=== PATIENT | female | born 1970 | race Caucasian/White ===

== ENCOUNTER → 2017-12-13 10:12 | Outpatient (CLI) | payer OTHER, SELFPAY ==
--- NOTE | 2017-12-13 10:20 | MRI_ITS ---
STUDY: MRI CERVICAL SPINE WITHOUT CONTRAST REASON FOR EXAM: Female, 47 years old. Cervicalgia TECHNIQUE: Standardized fat and water weighted pulse sequences were obtained in the sagittal and axial planes. COMPARISON: None FINDINGS: Normal foramen magnum and brainstem-cervical cord junction. Normal craniovertebral junction. Normal anterior atlantoaxial articulation. Normal odontoid process. Normal cervical lordosis. Normal vertebral bodies and posterior osseous elements. C2-3: Normal endplates. Normal disc height, signal and morphology. Normal central canal and intervertebral neural foramina. C3-4: Normal endplates. Normal disc height, signal and morphology. Normal central canal and intervertebral neural foramina. C4-5: Disc space narrowing. Disc osteophyte complex with mild central canal and moderate right and mild left foraminal stenoses. C5-6: Disc space narrowing. Disc osteophyte complex with mild central canal and moderate bilateral foraminal stenoses. C6-7: Normal endplates. Normal disc height, signal and morphology. Normal central canal and intervertebral neural foramina. C7-T1: Normal endplates. Normal disc height, signal and morphology. Normal central canal and intervertebral neural foramina. Normal cervical cord. Normal visualized soft tissue structures. MRI/Spine Cervical (Routine) IMPRESSION: Degenerative disc disease at C4-5 and C5-6. Moderate foraminal stenoses on the right at C4-5 and bilaterally at C5-6. Electronically Signed: Jose Sumner MD at 12:24 EST Tel , Service support ,
== END ==
PROVIDERS: Family Provider Family Medicine; PCP Family Medicine; Visit Provider Psychiatry & Neurology Neurology
DX: M54.2 Cervicalgia (principal)
CPT/HCPCS: 72141

== ENCOUNTER → 2017-12-27 11:26 | Outpatient (CLI) | payer OTHER, SELFPAY ==
[2017-12-27 14:15] LABS: Absolute Lymphocyte Count 2.09 X10^3/ul (0.83-4.51); Absolute Neutrophil Count 6.9 X10^3/uL (2.0-7.7); Basophil# 0.01 X10^3/uL; Basophil% 0.1 % (0-1); Eosinophil# 0.17 X10^3/uL; Eosinophils% 1.7 % (0-5); Hematocrit 35.4 % (37-47); Hemoglobin 10.6 g/dl (12.0-15.0); Lymphocyte # 2.09 X10^3/ul (4.0); Lymphocyte % 21.3 % (19-41); Mean Corp Hgb Conc 29.9 g/gl (32-36); Mean Corpuscular Hgb 25.6 pg (27.0-32.0); Mean Corpuscular Volume 85.5 fL (81-99); Mean Platelet Vol. 10.4 fl (6.2-12.0); Monocyte# 0.65 X10^3/uL; Monocyte% 6.6 % (0-10); Neutrophil % 70.2 % (47-70); POSITIVE COUNT NO; POSITIVE DIFFERENTIAL NO; POSITIVE MORPHOLOGY NO; Platelet Count 236 K/mm3 (150-450); RBC Distribution Width CV 16.9 % (11.6-14.6); RBC Distribution Width SD 52.8 fl (35.1-43.9); Red Blood Count 4.14 M/mm3 (4.2-5.4); White Blood Count 9.8 K/mm3 (4.4-11.0)
[2017-12-27 14:34] LABS: ALB/GLOB Ratio 0.8 RATIO (0.9-2.4); AST(SGOT) 22 U/L (15-37); Alanine Aminotransfer ALT/SGPT 22 U/L (13-56); Albumin, Serum 2.9 g/dL (3.2-5.0); Alkaline Phosphatase 59 U/L (45-117); Anion Gap 8 (5-15); BUN 10 mg/dL (7-18); BUN/Creat Ratio 12.9 RATIO (10-20); Calcium,Total 7.9 mg/dL (8.5-10.1); Chloride 106 mmol/L (98-107); Creatinine, Serum 0.78 mg/dL (0.55-1.02); EST Glomerular Filtration Rate 85 mL/min (>60); Est Glom Filt Rate - Afr Amer 102 mL/min (>60); Globulin 3.5 g/dL (2.2-4.2); Glucose 78 mg/dL (74-106); Potassium 3.9 mmol/L (3.5-5.1); Protein, Total 6.4 g/dL (6.4-8.2); Sodium Level 139 mmol/L (136-145)
== END ==
PROVIDERS: Family Provider Family Medicine; PCP Family Medicine; Visit Provider Internal Medicine Rheumatology
DX: M06.4 Inflammatory polyarthropathy (principal); M79.7 Fibromyalgia; M35.00 Sjogren syndrome, unspecified; H35.30 Unspecified macular degeneration; J45.909 Unspecified asthma, uncomplicated; G43.909 Migraine, unspecified, not intractable, without status migrainosus; F41.9 Anxiety disorder, unspecified; Z79.899 Other long term (current) drug therapy
CPT/HCPCS: 36415; 80053; 85025

== ENCOUNTER → 2018-03-15 09:42 | Outpatient (CLI) | payer OTHER, SELFPAY ==
[2018-03-15 12:12] LABS: Absolute Lymphocyte Count 2.76 X10^3/ul (0.83-4.51); Basophil# 0.02 X10^3/uL; Basophil% 0.2 % (0-1); Eosinophil# 0.08 X10^3/uL; Eosinophils% 0.8 % (0-5); Hematocrit 35.5 % (37-47); Hemoglobin 10.8 g/dl (12.0-15.0); Lymphocyte # 2.76 X10^3/ul (4.0); Lymphocyte % 28.5 % (19-41); Mean Corp Hgb Conc 30.4 g/gl (32-36); Mean Corpuscular Hgb 25.8 pg (27.0-32.0); Mean Corpuscular Volume 84.9 fL (81-99); Mean Platelet Vol. 11.2 fl (6.2-12.0); Monocyte# 0.78 X10^3/uL; Neutrophil # 6.03 X10^3/uL (2.7-7.7); Neutrophil % 62.2 % (47-70); Platelet Count 235 K/mm3 (150-450); RBC Distribution Width CV 18.5 % (11.6-14.6); RBC Distribution Width SD 54.9 fl (35.1-43.9); Red Blood Count 4.18 M/mm3 (4.2-5.4); White Blood Count 9.7 K/mm3 (4.4-11.0)
[2018-03-15 12:24] LABS: POSITIVE COUNT NO; POSITIVE DIFFERENTIAL NO; POSITIVE MORPHOLOGY NO
[2018-03-15 13:07] LABS: ALB/GLOB Ratio 0.9 RATIO (0.9-2.4); AST(SGOT) 20 U/L (15-37); Alanine Aminotransfer ALT/SGPT 22 U/L (13-56); Albumin, Serum 3.2 g/dL (3.2-5.0); Alkaline Phosphatase 55 U/L (45-117); Anion Gap 7 (5-15); BUN 13 mg/dL (7-18); Calcium,Total 8.2 mg/dL (8.5-10.1); Chloride 105 mmol/L (98-107); Creatinine, Serum 0.81 mg/dL (0.55-1.02); EST Glomerular Filtration Rate 80 mL/min (>60); Est Glom Filt Rate - Afr Amer 97 mL/min (>60); Globulin 3.6 g/dL (2.2-4.2); Glucose 83 mg/dL (74-106); Potassium 4.1 mmol/L (3.5-5.1); Protein, Total 6.8 g/dL (6.4-8.2); Sodium Level 139 mmol/L (136-145)
== END ==
PROVIDERS: Family Provider Family Medicine; PCP Family Medicine; Visit Provider Internal Medicine Rheumatology
DX: M06.4 Inflammatory polyarthropathy (principal); M35.00 Sjogren syndrome, unspecified; H35.30 Unspecified macular degeneration; M79.7 Fibromyalgia; J45.909 Unspecified asthma, uncomplicated; F41.9 Anxiety disorder, unspecified; G43.909 Migraine, unspecified, not intractable, without status migrainosus; Z79.899 Other long term (current) drug therapy
CPT/HCPCS: 36415; 80053; 85025

== ENCOUNTER → 2018-03-21 15:47 | Outpatient (CLI) | payer OTHER, SELFPAY ==
--- NOTE | 2018-03-21 15:47 | DT_ITS ---
This patient was seen during an EMR downtime March 21, 2018 - March 28, 2018. This patient may have a combination of paper and electronic documentation or all paper documentation. All documentation is viewable within the e-chart portion of [email or web address] for each patient visit.
--- NOTE | 2018-03-21 15:50 | RAD_ITS ---
STUDY: X-RAY CHEST REASON FOR EXAM: Female, 47 years old. Inflammatory arthropathy. TECHNIQUE: Frontal and lateral views of the chest. COMPARISON: September 18, 2013 FINDINGS: There is stable mild hyperexpansion. There is no demonstrated pleural abnormality. Normal size heart. Normal mediastinum and roman. Normal visualized pulmonary arteries. Normal visualized aortic arch and descending thoracic aorta. There are diffuse degenerative changes of the visualized thoracic spine. Normal visualized ribs, clavicles, and shoulders. There is no demonstrated abnormality of the visualized soft tissue structures of the upper abdomen. RAD/Chest PA and Lateral IMPRESSION: Stable mild hyperexpansion without acute or active cardiopulmonary disease. Electronically Signed: Alex Nguyen MD at 17:30 EDT , Service support ,
== END ==
PROVIDERS: Family Provider Family Medicine; PCP Family Medicine; Visit Provider Internal Medicine Rheumatology
DX: M06.4 Inflammatory polyarthropathy (principal); M79.7 Fibromyalgia; M35.00 Sjogren syndrome, unspecified; H35.30 Unspecified macular degeneration; J45.909 Unspecified asthma, uncomplicated; F41.9 Anxiety disorder, unspecified; G43.909 Migraine, unspecified, not intractable, without status migrainosus; Z79.899 Other long term (current) drug therapy
CPT/HCPCS: 36415; 71046; 86480

== ENCOUNTER → 2018-07-05 10:52 | Outpatient (CLI) | payer OTHER, SELFPAY ==
[2018-07-05 12:17] LABS: Absolute Lymphocyte Count 0.97 X10^3/ul (0.83-4.51); Absolute Neutrophil Count 8.4 X10^3/uL (2.0-7.7); Basophil# 0.01 X10^3/uL; Basophil% 0.1 % (0-1); Eosinophil# 0.01 X10^3/uL; Eosinophils% 0.1 % (0-5); Hematocrit 37.3 % (37-47); Hemoglobin 11.2 g/dl (12.0-15.0); Lymphocyte # 0.97 X10^3/ul (4.0); Lymphocyte % 10.1 % (19-41); Mean Corpuscular Hgb 25.1 pg (27.0-32.0); Mean Corpuscular Volume 83.6 fL (81-99); Mean Platelet Vol. 10.8 fl (6.2-12.0); Monocyte# 0.21 X10^3/uL; Monocyte% 2.2 % (0-10); Neutrophil # 8.41 X10^3/uL (2.7-7.7); Neutrophil % 87.4 % (47-70); Platelet Count 193 K/mm3 (150-450); RBC Distribution Width CV 19.8 % (11.6-14.6); Red Blood Count 4.46 M/mm3 (4.2-5.4); White Blood Count 9.6 K/mm3 (4.4-11.0)
[2018-07-05 12:30] LABS: ALB/GLOB Ratio 0.9 RATIO (0.9-2.4); AST(SGOT) 20 U/L (15-37); Alanine Aminotransfer ALT/SGPT 25 U/L (13-56); Albumin, Serum 3.2 g/dL (3.2-5.0); Alkaline Phosphatase 48 U/L (45-117); Anion Gap 9 (5-15); BUN 13 mg/dL (7-18); Calcium,Total 9.3 mg/dL (8.5-10.1); Chloride 103 mmol/L (98-107); Creatinine, Serum 0.81 mg/dL (0.55-1.02); EST Glomerular Filtration Rate 80 mL/min (>60); Est Glom Filt Rate - Afr Amer 97 mL/min (>60); Globulin 3.7 g/dL (2.2-4.2); Glucose 97 mg/dL (74-106); Potassium 4.4 mmol/L (3.5-5.1); Protein, Total 6.9 g/dL (6.4-8.2); Sodium Level 138 mmol/L (136-145)
[2018-07-05 12:31] LABS: POSITIVE COUNT NO; POSITIVE DIFFERENTIAL NO; POSITIVE MORPHOLOGY NO
== END ==
PROVIDERS: Family Provider Family Medicine; PCP Family Medicine; Visit Provider Internal Medicine Rheumatology
DX: M06.4 Inflammatory polyarthropathy (principal); M79.7 Fibromyalgia; M35.00 Sjogren syndrome, unspecified; H35.30 Unspecified macular degeneration; J45.909 Unspecified asthma, uncomplicated; F41.9 Anxiety disorder, unspecified; G43.909 Migraine, unspecified, not intractable, without status migrainosus; Z79.899 Other long term (current) drug therapy
CPT/HCPCS: 36415; 80053; 85025

== ENCOUNTER → 2018-09-27 10:14 | Outpatient (CLI) | payer OTHER, SELFPAY ==
[2018-09-27 12:27] LABS: Absolute Lymphocyte Count 2.38 X10^3/ul (0.83-4.51); Absolute Neutrophil Count 5.9 X10^3/uL (2.0-7.7); Basophil# 0.03 X10^3/uL; Basophil% 0.3 % (0-1); Eosinophil# 0.15 X10^3/uL; Eosinophils% 1.6 % (0-5); Hematocrit 36.2 % (37-47); Hemoglobin 10.6 g/dl (12.0-15.0); Lymphocyte # 2.38 X10^3/ul (4.0); Mean Corp Hgb Conc 29.3 g/gl (32-36); Mean Corpuscular Volume 81.9 fL (81-99); Mean Platelet Vol. 11.1 fl (6.2-12.0); Monocyte# 0.62 X10^3/uL; Monocyte% 6.8 % (0-10); Neutrophil # 5.94 X10^3/uL (2.7-7.7); Platelet Count 185 K/mm3 (150-450); RBC Distribution Width CV 19.6 % (11.6-14.6); RBC Distribution Width SD 56.6 fl (35.1-43.9); Red Blood Count 4.42 M/mm3 (4.2-5.4); White Blood Count 9.2 K/mm3 (4.4-11.0)
[2018-09-27 12:36] LABS: POSITIVE COUNT NO; POSITIVE DIFFERENTIAL NO; POSITIVE MORPHOLOGY NO
[2018-09-27 12:54] LABS: ALB/GLOB Ratio 0.8 RATIO (0.9-2.4); AST(SGOT) 17 U/L (15-37); Alanine Aminotransfer ALT/SGPT 21 U/L (13-56); Albumin, Serum 3.2 g/dL (3.2-5.0); Alkaline Phosphatase 64 U/L (45-117); Anion Gap 5 (5-15); BUN 20 mg/dL (7-18); BUN/Creat Ratio 22.6 RATIO (10-20); Calcium,Total 8.4 mg/dL (8.5-10.1); Chloride 107 mmol/L (98-107); Creatinine, Serum 0.88 mg/dL (0.55-1.02); EST Glomerular Filtration Rate 72 mL/min (>60); Est Glom Filt Rate - Afr Amer 88 mL/min (>60); Globulin 3.9 g/dL (2.2-4.2); Glucose 85 mg/dL (74-106); Potassium 4.5 mmol/L (3.5-5.1); Protein, Total 7.1 g/dL (6.4-8.2); Sodium Level 139 mmol/L (136-145)
--- OUTSIDE RECORDS SUMMARY | 2018-11-13 10:30 | XMS RPT_ITS ---
:1970 Author Organization OHIP Care Team Providers Name Role Phone Aida Mata Attending Unavailable Aida Mata Referring Unavailable Lance Deng Primary Care Unavailable Osito Penaloza Attending Unavailable Osito Penaloza Referring Unavailable Lance Deng Primary Care Unavailable Aida Mata Attending Unavailable Aida Mata Referring Unavailable Lance Deng Primary Care Unavailable Aida Mata Attending Unavailable Aida Mata Referring Unavailable Lance Deng Primary Care Unavailable Adolfo Aida Attending Unavailable Yakovdejah, Aida Referring Unavailable Lance Deng Primary Care Unavailable Velmindydejah, Aida Attending Unavailable Yakovdejah, Aida Referring Unavailable Lance Deng Primary Care Unavailable PROBLEMS PROBLEMS DATE TYPE CONDITION / CODE ATTENDING STATUS SOURCE 09/27/2018 Unknown M06.09 - Rheumatoid Adolfo Aida Active [facility] arthritis without Community rheumatoid factor, Hospital multiple sites / Repository M06.09(ICD-10) 09/27/2018 Unknown Z79.899 - Other long Jamshidlandejah, Aida Active [facility] term (current) drug Community therapy / Hospital Z79.899(ICD-10) Repository 09/27/2018 Unknown M79.7 - Fibromyalgia Vellandejah, Aida Active [facility] / M79.7(ICD-10) [facility] Repository 09/27/2018 Unknown M35.00 - Sicca Velniru, Aida Active [facility] syndrome, unspecified Community / M35.00(ICD-10) Hospital Repository 09/27/2018 Unknown H35.30 - Unspecified Vellandejah, Aida Active [facility] macular degeneration Community / H35.30(ICD-10) Hospital Repository 09/27/2018 Unknown J45.909 - Unspecified Vellandejah, Aida Active [facility] asthma, uncomplicated Community / J45.909(ICD-10) Hospital Repository 09/27/2018 Unknown F41.9 - Anxiety Vellandejah, Aida Active [facility] disorder, unspecified Community / F41.9(ICD-10) Hospital Repository 09/27/2018 Unknown G43.909 - Migraine, Jamshidlandejah, Aida Active [facility] unspecified, not Community intractable, without Hospital status migrainosus / Repository G43.909(ICD-10) 07/05/2018 Unknown 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, 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 / Community M06.4(ICD-10) Hospital Repository 12/13/2017 Unknown M54.2 - Cervicalgia / Bavis Osito Active [facility] M54.2(ICD-10) [facility] Repository PROCEDURES PROCEDURES No Procedure Records FoundRESULTS RESULTS CBC W/DIFF, AUTOMATED Collected: 09/27/2018 Status: F Source: [place] 10:22 AM [facility] REPOSITORY TYPE CODE TESTS RESULT OUT OF RANGE REFERENCE UNITS LAB L100.1000 4.4-11.0 K/mm3 Normal WBC 9.2 LAB L100.1200 4.2-5.4 M/mm3 Normal RBC 4.42 LAB L100.1300 12.0-15.0 g/dl Low HGB 10.6 LAB L100.1400 37-47 % Low HCT 36.2 LAB L100.1500 81-99 fL Normal MCV 81.9 LAB L100.1600 27.0-32.0 pg Low MCH 24.0 LAB L100.1700 32-36 g/gl Low MCHC 29.3 LAB L100.1810 11.6-14.6 % High RDW CV 19.6 LAB L100.1820 35.1-43.9 fl High RDW SD 56.6 LAB L100.1900 150-450 K/mm3 Normal PLT 185 LAB L100.2000 6.2-12.0 fl Normal MPV 11.1 LAB L100.2100 47-70 % Normal NEUT% 65.0 LAB L100.2200 19-41 % Normal LY% 26.0 LAB L100.2300 0-10 % Normal MONO% 6.8 LAB L100.2400 0-5 % Normal EO% 1.6 LAB L100.2500 0-1 % Normal BASO% 0.3 LAB L100.2550 0.0-0.9 % Normal IM GRAN % 0.300 Result Comment: IG% - Immature Granulocytes (promyelocytes, myelocytes and metamyelocytes) > 1% indicates that a LEFT SHIFT is Present. LAB L100.2620 2.0-7.7 X10 3/uL Normal Absolute Neut 5.9 LAB L100.2720 0.83-4.51 X10 3/ul Normal Absolute Lymph 2.38 Performed By: #### L100.0100 #### [facility] [address] [place], [place], [id number] COMPREHENSIVE METABOLIC Collected: 09/27/2018 Status: F [facility] 10:22 AM [facility] REPOSITORY TYPE CODE TESTS RESULT OUT OF RANGE REFERENCE UNITS LAB L501.0100 74-106 mg/dL Normal GLU 85 Result Comment: Please note revised GLUCOSE reference range effective 2017. LAB L501.1000 7-18 mg/dL High BUN 20 LAB L501.1100 0.55-1.02 mg/dL Normal CREAT,SERUM 0.88 Result Comment: The validity of the calculated GFR AND GFRAA in patients over 70 years has not been determined. Clinical correlation is essential. LAB L501.1110 >60 mL/min Normal EST GFR 72 Result Comment: Non- GFR Calc LAB L501.1115 >60 mL/min Normal EST GFR - AA 88 Result Comment: GFR Calc LAB L501.1300 10-20 RATIO High BUN/CRE 22.6 LAB L501.1500 6.4-8.2 g/dL T Normal PROT 7.1 LAB L501.1800 3.2-5.0 g/dL Normal ALB 3.2 LAB L501.1950 2.2-4.2 g/dL Normal GLOB 3.9 LAB L501.2000 0.9-2.4 RATIO Low A/G 0.8 LAB L501.2200 8.5-10.1 mg/dL Low CA 8.4 LAB L501.4100 15-37 U/L Normal AST 17 LAB L501.4305 45-117 U/L Normal ALK P 64 LAB L501.4405 13-56 U/L Normal ALT 21 LAB L501.4600 0.20-1.00 mg/dL T Normal BILI 0.40 LAB L501.5300 136-145 mmol/L NA Normal 139 LAB L501.5600 3.5-5.1 mmol/L K Normal 4.5 LAB L501.5900 98-107 mmol/L CL Normal 107 LAB L501.6100 21.0-32.0 mmol/L Normal CO2 27.0 LAB L501.6200 5-15 Normal GAP 5 Performed By: #### L500.4050 #### [facility] [address] [facility] [place], [address] PROGRESS Observed: 07/17/2018 Status: COMPLETED Source: [place] 11:57 AM [facility] REPOSITORY HNO ID: [id number] Author: Mulu Chambers) Tolu Service: (none) Author Type: Physician Java Systems Analyst Type: Progress Notes Filed: 07/17/2018 12:00 PM Note Text: Subjective Nasal Congestion Associated symptoms include congestion and coughing. Pertinent negatives include no chills or shortness of breath. Pt presents with cough congestion and wheezing for 2 weeks. She thought at first it was Cold or allergies but hasn't improved. She is a former smoker quit 17 years a go and she has asthma. She does not have an albuterol mdi at home, she has advair. No nvd. No chest pain or shortness of breath. No shortness of breath Cough has been dry. Review of Systems Constitutional: Negative. Negative for chills and fever. HENT: Positive for congestion. Eyes: Negative. Respiratory: Positive for cough and wheezing. Negative for hemoptysis, sputum production and shortness of breath. Cardiovascular: Negative. Gastrointestinal: Negative. Genitourinary: Negative. Skin: Negative. All other systems reviewed and are negative. PAST MEDICAL HISTORY Diagnosis Date - Abscess of buttock, left - Anxiety and depression - Asthma - IBS (irritable bowel syndrome) Current Outpatient Prescriptions: methotrexate 2.5 mg tablet Take by mouth one time only. Disp: Rfl: pregabalin (LYRICA) 100 mg capsule Take 100 mg by mouth twice daily. Disp: Rfl: adalimumab (HUMIRA) 40 mg/0.4 mL sykt Inject subcutaneously. Disp: Rfl: tiZANidine HCl 2 mg capsule Take 2 mg by mouth three times daily. Disp: Rfl: cycloSPORINE (RESTASIS) 0.05 % ophthalmic emulsion 1 Drop twice daily. Disp: Rfl: metoclopramide HCl (REGLAN) 10 mg tablet Take 10 mg by mouth four times daily. Disp: Rfl: diphenhydrAMINE 25 mg tablet Take 25 mg by mouth every 6 hours as needed. Disp: Rfl: POLYVINYL ALCOHOL/POVIDONE (ARTIFICIAL TEARS OPHTHALMIC) Use in eyes. Disp: Rfl: ALBUTEROL INHALATION Inhale as instructed. Disp: Rfl: diphenoxylate-atropine 2.5-0.025 mg per tablet Take 1 tablet by mouth four times daily as needed. Disp: Rfl: 0 buPROPion XL (WELLBUTRIN XL) 300 mg ORAL 24 hr tablet Take 300 mg by mouth once daily. Disp: Rfl: ADVAIR DISKUS 100-50 mcg/dose INHALATION DsDv Disp: Rfl: MULTIVITAMIN WITH MINERALS (MULTIVITAMIN AND MINERAL FORMULA ORAL) Take by mouth. Disp: Rfl: Iron 40 mg ORAL Cap Take by mouth. Disp: Rfl: doxycycline (VIBRA-TABS) 100 mg tablet Take 1 tablet by mouth twice daily for 10 days. Disp: 20 tablet Rfl: 0 predniSONE (DELTASONE) 20 mg tablet Take 2 tablets by mouth once daily for 5 days. Disp: 10 tablet Rfl: 0 albuterol HFA (VENTOLIN HFA) 90 mcg/actuation inhaler Inhale 2 Puffs as instructed every 4 hours as needed for Wheezing/Shortness of Breath. Disp: 1 Inhaler Rfl: 0 benzonatate (TESSALON PERLES) 100 mg capsule Take 2 capsules by mouth three times daily as needed. Disp: 30 capsule Rfl: 0 TOPIRAMATE (TOPAMAX ORAL) Take 20 mg by mouth. Disp: Rfl: Ferrous Fumarate 324 mg (106 mg iron) tab Take by mouth. Disp: Rfl: oxyCODONE-acetaminophen (PERCOCET) 5-325 mg tablet Take 1 tablet by mouth every 4 hours as needed. Disp: 30 tablet Rfl: 0 acetaminophen-HYDROcodone 5-500 mg tablet Take 1-2 tablets by mouth every 4 hours as needed. Disp: 40 tablet Rfl: 1 acetaminophen-HYDROcodone 5-500 mg tablet Take 1 tablet by mouth every 4 hours as needed. Disp: Rfl: 0 LEXAPRO 20 mg ORAL tablet Disp: Rfl: TRAZODONE 50 mg ORAL tablet Disp: Rfl: No current facility-administered medications for this visit. PAST SURGICAL HISTORY Procedure Laterality Date - DELIVERY ONLY 03/02/02 - GASTRIC BYPASS HX 03/17/06 - I AND D ABSCESS, SINGLE 12/12/11 left buttock - LAP CHOLECYSTECT/CHOLANGIOGRAPHY 08/16/12 Normal IOC - PAST SURGICAL HISTORY OF vein stripping left FAMILY HISTORY Problem Relation Age of Onset - Allergies Sister - Heart Father - Hypertension Father Social History Substance Use Topics - Smoking status: Former Smoker Packs/day: 1.00 Years: 10.00 Types: Cigarettes Quit date: 07/18/2001 - Smokeless tobacco: Never Used - Alcohol use Yes Comment: twice per week BP 126/84 Pulse 70 Temp 36.4 ?C (97.6 ?F) (Right Tympanic) Resp 12 Wt 74.4 kg (164 lb) SpO2 97% BMI 32.03 kg/m? Objective Physical Exam Constitutional: She is oriented to person, place, and time and well-developed, well-nourished, and in no distress. HENT: Head: Normocephalic and atraumatic. Right Ear: Tympanic membrane, external ear and ear canal normal. Left Ear: Tympanic membrane, external ear and ear canal normal. Nose: Rhinorrhea present. Mouth/Throat: Uvula is midline, oropharynx is clear and moist and mucous membranes are normal. Neck: Normal range of motion. Neck supple. Cardiovascular: Normal rate, regular rhythm and normal heart sounds. Pulmonary/Chest: Effort normal and breath sounds normal. Hoarse voice noted Lymphadenopathy: She has no cervical adenopathy. Neurological: She is alert and oriented to person, place, and time. Skin: Skin is warm and dry. Psychiatric: Affect and judgment normal. Nursing note and vitals reviewed. ASSESSMENT/PLAN: 1. Acute bronchitis, unspecified organism - ICD9: 466.0, ICD10: J20.9 tx with prednisone, doxycycline, tessalon and albuterol mdi. Discussed with patient concerning symptoms to go to the emergency department or follow up here. Pt agreeable with this plan. Mulu Wells PA-C CNOV Observed: 07/17/2018 Status: COMPLETED Source: [place] 10:00 AM [facility] REPOSITORY Office Visit ([facility]) MARY SHERMAN ([id number]) 1970 F Date Time Provider Department 07/17/18 10:00 AM MULU WELLS ([place]) [facility] During your visit today, we recorded the following information about you: Temperature Pulse Respiration Blood pressure 97.6 degrees 70/minute 12/minute 126/84 Weight 74.4 kg Mulu Wells PA-C 07/17/2018 12:00 PM Signed Subjective Nasal Congestion Associated symptoms include congestion and coughing. Pertinent negatives include no chills or shortness of breath. Pt presents with cough congestion and wheezing for 2 weeks. She thought at first it was Cold or allergies but hasn't improved. She is a former smoker quit 17 years a go and she has asthma. She does not have an albuterol mdi at home, she has advair. No nvd. No chest pain or shortness of breath. No shortness of breath Cough has been dry. Review of Systems Constitutional: Negative. Negative for chills and fever. HENT: Positive for congestion. Eyes: Negative. Respiratory: Positive for cough and wheezing. Negative for hemoptysis, sputum production and shortness of breath. Cardiovascular: Negative. Gastrointestinal: Negative. Genitourinary: Negative. Skin: Negative. All other systems reviewed and are negative. PAST MEDICAL HISTORY Diagnosis Date - Abscess of buttock, left - Anxiety and depression - Asthma - IBS (irritable bowel syndrome) Current Outpatient Prescriptions: methotrexate 2.5 mg tablet Take by mouth one time only. Disp: Rfl: pregabalin (LYRICA) 100 mg capsule Take 100 mg by mouth twice daily. Disp: Rfl: adalimumab (HUMIRA) 40 mg/0.4 mL sykt Inject subcutaneously. Disp: Rfl: tiZANidine HCl 2 mg capsule Take 2 mg by mouth three times daily. Disp: Rfl: cycloSPORINE (RESTASIS) 0.05 % ophthalmic emulsion 1 Drop twice daily. Disp: Rfl: metoclopramide HCl (REGLAN) 10 mg tablet Take 10 mg by mouth four times daily. Disp: Rfl: diphenhydrAMINE 25 mg tablet Take 25 mg by mouth every 6 hours as needed. Disp: Rfl: POLYVINYL ALCOHOL/POVIDONE (ARTIFICIAL TEARS OPHTHALMIC) Use in eyes. Disp: Rfl: ALBUTEROL INHALATION Inhale as instructed. Disp: Rfl: diphenoxylate-atropine 2.5-0.025 mg per tablet Take 1 tablet by mouth four times daily as needed. Disp: Rfl: 0 buPROPion XL (WELLBUTRIN XL) 300 mg ORAL 24 hr tablet Take 300 mg by mouth once daily. Disp: Rfl: ADVAIR DISKUS 100-50 mcg/dose INHALATION DsDv Disp: Rfl: MULTIVITAMIN WITH MINERALS (MULTIVITAMIN AND MINERAL FORMULA ORAL) Take by mouth. Disp: Rfl: Iron 40 mg ORAL Cap Take by mouth. Disp: Rfl: doxycycline (VIBRA-TABS) 100 mg tablet Take 1 tablet by mouth twice daily for 10 days. Disp: 20 tablet Rfl: 0 predniSONE (DELTASONE) 20 mg tablet Take 2 tablets by mouth once daily for 5 days. Disp: 10 tablet Rfl: 0 albuterol HFA (VENTOLIN HFA) 90 mcg/actuation inhaler Inhale 2 Puffs as instructed every 4 hours as needed for Wheezing/Shortness of Breath. Disp: 1 Inhaler Rfl: 0 benzonatate (TESSALON PERLES) 100 mg capsule Take 2 capsules by mouth three times daily as needed. Disp: 30 capsule Rfl: 0 TOPIRAMATE (TOPAMAX ORAL) Take 20 mg by mouth. Disp: Rfl: Ferrous Fumarate 324 mg (106 mg iron) tab Take by mouth. Disp: Rfl: oxyCODONE-acetaminophen (PERCOCET) 5-325 mg tablet Take 1 tablet by mouth every 4 hours as needed. Disp: 30 tablet Rfl: 0 acetaminophen-HYDROcodone 5-500 mg tablet Take 1-2 tablets by mouth every 4 hours as needed. Disp: 40 tablet Rfl: 1 acetaminophen-HYDROcodone 5-500 mg tablet Take 1 tablet by mouth every 4 hours as needed. Disp: Rfl: 0 LEXAPRO 20 mg ORAL tablet Disp: Rfl: TRAZODONE 50 mg ORAL tablet Disp: Rfl: No current facility-administered medications for this visit. PAST SURGICAL HISTORY Procedure Laterality Date - DELIVERY ONLY 03/02/02 - GASTRIC BYPASS HX 03/17/06 - I AND D ABSCESS, SINGLE 12/12/11 left buttock - LAP CHOLECYSTECT/CHOLANGIOGRAPHY 08/16/12 Normal IOC - PAST SURGICAL HISTORY OF vein stripping left FAMILY HISTORY Problem Relation Age of Onset - Allergies Sister - Heart Father - Hypertension Father Social History Substance Use Topics - Smoking status: Former Smoker Packs/day: 1.00 Years: 10.00 Types: Cigarettes Quit date: 07/18/2001 - Smokeless tobacco: Never Used - Alcohol use Yes Comment: twice per week BP 126/84 Pulse 70 Temp 36.4 ?C (97.6 ?F) (Right Tympanic) Resp 12 Wt 74.4 kg (164 lb) SpO2 97% BMI 32.03 kg/m? Objective Physical Exam Constitutional: She is oriented to person, place, and time and well-developed, well-nourished, and in no distress. HENT: Head: Normocephalic and atraumatic. Right Ear: Tympanic membrane, external ear and ear canal normal. Left Ear: Tympanic membrane, external ear and ear canal normal. Nose: Rhinorrhea present. Mouth/Throat: Uvula is midline, oropharynx is clear and moist and mucous membranes are normal. Neck: Normal range of motion. Neck supple. Cardiovascular: Normal rate, regular rhythm and normal heart sounds. Pulmonary/Chest: Effort normal and breath sounds normal. Hoarse voice noted Lymphadenopathy: She has no cervical adenopathy. Neurological: She is alert and oriented to person, place, and time. Skin: Skin is warm and dry. Psychiatric: Affect and judgment normal. Nursing note and vitals reviewed. ASSESSMENT/PLAN: 1. Acute bronchitis, unspecified organism - ICD9: 466.0, ICD10: J20.9 tx with prednisone, doxycycline, tessalon and albuterol mdi. Discussed with patient concerning symptoms to go to the emergency department or follow up here. Pt agreeable with this plan. Mulu Wells PA-C Referring Provider: SELF [200] Allergies As of Date: 07/17/2018 (No Known Allergies) Date Reviewed: 07/17/2018 Reviewed by: Roxy Wyman Ma - Fully Assessed Reason for Visit: Nasal Congestion [235] Primary Visit Diagnosis:Acute bronchitis, unspecified organism [J20.9] Order(s):doxycycline (VIBRA-TABS) 100 mg tabletTake 1 tablet by mouth twice daily for 10 days.Disp: 20 tabletRfl: 0 predniSONE (DELTASONE) 20 mg tabletTake 2 tablets by mouth once daily for 5 days.Disp: 10 tabletRfl: 0 albuterol HFA (VENTOLIN HFA) 90 mcg/actuation inhalerInhale 2 Puffs as instructed every 4 hours as needed for Wheezing/Shortness of Breath.Disp: 1 InhalerRfl: 0 benzonatate (TESSALON PERLES) 100 mg capsuleTake 2 capsules by mouth three times daily as needed.Disp: 30 capsuleRfl: 0 Prescriptions as of 07/17/2018 Sig: METHOTREXATE SODIUM 2.5 MG TA* Take by mouth one time only. PREGABALIN 100 MG CAPSULE Take 100 mg by mouth twice da* ADALIMUMAB 40 MG/0.4 ML SUBCU* Inject subcutaneously. TIZANIDINE 2 MG CAPSULE Take 2 mg by mouth three time* CYCLOSPORINE 0.05 % EYE DROPS* 1 Drop twice daily. METOCLOPRAMIDE 10 MG TABLET Take 10 mg by mouth four time* DIPHENHYDRAMINE 25 MG TABLET Take 25 mg by mouth every 6 h* ARTIFICIAL TEARS OPHTHALMIC Use in eyes. * ALBUTEROL INHALATION Inhale as instructed. * DIPHENOXYLATE-ATROPINE 2.5 MG* Take 1 tablet by mouth four t* * BUPROPION XL 300 MG 24 HR TAB Take 300 mg by mouth once naye* * ADVAIR DISKUS 100 MCG-50 MCG/* * MULTIVITAMIN AND MINERAL FORMUL* Take by mouth. * IRON 40 MG CAPSULE Take by mouth. DOXYCYCLINE HYCLATE 100 MG TA* Take 1 tablet by mouth twice * PREDNISONE 20 MG TABLET Take 2 tablets by mouth once * ALBUTEROL SULFATE HFA 90 MCG/* Inhale 2 Puffs as instructed * BENZONATATE 100 MG CAPSULE Take 2 capsules by mouth thre* TOPAMAX ORAL Take 20 mg by mouth. FERROUS FUMARATE 324 MG (106 * Take by mouth. OXYCODONE-ACETAMINOPHEN 5 MG-* Take 1 tablet by mouth every * HYDROCODONE 5 MG-ACETAMINOPHE* Take 1-2 tablets by mouth bonnie* * HYDROCODONE 5 MG-ACETAMINOPHE* Take 1 tablet by mouth every * * LEXAPRO 20 MG TABLET * TRAZODONE 50 MG TABLET Problem List As Of Date 07/17/2018 Noted Resolved Calculus of gallbladder without mention of chol*INVALID FOR* RUQ pain [R10.11] INVALID FOR* Prescriptions ordered this encounter Disp Refills Start End DOXYCYCLINE HYCLATE 100 MG TABLET 20 t* 0 07/17/2018 07/27/2018 Route: ORAL Sig: Take 1 tablet by mouth twice daily for 10 days. PREDNISONE 20 MG TABLET 10 t* 0 07/17/2018 07/22/2018 Route: ORAL Sig: Take 2 tablets by mouth once daily for 5 days. ALBUTEROL SULFATE HFA 90 MCG/ACTUATI* 1 In* 0 07/17/2018 Route: INHALATION Sig: Inhale 2 Puffs as instructed every 4 hours as needed for Wheezing/Shortness of Breath. BENZONATATE 100 MG CAPSULE 30 c* 0 07/17/2018 Route: ORAL Sig: Take 2 capsules by mouth three times daily as needed. Encounter Status:Closed by MULU WELLS PA-C on 07/17/18 COMPREHENSIVE METABOLIC Collected: 07/05/2018 Status: F Source: [place] 10:57 AM [facility] REPOSITORY TYPE CODE TESTS RESULT OUT OF RANGE REFERENCE UNITS LAB L501.0100 74-106 mg/dL Normal GLU 97 Result Comment: Please note revised GLUCOSE reference range effective 2017. LAB L501.1000 7-18 mg/dL Normal BUN 13 LAB L501.1100 0.55-1.02 mg/dL Normal CREAT,SERUM 0.81 Result Comment: The validity of the calculated GFR AND GFRAA in patients over 70 years has not been determined. Clinical correlation is essential. LAB L501.1110 >60 mL/min Normal EST GFR 80 Result Comment: Non- GFR Calc LAB L501.1115 >60 mL/min Normal EST GFR - AA 97 Result Comment: GFR Calc LAB L501.1300 10-20 RATIO Normal BUN/CRE 16.0 LAB L501.1500 6.4-8.2 g/dL T Normal PROT 6.9 LAB L501.1800 3.2-5.0 g/dL Normal ALB 3.2 LAB L501.1950 2.2-4.2 g/dL Normal GLOB 3.7 LAB L501.2000 0.9-2.4 RATIO Normal A/G 0.9 LAB L501.2200 8.5-10.1 mg/dL CA Normal 9.3 LAB L501.4100 15-37 U/L Normal AST 20 LAB L501.4305 45-117 U/L Normal ALK P 48 LAB L501.4405 13-56 U/L Normal ALT 25 LAB L501.4600 0.20-1.00 mg/dL T Normal BILI 0.40 LAB L501.5300 136-145 mmol/L NA Normal 138 LAB L501.5600 3.5-5.1 mmol/L K Normal 4.4 LAB L501.5900 98-107 mmol/L CL Normal 103 LAB L501.6100 21.0-32.0 mmol/L Normal CO2 26.0 LAB L501.6200 5-15 Normal GAP 9 Performed By: #### L500.4050 #### [facility] [address] [place], [place], [address] CBC W/DIFF, AUTOMATED Collected: 07/05/2018 Status: F Source: [place] 10:57 AM [facility] REPOSITORY TYPE CODE TESTS RESULT OUT OF RANGE REFERENCE UNITS LAB L100.1000 4.4-11.0 K/mm3 Normal WBC 9.6 LAB L100.1200 4.2-5.4 M/mm3 Normal RBC 4.46 LAB L100.1300 12.0-15.0 g/dl Low HGB 11.2 LAB L100.1400 37-47 % Normal HCT 37.3 LAB L100.1500 81-99 fL Normal MCV 83.6 LAB L100.1600 27.0-32.0 pg Low MCH 25.1 LAB L100.1700 32-36 g/gl Low MCHC 30.0 LAB L100.1810 11.6-14.6 % High RDW CV 19.8 LAB L100.1820 35.1-43.9 fl High RDW SD 59.0 LAB L100.1900 150-450 K/mm3 Normal PLT 193 LAB L100.2000 6.2-12.0 fl Normal MPV 10.8 LAB L100.2100 47-70 % High NEUT% 87.4 LAB L100.2200 19-41 % Low LY% 10.1 LAB L100.2300 0-10 % Normal MONO% 2.2 LAB L100.2400 0-5 % Normal EO% 0.1 LAB L100.2500 0-1 % Normal BASO% 0.1 LAB L100.2550 0.0-0.9 % Normal IM GRAN % 0.100 Result Comment: IG% - Immature Granulocytes (promyelocytes, myelocytes and metamyelocytes) > 1% indicates that a LEFT SHIFT is Present. LAB L100.2620 2.0-7.7 X10 3/uL High Absolute Neut 8.4 LAB L100.2720 0.83-4.51 X10 3/ul Normal Absolute Lymph 0.97 Performed By: #### L100.0100 #### [facility] [address] [facility] [place], [address] DOWNTIME REPORT Observed: 04/07/2018 Status: F Source: [place] 1:11 PM [facility] REPOSITORY [facility] Medical Records Department [address] [place] [address] Downtime Report MR#: [id number] Acct: [id number] Name: MARY SHERMAN Rep #: [id number] : 1970 47 From: Srikanth Sapp PCP: Lance Deng DO Status: REG CLI This patient was seen during an EMR downtime March 21, 2018 - March 28, 2018. This patient may have a combination of paper and electronic documentation or all paper documentation. All documentation is viewable within the e-chart portion of [employer] for each patient visit. CHEST PA AND LATERAL Observed: 03/28/2018 Status: F Source: [place] 11:28 AM [facility] REPOSITORY [facility] Imaging Services [address] [place] [address] Chest PA and Lateral MR#: [id number] Acct: [id number] Name: MARY SHERMAN Rep #: [id number] : 1970 F 47 From: Alex Nguyen MD PCP: Lance Deng DO Status: REG CLI Study: Chest PA and Lateral Date of Exam: 03/21/18 Exam# [id number] Ordering Dr: Aida Mata MD STUDY: X-RAY CHEST REASON FOR EXAM: Female, 47 years old. Inflammatory arthropathy. TECHNIQUE: Frontal and lateral views of the chest. COMPARISON: September 18, 2013 FINDINGS: There is stable mild hyperexpansion. There is no demonstrated pleural abnormality. Normal size heart. Normal mediastinum and roman. Normal visualized pulmonary arteries. Normal visualized aortic arch and descending thoracic aorta. There are diffuse degenerative changes of the visualized thoracic spine. Normal visualized ribs, clavicles, and shoulders. There is no demonstrated abnormality of the visualized soft tissue structures of the upper abdomen. RAD/Chest PA and Lateral IMPRESSION: Stable mild hyperexpansion without acute or active cardiopulmonary disease. Electronically Signed: Alex Nguyen MD at 17:30 EDT , Service support , CC: Lance Deng DO; Aida Mata MD Hose Coupling Joiner: Signed QUANTIFERON TB-GOLD Collected: 03/21/2018 Status: F Source: [place] 4:16 PM [facility] REPOSITORY TYPE CODE TESTS RESULT OUT OF RANGE REFERENCE UNITS LAB L3400.7025 Normal QFT TB GOLD Result Comment: TEST RESULT LIMITS QuantiFERON Client Incubated QuantiFERON TB Gold Negative Negative The specimen received for QuantiFERON testing was incubated by the ordering institution. Specific procedures outlined in our Directory of Services and in the package insert for the QuantiFERON Gold (In Tube) test must be followed to enable for proper stimulation of cells for the production of interferon gamma. QuantiFERON Criteria To be considered positive a specimen should have a TB Ag minus Nil value greater than or equal to 0.35 IU/mL and in addition the TB Ag minus Nil value must be greater than or equal to 25% of the Nil value. There may be insufficient information in these values to differentiate between some negative and some indeterminate test values. QuantiFERON TB Ag Value 0.10 IU/mL QuantiFERON Nil Value 0.20 IU/mL QuantiFERON Mitogen Value >10.00 IU/mL QFT TB Ag minus Nil Value <0.00 IU/mL Interpretation: The QuantiFERON TB Gold (in Tube) assay is intended for use as an aid in the diagnosis of TB infection. Negative results suggest that there is no TB infection. In patients with high suspicion of exposure, a negative test should be repeated. A positive test indicates infection with Mycobacterium tuberculosis. Among individuals without tuberculosis infection, a positive test may be due to exposure to M. kansasii, M. szulgai or M. marinum. On the Internet, go to cdc.gov/tb for further details. TESTING PERFORMED AT [facility]. ORIGINAL REPORT ON FILE IN LAB CONTAINS ADDITIONAL TEST SITE INFORMATION. Performed By: #### L3400.7000 #### [facility] (refer to report for specific site) refer to report for address and phone number CBC W/DIFF, AUTOMATED Collected: 03/15/2018 Status: F Source: EVA 9:53 AM [facility] REPOSITORY TYPE CODE TESTS RESULT OUT OF RANGE REFERENCE UNITS LAB L100.1000 4.4-11.0 K/mm3 Normal WBC 9.7 LAB L100.1200 4.2-5.4 M/mm3 Low RBC 4.18 LAB L100.1300 12.0-15.0 g/dl Low HGB 10.8 LAB L100.1400 37-47 % Low HCT 35.5 LAB L100.1500 81-99 fL Normal MCV 84.9 LAB L100.1600 27.0-32.0 pg Low MCH 25.8 LAB L100.1700 32-36 g/gl Low MCHC 30.4 LAB L100.1810 11.6-14.6 % High RDW CV 18.5 LAB L100.1820 35.1-43.9 fl High RDW SD 54.9 LAB L100.1900 150-450 K/mm3 Normal PLT 235 LAB L100.2000 6.2-12.0 fl Normal MPV 11.2 LAB L100.2100 47-70 % Normal NEUT% 62.2 LAB L100.2200 19-41 % Normal LY% 28.5 LAB L100.2300 0-10 % Normal MONO% 8.0 LAB L100.2400 0-5 % Normal EO% 0.8 LAB L100.2500 0-1 % Normal BASO% 0.2 LAB L100.2550 0.0-0.9 % Normal IM GRAN % 0.300 Result Comment: IG% - Immature Granulocytes (promyelocytes, myelocytes and metamyelocytes) > 1% indicates that a LEFT SHIFT is Present. LAB L100.2620 2.0-7.7 X10 3/uL Normal Absolute Neut 6.0 LAB L100.2720 0.83-4.51 X10 3/ul Normal Absolute Lymph 2.76 Performed By: #### L100.0100 #### [facility] [address] [place], [place], [id number] COMPREHENSIVE METABOLIC Collected: 03/15/2018 Status: F Source: [facility] 9:53 AM [facility] REPOSITORY TYPE CODE TESTS RESULT OUT OF RANGE REFERENCE UNITS LAB L501.0100 74-106 mg/dL Normal GLU 83 Result Comment: Please note revised GLUCOSE reference range effective 2017. LAB L501.1000 7-18 mg/dL Normal BUN 13 LAB L501.1100 0.55-1.02 mg/dL Normal CREAT,SERUM 0.81 Result Comment: The validity of the calculated GFR AND GFRAA in patients over 70 years has not been determined. Clinical correlation is essential. LAB L501.1110 >60 mL/min Normal EST GFR 80 Result Comment: Non- GFR Calc LAB L501.1115 >60 mL/min Normal EST GFR - AA 97 Result Comment: GFR Calc LAB L501.1300 10-20 RATIO Normal BUN/CRE 16.0 LAB L501.1500 6.4-8.2 g/dL T Normal PROT 6.8 LAB L501.1800 3.2-5.0 g/dL Normal ALB 3.2 LAB L501.1950 2.2-4.2 g/dL Normal GLOB 3.6 LAB L501.2000 0.9-2.4 RATIO Normal A/G 0.9 LAB L501.2200 8.5-10.1 mg/dL Low CA 8.2 LAB L501.4100 15-37 U/L Normal AST 20 LAB L501.4305 45-117 U/L Normal ALK P 55 LAB L501.4405 13-56 U/L Normal ALT 22 LAB L501.4600 0.20-1.00 mg/dL T Normal BILI 0.40 LAB L501.5300 136-145 mmol/L NA Normal 139 LAB L501.5600 3.5-5.1 mmol/L K Normal 4.1 LAB L501.5900 98-107 mmol/L CL Normal 105 LAB L501.6100 21.0-32.0 mmol/L Normal CO2 27.0 LAB L501.6200 5-15 Normal GAP 7 Performed By: #### L500.4050 #### [facility] [address] [place], [address] CBC W/DIFF, AUTOMATED Collected: 12/27/2017 Status: F Source: EVA 11:38 AM [facility] REPOSITORY TYPE CODE TESTS RESULT OUT OF RANGE REFERENCE UNITS LAB L100.1000 4.4-11.0 K/mm3 Normal WBC 9.8 LAB L100.1200 4.2-5.4 M/mm3 Low RBC 4.14 LAB L100.1300 12.0-15.0 g/dl Low HGB 10.6 LAB L100.1400 37-47 % Low HCT 35.4 LAB L100.1500 81-99 fL Normal MCV 85.5 LAB L100.1600 27.0-32.0 pg Low MCH 25.6 LAB L100.1700 32-36 g/gl Low MCHC 29.9 LAB L100.1810 11.6-14.6 % High RDW CV 16.9 LAB L100.1820 35.1-43.9 fl High RDW SD 52.8 LAB L100.1900 150-450 K/mm3 Normal PLT 236 LAB L100.2000 6.2-12.0 fl Normal MPV 10.4 LAB L100.2100 47-70 % High NEUT% 70.2 LAB L100.2200 19-41 % Normal LY% 21.3 LAB L100.2300 0-10 % Normal MONO% 6.6 LAB L100.2400 0-5 % Normal EO% 1.7 LAB L100.2500 0-1 % Normal BASO% 0.1 LAB L100.2550 0.0-0.9 % Normal IM GRAN % 0.100 Result Comment: IG% - Immature Granulocytes (promyelocytes, myelocytes and metamyelocytes) > 1% indicates that a LEFT SHIFT is Present. LAB L100.2620 2.0-7.7 X10 3/uL Normal Absolute Neut 6.9 LAB L100.2720 0.83-4.51 X10 3/ul Normal Absolute Lymph 2.09 Performed By: #### L100.0100 #### [facility] [address] [place], [address] COMPREHENSIVE METABOLIC Collected: 12/27/2017 Status: F Source: [facility] 11:38 AM [facility] REPOSITORY TYPE CODE TESTS RESULT OUT OF RANGE REFERENCE UNITS LAB L501.0100 74-106 mg/dL Normal GLU 78 Result Comment: Please note revised GLUCOSE reference range effective 2017. LAB L501.1000 7-18 mg/dL Normal BUN 10 LAB L501.1100 0.55-1.02 mg/dL Normal CREAT,SERUM 0.78 Result Comment: The validity of the calculated GFR AND GFRAA in patients over 70 years has not been determined. Clinical correlation is essential. LAB L501.1110 >60 mL/min Normal EST GFR 85 Result Comment: Non- GFR Calc LAB L501.1115 >60 mL/min Normal EST GFR - AA 102 Result Comment: GFR Calc LAB L501.1300 10-20 RATIO Normal BUN/CRE 12.9 LAB L501.1500 6.4-8.2 g/dL T Normal PROT 6.4 LAB L501.1800 3.2-5.0 g/dL Low ALB 2.9 LAB L501.1950 2.2-4.2 g/dL Normal GLOB 3.5 LAB L501.2000 0.9-2.4 RATIO Low A/G 0.8 LAB L501.2200 8.5-10.1 mg/dL Low CA 7.9 LAB L501.4100 15-37 U/L Normal AST 22 LAB L501.4305 45-117 U/L Normal ALK P 59 LAB L501.4405 13-56 U/L Normal ALT 22 Result Comment: Please note revised ALT reference range effective 2017. LAB L501.4600 0.20-1.00 mg/dL Normal T BILI 0.30 LAB L501.5300 136-145 mmol/L Normal NA 139 LAB L501.5600 3.5-5.1 mmol/L Normal K 3.9 LAB L501.5900 98-107 mmol/L Normal CL 106 LAB L501.6100 21.0-32.0 mmol/L Normal CO2 25.0 LAB L501.6200 5-15 Normal GAP 8 Performed By: #### L500.4050 #### [facility] [address] [facility] [place] [facility] [place], [address] SPINE CERVICAL Observed: 12/13/2017 Status: F Source: [place] (ROUTINE) 10:20 AM [facility] REPOSITORY [facility] Imaging Services [address] [place] [address] Spine Cervical (Routine) MR#: [id number] Acct: [id number] Name: MARY SHERMAN Rep #: [id number] : 1970 F 47 From: Jose Sumner MD PCP: Lance Deng DO Status: REG CLI Study: Spine Cervical (Routine) Date of Exam: 12/13/17 Exam# [id number] Ordering Dr: Osito Penaloza MD STUDY: MRI CERVICAL SPINE WITHOUT CONTRAST REASON FOR EXAM: Female, 47 years old. Cervicalgia TECHNIQUE: Standardized fat and water weighted pulse sequences were obtained in the sagittal and axial planes. COMPARISON: None FINDINGS: Normal foramen magnum and brainstem-cervical cord junction. Normal craniovertebral junction. Normal anterior atlantoaxial articulation. Normal odontoid process. Normal cervical lordosis. Normal vertebral bodies and posterior osseous elements. C2-3: Normal endplates. Normal disc height, signal and morphology. Normal central canal and intervertebral neural foramina. C3-4: Normal endplates. Normal disc height, signal and morphology. Normal central canal and intervertebral neural foramina. C4-5: Disc space narrowing. Disc osteophyte complex with mild central canal and moderate right and mild left foraminal stenoses. C5-6: Disc space narrowing. Disc osteophyte complex with mild central canal and moderate bilateral foraminal stenoses. C6-7: Normal endplates. Normal disc height, signal and morphology. Normal central canal and intervertebral neural foramina. C7-T1: Normal endplates. Normal disc height, signal and morphology. Normal central canal and intervertebral neural foramina. Normal cervical cord. Normal visualized soft tissue structures. MRI/Spine Cervical (Routine) IMPRESSION: Degenerative disc disease at C4-5 and C5-6. Moderate foraminal stenoses on the right at C4-5 and bilaterally at C5-6. Electronically Signed: Jose Sumner MD at 12:24 EST Tel , Service support , CC: Lance Deng DO; Osito Penaloza MD Hose Coupling Joiner: Signed ALLERGIES ALLERGIES DATE TYPE / CODE NAME / CODE REACTION SEVERITY SOURCE Miscellaneous ENVIRONMENTAL Itching Unknown Eva 3 Allergy/[id number]( Community SNOMED CT) Hospital Repository Drug NO KNOWN ALLERGIES [place] Class/[id number]([facility] Main OMED CT) [place] Repository ENCOUNTERS ENCOUNTERS ADMIT/DISCHARGE ACCOUNT ADMITTING ENCOUNTER LOCATION SOURCE NUMBER CLASS 09/27/2018 [id number] [facility] ing:MTLAB Repository 07/17/2018/07/19/20 [id number] [address]ulatory [address] Repository 07/05/2018 [id number] [facility] ing:MTLAB Repository 03/21/2018 [id number] [facility] ing:MTRAD Repository 03/15/2018 [id number] [facility] ing:MTLAB Repository 12/27/2017 [id number] [facility] ing:MTLAB Repository 12/13/2017 [id number] [facility] ing:MRI Repository PAYERS PAYERS ENCOUNTER GUARANTOR PAYER SUBSCRIBER SOURCE 09/27/2018 MARY A Primary Insurance:[facility] OSITO SHERMAN[address] [facility] [address]Oqvwbl DOB: [place], [place] Number: [id number] Hospital [address]Sij: 330 [id number] Repository [phone] () Date:[id number] [address] [address]HZ: 09/27/2018 Secondary NOT GIVENUNK Eva Insurance:SELF PAY [facility] Number: Effective Repository Date:2018-09-27 07/05/2018 MARY A Primary Insurance:[facility] OSITO Velasquez [id number] [facility] [address]Svezwh DOB: [place], [place] Number: [id number] Hospital [address]Dqr: 330 [id number] Repository [phone] () Date:[id number] [address] [address]CK: 07/05/2018 Secondary NOT GIVENUNK Eva Insurance:SELF PAY [facility] Number: Effective Repository Date:2018-07-05 03/21/2018 MARY A Primary Insurance:[facility] OSITO SHERMAN[address] [address]Zcmvog JRDOB[place] Number: [id number] Hospital [address]Ics: 330 [id number] Repository [phone] (HP) Date:[id number] [address] [address]OJ: 03/21/2018 Secondary NOT GIVENUNK [place] Insurance:SELF PAY [facility] Number: Effective Repository Date:2018-03-21 03/15/2018 MARY A Primary Insurance:[facility] OSITO SHERMAN[address] [address]Sithze JRDOB: [facility] [place] Number: [id number] Hospital [address]Hwu: (330 [id number] Repository [phone] (HP) Date:2708-99-30JV [address] [address]FH: 03/15/2018 Secondary NOT GIVENUNK [place] Insurance:SELF PAY [facility] Number: Effective Repository Date:2018-03-15 12/27/2017 MARY A Primary Insurance:[facility] OSITO Velasquez [id number] [address] [id number] JRDOB: [facility] [place] Number: [id number] Hospital [address]Ihe: (330 [id number] Repository [phone] (HP) Date:3930-31-64LM [address] [address]LO: 12/27/2017 Secondary NOT GIVENUNK Eva Insurance:SELF PAY [facility] Number: Effective Repository Date:2017-12-27 12/13/2017 MARY A Primary Insurance:[facility] OSITO Velasquez [id number] [address] [id number] JRDOB: [facility] [place] Number: [id number] [facility] [address]Bce: (170) [id number] Repository [phone] () Date:[id number] [address] [address]OK: 12/13/2017 Secondary NOT GIVENUNK [place] Insurance:SELF PAY [facility] Number: Effective Repository Date:2017-12-02
== END ==
PROVIDERS: Family Provider Family Medicine; PCP Family Medicine; Referring Provider Internal Medicine Rheumatology; Visit Provider Internal Medicine Rheumatology
DX: M06.09 Rheumatoid arthritis without rheumatoid factor, multiple sites (principal); M79.7 Fibromyalgia; M35.00 Sjogren syndrome, unspecified; H35.30 Unspecified macular degeneration; J45.909 Unspecified asthma, uncomplicated; G43.909 Migraine, unspecified, not intractable, without status migrainosus; F41.9 Anxiety disorder, unspecified; Z79.899 Other long term (current) drug therapy
CPT/HCPCS: 36415; 80053; 85025

== ENCOUNTER → 2019-01-17 10:16 | Outpatient (CLI) | payer OTHER, SELFPAY ==
[2019-01-17 12:16] LABS: Absolute Neutrophil Count 4.9 X10^3/uL (2.0-7.7); Basophil# 0.02 X10^3/uL; Basophil% 0.2 % (0-1); Eosinophil# 0.14 X10^3/uL; Eosinophils% 1.6 % (0-5); Hematocrit 32.1 % (37-47); Hemoglobin 9.3 g/dl (12.0-15.0); Lymphocyte % 32.9 % (19-41); Mean Corpuscular Hgb 22.5 pg (27.0-32.0); Mean Corpuscular Volume 77.5 fL (81-99); Mean Platelet Vol. 10.4 fl (6.2-12.0); Monocyte# 0.65 X10^3/uL; Monocyte% 7.6 % (0-10); Neutrophil # 4.88 X10^3/uL (2.7-7.7); Neutrophil % 57.5 % (47-70); Platelet Count 182 K/mm3 (150-450); RBC Distribution Width CV 19.8 % (11.6-14.6); RBC Distribution Width SD 55.7 fl (35.1-43.9); Red Blood Count 4.14 M/mm3 (4.2-5.4); White Blood Count 8.5 K/mm3 (4.4-11.0)
[2019-01-17 12:19] LABS: POSITIVE COUNT NO; POSITIVE DIFFERENTIAL NO; POSITIVE MORPHOLOGY NO
[2019-01-17 12:30] LABS: ALB/GLOB Ratio 0.8 RATIO (0.9-2.4); AST(SGOT) 21 U/L (15-37); Alanine Aminotransfer ALT/SGPT 21 U/L (13-56); Albumin, Serum 2.9 g/dL (3.2-5.0); Alkaline Phosphatase 68 U/L (45-117); Anion Gap 6 (5-15); BUN 20 mg/dL (7-18); BUN/Creat Ratio 20.9 RATIO (10-20); Chloride 107 mmol/L (98-107); Creatinine, Serum 0.96 mg/dL (0.55-1.02); EST Glomerular Filtration Rate 66 mL/min (>60); Est Glom Filt Rate - Afr Amer 80 mL/min (>60); Globulin 3.8 g/dL (2.2-4.2); Glucose 101 mg/dL (74-106); Potassium 4.4 mmol/L (3.5-5.1); Protein, Total 6.7 g/dL (6.4-8.2); Sodium Level 140 mmol/L (136-145)
== END ==
PROVIDERS: Family Provider Family Medicine; PCP Family Medicine; Referring Provider Internal Medicine Rheumatology; Visit Provider Internal Medicine Rheumatology
DX: M06.09 Rheumatoid arthritis without rheumatoid factor, multiple sites (principal); M79.7 Fibromyalgia; M35.00 Sjogren syndrome, unspecified; H35.30 Unspecified macular degeneration; J45.909 Unspecified asthma, uncomplicated; G43.909 Migraine, unspecified, not intractable, without status migrainosus; F41.9 Anxiety disorder, unspecified; Z79.899 Other long term (current) drug therapy
CPT/HCPCS: 36415; 80053; 85025

== ENCOUNTER → 2019-04-18 12:04 | Outpatient (CLI) | payer OTHER, SELFPAY ==
[2019-04-18 13:47] LABS: ALB/GLOB Ratio 0.8 RATIO (0.9-2.4); AST(SGOT) 18 U/L (15-37); Alanine Aminotransfer ALT/SGPT 18 U/L (13-56); Alkaline Phosphatase 70 U/L (45-117); Anion Gap 9 (5-15); BUN 16 mg/dL (7-18); BUN/Creat Ratio 17.4 RATIO (10-20); Calcium,Total 8.4 mg/dL (8.5-10.1); Chloride 107 mmol/L (98-107); Creatinine, Serum 0.92 mg/dL (0.55-1.02); EST Glomerular Filtration Rate 69 mL/min (>60); Est Glom Filt Rate - Afr Amer 83 mL/min (>60); Globulin 3.7 g/dL (2.2-4.2); Glucose 91 mg/dL (74-106); Potassium 4.5 mmol/L (3.5-5.1); Protein, Total 6.7 g/dL (6.4-8.2); Sodium Level 142 mmol/L (136-145)
[2019-04-18 16:06] LABS: Absolute Lymphocyte Count 1.63 X10^3/ul (0.83-4.51); Absolute Neutrophil Count 9.3 X10^3/uL (2.0-7.7); Basophil# 0.02 X10^3/uL; Basophil% 0.2 % (0-1); Eosinophil# 0.08 X10^3/uL; Eosinophils% 0.7 % (0-5); Hematocrit 33.9 % (37-47); Lymphocyte # 1.63 X10^3/ul (4.0); Mean Corp Hgb Conc 29.5 g/gl (32-36); Mean Corpuscular Hgb 21.6 pg (27.0-32.0); Mean Corpuscular Volume 73.2 fL (81-99); Mean Platelet Vol. 11.7 fl (6.2-12.0); Monocyte# 0.59 X10^3/uL; Monocyte% 5.1 % (0-10); Neutrophil # 9.31 X10^3/uL (2.7-7.7); Neutrophil % 79.7 % (47-70); Platelet Count 228 K/mm3 (150-450); RBC Distribution Width CV 19.6 % (11.6-14.6); RBC Distribution Width SD 50.1 fl (35.1-43.9); Red Blood Count 4.63 M/mm3 (4.2-5.4); White Blood Count 11.7 K/mm3 (4.4-11.0)
[2019-04-18 16:08] LABS: Differential Indicated SCAN CRITERIA MET; POSITIVE COUNT NO; POSITIVE DIFFERENTIAL NO; POSITIVE MORPHOLOGY YES
[2019-04-18 17:44] LABS: Anisocytosis 1+; Hypochromasia 1+; Microcytosis 1+; Ovalocyte RARE; Platelet Estimate ADEQUATE (ADEQ); Target Cells RARE
== END ==
PROVIDERS: Family Provider Family Medicine; PCP Family Medicine; Referring Provider Internal Medicine Rheumatology; Visit Provider Internal Medicine Rheumatology
DX: M06.9 Rheumatoid arthritis, unspecified (principal); Z79.899 Other long term (current) drug therapy; M79.7 Fibromyalgia; M35.00 Sjogren syndrome, unspecified; H35.30 Unspecified macular degeneration; J45.909 Unspecified asthma, uncomplicated; F41.9 Anxiety disorder, unspecified; G43.909 Migraine, unspecified, not intractable, without status migrainosus
CPT/HCPCS: 36415; 80053; 85025

== ENCOUNTER → 2019-04-28 08:27 | Outpatient (CLI) | payer OTHER, SELFPAY ==
[2019-05-01 12:48] LABS: G6PD Quant Test 423 (146-376)
== END ==
PROVIDERS: Family Provider Family Medicine; PCP Family Medicine; Referring Provider Internal Medicine Rheumatology; Visit Provider Internal Medicine Rheumatology
DX: M06.09 Rheumatoid arthritis without rheumatoid factor, multiple sites (principal); M35.00 Sjogren syndrome, unspecified; H35.30 Unspecified macular degeneration; M79.7 Fibromyalgia; G43.909 Migraine, unspecified, not intractable, without status migrainosus; J45.909 Unspecified asthma, uncomplicated; F41.9 Anxiety disorder, unspecified; Z79.899 Other long term (current) drug therapy
CPT/HCPCS: 36415; 82955

== ENCOUNTER → 2019-06-06 11:58 | Outpatient (CLI) | payer OTHER, SELFPAY ==
[2019-06-06 13:49] LABS: Absolute Lymphocyte Count 3.16 X10^3/uL (0.83-4.51); Absolute Neutrophil Count 8.2 X10^3/uL (2.0-7.7); Basophil# 0.03 X10^3/uL; Basophil% 0.2 % (0-1); Eosinophil# 0.09 X10^3/uL; Eosinophils% 0.7 % (0-5); Hematocrit 31.7 % (37-47); Hemoglobin 9.1 g/dL (12.0-15.0); Lymphocyte # 3.16 X10^3/ul (4.0); Lymphocyte % 25.9 % (19-41); Mean Corp Hgb Conc 28.7 g/dL (32-36); Mean Corpuscular Hgb 21.7 pg (27.0-32.0); Mean Corpuscular Volume 75.7 fL (81-99); Mean Platelet Vol. 10.2 fl (6.2-12.0); Monocyte# 0.65 X10^3/uL; Monocyte% 5.3 % (0-10); NRBC Flagged by Analyzer 0.2 % (0-5); Neutrophil % 67.4 % (47-70); POSITIVE MORPHOLOGY YES; Platelet Count 211 K/mm3 (150-450); RBC Distribution Width SD 57.3 fl (35.1-43.9); Red Blood Count 4.19 M/mm3 (4.2-5.4); White Blood Count 12.2 K/mm3 (4.4-11.0)
[2019-06-06 13:52] LABS: Differential Indicated SCAN CRITERIA MET
[2019-06-06 14:08] LABS: ALB/GLOB Ratio 0.7 RATIO (0.9-2.4); AST(SGOT) 15 U/L (15-37); Alanine Aminotransfer ALT/SGPT 23 U/L (13-56); Albumin, Serum 2.7 g/dL (3.2-5.0); Alkaline Phosphatase 73 U/L (45-117); Anion Gap 5 (5-15); BUN 18 mg/dL (7-18); BUN/Creat Ratio 20.2 RATIO (10-20); Calcium,Total 8.2 mg/dL (8.5-10.1); Chloride 110 mmol/L (98-107); Creatinine, Serum 0.89 mg/dL (0.55-1.02); EST Glomerular Filtration Rate 72 mL/min (>60); Est Glom Filt Rate - Afr Amer 87 mL/min (>60); Globulin 3.8 g/dL (2.2-4.2); Glucose 77 mg/dL (74-106); Protein, Total 6.5 g/dL (6.4-8.2); Sodium Level 142 mmol/L (136-145)
[2019-06-06 14:26] LABS: Anisocytosis 1+
== END ==
PROVIDERS: Family Provider Family Medicine; PCP Family Medicine; Referring Provider Internal Medicine Rheumatology; Visit Provider Internal Medicine Rheumatology
DX: M06.09 Rheumatoid arthritis without rheumatoid factor, multiple sites (principal); M79.7 Fibromyalgia; M35.00 Sjogren syndrome, unspecified; H35.30 Unspecified macular degeneration; J45.909 Unspecified asthma, uncomplicated; G43.909 Migraine, unspecified, not intractable, without status migrainosus; F41.9 Anxiety disorder, unspecified; Z79.899 Other long term (current) drug therapy
CPT/HCPCS: 36415; 80053; 85025

== ENCOUNTER → 2019-07-06 14:37 | Outpatient (CLI) | payer OTHER, SELFPAY ==
[2019-07-06 15:42] LABS: Absolute Lymphocyte Count 1.44 X10^3/uL (0.83-4.51); Absolute Neutrophil Count 10.8 X10^3/uL (2.0-7.7); Basophil# 0.03 X10^3/uL; Basophil% 0.2 % (0-1); Eosinophil# 0.04 X10^3/uL; Eosinophils% 0.3 % (0-5); Hematocrit 35.6 % (37-47); Hemoglobin 10.1 g/dL (12.0-15.0); Lymphocyte # 1.44 X10^3/ul (4.0); Lymphocyte % 11.2 % (19-41); Mean Corp Hgb Conc 28.4 g/dL (32-36); Mean Corpuscular Hgb 22.3 pg (27.0-32.0); Mean Corpuscular Volume 78.6 fL (81-99); Monocyte# 0.44 X10^3/uL; Monocyte% 3.4 % (0-10); NRBC Flagged by Analyzer 0.2 % (0-5); Neutrophil # 10.79 X10^3/uL (2.7-7.7); Neutrophil % 83.9 % (47-70); POSITIVE MORPHOLOGY YES; Platelet Count 219 K/mm3 (150-450); RBC Distribution Width CV 23.3 % (11.6-14.6); RBC Distribution Width SD 63.4 fl (35.1-43.9); Red Blood Count 4.53 M/mm3 (4.2-5.4); White Blood Count 12.9 K/mm3 (4.4-11.0)
[2019-07-06 16:10] LABS: ALB/GLOB Ratio 0.7 RATIO (0.9-2.4); AST(SGOT) 21 U/L (15-37); Alanine Aminotransfer ALT/SGPT 26 U/L (13-56); Albumin, Serum 2.7 g/dL (3.2-5.0); Alkaline Phosphatase 80 U/L (45-117); Anion Gap 7 (5-15); BUN 18 mg/dL (7-18); BUN/Creat Ratio 19.6 RATIO (10-20); Calcium,Total 8.6 mg/dL (8.5-10.1); Chloride 108 mmol/L (98-107); Creatinine, Serum 0.92 mg/dL (0.55-1.02); EST Glomerular Filtration Rate 69 mL/min (>60); Est Glom Filt Rate - Afr Amer 84 mL/min (>60); Glucose 99 mg/dL (74-106); Protein, Total 6.7 g/dL (6.4-8.2); Sodium Level 141 mmol/L (136-145)
[2019-07-06 16:15] LABS: Differential Indicated SCAN CRITERIA MET
[2019-07-06 16:25] LABS: Anisocytosis RARE; Microcytosis RARE; Platelet Estimate ADEQUATE (ADEQ); Red Cell Morphology N CHROM NORMAL (NORM C&C)
== END ==
PROVIDERS: Family Provider Family Medicine; PCP Family Medicine; Referring Provider Internal Medicine Rheumatology; Visit Provider Internal Medicine Rheumatology
DX: M06.09 Rheumatoid arthritis without rheumatoid factor, multiple sites (principal); M79.7 Fibromyalgia; M35.00 Sjogren syndrome, unspecified; H35.30 Unspecified macular degeneration; J45.909 Unspecified asthma, uncomplicated; G43.909 Migraine, unspecified, not intractable, without status migrainosus; F41.9 Anxiety disorder, unspecified; Z79.899 Other long term (current) drug therapy
CPT/HCPCS: 36415; 80053; 85025

== ENCOUNTER → 2019-09-20 09:05 | Outpatient (CLI) | payer OTHER, SELFPAY ==
[2019-09-20 10:13] LABS: Absolute Neutrophil Count 8.5 X10^3/uL (2.0-7.7); Basophil# 0.03 X10^3/uL; Basophil% 0.3 % (0-1); Eosinophil# 0.07 X10^3/uL; Eosinophils% 0.7 % (0-5); Hematocrit 35.7 % (37-47); Hemoglobin 10.2 g/dL (12.0-15.0); Lymphocyte % 14.9 % (19-41); Mean Corp Hgb Conc 28.6 g/dL (32-36); Mean Corpuscular Hgb 23.2 pg (27.0-32.0); Mean Corpuscular Volume 81.3 fL (81-99); Mean Platelet Vol. 10.7 fl (6.2-12.0); Monocyte# 0.54 X10^3/uL; NRBC Flagged by Analyzer 0 % (0-5); Neutrophil # 8.45 X10^3/uL (2.7-7.7); Neutrophil % 78.6 % (47-70); Platelet Count 216 K/mm3 (150-450); RBC Distribution Width CV 19.3 % (11.6-14.6); RBC Distribution Width SD 56.7 fl (35.1-43.9); Red Blood Count 4.39 M/mm3 (4.2-5.4); White Blood Count 10.7 K/mm3 (4.4-11.0)
[2019-09-20 10:37] LABS: ALB/GLOB Ratio 0.8 RATIO (0.9-2.4); AST(SGOT) 20 U/L (15-37); Alanine Aminotransfer ALT/SGPT 26 U/L (13-56); Albumin, Serum 3.1 g/dL (3.2-5.0); Alkaline Phosphatase 77 U/L (45-117); Anion Gap 7 (5-15); BUN 18 mg/dL (7-18); Calcium,Total 8.7 mg/dL (8.5-10.1); Chloride 105 mmol/L (98-107); Creatinine, Serum 0.94 mg/dL (0.55-1.02); EST Glomerular Filtration Rate 67 mL/min (>60); Est Glom Filt Rate - Afr Amer 81 mL/min (>60); Glucose 91 mg/dL (74-106); Potassium 4.3 mmol/L (3.5-5.1); Protein, Total 7.1 g/dL (6.4-8.2); Sodium Level 140 mmol/L (136-145)
== END ==
PROVIDERS: Family Provider Family Medicine; PCP Family Medicine; Referring Provider Internal Medicine Rheumatology; Visit Provider Internal Medicine Rheumatology
DX: M06.09 Rheumatoid arthritis without rheumatoid factor, multiple sites (principal); M79.7 Fibromyalgia; M35.00 Sjogren syndrome, unspecified; H35.30 Unspecified macular degeneration; J45.909 Unspecified asthma, uncomplicated; F41.9 Anxiety disorder, unspecified; G43.909 Migraine, unspecified, not intractable, without status migrainosus; Z79.899 Other long term (current) drug therapy
CPT/HCPCS: 36415; 80053; 85025

== ENCOUNTER → 2019-12-07 11:34 | Outpatient (CLI) | payer OTHER, SELFPAY ==
[2019-12-07 14:21] LABS: Absolute Lymphocyte Count 3.54 X10^3/uL (0.83-4.51); Absolute Neutrophil Count 9.3 X10^3/uL (2.0-7.7); Basophil# 0.04 X10^3/uL; Basophil% 0.3 % (0-1); Eosinophil# 0.14 X10^3/uL; Hematocrit 37.5 % (37-47); Hemoglobin 10.8 g/dL (12.0-15.0); Lymphocyte # 3.54 X10^3/ul (4.0); Lymphocyte % 25.4 % (19-41); Mean Corp Hgb Conc 28.8 g/dL (32-36); Mean Corpuscular Hgb 23.8 pg (27.0-32.0); Mean Corpuscular Volume 82.8 fL (81-99); Mean Platelet Vol. 10.6 fl (6.2-12.0); Monocyte% 6.5 % (0-10); NRBC Flagged by Analyzer 0 % (0-5); Neutrophil # 9.25 X10^3/uL (2.7-7.7); Neutrophil % 66.3 % (47-70); POSITIVE MORPHOLOGY YES; Platelet Count 237 K/mm3 (150-450); RBC Distribution Width CV 21.2 % (11.6-14.6); Red Blood Count 4.53 M/mm3 (4.2-5.4); White Blood Count 13.9 K/mm3 (4.4-11.0)
[2019-12-07 14:31] LABS: ALB/GLOB Ratio 0.7 RATIO (0.9-2.4); AST(SGOT) 20 U/L (15-37); Alanine Aminotransfer ALT/SGPT 21 U/L (13-56); Albumin, Serum 2.9 g/dL (3.2-5.0); Alkaline Phosphatase 68 U/L (45-117); Anion Gap 6 (5-15); BUN 15 mg/dL (7-18); BUN/Creat Ratio 18.1 RATIO (10-20); Calcium,Total 8.9 mg/dL (8.5-10.1); Chloride 106 mmol/L (98-107); Creatinine, Serum 0.83 mg/dL (0.55-1.02); EST Glomerular Filtration Rate 78 mL/min (>60); Est Glom Filt Rate - Afr Amer 94 mL/min (>60); Globulin 3.9 g/dL (2.2-4.2); Glucose 82 mg/dL (74-106); Potassium 4.3 mmol/L (3.5-5.1); Protein, Total 6.8 g/dL (6.4-8.2); Sodium Level 141 mmol/L (136-145)
[2019-12-07 14:33] LABS: Differential Indicated SCAN CRITERIA MET
[2019-12-07 15:39] LABS: Anisocytosis 1+
== END ==
PROVIDERS: PCP Family Medicine; Referring Provider Internal Medicine Rheumatology; Visit Provider Internal Medicine Rheumatology
DX: M06.09 Rheumatoid arthritis without rheumatoid factor, multiple sites (principal); M79.7 Fibromyalgia; M35.00 Sjogren syndrome, unspecified; H35.30 Unspecified macular degeneration; J45.909 Unspecified asthma, uncomplicated; F41.9 Anxiety disorder, unspecified; G43.909 Migraine, unspecified, not intractable, without status migrainosus; Z79.899 Other long term (current) drug therapy
CPT/HCPCS: 36415; 80053; 85025

== ENCOUNTER → 2019-12-15 11:45 | Outpatient (CLI) | payer OTHER, SELFPAY ==
[2019-12-19 05:06] LABS: QNTFERON TB Mitogen Value > 10.00 IU/mL (.); QNTFERON TB Nil Value 0.03 IU/mL (.); QNTFERON TB1+ Ag Value 0.03 IU/mL (.); QNTFERON TB2+ Ag Value 0.03 IU/mL (.)
[2019-12-19 10:21] LABS: QNTIFERON TB Positive Criteria Negative (Negative)
== END ==
PROVIDERS: PCP Family Medicine; Referring Provider Internal Medicine Rheumatology; Visit Provider Internal Medicine Rheumatology
DX: M06.09 Rheumatoid arthritis without rheumatoid factor, multiple sites (principal); M79.7 Fibromyalgia; M35.00 Sjogren syndrome, unspecified; H35.30 Unspecified macular degeneration; J45.909 Unspecified asthma, uncomplicated; F41.9 Anxiety disorder, unspecified; G43.909 Migraine, unspecified, not intractable, without status migrainosus; Z79.899 Other long term (current) drug therapy
CPT/HCPCS: 36415; 86480

== ENCOUNTER → 2020-02-20 12:42 | Outpatient (CLI) | payer OTHER, SELFPAY ==
[2020-02-20 14:48] LABS: Absolute Lymphocyte Count 3.19 X10^3/uL (0.83-4.51); Basophil# 0.03 X10^3/uL; Basophil% 0.3 % (0-1); Eosinophil# 0.14 X10^3/uL; Eosinophils% 1.2 % (0-5); Hematocrit 40.5 % (37-47); Hemoglobin 12.2 g/dL (12.0-15.0); Lymphocyte # 3.19 X10^3/ul (4.0); Lymphocyte % 28.2 % (19-41); Mean Corp Hgb Conc 30.1 g/dL (32-36); Mean Corpuscular Hgb 26.8 pg (27.0-32.0); Mean Corpuscular Volume 88.8 fL (81-99); Mean Platelet Vol. 10.8 fl (6.2-12.0); Monocyte# 0.89 X10^3/uL; Monocyte% 7.9 % (0-10); NRBC Flagged by Analyzer 0 % (0-5); Neutrophil # 7.03 X10^3/uL (2.7-7.7); Platelet Count 225 K/mm3 (150-450); RBC Distribution Width CV 19.5 % (11.6-14.6); Red Blood Count 4.56 M/mm3 (4.2-5.4); White Blood Count 11.3 K/mm3 (4.4-11.0)
[2020-02-20 14:58] LABS: ALB/GLOB Ratio 0.8 RATIO (0.9-2.4); AST(SGOT) 16 U/L (15-37); Alanine Aminotransfer ALT/SGPT 15 U/L (13-56); Albumin, Serum 3.1 g/dL (3.2-5.0); Alkaline Phosphatase 70 U/L (45-117); Anion Gap 6 (5-15); BUN 13 mg/dL (7-18); BUN/Creat Ratio 13.1 RATIO (10-20); Calcium,Total 9.1 mg/dL (8.5-10.1); Chloride 106 mmol/L (98-107); Creatinine, Serum 0.99 mg/dL (0.55-1.02); EST Glomerular Filtration Rate 63 mL/min (>60); Est Glom Filt Rate - Afr Amer 76 mL/min (>60); Globulin 3.9 g/dL (2.2-4.2); Glucose 88 mg/dL (74-106); Sodium Level 140 mmol/L (136-145)
== END ==
PROVIDERS: PCP Family Medicine; Referring Provider Internal Medicine Rheumatology; Visit Provider Internal Medicine Rheumatology
DX: M06.09 Rheumatoid arthritis without rheumatoid factor, multiple sites (principal); M79.7 Fibromyalgia; M35.00 Sjogren syndrome, unspecified; H35.30 Unspecified macular degeneration; J45.909 Unspecified asthma, uncomplicated; F41.9 Anxiety disorder, unspecified; G43.909 Migraine, unspecified, not intractable, without status migrainosus; Z79.899 Other long term (current) drug therapy
CPT/HCPCS: 36415; 80053; 85025

== ENCOUNTER → 2020-05-29 11:32 | Outpatient (CLI) | payer OTHER, SELFPAY ==
[2020-05-29 15:28] LABS: Absolute Lymphocyte Count 2.46 X10^3/uL (0.83-4.51); Absolute Neutrophil Count 7.3 X10^3/uL (2.0-7.7); Basophil# 0.05 X10^3/uL; Basophil% 0.5 % (0-1); Eosinophil# 0.14 X10^3/uL; Eosinophils% 1.3 % (0-5); Hematocrit 38.3 % (37-47); Hemoglobin 11.4 g/dL (12.0-15.0); Lymphocyte # 2.46 X10^3/ul (4.0); Lymphocyte % 23.5 % (19-41); Mean Corp Hgb Conc 29.8 g/dL (32-36); Mean Corpuscular Hgb 28.2 pg (27.0-32.0); Mean Corpuscular Volume 94.8 fL (81-99); Mean Platelet Vol. 10.4 fl (6.2-12.0); Monocyte# 0.54 X10^3/uL; Monocyte% 5.2 % (0-10); NRBC Flagged by Analyzer 0 % (0-5); Neutrophil # 7.25 X10^3/uL (2.7-7.7); Neutrophil % 69.1 % (47-70); Platelet Count 299 K/mm3 (150-450); RBC Distribution Width CV 16.4 % (11.6-14.6); RBC Distribution Width SD 56.8 fl (35.1-43.9); Red Blood Count 4.04 M/mm3 (4.2-5.4); White Blood Count 10.5 K/mm3 (4.4-11.0)
[2020-05-29 15:59] LABS: ALB/GLOB Ratio 0.8 RATIO (0.9-2.4); AST(SGOT) 20 U/L (15-37); Alanine Aminotransfer ALT/SGPT 21 U/L (13-56); Alkaline Phosphatase 72 U/L (45-117); Anion Gap 10 (5-15); BUN 16 mg/dL (7-18); BUN/Creat Ratio 13.6 RATIO (10-20); Calcium,Total 8.8 mg/dL (8.5-10.1); Chloride 101 mmol/L (98-107); Creatinine, Serum 1.18 mg/dL (0.55-1.02); EST Glomerular Filtration Rate 52 mL/min (>60); Est Glom Filt Rate - Afr Amer 62 mL/min (>60); Globulin 3.9 g/dL (2.2-4.2); Glucose 130 mg/dL (74-106); Potassium 3.8 mmol/L (3.5-5.1); Protein, Total 6.9 g/dL (6.4-8.2); Sodium Level 138 mmol/L (136-145)
== END ==
PROVIDERS: PCP Family Medicine; Referring Provider Internal Medicine Rheumatology; Visit Provider Internal Medicine Rheumatology
DX: M06.09 Rheumatoid arthritis without rheumatoid factor, multiple sites (principal); Z79.899 Other long term (current) drug therapy; M79.7 Fibromyalgia; M35.00 Sjogren syndrome, unspecified; H35.30 Unspecified macular degeneration; J45.909 Unspecified asthma, uncomplicated; F41.9 Anxiety disorder, unspecified; G43.909 Migraine, unspecified, not intractable, without status migrainosus
CPT/HCPCS: 36415; 80053; 85025

== ENCOUNTER → 2020-08-22 11:39 | Outpatient (CLI) | payer OTHER, SELFPAY ==
[2020-08-22 15:23] LABS: Absolute Lymphocyte Count 2.02 X10^3/uL (0.83-4.51); Absolute Neutrophil Count 7.6 X10^3/uL (2.0-7.7); Basophil# 0.02 X10^3/uL; Basophil% 0.2 % (0-1); Eosinophil# 0.11 X10^3/uL; Hematocrit 41.1 % (37-47); Hemoglobin 12.3 g/dL (12.0-15.0); Lymphocyte # 2.02 X10^3/ul (4.0); Lymphocyte % 19.1 % (19-41); Mean Corp Hgb Conc 29.9 g/dL (32-36); Mean Corpuscular Hgb 28.9 pg (27.0-32.0); Mean Corpuscular Volume 96.5 fL (81-99); Mean Platelet Vol. 10.8 fl (6.2-12.0); Monocyte# 0.79 X10^3/uL; Monocyte% 7.5 % (0-10); NRBC Flagged by Analyzer 0 % (0-5); Neutrophil % 71.8 % (47-70); Platelet Count 198 K/mm3 (150-450); RBC Distribution Width CV 17.4 % (11.6-14.6); Red Blood Count 4.26 M/mm3 (4.2-5.4); White Blood Count 10.6 K/mm3 (4.4-11.0)
[2020-08-22 16:10] LABS: ALB/GLOB Ratio 0.8 RATIO (0.9-2.4); AST(SGOT) 22 U/L (15-37); Alanine Aminotransfer ALT/SGPT 20 U/L (13-56); Albumin, Serum 2.8 g/dL (3.2-5.0); Alkaline Phosphatase 74 U/L (45-117); Anion Gap 7 (5-15); BUN 17 mg/dL (7-18); BUN/Creat Ratio 19.2 RATIO (10-20); Calcium,Total 8.2 mg/dL (8.5-10.1); Chloride 108 mmol/L (98-107); Creatinine, Serum 0.88 mg/dL (0.55-1.02); EST Glomerular Filtration Rate 72 mL/min (>60); Est Glom Filt Rate - Afr Amer 87 mL/min (>60); Globulin 3.7 g/dL (2.2-4.2); Glucose 88 mg/dL (74-106); Potassium 3.9 mmol/L (3.5-5.1); Protein, Total 6.5 g/dL (6.4-8.2); Sodium Level 142 mmol/L (136-145)
== END ==
PROVIDERS: PCP Family Medicine; Referring Provider Internal Medicine Rheumatology; Visit Provider Internal Medicine Rheumatology
DX: M06.09 Rheumatoid arthritis without rheumatoid factor, multiple sites (principal); M79.7 Fibromyalgia; M35.00 Sjogren syndrome, unspecified; H35.30 Unspecified macular degeneration; J45.909 Unspecified asthma, uncomplicated; F41.9 Anxiety disorder, unspecified; G43.909 Migraine, unspecified, not intractable, without status migrainosus; Z79.899 Other long term (current) drug therapy
CPT/HCPCS: 36415; 80053; 85025

== ENCOUNTER → 2020-11-14 11:13 | Outpatient (CLI) | payer OTHER, SELFPAY ==
[2020-11-14 12:23] LABS: Absolute Lymphocyte Count 2.82 X10^3/uL (0.83-4.51); Absolute Neutrophil Count 7.3 X10^3/uL (2.0-7.7); Basophil# 0.06 X10^3/uL; Basophil% 0.5 % (0-1); Eosinophil# 0.29 X10^3/uL; Eosinophils% 2.5 % (0-5); Hematocrit 40.8 % (37-47); Hemoglobin 12.6 g/dL (12.0-15.0); Lymphocyte # 2.82 X10^3/ul (4.0); Lymphocyte % 24.7 % (19-41); Mean Corp Hgb Conc 30.9 g/dL (32-36); Mean Corpuscular Hgb 27.8 pg (27.0-32.0); Mean Corpuscular Volume 90.1 fL (81-99); Mean Platelet Vol. 10.7 fl (6.2-12.0); Monocyte# 0.85 X10^3/uL; Monocyte% 7.4 % (0-10); NRBC Flagged by Analyzer 0 % (0-5); Neutrophil # 7.32 X10^3/uL (2.7-7.7); Neutrophil % 64.1 % (47-70); Platelet Count 240 K/mm3 (150-450); RBC Distribution Width CV 15.5 % (11.6-14.6); RBC Distribution Width SD 50.8 fl (35.1-43.9); Red Blood Count 4.53 M/mm3 (4.2-5.4); White Blood Count 11.4 K/mm3 (4.4-11.0)
[2020-11-14 13:26] LABS: ALB/GLOB Ratio 0.8 RATIO (0.9-2.4); AST(SGOT) 15 U/L (15-37); Alanine Aminotransfer ALT/SGPT 17 U/L (13-56); Alkaline Phosphatase 93 U/L (45-117); Anion Gap 6 (5-15); BUN 14 mg/dL (7-18); BUN/Creat Ratio 16.1 RATIO (10-20); Calcium,Total 8.3 mg/dL (8.5-10.1); Chloride 106 mmol/L (98-107); Creatinine, Serum 0.87 mg/dL (0.55-1.02); EST Glomerular Filtration Rate 73 mL/min (>60); Est Glom Filt Rate - Afr Amer 89 mL/min (>60); Globulin 3.9 g/dL (2.2-4.2); Glucose 78 mg/dL (74-106); Potassium 3.8 mmol/L (3.5-5.1); Protein, Total 6.9 g/dL (6.4-8.2); Sodium Level 139 mmol/L (136-145)
== END ==
PROVIDERS: PCP Family Medicine; Referring Provider Internal Medicine Rheumatology; Visit Provider Internal Medicine Rheumatology
DX: M06.09 Rheumatoid arthritis without rheumatoid factor, multiple sites (principal); M79.7 Fibromyalgia; H35.00 Unspecified background retinopathy; H35.30 Unspecified macular degeneration; J45.909 Unspecified asthma, uncomplicated; F41.9 Anxiety disorder, unspecified; G43.909 Migraine, unspecified, not intractable, without status migrainosus; Z79.899 Other long term (current) drug therapy
CPT/HCPCS: 36415; 80053; 85025

== ENCOUNTER → 2020-11-26 08:25 | Outpatient (CLI) | payer OTHER, SELFPAY ==
[2020-11-26 10:15] LABS: Cholesterol 169 mg/dL (200); High Density Lipoprotein 69 mg/dL; Triglycerides 210 mg/dL; Very Low Density Lipoprotein 42 mg/dL (5-40)
== END ==
PROVIDERS: PCP Family Medicine; Referring Provider Internal Medicine Rheumatology; Visit Provider Internal Medicine Rheumatology
DX: M06.09 Rheumatoid arthritis without rheumatoid factor, multiple sites (principal); M79.7 Fibromyalgia; M35.00 Sjogren syndrome, unspecified; H35.30 Unspecified macular degeneration; J45.909 Unspecified asthma, uncomplicated; F41.9 Anxiety disorder, unspecified; G43.909 Migraine, unspecified, not intractable, without status migrainosus; Z79.899 Other long term (current) drug therapy
CPT/HCPCS: 36415; 80061

== ENCOUNTER → 2020-12-31 09:33 | Outpatient (CLI) | payer OTHER, SELFPAY ==
[2020-12-31 12:39] LABS: Absolute Lymphocyte Count 2.95 X10^3/uL (0.83-4.51); Absolute Neutrophil Count 9.4 X10^3/uL (2.0-7.7); Basophil# 0.06 X10^3/uL; Basophil% 0.4 % (0-1); Eosinophil# 0.11 X10^3/uL; Eosinophils% 0.8 % (0-5); Hematocrit 42.5 % (37-47); Hemoglobin 12.9 g/dL (12.0-15.0); Lymphocyte # 2.95 X10^3/ul (4.0); Lymphocyte % 22.1 % (19-41); Mean Corp Hgb Conc 30.4 g/dL (32-36); Mean Corpuscular Hgb 27.2 pg (27.0-32.0); Mean Corpuscular Volume 89.7 fL (81-99); Mean Platelet Vol. 11.1 fl (6.2-12.0); Monocyte# 0.78 X10^3/uL; Monocyte% 5.8 % (0-10); NRBC Flagged by Analyzer 0 % (0-5); Neutrophil # 9.39 X10^3/uL (2.7-7.7); Neutrophil % 70.5 % (47-70); Platelet Count 269 K/mm3 (150-450); RBC Distribution Width CV 17.3 % (11.6-14.6); RBC Distribution Width SD 54.7 fl (35.1-43.9); Red Blood Count 4.74 M/mm3 (4.2-5.4); White Blood Count 13.3 K/mm3 (4.4-11.0)
[2020-12-31 13:33] LABS: ALB/GLOB Ratio 0.8 RATIO (0.9-2.4); AST(SGOT) 20 U/L (15-37); Alanine Aminotransfer ALT/SGPT 18 U/L (13-56); Albumin, Serum 3.2 g/dL (3.2-5.0); Alkaline Phosphatase 79 U/L (45-117); Anion Gap 6 (5-15); BUN 21 mg/dL (7-18); BUN/Creat Ratio 21.6 RATIO (10-20); Calcium,Total 8.5 mg/dL (8.5-10.1); Chloride 107 mmol/L (98-107); Cholesterol 206 mg/dL (200); Creatinine, Serum 0.97 mg/dL (0.55-1.02); EST Glomerular Filtration Rate 65 mL/min (>60); Est Glom Filt Rate - Afr Amer 78 mL/min (>60); Glucose 85 mg/dL (74-106); High Density Lipoprotein 79 mg/dL; Potassium 3.7 mmol/L (3.5-5.1); Protein, Total 7.2 g/dL (6.4-8.2); Sodium Level 140 mmol/L (136-145); Triglycerides 218 mg/dL; Very Low Density Lipoprotein 44 mg/dL (5-40)
== END ==
LOC: LAB 09:36 → MTLAB 09:36
PROVIDERS: PCP Family Medicine; Referring Provider Internal Medicine Rheumatology; Visit Provider Internal Medicine Rheumatology
DX: M06.09 Rheumatoid arthritis without rheumatoid factor, multiple sites (principal); M79.7 Fibromyalgia; M35.00 Sjogren syndrome, unspecified; H35.30 Unspecified macular degeneration; J45.909 Unspecified asthma, uncomplicated; F41.9 Anxiety disorder, unspecified; G43.909 Migraine, unspecified, not intractable, without status migrainosus; Z79.899 Other long term (current) drug therapy
CPT/HCPCS: 36415; 80053; 80061; 85025

== ENCOUNTER 2021-02-27 12:56 | Emergency (ER) | payer OTHER, SELFPAY ==
[2021-02-27 12:57] VITALS: BP 106/53; PULSE 48; RESP 17; TEMP 34.9; O2SAT 98; BMI 38.8
--- NOTE | 2021-02-27 13:41 | RAD_ITS ---
STUDY: X-RAY - LEFT KNEE REASON FOR EXAM: Female, 50 years old. Pain following a fall. TECHNIQUE: 4 view(s) of the knee. COMPARISON: None. FINDINGS: Normal visualized distal femur. Normal visualized proximal tibia and fibula. Normal proximal tibiofibular articulation. Normal medial femorotibial compartment. Normal lateral femorotibial compartment. Normal patellofemoral articulation. The soft tissue structures are unremarkable. RAD/Knee 4 or More Views IMPRESSION: Normal x-ray examination of the knee. Electronically Signed: Clifford Thompson MD at 14:15 EDT , Service support ,
--- NOTE | 2021-02-27 13:50 | RAD_ITS ---
STUDY: X-RAY - LEFT ANKLE REASON FOR EXAM: Female, 50 years old. Pain following a fall. TECHNIQUE: 3 view(s) of the ankle. COMPARISON: None. FINDINGS: Normal visualized distal tibia and fibula. Normal medial and lateral malleoli. Normal tibiotalar articulation and ankle mortise. A spur is seen at the insertion of the Achilles tendon. The visualized subtalar, talonavicular, calcaneocuboid and tarsal articulations are normal. Soft tissue swelling. RAD/Ankle min 3 Views IMPRESSION: Soft tissue swelling. A spur is seen at the insertion of the Achilles tendon. Electronically Signed: Clifford Thompson MD at 14:15 EDT , Service support ,
[2021-02-27 14:15] VITALS: BP 118/82; PULSE 51; RESP 15; O2SAT 98
--- NOTE | 2021-02-27 14:43 | EX.ED.DYSGE1 ---
HPI History of Present Illness Chief Complaint: Lower Extremity Injury Narrative Narrative: 50-year-old female presenting with left knee and ankle pain. Patient states she slipped on dog urine. She landed on her left knee. This occurred last night. She presents with persistent pain in left knee and ankle. She did not hit her head or lose consciousness. No other injuries. [facility] Medical History Alcohol abuse Anxiety Asthma Chronic pain Depression Fibromyalgia Former smoker Hyperlipemia Hypertension Rheumatoid arthritis Home Medications albuterol sulfate [Ventolin Hfa] 1 - 2 puff INHALATION Q4H PRN PRN 07/17/13 [History Last Taken Unknown] ascorbic acid (vitamin C) [Vitamin C] 500 mg PO DAILY@0800 07/17/13 [History Last Taken 12/19/13] bupropion HCl 300 mg PO DAILY 07/17/13 [History Last Taken 12/19/13] cyclobenzaprine 5 mg PO TID PRN PRN 07/17/13 [History Last Taken Unknown] diazepam 2 mg PO BID PRN PRN 07/17/13 [History Last Taken 12/19/13] escitalopram oxalate [Lexapro] 20 mg PO DAILY 07/17/13 [History Last Taken 12/19/13] ferrous fumarate [Iron] 236 mg PO DAILY 07/17/13 [History Last Taken 12/19/13] trazodone 50 mg PO QHS 07/17/13 [History Last Taken 12/18/13] desog-e.estradiol/e.estradiol [Viorele 28 Day Tablet] 1 ea PO DAILY 09/18/13 [History Last Taken 12/19/13] oxycodone-acetaminophen 1 tab PO Q6H PRN PRN 09/18/13 [History Last Taken Unknown] tramadol 100 mg PO Q6H PRN PRN 09/18/13 [History Last Taken 12/19/13] biotin 1 mg PO 12/19/13 [History Last Taken Unknown] naproxen 500 mg PO BID #14 tab 02/27/21 [Rx Last Taken Unknown] Allergy/AdvReac Type Severity Reaction Status Date / Time ENVIRONMENTAL AdvReac Itching Uncoded 02/27/21 12:57 Surgical History History of cholecystectomy Social History Smoking Status: Former smoker ROS ROS ED Constitutional Constitutional ED: Denies fever(s) Cardiovascular Cardiovascular: Denies chest pain Respiratory/Chest Respiratory/Chest: Denies dyspnea Gastrointestinal Gastrointestinal: Denies abdominal pain Musculoskeletal Musculoskeletal: Reports other Details: Left knee and ankle pain Integumentary Denies rash Neurologic Neurologic: Denies headache(s) EXAM Physical Exam Const Vital Signs: 02/27/21 12:57 02/27/21 14:15 Temperature 94.8 F L Temperature Source Temporal Pulse Rate 48 L 51 L Respiratory Rate 17 15 Blood Pressure 106/53 L 118/82 H Blood Pressure Mean 70 94 Pulse Ox 98 98 Oxygen Delivery Method Room Air Room Air Positive well nourished and well developed General Appearance ED: well developed HEENT Reports normocephalic and head/scalp atraumatic Eyes PERRL and EOMs intact bilaterally Neck supple General: Negative for tenderness Chest Wall inspection of chest normal Resp normal respiratory effort and clear to auscultation bilaterally Cardio regular rate and regular rhythm no CVA tenderness Extremity normal to inspection Extremity Narrative: Ecchymosis anterior left knee with painful range of motion. Medial tenderness left knee. Lateral tenderness left ankle. Normal pulses. Neuro oriented x3 Sensorium / Orientation: alert Psych mental status grossly normal MDM MDM MDM Narrative Medical decision making narrative: Left knee and left ankle x-ray read by myself and radiology show soft tissue swelling of ankle, normal x-ray of knee. Patient states she has crutches at home. She is given prescription for naproxen. She is advised to follow-up with her primary care physician. Advised to ice and elevate. Advised return to the ED for worsening complaints. Radiography Diagnostic Testing: Radiology Impression Knee X-Ray 02/27/21 13:41 IMPRESSION: Normal x-ray examination of the knee. Electronically Signed: Clifford Thompson MD at 14:15 EDT , Service support , Ankle X-Ray 02/27/21 13:50 IMPRESSION: Soft tissue swelling. A spur is seen at the insertion of the Achilles tendon. Electronically Signed: Clifford Thompson MD at 14:15 EDT , Service support , Discharge Plan Triage Chief Complaint: Lower Extremity Injury ED Provider: Flower Boyd Dx/Rx/DC Orders Clinical Impression: Contusion of knee, left Instructions: ED Knee Sprain Prescriptions: New naproxen 500 MG tablet 500 mg PO BID Qty: 14 RF: 0 No Action cyclobenzaprine 10 MG tablet 5 mg PO TID PRN PRN (Reason: Muscle Spasm) RF: 0 trazodone 50 MG tablet 50 mg PO QHS RF: 0 ascorbic acid (vitamin C) [Vitamin C] 500 MG tablet 500 mg PO DAILY@0800 RF: 0 ferrous fumarate [iron] 55 MG tablet extended release 236 mg PO DAILY RF: 0 diazepam 2 MG tablet 2 mg PO BID PRN PRN (Reason: Shortness Of Breath) RF: 0 albuterol sulfate [Ventolin HFA] 1 INHALER inhaler 1 - 2 puff inhalation Q4H PRN PRN (Reason: ALLERGRIES) RF: 0 escitalopram oxalate [Lexapro] 20 MG tablet 20 mg PO DAILY RF: 0 bupropion HCl 300 MG tablet extended release 24 hr 300 mg PO DAILY RF: 0 desog-e.estradiol/e.estradiol [Viorele (28)] 1 EACH tablet 1 ea PO DAILY RF: 0 tramadol 50 MG tablet 100 mg PO Q6H PRN PRN (Reason: Pain) RF: 0 oxycodone-acetaminophen 1 TABLET tablet 1 tab PO Q6H PRN PRN (Reason: Pain) RF: 0 biotin 1 MG capsule 1 mg PO RF: 0 Primary Care Provider: Jennifer Harris Referrals: Jennifer Harris DO [Primary Care Provider] - Disposition Disposition: Home, self care
[2021-02-27 15:00] VITALS: BP 122/70; PULSE 56; RESP 15; O2SAT 99
== END 2021-02-27 15:01 | disposition home or self-care (01) ==
PROVIDERS: Emergency Provider Emergency Medicine; PCP Family Medicine
DX: S80.02XA Contusion of left knee, initial encounter (principal); W01.0XXA Fall on same level from slipping, tripping and stumbling without subsequent striking against object, initial encounter; Y93.9 Activity, unspecified; Y92.9 Unspecified place or not applicable; Y99.9 Unspecified external cause status; I10 Essential (primary) hypertension; E78.5 Hyperlipidemia, unspecified; M79.7 Fibromyalgia; M06.9 Rheumatoid arthritis, unspecified; F32.9 Major depressive disorder, single episode, unspecified; F41.9 Anxiety disorder, unspecified; Z79.899 Other long term (current) drug therapy; Z87.891 Personal history of nicotine dependence
CPT/HCPCS: 73564; 73610; 99282

== ENCOUNTER → 2021-03-25 11:23 | Outpatient (CLI) | payer OTHER, SELFPAY ==
[2021-02-27 12:57] VITALS: BMI 38.8
[2021-03-25 14:59] LABS: Absolute Lymphocyte Count 1.22 X10^3/uL (0.83-4.51); Absolute Neutrophil Count 7.6 X10^3/uL (2.0-7.7); Basophil# 0.03 X10^3/uL; Basophil% 0.3 % (0-1); Eosinophil# 0.11 X10^3/uL; Eosinophils% 1.2 % (0-5); Hematocrit 40.7 % (37-47); Hemoglobin 12.9 g/dL (12.0-15.0); Lymphocyte # 1.22 X10^3/ul (0.83-4.51); Lymphocyte % 12.9 % (19-41); Mean Corp Hgb Conc 31.7 g/dL (32-36); Mean Corpuscular Hgb 30.6 pg (27.0-32.0); Mean Corpuscular Volume 96.7 fL (81-99); Mean Platelet Vol. 10.4 fl (6.2-12.0); Monocyte# 0.53 X10^3/uL; Monocyte% 5.6 % (0-10); NRBC Flagged by Analyzer 0 % (0-5); Neutrophil # 7.55 X10^3/uL (2.7-7.7); Neutrophil % 79.5 % (47-70); POSITIVE MORPHOLOGY YES; Platelet Count 197 K/mm3 (150-450); RBC Distribution Width CV 18.6 % (11.6-14.6); RBC Distribution Width SD 66.2 fl (35.1-43.9); Red Blood Count 4.21 M/mm3 (4.2-5.4); White Blood Count 9.5 K/mm3 (4.4-11.0)
[2021-03-25 15:05] LABS: Differential Indicated SCAN CRITERIA MET
[2021-03-25 15:31] LABS: ALB/GLOB Ratio 0.9 RATIO (0.9-2.4); AST(SGOT) 23 U/L (15-37); Alanine Aminotransfer ALT/SGPT 22 U/L (13-56); Albumin, Serum 3.3 g/dL (3.2-5.0); Alkaline Phosphatase 66 U/L (45-117); Anion Gap 7 (5-15); BUN 16 mg/dL (7-18); BUN/Creat Ratio 18.5 RATIO (10-20); Calcium,Total 8.8 mg/dL (8.5-10.1); Chloride 107 mmol/L (98-107); Creatinine, Serum 0.86 mg/dL (0.55-1.02); EST Glomerular Filtration Rate 74 mL/min (>60); Est Glom Filt Rate - Afr Amer 89 mL/min (>60); Globulin 3.6 g/dL (2.2-4.2); Glucose 92 mg/dL (74-106); Protein, Total 6.9 g/dL (6.4-8.2); Sodium Level 140 mmol/L (136-145)
[2021-03-25 15:43] LABS: Platelet Estimate ADEQUATE (ADEQ); Red Cell Morphology N CHROM NORMAL (NORM C&C)
[2021-03-25 15:44] LABS: Anisocytosis 1+
== END ==
PROVIDERS: PCP Family Medicine; Referring Provider Internal Medicine Rheumatology; Visit Provider Internal Medicine Rheumatology
DX: M06.09 Rheumatoid arthritis without rheumatoid factor, multiple sites (principal); M79.7 Fibromyalgia; M35.00 Sjogren syndrome, unspecified; H35.30 Unspecified macular degeneration; J45.909 Unspecified asthma, uncomplicated; F41.9 Anxiety disorder, unspecified; G43.909 Migraine, unspecified, not intractable, without status migrainosus; Z79.899 Other long term (current) drug therapy
CPT/HCPCS: 36415; 80053; 85025

== ENCOUNTER → 2021-05-19 09:45 | Outpatient (CLI) | payer OTHER, SELFPAY ==
[2021-05-09 11:15] VITALS: BMI 38.8
[2021-05-19 12:31] LABS: Basophil# 0.02 X10^3/uL; Basophil% 0.2 % (0-1); Eosinophil# 0.12 X10^3/uL; Eosinophils% 1.3 % (0-5); Hematocrit 41.9 % (37-47); Hemoglobin 13.8 g/dL (12.0-15.0); Lymphocyte % 26.2 % (19-41); Mean Corp Hgb Conc 32.9 g/dL (32-36); Mean Corpuscular Hgb 32.8 pg (27.0-32.0); Mean Corpuscular Volume 99.5 fL (81-99); Mean Platelet Vol. 10.4 fl (6.2-12.0); Monocyte# 0.81 X10^3/uL; Monocyte% 8.5 % (0-10); NRBC Flagged by Analyzer 0 % (0-5); Neutrophil % 62.6 % (47-70); Platelet Count 214 K/mm3 (150-450); RBC Distribution Width CV 13.3 % (11.6-14.6); RBC Distribution Width SD 48.4 fl (35.1-43.9); Red Blood Count 4.21 M/mm3 (4.2-5.4); White Blood Count 9.6 K/mm3 (4.4-11.0)
[2021-05-19 12:50] LABS: ALB/GLOB Ratio 0.9 RATIO (0.9-2.4); AST(SGOT) 27 U/L (15-37); Alanine Aminotransfer ALT/SGPT 25 U/L (13-56); Albumin, Serum 3.4 g/dL (3.2-5.0); Alkaline Phosphatase 67 U/L (45-117); Anion Gap 6 (5-15); BUN 12 mg/dL (7-18); BUN/Creat Ratio 12.2 RATIO (10-20); Calcium,Total 8.6 mg/dL (8.5-10.1); Chloride 103 mmol/L (98-107); Creatinine, Serum 0.98 mg/dL (0.55-1.02); EST Glomerular Filtration Rate 63 mL/min (>60); Est Glom Filt Rate - Afr Amer 77 mL/min (>60); Globulin 3.6 g/dL (2.2-4.2); Glucose 93 mg/dL (74-106); Sodium Level 136 mmol/L (136-145)
== END ==
PROVIDERS: PCP Family Medicine; Referring Provider Internal Medicine Rheumatology; Visit Provider Internal Medicine Rheumatology
DX: M06.09 Rheumatoid arthritis without rheumatoid factor, multiple sites (principal); M79.7 Fibromyalgia; M35.00 Sjogren syndrome, unspecified; H35.30 Unspecified macular degeneration; J45.909 Unspecified asthma, uncomplicated; F41.9 Anxiety disorder, unspecified; G43.909 Migraine, unspecified, not intractable, without status migrainosus; Z79.899 Other long term (current) drug therapy
CPT/HCPCS: 36415; 80053; 85025

== ENCOUNTER 2021-06-10 10:00 | Outpatient (RCR) | payer OTHER, SELFPAY ==
[2021-05-09 11:15] VITALS: BMI 38.8
--- NOTE | 2021-05-19 09:57 | HP.PTEVAL_ITS ---
Patient's Visit Information MARY SHERMAN is a 50 year old F referred to Physical Therapy by Dr. Quincy Bolden DO with a diagnosis of R distal fibula fx. Date of Evaluation: 05/19/21 Physical Therapist: Harsh Burnett DPT - Visit Plan Frequency: 2x /Week Duration: 4 Weeks Plan: Start with active ROM of R ankle, add in G/S stretching. Progress to 4 way ankle strengthening. Pt. is to be NWBing until 05/26/21 then WBAT in boot. - Subjective Pt. is here today for her initial evaluation with diagnosis of R distal fibular fracture. Pt. reports falling while at home in march and resulted into fracture. Pt. reports having occasional pain. Pt. reports having increased pain with sitting. Decreased: lying down, propping her leg up. Pt. has started doing some stretching at home (4 way ankle) exercises at home. She reports walking short distances with boot on at home. I talked to her about refraining from doing so, but is able to walk with FWW and NWBing on her RLE. She has been doing her exercises well. She works at [employer] I do just about everything. She has not been to work since her injury. She is hopeful to get back to all working and work related activities in order tolerated all of her previous activities. - Pain R ankle Pain Intensity (Out of 10): 0 Pain Intensity Range: 0, 6 - Objective POSTURE: Pt. is NWBing, but is able to stand with good NWBing on R side with FWW. PALPATION: Pt. has slight edema, non pitting at distal RLE. She has increased tenderness along distal fibula. Pt. reports no foot pain with palpa tion. NEURO: pt. has normal DTR of BLEs and normal sensation throughout BLEs. She does c/o occasional tingling. ROM: L ankle: DF 15deg, PF 44deg, INV 18deg, ER 15deg. R ankle: DF -5 deg, PF 33deg, INV 14deg, EVR 3deg. Pt. has normal B knee ROM without issues. She did have some discomfort with ankle EVR and INV, and slight with DF. MMT: L ankle: 5/5 throughout. R ankle 4-/5 throughout with increased pain in all directions. Pt. has 5/5 B knee strength. and 4/5 B hip strength. GAIT: pt. was able to ambulate with FWW with good NWBing on her RLE, but required VCing to do so. Pt. reports no pain with walking with FWW. STAIRS: did not trial - Goals Goal 1:: LTG: Pt. to be I with HEP. Goal Time Frame: 4-6 Weeks Goal 2:: STG: Pt. to have increased R ankle ROM to full without increase in symptoms. Goal Time Frame: 2-4 Weeks Goal 3:: LTG: Pt. to have increased MMT of R ankle to at least 5-/5 throughout without increase in symptoms. Goal Time Frame: 4-6 Weeks Goal 4:: STG: Pt. to ambulate with FWW for community distances with WBAT without increase in symptoms. Goal Time Frame: 2-4 Weeks Goal 5:: LTG: Pt. to ambulate unlimited distances with full WBing with normalized gait pattern without increase in symptoms. Goal Time Frame: 4-6 Weeks Goal 6:: LTG: Pt. to complete all recreational and work activities without increase in symptoms. Goal Time Frame: 4-6 Weeks - Rehabilitation Potential Physical Therapy Diagnosis: Pt. has signs and symptoms consistent with R distal fibular fx. Pt. has subsequent hypomobility, weakness, pain and difficulty with walking. Pt. would benefit from PT to work on above limitations progressing back to all functional activities without limitations. Rehabilitation Potential: Excellent - Anticipated Interventions Patient/Client Instruction: Educate patient on: Condition, Plan of Care, Risk Factors, Benefits of Fitness Program For the Purpose of:: To foster healthy habits, To improve decision making, To facilitate caregiver knowledge, To improve self management, To prevent re- injury, To improve ability to perform tasks related to life management Therapeutic Exercise to Include: Strength training, Power training, Balance training, Coordination, Body mechanics, Postural training, Flexibilty training, Gait and locomotor training, Passive ROM, Active ROM For the Purpose of:: To decrease pain, To decrease swelling/inflammation, To increase ROM, To improve nutrient delivery to tissue, To increase oxygenation perfusion, To improve muscle performance and motor function, To improve ability to perform ADL's, To increase tolerance to activity/condition/position, To improve gait and locomotor functions, To improve health of tissue, To decrease soft tissue restriction, To increase flexibility/ROM Thank you for the opportunity to evaluate your patient. For Medicare and Medicare HMO plans, please review the plan of care and approve it. It will need to be FAXED BACK to us at [phone] for Medicare purposes. For Medicare only, by signing this I certify the plan of care. Please let me know if there are questions or concerns regarding this plan of care. Physician Signature: Date:
--- NOTE | 2021-09-22 10:17 | HP.PTDCNRP_ITS ---
MARY SHERMAN was seen in my office for initial evaluation on 05/19/21. The following Plan of Care was established for this patient: Initial Frequency: 2x /Week Initial Duration: 4 Weeks Patient/Client Instruction: Educate patient on: Condition, Plan of Care, Risk Factors, Benefits of Fitness Program For the Purpose of:: To foster healthy habits, To improve decision making, To facilitate caregiver knowledge, To improve self management, To prevent re- injury, To improve ability to perform tasks related to life management Therapeutic Exercise to Include: Strength training, Power training, Balance training, Coordination, Body mechanics, Postural training, Flexibilty training, Gait and locomotor training, Passive ROM, Active ROM For the Purpose of:: To decrease pain, To decrease swelling/inflammation, To increase ROM, To improve nutrient delivery to tissue, To increase oxygenation perfusion, To improve muscle performance and motor function, To improve ability to perform ADL's, To increase tolerance to activity/condition/position, To improve gait and locomotor functions, To improve health of tissue, To decrease soft tissue restriction, To increase flexibility/ROM This patient was last seen in our office 06/10/21. Pertinent comments regarding their Physical therapy will appear below: Pt. was seen for her R fibular fx. She was seen for 2 visits and has not been seen since. Pt. will be DC from PT at this point in time. At this point I will be discontinuing this patient from physical therapy. I would be happy to see this patient again in the future if found appropriate by the physician. Thank you! Harsh Burnett, DPT Balance/Gait/Functional tests - Balance/Special Test Scores Lower Extremity Functional Score: 9
== END 2021-06-10 19:00 | disposition home or self-care (01) ==
LOC: PT 10:00
PROVIDERS: PCP Family Medicine; Visit Provider Orthopaedic Surgery
DX: S82.831D Other fracture of upper and lower end of right fibula, subsequent encounter for closed fracture with routine healing (principal)
CPT/HCPCS: 97110; 97161

== ENCOUNTER → 2021-06-17 12:17 | Outpatient (CLI) | payer OTHER, SELFPAY ==
[2021-05-09 11:15] VITALS: BMI 38.8
--- NOTE | 2021-06-17 12:19 | BI_ITS ---
MAMMOGRAPHY - BILATERAL SCREENING 3-D TOMOSYNTHESIS REASON FOR EXAM: Female, 51 years old. SCREENING PERTINENT HISTORY: No significant family history. TECHNIQUE: 2-D mammograms and 3-D Tomosynthesis of the breast (s) were performed. CAD was performed. COMPARISON: Comparison Mammogram study is dated FINDINGS: The breast composition is 03/03/2017 Scattered benign calcifications are seen. No dense spiculated masses or suspicious microcalcifications are identified. No architectural distortion is identified. There is no skin thickening or retraction. There has been no significant change since the prior study. BI/SCRN MAMM (CAD)W/SHANNON BILAT IMPRESSION: No mammographic signs of malignancy. Routine yearly mammograms recommended. ASSESSMENT CATEGORY: BIRADS Category 1: Negative. A letter regarding these results will be sent to the patient by the facility within 30 days. FOLLOW UP RECOMMENDATION: Yearly follow up mammogram recommended. (A) Approximately 10% of breast cancers are not detected by mammography. A normal mammogram should not delay biopsy of a clinically suspicious abnormality. Electronically Signed: Magen Sosa MD at 17:22 EDT Tel , Service support ,
--- NOTE | 2021-06-17 12:19 | BD_ITS ---
STUDY: DUAL ENERGY X-RAY ABSORPTIOMETRY / DXA REASON FOR EXAM: Female, 51 years old. Z13.82. Patient is postmenopausal. TECHNIQUE: Bone Mineral Density (BMD) measurements of lumbar spine and bilateral hips were obtained. COMPARISON: None. FINDINGS: Lumbar Spine (L1-L4): g/cm2 (0.912) / T-score (-1.2) / Z-score (-0.4) Findings are suggestive of osteopenia with a low fracture risk. Left Femur Total: g/cm2 (0.746) / T-score (-1.6) / Z-score (-1.1) Left Femoral Neck: g/cm2 (0.615) / T-score (-2.1) / Z-score (-1.3) Right Femur Total: g/cm2 (0.762) / T-score (-1.5) / Z-score (-1.0) Right Femoral Neck: g/cm2 (0.671) / T-score (-1.6) / Z-score (-0.8) BD/Dexa Bone Density Study IMPRESSION: The patient is considered osteopenic as outlined below according to World Darron Organization (WHO) criteria with a moderate fracture risk. Reference Information: The T-score is the number of standard deviations above or below the standard which is normal for young adults at their peak bone mineral density. The World Health Organization (WHO) interprets the T-scores as follows: Above -1 Normal bone density Between -1 and -2.5 Osteopenia Equal to / or below -2.5 Osteoporosis As a practical clinical guideline, osteopenia may be graded as follows: Mild -1 through -1.5 Moderate -1.6 through -2.0 Severe -2.1 through -2.4 The Z-score is the number of standard deviations above or below age-matched controls. A Z-score of less than -1.5 would be considered abnormal. References: 1. NIH Osteoporosis and Related Bone Diseases www osteo.org 2. International Society for Clinical Densitometry www iscd.org 3. National Osteoporosis Foundation www nof.org Electronically Signed: Clifford Thompson MD at 13:07 EDT , Service support ,
== END ==
PROVIDERS: PCP Family Medicine; Referring Provider Family Medicine; Visit Provider Family Medicine
DX: Z12.31 Encounter for screening mammogram for malignant neoplasm of breast (principal); M06.9 Rheumatoid arthritis, unspecified; Z13.820 Encounter for screening for osteoporosis
CPT/HCPCS: 77063; 77067; 77080

== ENCOUNTER 2021-11-18 10:19 | Outpatient (CLI) | payer OTHER, SELFPAY ==
[2021-11-18 12:23] LABS: Absolute Lymphocyte Count 2.07 X10^3/uL (0.83-4.51); Absolute Neutrophil Count 6.1 X10^3/uL (2.0-7.7); Basophil# 0.04 X10^3/uL; Basophil% 0.4 % (0-1); Eosinophil# 0.11 X10^3/uL; Eosinophils% 1.2 % (0-5); Hemoglobin 13.7 g/dL (12.0-15.0); Lymphocyte # 2.07 X10^3/ul (0.83-4.51); Lymphocyte % 22.3 % (19-41); Mean Corp Hgb Conc 32.6 g/dL (32-36); Mean Corpuscular Hgb 33.6 pg (27.0-32.0); Mean Corpuscular Volume 102.9 fL (81-99); Mean Platelet Vol. 10.5 fl (6.2-12.0); Monocyte# 0.92 X10^3/uL; Monocyte% 9.9 % (0-10); NRBC Flagged by Analyzer 0 % (0-5); Neutrophil # 6.05 X10^3/uL (2.7-7.7); Neutrophil % 65.1 % (47-70); Platelet Count 204 K/mm3 (150-450); RBC Distribution Width CV 14.1 % (11.6-14.6); RBC Distribution Width SD 53.6 fl (35.1-43.9); Red Blood Count 4.08 M/mm3 (4.2-5.4); White Blood Count 9.3 K/mm3 (4.4-11.0)
[2021-11-18 12:49] LABS: ALB/GLOB Ratio 0.9 RATIO (0.9-2.4); AST(SGOT) 37 U/L (15-37); Alanine Aminotransfer ALT/SGPT 49 U/L (13-56); Albumin, Serum 3.5 g/dL (3.2-5.0); Alkaline Phosphatase 62 U/L (45-117); Anion Gap 5 (5-15); BUN 14 mg/dL (7-18); BUN/Creat Ratio 14.8 RATIO (10-20); Calcium,Total 8.4 mg/dL (8.5-10.1); Chloride 107 mmol/L (98-107); Cholesterol 228 mg/dL (200); Creatinine, Serum 0.94 mg/dL (0.55-1.02); EST Glomerular Filtration Rate 66 mL/min (>60); Est Glom Filt Rate - Afr Amer 80 mL/min (>60); Globulin 3.8 g/dL (2.2-4.2); Glucose 101 mg/dL (74-106); High Density Lipoprotein 82 mg/dL; Potassium 4.3 mmol/L (3.5-5.1); Protein, Total 7.3 g/dL (6.4-8.2); Sodium Level 138 mmol/L (136-145); Triglycerides 158 mg/dL; Very Low Density Lipoprotein 32 mg/dL (5-40)
== END 2021-11-18 23:59 | disposition short-term general hospital (02) ==
LOC: MTLAB 10:23
PROVIDERS: PCP Family Medicine; Referring Provider Internal Medicine Rheumatology; Visit Provider Internal Medicine Rheumatology
DX: M06.09 Rheumatoid arthritis without rheumatoid factor, multiple sites (principal); M35.00 Sjogren syndrome, unspecified; M79.7 Fibromyalgia; H53.30 Unspecified disorder of binocular vision; J45.909 Unspecified asthma, uncomplicated; F41.9 Anxiety disorder, unspecified; G43.909 Migraine, unspecified, not intractable, without status migrainosus; Z79.899 Other long term (current) drug therapy
CPT/HCPCS: 36415; 80053; 80061; 85025

== ENCOUNTER 2021-12-08 08:11 | Outpatient (CLI) | payer OTHER, SELFPAY ==
[2021-12-11 08:10] LABS: QNTFERON TB Mitogen Value > 10.00 IU/mL (.); QNTFERON TB Nil Value 0.04 IU/mL (.); QNTFERON TB1+ Ag Value 0.04 IU/mL (.); QNTFERON TB2+ Ag Value 0.04 IU/mL (.)
[2021-12-11 15:59] LABS: QNTIFERON TB Positive Criteria Negative (Negative)
== END 2021-12-08 23:59 | disposition home or self-care (01) ==
LOC: MTLAB 08:14
PROVIDERS: PCP Family Medicine; Referring Provider Internal Medicine Rheumatology; Visit Provider Internal Medicine Rheumatology
DX: M06.09 Rheumatoid arthritis without rheumatoid factor, multiple sites (principal); M35.00 Sjogren syndrome, unspecified; M79.7 Fibromyalgia; H35.30 Unspecified macular degeneration; J45.909 Unspecified asthma, uncomplicated; F41.9 Anxiety disorder, unspecified; G43.909 Migraine, unspecified, not intractable, without status migrainosus; Z79.899 Other long term (current) drug therapy
CPT/HCPCS: 36415; 86480

== ENCOUNTER 2022-01-07 23:05 | Inpatient (IN) | payer OTHER, SELFPAY ==
[2022-01-07 23:07] VITALS: BP 74/45; PULSE 56; RESP 18; TEMP 35.8; O2SAT 97; BMI 39.1
--- NOTE | 2022-01-07 23:14 | RAD_ITS ---
EXAM: XR CHEST, 1 VIEW : 1970 CLINICAL INDICATION: Low respiratory rate TECHNIQUE: Frontal view of the chest. This report was created using [employer] report generation technology. COMPARISON: 03/21/18 FINDINGS: LUNGS AND PLEURAL SPACES: Unremarkable. No consolidation or edema. No pneumothorax. No effusion. HEART: Unremarkable. Cardiac silhouette not enlarged. MEDIASTINUM: Central airways and mediastinal contour are unremarkable. BONES/JOINTS: Unremarkable. SOFT TISSUES: Unremarkable. RAD/Chest 1 View (Portable) IMPRESSION: No radiographic evidence of acute cardiopulmonary disease. at 0020 Reported and signed by: Lam Pritchard MD Electronically Signed: Lam Pritchard MD at 0:20 EDT ,
[2022-01-07 23:15] VITALS: BP 85/53; PULSE 56; RESP 16; O2SAT 94
--- NOTE | 2022-01-07 23:16 | EKG12_ITS ---
Test Reason : Blood Pressure : / mmHG Vent. Rate : 054 BPM Atrial Rate : 054 BPM P-R Int : 144 ms QRS Dur : 096 ms QT Int : 452 ms P-R-T Axes : 040 -07 015 degrees QTc Int : 428 ms Sinus bradycardia Voltage criteria for left ventricular hypertrophy Abnormal ECG Confirmed by GENNARO TIRADO, ALBERTO ([id number]), brands editor SALMA LOVE ([id number]) on 01/08/2022 11:02:58 AM Referred By: GUERO Confirmed By:ALBERTO BURDICK MD
--- NOTE | 2022-01-07 23:19 | CT_ITS ---
EXAM: CT HEAD WITHOUT INTRAVENOUS CONTRAST : 1970 CLINICAL INDICATION: AMS TECHNIQUE: Multiple axial images were obtained of the head without intravenous contrast. This CT exam was performed using one or more of the following dose reduction techniques: automated exposure control, adjustment of the mA and/or kV according to patient size, and/or use of iterative reconstruction technique. This report was created using [employer] report generation technology. COMPARISON: 12/19/13 FINDINGS: BRAIN AND EXTRA-AXIAL SPACES: Unremarkable. No intra- or extra-axial hemorrhage. No evidence of acute infarct. No intracranial mass or mass effect. There is preservation of the roy/white matter interface. Posterior fossa structures are unremarkable. Ventricles are appropriate for age. No hydrocephalus. Basal cisterns are patent. BONES/JOINTS: Unremarkable. No discrete lytic or blastic abnormalities. SINUSES: Unremarkable as visualized. Clear. MASTOID AIR CELLS: Unremarkable. Clear. ORBITS: Visualized globes, extraocular muscles, optic nerves and retrobulbar fat appear unremarkable. CT/Brain/Head without Contrast IMPRESSION: Negative head/brain CT without intravenous contrast. Individualized dose optimization techniques were used for this CT. at 0012 Reported and signed by: Lam Pritchard MD Electronically Signed: Lam Pritchard MD at 0:11 EDT ,
[2022-01-07] MEDS: 0.9% Normal Saline 1,000 ML 1000 ML IV (23:20)
[2022-01-07] MEDS: Naloxone 2 MG/2 ML Syringe 1 MG IV (23:21)
--- NOTE | 2022-01-07 23:34 | ED.RN ---
PATIENT SENT GOOD BYE TEXT MESSAGES TO AND SON.
[2022-01-07 23:42] LABS: Absolute Lymphocyte Count 2.59 X10^3/uL (0.83-4.51); Absolute Neutrophil Count 6.9 X10^3/uL (2.0-7.7); Basophil# 0.03 X10^3/uL; Basophil% 0.3 % (0-1); Eosinophil# 0.07 X10^3/uL; Eosinophils% 0.6 % (0-5); Hematocrit 35.2 % (37-47); Hemoglobin 11.4 g/dL (12.0-15.0); Lymphocyte # 2.59 X10^3/ul (0.83-4.51); Lymphocyte % 23.2 % (19-41); Mean Corp Hgb Conc 32.4 g/dL (32-36); Mean Corpuscular Hgb 33.9 pg (27.0-32.0); Mean Corpuscular Volume 104.8 fL (81-99); Mean Platelet Vol. 9.6 fl (6.2-12.0); Monocyte% 12.5 % (0-10); NRBC Flagged by Analyzer 0 % (0-5); Neutrophil # 6.91 X10^3/uL (2.7-7.7); Neutrophil % 61.9 % (47-70); Platelet Count 226 K/mm3 (150-450); RBC Distribution Width CV 14.6 % (11.6-14.6); RBC Distribution Width SD 56.5 fl (35.1-43.9); Red Blood Count 3.36 M/mm3 (4.2-5.4); White Blood Count 11.2 K/mm3 (4.4-11.0)
[2022-01-07 23:46] LABS: Allen Test Positive; Base Excess -3 mmol/L (-2 to +2); Blood Gas Specimen Type ART; O2 Delivery Device Cannula; PO2 210 mmHG (75-100); SITE R Radial; SO2 100 % (95-99); Total Carbon Dioxide 24 mmol/L; pCO2 41.3 mmHg (35-45); pH 7.35 (7.35-7.45)
[2022-01-07 23:46] LABS: AST(SGOT) 32 U/L (15-37); Alanine Aminotransfer ALT/SGPT 48 U/L (13-56); Albumin, Serum 3.1 g/dL (3.2-5.0); Alkaline Phosphatase 55 U/L (45-117); Anion Gap 12 (5-15); BUN 14 mg/dL (7-18); BUN/Creat Ratio 15.2 RATIO (10-20); Calcium,Total 9.6 mg/dL (8.5-10.1); Chloride 102 mmol/L (98-107); Creatinine, Serum 0.92 mg/dL (0.55-1.02); EST Glomerular Filtration Rate 68 mL/min (>60); Est Glom Filt Rate - Afr Amer 83 mL/min (>60); Estimated Creatinine Clearance 51.96 ml/min; Globulin 3.1 g/dL (2.2-4.2); Glucose 145 mg/dL (74-106); Lipase 123 U/L (73-393); Potassium 3.8 mmol/L (3.5-5.1); Protein, Total 6.2 g/dL (6.4-8.2); Sodium Level 137 mmol/L (136-145)
[2022-01-07 23:51] LABS: International Normalized Ratio 1.1; Prothrombin Time (Protime)PT. 13.1 SECONDS (11.7-14.9)
[2022-01-07 23:58] VITALS: BP 107/69; PULSE 63; RESP 14; O2SAT 100
--- NOTE | 2022-01-07 23:58 | EX.ED.SAOD ---
HPI History of Present Illness Chief Complaint: Overdose Informant: spouse/S.O. and EMS Narrative Narrative: Patient is a 51-year-old female with history of regular alcohol abuse presenting for altered mental status and concern for overdose. Patient sent a text message to family members stating that she loves them and they were perceived to be goodbye notes. Family went to check on her and found her altered and somnolent. EMS was called. Patient apparently drank a large amount of rum and took a 5-7 4 mg tizanidine in an attempt to kill herself. Patient did not take appear to take her regular medications either. Spouse states that her other pill cotto were full and she did not even take her medicines this week and her weekly pill dispenser. Patient did have a recent dental procedure for insertion of dental implants. She had the stents placed 2 weeks ago. She was given a prescription for oxycodone for this. Significant other does not think she is been abusing this. [facility] Medical History Abnormal bruising Alcohol abuse Anemia Anxiety Asthma Chronic neck and back pain Chronic pain Closed fracture of right distal fibula Depression Difficulty balancing when standing Fatigue Fibromyalgia Former smoker Hyperlipemia Hypertension Incontinence Limb weakness Migraines Rheumatoid arthritis Shoulder pain Home Medications diazepam 2 mg PO DAILY 07/17/13 [History Last Taken 12/19/13] desog-e.estradiol/e.estradiol [Viorele 28 Day Tablet] 1 ea PO DAILY 09/18/13 [History Last Taken 12/19/13] folic acid 1 mg tablet 2 mg PO DAILY tab 03/31/21 [History Last Taken Unknown] methotrexate sodium 2.5 mg tablet 20 mg PO QWEEK tab 03/31/21 [History Last Taken Unknown] metoprolol succinate 100 mg tablet,extended release 24 hr 100 mg PO DAILY tab 03/31/21 [History Last Taken Unknown] prednisone 5 mg tablet 10 mg PO DAILY tab 03/31/21 [History Last Taken Unknown] sulfasalazine 500 mg tablet 0.5 g PO tab 03/31/21 [History Last Taken Unknown] tizanidine 4 mg tablet 4 mg PO BID tab 03/31/21 [History Last Taken Unknown] ubrogepant 100 mg tablet 100 mg PO tab 03/31/21 [History Last Taken Unknown] upadacitinib 15 mg tablet,extended release 24 hr 15 mg PO tab 03/31/21 [History Last Taken Unknown] duloxetine 30 mg capsule,delayed release 60 mg PO DAILY 06/04/21 [History Last Taken Unknown] fluticasone 100 mcg-salmeterol 50 mcg/dose blistr powdr for inhalation 1 inh INHALATION BID 06/04/21 [History Last Taken Unknown] alendronate 70 mg tablet tablet PO 07/02/21 [History Last Taken Unknown] erenumab-aooe 140 mg/mL subcutaneous auto-injector 140 mg SUBCUT ml 07/02/21 [History Last Taken Unknown] ferrous sulfate 325 mg PO DAILY 01/08/22 [History Last Taken Unknown] multivitamin,xq-wfqe-xuyhaonc [Complete Multivitamin] 1 tab PO DAILY 01/08/22 [History Last Taken Unknown] Allergy/AdvReac Type Severity Reaction Status Date / Time ENVIRONMENTAL AdvReac Itching Uncoded 01/07/22 23:14 Surgical History History of History of cholecystectomy History of gastric bypass Social History household members: spouse and children Smoking Status: Former smoker Tobacco: How many years used: 10 how long ago did patient quit smokin years alcohol intake: current alcohol intake frequency: a few times a week substance use type: does not use ROS ROS ED Review of Systems ROS Unobtainable: due to mental status EXAM Physical Exam Const Vital Signs: 01/07/22 23:07 01/07/22 23:15 01/07/22 23:58 Temperature 96.5 F L Temperature Source Temporal Pulse Rate 56 L 56 L 63 Respiratory Rate 18 16 14 Blood Pressure 74/45 L 85/53 L 107/69 Blood Pressure Mean 54 63 81 Pulse Ox 97 94 100 Oxygen Delivery Method Room Air Nasal Cannula Nasal Cannula Oxygen Flow Rate (L/min) 3 2 01/08/22 00:35 Temperature Temperature Source Pulse Rate 64 Respiratory Rate 14 Blood Pressure 110/79 Blood Pressure Mean 89 Pulse Ox 100 Oxygen Delivery Method Nasal Cannula Oxygen Flow Rate (L/min) 2 Positive well nourished, well developed and obese General Appearance ED: well developed and NAD; Negative for pallor Nutritional Appearance: obese HEENT Reports dry mucous membranes atraumatic; Negative for trauma Mouth ED: Yes dry mucous membranes Mouth: dry mucous membranes Eyes PERRL and EOMs intact bilaterally Eyes Narrative: Pupils are 2 mm bilaterally Neck supple Neck Narrative: No rigidity Thyroid: Negative for tender Chest Wall inspection of chest normal Resp normal respiratory effort and clear to auscultation bilaterally Cardio regular rhythm and no murmurs Rate: bradycardia GI soft to palpation, non-tender and non-distended Extremity General Extremety ED: Negative for edema or tenderness General Extremity: Negative for edema Neuro Neuro Narrative: Speech slightly slurred. Patient oriented to self only. No focal neurologic deficits. Patient appears intoxicated. Sensorium / Orientation: confused Motor Exam: general weakness Psych Psych Narrative: Report of suicidal ideation/attempt earlier tonight Mood & Affect: depressed Skin General Skin Exam: Negative for pallor Lesions: no lesions Rashes: no rashes MDM MDM MDM Narrative Medical decision making narrative: Patient evaluated after intentional overdose of tizanidine and alcohol. On arrival patient is hypotensive and to cardiac. She is given IV fluids and does improve with this. She does not require pressors in the emergency room. She is given 1 dose of Narcan with no improvement of her clinical status. ABG obtained upon arrival shows normal pH, PCO2 and elevated PO2. Patient is not hypercapnic or hypoxic I do not think intubation is indicated despite her somnolence. Work-up including lab work, urine studies and CT of the brain as well as chest x-ray did not show any acute process. Urine drug test is positive for benzodiazepines. Patient does have a prescription for diazepam. Acetaminophen and distal levels are normal/negative. Alcohol level is elevated at 144. Patient does have an elevated lactic acid of uncertain significance. I suspect it is secondary to her hypoperfusion from her hypotension. There is no obvious source of infection. Case is discussed with poison control who states of management is supportive. Patient is admitted for close monitoring she cannot be medically cleared for psychiatric treatment. Lab Data Labs: Laboratory Results - last 24 hr 01/07/22 01/07/22 01/07/22 23:05 23:05 23:05 WBC 11.2 H RBC 3.36 L Hgb 11.4 L Hct 35.2 L MCV 104.8 H MCH 33.9 H MCHC 32.4 RDW Std Deviation 56.5 H RDW Coeff of Wally 14.6 Plt Count 226 MPV 9.6 Immature Gran % (Auto) 1.500 H Neut % (Auto) 61.9 Lymph % (Auto) 23.2 [place] % (Auto) 12.5 H Eos % (Auto) 0.6 Baso % (Auto) 0.3 Absolute Neuts (auto) 6.9 Absolute Lymphs (auto) 2.59 Nucleated RBC % 0 PT 13.1 INR 1.1 APTT 30.0 Sodium 137 Potassium 3.8 Chloride 102 Carbon Dioxide 23.0 Anion Gap 12 BUN 14 Creatinine 0.92 Estim Creat Clear Calc 51.96 Est GFR (MDRD) Af Amer 83 Est GFR (MDRD) Non-Af 68 BUN/Creatinine Ratio 15.2 Glucose 145 H Lactic Acid Calcium 9.6 Phosphorus Magnesium Total Bilirubin 0.20 AST 32 ALT 48 Alkaline Phosphatase 55 Total Protein 6.2 L Albumin 3.1 L Globulin 3.1 Albumin/Globulin Ratio 1.0 Lipase 123 Urine Color Urine Clarity Urine pH Ur Specific [place] Urine Protein Urine Glucose (UA) Urine Ketones Urine Occult Blood Urine Nitrite Urine Bilirubin Urine Urobilinogen Ur Leukocyte Esterase Urine RBC Urine WBC Ur Squamous Epith Cells Urine Bacteria Urine Mucus Salicylates Urine Opiates Screen Urine Methadone Screen Acetaminophen Ur Barbiturates Screen Ur Phencyclidine Scrn Ur Amphetamines Screen MDMA (Ecstasy) Screen U Benzodiazepines Scrn Urine Cocaine Screen U Cannabinoids Screen Ur Drug Screen Comment Ethyl Alcohol 01/07/22 01/07/22 01/07/22 23:05 23:28 23:40 WBC RBC Hgb Hct MCV MCH MCHC RDW Std Deviation RDW Coeff of Wally Plt Count MPV Immature Gran % (Auto) Neut % (Auto) Lymph % (Auto) [place] % (Auto) Eos % (Auto) Baso % (Auto) Absolute Neuts (auto) Absolute Lymphs (auto) Nucleated RBC % PT INR APTT Sodium Potassium Chloride Carbon Dioxide Anion Gap BUN Creatinine Estim Creat Clear Calc Est GFR (MDRD) Af Amer Est GFR (MDRD) Non-Af BUN/Creatinine Ratio Glucose Lactic Acid 3.7 H* Calcium Phosphorus Magnesium Total Bilirubin AST ALT Alkaline Phosphatase Total Protein Albumin Globulin Albumin/Globulin Ratio Lipase Urine Color Yellow Urine Clarity Clear Urine pH 7.0 Ur Specific [place] 1.010 Urine Protein 15 H Urine Glucose (UA) Normal Urine Ketones Negative Urine Occult Blood 10 H Urine Nitrite Negative Urine Bilirubin Negative Urine Urobilinogen Normal Ur Leukocyte Esterase Negative Urine RBC 0-5 SEEN Urine WBC 5-10 SEEN Ur Squamous Epith Cells 0 SEEN Urine Bacteria 0 SEEN Urine Mucus 0 SEEN Salicylates Urine Opiates Screen Urine Methadone Screen Acetaminophen Ur Barbiturates Screen Ur Phencyclidine Scrn Ur Amphetamines Screen MDMA (Ecstasy) Screen U Benzodiazepines Scrn Urine Cocaine Screen U Cannabinoids Screen Ur Drug Screen Comment Ethyl Alcohol 144.0 01/07/22 01/08/22 01/08/22 23:40 00:00 00:00 WBC RBC Hgb Hct MCV MCH MCHC RDW Std Deviation RDW Coeff of Wally Plt Count MPV Immature Gran % (Auto) Neut % (Auto) Lymph % (Auto) [place] % (Auto) Eos % (Auto) Baso % (Auto) Absolute Neuts (auto) Absolute Lymphs (auto) Nucleated RBC % PT INR APTT Sodium Potassium Chloride Carbon Dioxide Anion Gap BUN Creatinine Estim Creat Clear Calc Est GFR (MDRD) Af Amer Est GFR (MDRD) Non-Af BUN/Creatinine Ratio Glucose Lactic Acid Calcium Phosphorus 3.1 Magnesium 2.2 Total Bilirubin AST ALT Alkaline Phosphatase Total Protein Albumin Globulin Albumin/Globulin Ratio Lipase Urine Color Urine Clarity Urine pH Ur Specific [place] Urine Protein Urine Glucose (UA) Urine Ketones Urine Occult Blood Urine Nitrite Urine Bilirubin Urine Urobilinogen Ur Leukocyte Esterase Urine RBC Urine WBC Ur Squamous Epith Cells Urine Bacteria Urine Mucus Salicylates 2.2 L Urine Opiates Screen NEGATIVE Urine Methadone Screen NEGATIVE Acetaminophen < 2.0 L Ur Barbiturates Screen NEGATIVE Ur Phencyclidine Scrn NEGATIVE Ur Amphetamines Screen NEGATIVE MDMA (Ecstasy) Screen NEGATIVE U Benzodiazepines Scrn POSITIVE H Urine Cocaine Screen NEGATIVE U Cannabinoids Screen NEGATIVE Ur Drug Screen Comment Ethyl Alcohol ABG Data ABG results: ABG 01/07/22 23:37 Specimen Type ART Sample Site R Radial pH 7.35 Bicarbonate Actual 23.0 Total CO2 24 Base Excess -3 L O2 Saturation 100 H ABG pCO2 41.3 ABG pO2 210 H Jeremie Test Positive O2 Delivery Device Cannula Liter Flow 4.0 Radiography Diagnostic Testing: Clinical Impression(s) from Imaging Studies Chest X-Ray 01/07/22 23:14 IMPRESSION: No radiographic evidence of acute cardiopulmonary disease. at 0020 Reported and signed by: Lam Pritchard MD Electronically Signed: Lam Pritchard MD at 0:20 EDT Reading Location ID and State: [facility] / [place] Tel , Service support , Brain CT 01/07/22 23:19 IMPRESSION: Negative head/brain CT without intravenous contrast. Individualized dose optimization techniques were used for this CT. at 0012 Reported and signed by: Lam Pritchard MD Electronically Signed: Lam Pritchard MD at 0:11 EDT Reading Location ID and State: [facility] / [place] Tel , Service support , Rhythm Strip Rhythm Strip: Sinus bradycardia Rate: 54 Ectopy: None EKG Initial EKG: Attestation: I personally reviewed and interpreted this EKG as follows: Interpretation: Sinus Bradycardia Comments: Sinus bradycardia rate of 54 Normal axis Normal intervals Normal ST segments Voltage criteria for LVH Discharge Plan Dx/Rx/DC Orders Clinical Impression: Suicidal overdose, Encephalopathy acute, Alcohol intoxication Disposition Disposition: Acute Care Hospital [facility] Discharge Date/Time: 01/08/22 02:31
[2022-01-08] VITALS (18 sets, daily range): BP systolic 97–212; BP diastolic 63–92; PULSE 62–87; RESP 12–20; TEMP 35.8–37.7; O2SAT 95–100; BMI 37.4
[2022-01-08] LABS: Bacteria 0 SEEN /hpf (None Seen); Mucous, Urine 0 SEEN /hpf (<or=2+); Squamous Epithelial Cells - UA 0 SEEN /hpf (5-10)
[2022-01-08 00:04] LABS: Color, Urine Yellow (Yellow); Glucose, Dipstick Normal (Normal); Ketone-Dipstick Negative (Negative); Leukocyte Esterase-Dipstick Negative /ul (Negative); Nitrite-Dipstick Negative (Negative); Occult Blood-Urine 10 /ul (Negative); Protein-Dipstick 15 mg/dl (Negative); Urine Bilirubin Dipstick Negative (Negative); Urine Clarity Clear (Clear); Urine Urobilinogen Normal (Normal)
[2022-01-08 00:13] LABS: Amphetamine Urine VISTA NEGATIVE (<1000 ng/mL); Barbiturate Urine VISTA NEGATIVE (< 200 ng/mL); Benzodiazepine Urine VISTA POSITIVE (< 200 ng/mL); Cocaine Urine VISTA NEGATIVE (< 300 ng/mL); Ecstacy Urine VISTA NEGATIVE (< 500 ng/mL); Methadone Urine VISTA NEGATIVE (< 300 ng/mL); PCP Urine VISTA NEGATIVE (< 25 ng/mL); THC Urine VISTA NEGATIVE (< 50 ng/mL); Vista UDS pH Range 6
[2022-01-08 00:15] LABS: Lactic Acid 3.7 mmol/L (0.4-1.9)
[2022-01-08 00:17] LABS: Red Blood Cells-Urine 0-5 SEEN /hpf (0-5); White Blood Cells 5-10 SEEN /hpf (0-5)
[2022-01-08] MEDS: 0.9% Normal Saline 1,000 ML 999 ML IV (00:32)
--- NOTE | 2022-01-08 00:50 | PCM.HP.STD ---
[facility] - General General Date of Admission: 01/08/22 Date of Service: 01/08/22 Chief Complaint: Drug overdose, muscle relaxant, tizanidine suicidal ideation/attempt. Feels depressed HPI Narrative MARY SHERMAN, is a 51 F with history of rheumatoid arthritis on muscle relaxant diazepam and tizanidine and multiple other medications came to ED after she intentionally overdosed with tizanidine 4 mg, 5 to 8 tablets, what were left in the bottle. She also had more than half of the bottle of rum. As per the EMS, patient was drowsy, lethargic but responded to voice with only 2 words. EMS vitals shows low blood pressure 75/55, heart rate 65 Volume resuscitated. In ED, heart rate low 48/min but improved to 66/min. Blood pressure improved to 137/79. No tachypnea or hypoxia. Labs done in the ED reviewed. ABG 7.3 /210 on 4 L of oxygen through nasal cannula. Lactic acid 3.7. Glucose 145. UA negative for LE and nitrite. WBC 5-10 cells. U tox positive for benzodiazepine. Serum alcohol level 144 mg/dL. Chest x-ray individually reviewed shows no acute abnormality. CT head without contrast no acute abnormality. Patient has been observed in ED and mental responsiveness improving therefore admitted in PCU. [facility] Medical History Abnormal bruising Alcohol abuse Anemia Anxiety Asthma Chronic neck and back pain Chronic pain Closed fracture of right distal fibula Depression Difficulty balancing when standing Fatigue Fibromyalgia Former smoker Hyperlipemia Hypertension Incontinence Limb weakness Migraines Rheumatoid arthritis Shoulder pain Home Medications diazepam 2 mg PO BID PRN PRN 07/17/13 [History Last Taken 12/19/13] desog-e.estradiol/e.estradiol [Viorele 28 Day Tablet] 1 ea PO DAILY 09/18/13 [History Last Taken 12/19/13] folic acid 1 mg tablet 1 mg PO tab 03/31/21 [History Last Taken Unknown] methotrexate sodium 2.5 mg tablet 2.5 mg PO tab 03/31/21 [History Last Taken Unknown] metoprolol succinate 100 mg tablet,extended release 24 hr 100 mg PO tab 03/31/21 [History Last Taken Unknown] prednisone 5 mg tablet 5 mg PO tab 03/31/21 [History Last Taken Unknown] sulfasalazine 500 mg tablet 0.5 g PO tab 03/31/21 [History Last Taken Unknown] tizanidine 4 mg tablet 4 mg PO tab 03/31/21 [History Last Taken Unknown] ubrogepant 100 mg tablet 100 mg PO tab 03/31/21 [History Last Taken Unknown] upadacitinib 15 mg tablet,extended release 24 hr 15 mg PO tab 03/31/21 [History Last Taken Unknown] duloxetine 30 mg capsule,delayed release 30 mg PO DAILY 06/04/21 [History Last Taken Unknown] fluticasone 100 mcg-salmeterol 50 mcg/dose blistr powdr for inhalation 1 inh INHALATION BID 06/04/21 [History Last Taken Unknown] alendronate 70 mg tablet tablet PO 07/02/21 [History Last Taken Unknown] erenumab-aooe 140 mg/mL subcutaneous auto-injector 140 mg SUBCUT ml 07/02/21 [History Last Taken Unknown] Allergy/AdvReac Type Severity Reaction Status Date / Time ENVIRONMENTAL AdvReac Itching Uncoded 01/07/22 23:14 Surgical History History of History of cholecystectomy History of gastric bypass Social History household members: spouse and children Smoking Status: Former smoker Tobacco: How many years used: 10 how long ago did patient quit smokin years alcohol intake: current alcohol intake frequency: a few times a week substance use type: does not use ROS ROS Narrative Complete 14 ROS limited because of patient drowsiness and lethargy. Constitutional: Reports fatigue and weakness, lethargy HEENT: Reports systems reviewed and no addt'l complaints, except as documented Respiratory/Chest: Denies chest pain, shortness of breath at rest or with exertion Gastrointestinal: Denies coffee ground emesis, hematemesis or vomiting Genitourinary: Denies burning urination or new urinary tract symptoms Musculoskeletal: Osteopenia as well as ankle x-ray. Right distal fibula fracture in May 2021. Multiple joint pain and ache including finger, wrist ankle, back and neck. RA. Neurologic: Denies seizure-like activity skin: No ulcer. No rash Endocrinology: Reports systems reviewed and no addt'l complaints, except as documented Hematologic/Lymphatic: Chronic anemia. Reports systems reviewed and no addt'l complaints, except as documented Psychiatric: Depressed. Overdose, suicidal ideation Vital Signs Vital Signs Vital Signs: 01/07/22 23:07 01/07/22 23:15 01/07/22 23:58 Temperature 96.5 F L Temperature Source Temporal Pulse Rate 56 L 56 L 63 Respiratory Rate 18 16 14 Blood Pressure 74/45 L 85/53 L 107/69 Blood Pressure Mean 54 63 81 Pulse Ox 97 94 100 Oxygen Delivery Method Room Air Nasal Cannula Nasal Cannula Oxygen Flow Rate (L/min) 3 2 01/08/22 00:35 Temperature Temperature Source Pulse Rate 64 Respiratory Rate 14 Blood Pressure 110/79 Blood Pressure Mean 89 Pulse Ox 100 Oxygen Delivery Method Nasal Cannula Oxygen Flow Rate (L/min) 2 Weight Weight: 200 lb 2.876 oz Body Mass Index (BMI) 39.1 Physical Exam Narrative General: Drowsy, lethargy. Oriented x4. Low pitched voice. HEENT: Atraumatic, PERRLA, EOMI, Normocephalic Oral: Oral mucosa dry. No Gingival or Mucosal Lesions/ Ulcerations Neck: Supple, No JVD, Negative Carotid Bruits Lungs: Air entry diminished in bilateral lung bases. No crepitation/rhonchi Cardiovascular: Sinus rhythm, Normal S1, Normal S2, No murmurs Abdomen: Bowel Sounds Present, Soft, Non Tender, Non-Distended : No renal angle tenderness. No suprapubic tenderness. Extremities: No edema, Capillary Refill Less than 3 Seconds Skin: No rashes, No breakdown Musculoskeletal: Mild tenderness over wrist and finger joints, chronic. Rheumatoid arthritis. Limited range of motion of wrist and finger joints. Status post right ankle/distal tibia fracture. Neurological: Cranial nerves II-XII grossly intact, DTR 2+/4 Psych/Mental Status: Depressed. Suicidal attempt. Results Lab / Micro Data Result Diagrams: 01/07/22 23:05 01/07/22 23:05 Labs: Laboratory Results - last 24 hr 01/07/22 23:05: WBC 11.2 H, RBC 3.36 L, Hgb 11.4 L, Hct 35.2 L, MCV 104.8 H, MCH 33.9 H, MCHC 32.4, RDW Std Deviation 56.5 H, RDW Coeff of Wally 14.6, Plt Count 226, MPV 9.6, Immature Gran % (Auto) 1.500 H, Neut % (Auto) 61.9, Lymph % (Auto) 23.2, [place] % (Auto) 12.5 H, Eos % (Auto) 0.6, Baso % (Auto) 0.3, Absolute Neuts (auto) 6.9, Absolute Lymphs (auto) 2.59, Nucleated RBC % 0 01/07/22 23:05: PT 13.1, INR 1.1, APTT 30.0 01/07/22 23:05: Sodium 137, Potassium 3.8, Chloride 102, Carbon Dioxide 23.0, Anion Gap 12, BUN 14, Creatinine 0.92, Estim Creat Clear Calc 51.96, Est GFR (MDRD) Af Amer 83, Est GFR (MDRD) Non-Af 68, BUN/Creatinine Ratio 15.2, Glucose 145 H, Calcium 9.6, Total Bilirubin 0.20, AST 32, ALT 48, Alkaline Phosphatase 55, Total Protein 6.2 L, Albumin 3.1 L, Globulin 3.1, Albumin/Globulin Ratio 1.0, Lipase 123 01/07/22 23:05: Ethyl Alcohol 144.0 01/07/22 23:28: Lactic Acid 3.7 H* 01/07/22 23:40: Urine Color Yellow, Urine Clarity Clear, Urine pH 7.0, Ur Specific [place] 1.010, Urine Protein 15 H, Urine Glucose (UA) Normal, Urine Ketones Negative, Urine Occult Blood 10 H, Urine Nitrite Negative, Urine Bilirubin Negative, Urine Urobilinogen Normal, Ur Leukocyte Esterase Negative, Urine RBC 0-5 SEEN, Urine WBC 5-10 SEEN, Ur Squamous Epith Cells 0 SEEN, Urine Bacteria 0 SEEN, Urine Mucus 0 SEEN 01/07/22 23:40: Urine Opiates Screen NEGATIVE, Urine Methadone Screen NEGATIVE, Ur Barbiturates Screen NEGATIVE, Ur Phencyclidine Scrn NEGATIVE, Ur Amphetamines Screen NEGATIVE, MDMA (Ecstasy) Screen NEGATIVE, U Benzodiazepines Scrn POSITIVE H, Urine Cocaine Screen NEGATIVE, U Cannabinoids Screen NEGATIVE, Ur Drug Screen Comment ABG Data ABG results: ABG 01/07/22 23:37 Specimen Type ART Sample Site R Radial pH 7.35 Bicarbonate Actual 23.0 Total CO2 24 Base Excess -3 L O2 Saturation 100 H ABG pCO2 41.3 ABG pO2 210 H Jeremie Test Positive O2 Delivery Device Cannula Liter Flow 4.0 Radiology Impression Chest X-Ray 01/07/22 23:14 IMPRESSION: No radiographic evidence of acute cardiopulmonary disease. at 0020 Reported and signed by: Lam Pritchard MD Electronically Signed: Lam Pritchard MD at 0:20 EDT Reading Location ID and State: [facility] / [place] Tel , Service support , Brain CT 01/07/22 23:19 IMPRESSION: Negative head/brain CT without intravenous contrast. Individualized dose optimization techniques were used for this CT. at 0012 Reported and signed by: Lam Pritchard MD Electronically Signed: Lam Pritchard MD at 0:11 EDT Reading Location ID and State: [facility] / [place] Tel , Service support , Assessment & Plan Assessment/Plan (1) Suicidal overdose: PLAN: 1. Intentional suicidal overdose with tizanidine and alcohol: Patient is being admitted in PCU status although physical in ICU for staffing reason. IV fluid normal saline at 100 mL/h for 2 L. Monitor intake and output. N.p.o. status until patient is fully awake and passes nursing swallow screen. Hold further to tizanidine, diazepam, duloxetine or other medications. Serum magnesium and phosphorus ordered. Patient has history of suicidal attempt when she was 16 with alcohol overdose/intoxication. 2. Sinus bradycardia, hypotension and lactic acidosis in ED: Patient heart rate and blood pressure has improved and is in normal range. Patient has lactic acidosis probably due to hypovolemia from medication overdose. Repeat lactic acid. Clinically no signs and symptoms pertaining to infection. Sepsis ruled out. 3. Rheumatoid arthritis, osteopenia, chronic pain disorder with imbalance and disequilibrium, chronic migraine headache. Patient on methotrexate, prednisone, folic acid at home gradually resume her medication when patient is fully awake and alert. 4. Chronic macrocytic anemia: H&H 11.4/35%. Her baseline hemoglobin is 13.7 g/dL. Resume folic acid 1 patient is awake. Vitamin B12 and folate ordered for tomorrow a.m. 5. Incidental hyperglycemia: Glucose in [facility] is 145. Her previous glucose in [facility] range from 78 to 101 mg/dL in last 2 years. A1c tomorrow a.m. 6. COPD: Patient is on Advair Diskus at home. Advair regimen. No COPD exacerbation. Albuterol nebulization as needed for shortness of breath. Patient is ex-smoker quit about 10 years ago. VTE prophylaxis: Lovenox 40 mg subcut daily. Discontinue if platelet count drops less than 50,000 or hemoglobin less than 8 g% Living will/advanced directive/end of life care: Patient does not have living will or advanced directive. Plan discussed with the patient's near the bedside. After discussion of benefits/risks procedures involved with full code, DNR CC arrest and DNR CC, the patient's opted for full code. The patient's does want artificial life support including intubation, tube feed, ventilator and/chest compression, central venous catheter, vasopressor and DC shock if needed Total time spent in [id number]-[id number] encounter in discussion of advanced directive 16 minutes. Charges/Coding Visit Charges Inpatient E&M: 02958 Init Hosp L3 Procedures Hospitalists Procedures: 30724 Advncd Care Plan 30 Min
[2022-01-08 01:49] LABS: Magnesium 2.2 mg/dL (1.6-2.6); Phosphorus 3.1 mg/dL (2.5-4.9)
[2022-01-08 02:20] LABS: Acetaminophen (Tylenol) Level < 2.0 ug/mL (10.0-30.0); Salicylate 2.2 mg/dL (2.8-20.0)
[2022-01-08] MEDS: 0.9% Normal Saline 1,000 ML 100 ML IV (03:00)
[2022-01-08 03:32] LABS: Reflex Lactate? Y
[2022-01-08 04:20] LABS: Absolute Lymphocyte Count 1.93 X10^3/uL (0.83-4.51); Absolute Neutrophil Count 3.8 X10^3/uL (2.0-7.7); Basophil# 0.02 X10^3/uL; Basophil% 0.3 % (0-1); Eosinophil# 0.07 X10^3/uL; Eosinophils% 1.1 % (0-5); Hematocrit 36.3 % (37-47); Hemoglobin 11.8 g/dL (12.0-15.0); Lymphocyte # 1.93 X10^3/ul (0.83-4.51); Lymphocyte % 29.2 % (19-41); Mean Corp Hgb Conc 32.5 g/dL (32-36); Mean Corpuscular Volume 104.6 fL (81-99); Mean Platelet Vol. 9.4 fl (6.2-12.0); Monocyte# 0.69 X10^3/uL; Monocyte% 10.5 % (0-10); NRBC Flagged by Analyzer 0 % (0-5); Neutrophil # 3.83 X10^3/uL (2.7-7.7); Platelet Count 154 K/mm3 (150-450); RBC Distribution Width CV 14.5 % (11.6-14.6); RBC Distribution Width SD 55.6 fl (35.1-43.9); Red Blood Count 3.47 M/mm3 (4.2-5.4); White Blood Count 6.6 K/mm3 (4.4-11.0)
--- NOTE | 2022-01-08 04:28 | NURSING ---
0245- Patient arrived to unit from ED. All items removed from room necessary for sucidal precautions as well as all patient belongings which were placed at nurses station. 1:1 sitter is at bedside with appropriate checklist. Patient informed of admission/situation. Very pleasant and cooperative. Will continue to monitor.
[2022-01-08 05:10] LABS: Lactic Acid 1.7 mmol/L (0.4-1.9)
[2022-01-08 05:43] LABS: Anion Gap 5 (5-15); BUN 11 mg/dL (7-18); BUN/Creat Ratio 15.5 RATIO (10-20); Calcium,Total 9.3 mg/dL (8.5-10.1); Chloride 110 mmol/L (98-107); Creatinine, Serum 0.71 mg/dL (0.55-1.02); EST Glomerular Filtration Rate 92 mL/min (>60); Est Glom Filt Rate - Afr Amer 112 mL/min (>60); Estimated Creatinine Clearance 67.33 ml/min; Glucose 104 mg/dL (74-106); Potassium 3.7 mmol/L (3.5-5.1); Sodium Level 141 mmol/L (136-145)
[2022-01-08 08:29] LABS: Hemoglobin A1c 5.1 % (3.8-5.6)
--- NOTE | 2022-01-08 09:15 | NURSING ---
report called to AMI Arcos RN
--- NOTE | 2022-01-08 10:18 | CASEMGMT ---
Social Work Pt has been medically cleared for Crisis assessment. Phone call to Barb at Crisis and referral made. aBrb to come to hospital today to assess pt for psychiatric placement due to suicide attempt. Demographic sheet faxed to Crisis. ISADORA Marcus
[2022-01-08] MEDS: Acetaminophen 325 MG Tablet 650 MG PO (11:02)
[2022-01-08] MEDS: Enoxaparin 40 MG/0.4 ML Syringe SC (11:03)
[2022-01-08] MEDS: Folic Acid 1 MG Tablet 2 MG PO (12:30)
[2022-01-08] MEDS: Metoprolol(XL)Succ 100 MG Tablet PO (12:30)
[2022-01-08] MEDS: predniSONE 10 MG Tablet PO (12:30)
--- NOTE | 2022-01-08 13:22 | CASEMGMT ---
Social Work SW spoke with Barb from [facility]. Updated clinical information faxed. Barb to make referrals at this time for psychiatric placement. ISADORA Marcus
--- NOTE | 2022-01-08 15:05 | NURSING ---
Receieved a phonecall from Barb with crisis stating that the potential accepting facility is requesting a negative test. Orders placed.
[2022-01-08 16:11] LABS: Internal QC Validated? YES +Cl - CLEAR BKGD; Pregnancy, Urine Negative Negative
--- NOTE | 2022-01-08 17:08 | PCM.DC.SUM ---
Providers Date of Admission: 01/08/22 Primary Care Physician: Dr. Jennifer Harris DO Reason For Visit: SUICIDIAL OVERDOSE Diagnosis Discharge Diagnosis (1) Suicidal overdose: Status: Acute Code(s): T50.902A - Poisoning by unspecified drugs, medicaments and biological substances, intentional self-harm, initial encounter Medications at Discharge Home Medications diazepam 2 mg PO DAILY 07/17/13 desog-e.estradiol/e.estradiol [Viorele (28)] 1 ea PO DAILY 09/18/13 folic acid 1 mg tablet 2 mg PO DAILY tab 03/31/21 methotrexate sodium 2.5 mg tablet 20 mg PO QWEEK tab 03/31/21 metoprolol succinate 100 mg tablet,extended release 24 hr 100 mg PO DAILY tab 03/31/21 prednisone 5 mg tablet 10 mg PO DAILY tab 03/31/21 sulfasalazine 500 mg tablet 0.5 g PO tab 03/31/21 tizanidine 4 mg tablet 4 mg PO BID tab 03/31/21 ubrogepant 100 mg tablet 100 mg PO tab 03/31/21 upadacitinib 15 mg tablet,extended release 24 hr 15 mg PO tab 03/31/21 duloxetine 30 mg capsule,delayed release 60 mg PO DAILY 06/04/21 fluticasone 100 mcg-salmeterol 50 mcg/dose blistr powdr for inhalation 1 inh INHALATION BID 06/04/21 alendronate 70 mg tablet tablet PO 07/02/21 erenumab-aooe 140 mg/mL subcutaneous auto-injector 140 mg SUBCUT ml 07/02/21 ibycxapupx-kloypub-rlqojsffh. ml MUCOUS MEMBRANE 4X/DAY PRN PRN 01/08/22 ferrous sulfate 325 mg PO DAILY 01/08/22 multivitamin,kt-ydps-fndlcjex 1 tab PO DAILY 01/08/22 Hospital Course Operations None Procedures None Summary of Care Provided Minutes Spent on Discharge: 45 Hospital Course: Patient is a 51-year-old female with a past medical history as outlined who was admitted through the ED in the early hours of 01/08/2022 for intentional overdose of tizanidine. She took about 5 to 8 tablets of tizanidine 4 mg that were left in her bottle and she had also drank more than half a bottle of 1. EMS was called and she was found to be hypotensive with blood pressure of 75/55. She was also drowsy and lethargic. On admission in the ED she was found to be bradycardic but this subsequently improved with heart rate going from 48/min to 66/min. Lactic acid was 3.7. Urine tox was positive for benzodiazepine and serum alcohol level was 144. Chest x-ray showed no acute abnormality and CT of the head without contrast also showed no acute intracranial pathology. She was admitted and managed for intentional tizanidine overdose. She was initially admitted to the ICU under PCU status. Patient had apparently had previous history of suicidal attempt in the past. Patient stabilized and her bradycardia resolved. Mental health crisis team was consulted and due to patient suicidal ideation, she was deemed as needing inpatient psychiatric evaluation. She was transferred to an inpatient psych unit on 01/08/2022. Patient was seen and examined prior to discharge. She felt much better and had no active complaints. Review of systems otherwise negative. Labs and vitals reviewed. Home medication reviewed and reconciled. Physical Exam Const alert Constitutional Narrative: lethargic General Appearance: lethargic Orientation / Consciousness: awake and lethargic Exam Limitations: no limitations HEENT normocephalic, head/scalp atraumatic, hearing grossly normal bilaterally and moist oral mucous membranes Eyes PERRL, EOMs intact bilaterally and conjunctivae normal Neck no lymphadenopathy, supple and no JVD Resp normal respiratory effort, no retractions, no use of accessory muscles and clear to auscultation bilaterally Cardio regular rate, regular rhythm, S1 normal heart sound, S2 normal heart sound and no murmurs GI normal to inspection, nondistended, normoactive bowel sounds, soft to palpation, non-tender and non-distended Extremity normal to inspection, full ROM and no clubbing, cyanosis or edema Skin no rashes or lesions noted Neuro oriented x3, CN's II-XII intact bilaterally and moves all extremities Sensorium / Orientation: awake and alert Psych Psych Narrative: flat affect Weight / BMI Weight Weight: 191 lb 12.835 oz Body Mass Index (BMI) 37.4 ABG / Lab / Microbiology Data Result Diagrams: 01/08/22 04:00 01/08/22 04:00 Laboratory: Laboratory Results - last 24 hr 01/07/22 23:05: WBC 11.2 H, RBC 3.36 L, Hgb 11.4 L, Hct 35.2 L, MCV 104.8 H, MCH 33.9 H, MCHC 32.4, RDW Std Deviation 56.5 H, RDW Coeff of Wally 14.6, Plt Count 226, MPV 9.6, Immature Gran % (Auto) 1.500 H, Neut % (Auto) 61.9, Lymph % (Auto) 23.2, [place] % (Auto) 12.5 H, Eos % (Auto) 0.6, Baso % (Auto) 0.3, Absolute Neuts (auto) 6.9, Absolute Lymphs (auto) 2.59, Nucleated RBC % 0 01/07/22 23:05: PT 13.1, INR 1.1, APTT 30.0 01/07/22 23:05: Sodium 137, Potassium 3.8, Chloride 102, Carbon Dioxide 23.0, Anion Gap 12, BUN 14, Creatinine 0.92, Estim Creat Clear Calc 51.96, Est GFR (MDRD) Af Amer 83, Est GFR (MDRD) Non-Af 68, BUN/Creatinine Ratio 15.2, Glucose 145 H, Calcium 9.6, Total Bilirubin 0.20, AST 32, ALT 48, Alkaline Phosphatase 55, Total Protein 6.2 L, Albumin 3.1 L, Globulin 3.1, Albumin/Globulin Ratio 1.0, Lipase 123 01/07/22 23:05: Ethyl Alcohol 144.0 01/07/22 23:28: Lactic Acid 3.7 H* 01/07/22 23:40: Urine Color Yellow, Urine Clarity Clear, Urine pH 7.0, Ur Specific [place] 1.010, Urine Protein 15 H, Urine Glucose (UA) Normal, Urine Ketones Negative, Urine Occult Blood 10 H, Urine Nitrite Negative, Urine Bilirubin Negative, Urine Urobilinogen Normal, Ur Leukocyte Esterase Negative, Urine RBC 0-5 SEEN, Urine WBC 5-10 SEEN, Ur Squamous Epith Cells 0 SEEN, Urine Bacteria 0 SEEN, Urine Mucus 0 SEEN 01/07/22 23:40: Urine Opiates Screen NEGATIVE, Urine Methadone Screen NEGATIVE, Ur Barbiturates Screen NEGATIVE, Ur Phencyclidine Scrn NEGATIVE, Ur Amphetamines Screen NEGATIVE, MDMA (Ecstasy) Screen NEGATIVE, U Benzodiazepines Scrn POSITIVE H, Urine Cocaine Screen NEGATIVE, U Cannabinoids Screen NEGATIVE, Ur Drug Screen Comment 01/08/22 00:00: Phosphorus 3.1, Magnesium 2.2 01/08/22 00:00: Salicylates 2.2 L, Acetaminophen < 2.0 L 01/08/22 04:00: WBC 6.6, RBC 3.47 L, Hgb 11.8 L, Hct 36.3 L, MCV 104.6 H, MCH 34.0 H, MCHC 32.5, RDW Std Deviation 55.6 H, RDW Coeff of Wally 14.5, Plt Count 154, MPV 9.4, Immature Gran % (Auto) 0.900, Neut % (Auto) 58.0, Lymph % (Auto) 29.2, [place] % (Auto) 10.5 H, Eos % (Auto) 1.1, Baso % (Auto) 0.3, Absolute Neuts (auto) 3.8, Absolute Lymphs (auto) 1.93, Nucleated RBC % 0 01/08/22 04:00: Sodium 141, Potassium 3.7, Chloride 110 H, Carbon Dioxide 26.0, Anion Gap 5, BUN 11, Creatinine 0.71, Estim Creat Clear Calc 67.33, Est GFR (MDRD) Af Amer 112, Est GFR (MDRD) Non-Af 92, BUN/Creatinine Ratio 15.5, Glucose 104, Calcium 9.3, Folate 12.10 01/08/22 04:00: Hemoglobin A1c 5.1 01/08/22 04:00: Lactic Acid 1.7 01/08/22 11:25: Ethyl Alcohol 5.0 01/08/22 15:44: Urine Test Negative Microbiology: Microbiology 01/08/22 11:07 Nasal Secretion SARS-CoV-2 Antigen (Rapid) - Final ABG: ABG 01/07/22 23:37 Specimen Type ART Sample Site R Radial pH 7.35 Bicarbonate Actual 23.0 Total CO2 24 Base Excess -3 L O2 Saturation 100 H ABG pCO2 41.3 ABG pO2 210 H Jeremie Test Positive O2 Delivery Device Cannula Liter Flow 4.0 Radiography Diagnostic Testing: Radiology Impression Chest X-Ray 01/07/22 23:14 IMPRESSION: No radiographic evidence of acute cardiopulmonary disease. at 0020 Reported and signed by: Lam Pritchard MD Electronically Signed: Lam Pritchard MD at 0:20 EDT Reading Location ID and State: [facility] / [place] Tel , Service support , Brain CT 01/07/22 23:19 IMPRESSION: Negative head/brain CT without intravenous contrast. Individualized dose optimization techniques were used for this CT. at 0012 Reported and signed by: Lam Pritchard MD Electronically Signed: Lam Pritchard MD at 0:11 EDT Reading Location ID and State: [facility] / [place] Tel , Service support , D/C Instructions Discharge Diet: Low fat / Low cholesterol Meaningful Use Info Meaningful Use Diagnoses (Choose all that apply): None applicable Discharge Plan Admission Admit Date/Time: 01/08/22 01:14 Primary Reason for Your Visit: intentional tizanidine overdose Attending Provider: Tara Romero Primary Care Provider: Jennifer Harris Discharge Orders/Prescriptions Prescriptions: Continued tizanidine 4 mg tablet 4 mg PO BID RF: 0 upadacitinib 15 mg tablet extended release 24 hr 15 mg PO RF: 0 methotrexate sodium 2.5 mg tablet 20 mg PO QWEEK RF: 0 folic acid 1 mg tablet 2 mg PO DAILY RF: 0 ubrogepant 100 mg tablet 100 mg PO RF: 0 prednisone 5 mg tablet 10 mg PO DAILY RF: 0 sulfasalazine 500 mg tablet 0.5 g PO RF: 0 metoprolol succinate 100 mg tablet extended release 24 hr 100 mg PO DAILY RF: 0 erenumab-aooe 140 mg/mL auto-injector 140 mg subcut RF: 0 duloxetine 30 mg capsule,delayed release(DR/EC) 60 mg PO DAILY RF: 0 fluticasone propion-salmeterol [Advair Diskus] 100-50 mcg/dose blister with device 1 inh inhalation BID RF: 0 alendronate 70 mg tablet PO RF: 0 diazepam 2 MG tablet 2 mg PO DAILY RF: 0 desog-e.estradiol/e.estradiol [Viorelricardo (28)] 1 EACH tablet 1 ea PO DAILY RF: 0 ferrous sulfate 325 mg (65 mg iron) Tablet 325 mg PO DAILY RF: 0 multivitamin,ov-puuc-itczdagf Tablet 1 tab PO DAILY RF: 0 cippkzdqvm-bfaydye-dahkmpige. Liquid MUCOUS MEMBRANE 4X/DAY PRN PRN (Reason: mouth pain) RF: 0 Referrals / Follow Up: Jennifer Harris DO [Primary Care Provider] - Disposition Disposition (needs filled in before D/C Order can be placed): Psychiatric Hospital or Unit Charges/Coding Visit Charges OBSV E&M: 08828 Observ/hosp same date L3
--- NOTE | 2022-01-08 17:17 | NURSING ---
This RN received patient's home medication of diazepam, and counted with Arnel Roa RN. Final count was 22 tablets, and handed off to ambulance personnel prior to discharge.
== END 2022-01-08 17:13 | DRG 918 ==
LOC: ED 01-08 01:05 → ICU 01-08 02:13 → PCU 01-08 09:26
PROVIDERS: Emergency Medicine; Admitting Provider Internal Medicine; Emergency Provider Emergency Medicine; PCP Family Medicine; Visit Provider Student in an Organized Health Care Education/Training Program
DX: T42.8X2A Poisoning by antiparkinsonism drugs and other central muscle-tone depressants, intentional self-harm, initial encounter (principal); D53.9 Nutritional anemia, unspecified; I95.2 Hypotension due to drugs; J44.9 Chronic obstructive pulmonary disease, unspecified; T51.0X2A Toxic effect of ethanol, intentional self-harm, initial encounter; M06.9 Rheumatoid arthritis, unspecified; G43.709 Chronic migraine without aura, not intractable, without status migrainosus; M79.7 Fibromyalgia; E86.1 Hypovolemia; I10 Essential (primary) hypertension; E78.5 Hyperlipidemia, unspecified; R00.1 Bradycardia, unspecified; F10.10 Alcohol abuse, uncomplicated; Y90.6 Blood alcohol level of 120-199 mg/100 ml; R53.83 Other fatigue; R40.0 Somnolence; M85.80 Other specified disorders of bone density and structure, unspecified site; R73.9 Hyperglycemia, unspecified; G89.4 Chronic pain syndrome; Z91.51 Personal history of suicidal behavior; Z79.899 Other long term (current) drug therapy; Z87.891 Personal history of nicotine dependence
CPT/HCPCS: 36415; 36600; 51702; 70450; 71045; 80048; 80053; 80307; 80329; 81001; 81025; 82077; 82746; 82803; 83036; 83605; 83690; 83735; 84100; 85025; 85610; 85730; 87426; 93005; 99285; J7030; A4216; G0480

== ENCOUNTER → 2022-04-28 | Outpatient (CLI) | payer OTHER, SELFPAY ==
[2022-04-28 12:15] LABS: Absolute Lymphocyte Count 2.87 X10^3/uL (0.83-4.51); Absolute Neutrophil Count 5.2 X10^3/uL (2.0-7.7); Basophil# 0.02 X10^3/uL; Basophil% 0.2 % (0-1); Eosinophil# 0.06 X10^3/uL; Eosinophils% 0.7 % (0-5); Hematocrit 41.5 % (37-47); Hemoglobin 13.5 g/dL (12.0-15.0); Lymphocyte # 2.87 X10^3/ul (0.83-4.51); Lymphocyte % 31.4 % (19-41); Mean Corp Hgb Conc 32.5 g/dL (32-36); Mean Corpuscular Hgb 32.8 pg (27.0-32.0); Mean Corpuscular Volume 100.7 fL (81-99); Mean Platelet Vol. 10.1 fl (6.2-12.0); Monocyte# 0.79 X10^3/uL; Monocyte% 8.7 % (0-10); NRBC Flagged by Analyzer 0 % (0-5); Neutrophil # 5.24 X10^3/uL (2.7-7.7); Neutrophil % 57.4 % (47-70); Platelet Count 223 K/mm3 (150-450); RBC Distribution Width CV 15.6 % (11.6-14.6); RBC Distribution Width SD 57.2 fl (35.1-43.9); Red Blood Count 4.12 M/mm3 (4.2-5.4); White Blood Count 9.1 K/mm3 (4.4-11.0)
[2022-04-28 12:49] LABS: ALB/GLOB Ratio 1.2 RATIO (0.9-2.4); AST(SGOT) 68 U/L (15-37); Alanine Aminotransfer ALT/SGPT 97 U/L (13-56); Albumin, Serum 3.8 g/dL (3.2-5.0); Alkaline Phosphatase 104 U/L (45-117); Anion Gap 7 (5-15); BUN 19 mg/dL (7-18); BUN/Creat Ratio 17.8 RATIO (10-20); Calcium,Total 9.1 mg/dL (8.5-10.1); Chloride 106 mmol/L (98-107); Creatinine, Serum 1.07 mg/dL (0.55-1.02); EST Glomerular Filtration Rate 57 mL/min (>60); Est Glom Filt Rate - Afr Amer 69 mL/min (>60); Globulin 3.2 g/dL (2.2-4.2); Glucose 90 mg/dL (74-106); Potassium 3.8 mmol/L (3.5-5.1); Sodium Level 142 mmol/L (136-145)
== END | disposition home or self-care (01) ==
LOC: MTLAB 10:56
PROVIDERS: PCP Family Medicine; Referring Provider Internal Medicine Rheumatology; Visit Provider Internal Medicine Rheumatology
DX: M06.09 Rheumatoid arthritis without rheumatoid factor, multiple sites (principal); M35.00 Sjogren syndrome, unspecified; M79.7 Fibromyalgia; H35.30 Unspecified macular degeneration; J45.909 Unspecified asthma, uncomplicated; F41.9 Anxiety disorder, unspecified; G43.909 Migraine, unspecified, not intractable, without status migrainosus; Z79.899 Other long term (current) drug therapy
CPT/HCPCS: 36415; 80053; 85025

== ENCOUNTER → 2022-05-15 | Outpatient (CLI) | payer OTHER, SELFPAY ==
--- NOTE | 2022-05-15 10:15 | US_ITS ---
STUDY: ABDOMINAL ULTRASOUND - RIGHT UPPER QUADRANT REASON FOR VISIT: Female, 51 years old ELEVATED liver ENZYMES TECHNIQUE: Ultrasound evaluation of the right upper quadrant was performed with real-time and static roy-scale imaging. TECHNICAL QUALITY: Adequate. COMPARISON: None. FINDINGS: Liver: The liver measures 17.5 cm. There is increased echogenicity consistent with mild fatty infiltration. The bile ducts are within normal limits. There is hepatic color flow. The direction of portal flow is hepatopetal. There is no demonstrated mass lesion. Gallbladder: The patient is status post cholecystectomy. Common Bile Duct (C.B.D.): The common bile duct measures 4.9 mm. Pancreas: Normal size of the head, body and tail of the pancreas. There is increased echogenicity of the pancreas. There is no demonstrated pancreatic mass or cyst. Right Kidney: Normal size of the right kidney. The right kidney measures 9 cm x 4.7 cm x 3.8 cm. There is thinning of the renal cortex. The right cortex measures 0.8 cm. There is no demonstrated renal mass or cyst. There is no right hydronephrosis. US/Abdomen Limited IMPRESSION: Mild hepatomegaly and fatty infiltration of the liver. Status post cholecystectomy. Electronically Signed: Clifford Thompson MD at 11:11 EDT ,
== END | disposition home or self-care (01) ==
PROVIDERS: PCP Family Medicine; Referring Provider Internal Medicine Rheumatology; Visit Provider Internal Medicine Rheumatology
DX: R94.5 Abnormal results of liver function studies (principal); M06.9 Rheumatoid arthritis, unspecified; M35.00 Sjogren syndrome, unspecified; M79.7 Fibromyalgia; H35.30 Unspecified macular degeneration; J45.909 Unspecified asthma, uncomplicated; F41.9 Anxiety disorder, unspecified; G43.909 Migraine, unspecified, not intractable, without status migrainosus; Z79.899 Other long term (current) drug therapy; Z90.49 Acquired absence of other specified parts of digestive tract
CPT/HCPCS: 76705

== ENCOUNTER → 2022-06-01 | Outpatient (CLI) | payer OTHER, SELFPAY ==
[2022-06-01 20:36] LABS: ALB/GLOB Ratio 0.9 RATIO (0.9-2.4); AST(SGOT) 32 U/L (15-37); Alanine Aminotransfer ALT/SGPT 42 U/L (13-56); Albumin, Serum 3.5 g/dL (3.2-5.0); Alkaline Phosphatase 69 U/L (45-117); Anion Gap 9 (5-15); BUN 18 mg/dL (7-18); BUN/Creat Ratio 18.8 RATIO (10-20); Chloride 105 mmol/L (98-107); Creatinine, Serum 0.96 mg/dL (0.55-1.02); EST Glomerular Filtration Rate 65 mL/min (>60); Est Glom Filt Rate - Afr Amer 79 mL/min (>60); Globulin 3.7 g/dL (2.2-4.2); Glucose 134 mg/dL (74-106); Potassium 4.2 mmol/L (3.5-5.1); Protein, Total 7.2 g/dL (6.4-8.2); Sodium Level 141 mmol/L (136-145)
== END | disposition home or self-care (01) ==
PROVIDERS: PCP Family Medicine; Referring Provider Internal Medicine Rheumatology; Visit Provider Internal Medicine Rheumatology
DX: M06.09 Rheumatoid arthritis without rheumatoid factor, multiple sites (principal); M35.00 Sjogren syndrome, unspecified; M79.7 Fibromyalgia; J45.909 Unspecified asthma, uncomplicated; F41.9 Anxiety disorder, unspecified; G43.909 Migraine, unspecified, not intractable, without status migrainosus; Z79.899 Other long term (current) drug therapy
CPT/HCPCS: 36415; 80053

== ENCOUNTER → 2022-07-21 | Outpatient (CLI) | payer OTHER, SELFPAY ==
[2022-07-21 15:12] LABS: Absolute Lymphocyte Count 0.87 X10^3/uL (0.83-4.51); Absolute Neutrophil Count 4.3 X10^3/uL (2.0-7.7); Basophil# 0.01 X10^3/uL; Basophil% 0.2 % (0-1); Eosinophil# 0.02 X10^3/uL; Eosinophils% 0.4 % (0-5); Hematocrit 39.2 % (37-47); Hemoglobin 12.4 g/dL (12.0-15.0); Lymphocyte # 0.87 X10^3/ul (0.83-4.51); Lymphocyte % 15.6 % (19-41); Mean Corp Hgb Conc 31.6 g/dL (32-36); Mean Corpuscular Hgb 30.8 pg (27.0-32.0); Mean Corpuscular Volume 97.5 fL (81-99); Mean Platelet Vol. 10.4 fl (6.2-12.0); Monocyte# 0.35 X10^3/uL; Monocyte% 6.3 % (0-10); NRBC Flagged by Analyzer 0 % (0-5); Neutrophil # 4.31 X10^3/uL (2.7-7.7); Neutrophil % 77.1 % (47-70); Platelet Count 216 K/mm3 (150-450); RBC Distribution Width CV 15.1 % (11.6-14.6); RBC Distribution Width SD 54.1 fl (35.1-43.9); Red Blood Count 4.02 M/mm3 (4.2-5.4); White Blood Count 5.6 K/mm3 (4.4-11.0)
[2022-07-21 15:48] LABS: AST(SGOT) 40 U/L (15-37); Alanine Aminotransfer ALT/SGPT 43 U/L (13-56); Albumin, Serum 3.3 g/dL (3.2-5.0); Alkaline Phosphatase 72 U/L (45-117); Anion Gap 4 (5-15); BUN 14 mg/dL (7-18); BUN/Creat Ratio 13.6 RATIO (10-20); Calcium,Total 8.7 mg/dL (8.5-10.1); Chloride 107 mmol/L (98-107); Creatinine, Serum 1.03 mg/dL (0.55-1.02); EST Glomerular Filtration Rate 60 mL/min (>60); Est Glom Filt Rate - Afr Amer 72 mL/min (>60); Globulin 3.3 g/dL (2.2-4.2); Glucose 117 mg/dL (74-106); Potassium 4.8 mmol/L (3.5-5.1); Protein, Total 6.6 g/dL (6.4-8.2); Sodium Level 141 mmol/L (136-145)
== END | disposition home or self-care (01) ==
LOC: MTLAB 13:57
PROVIDERS: PCP Family Medicine; Referring Provider Internal Medicine Rheumatology; Visit Provider Internal Medicine Rheumatology
DX: M06.09 Rheumatoid arthritis without rheumatoid factor, multiple sites (principal); M35.00 Sjogren syndrome, unspecified; H35.30 Unspecified macular degeneration; F41.9 Anxiety disorder, unspecified; G43.909 Migraine, unspecified, not intractable, without status migrainosus; Z79.899 Other long term (current) drug therapy
CPT/HCPCS: 36415; 80053; 85025

== ENCOUNTER → 2022-09-16 | Outpatient (CLI) | payer OTHER, SELFPAY ==
--- NOTE | 2022-09-16 13:42 | RAD_ITS ---
STUDY: X-RAY - LUMBAR SPINE REASON FOR EXAM: Female, 52 years old. PAIN/WEAKNESS TECHNIQUE: 4 view(s) of the lumbar spine were obtained. COMPARISON: None FINDINGS: Vertebral bodies are normal in height. No definite fracture demonstrated. No subluxation. Mild facet sclerosis at the lower levels. No paravertebral soft tissue mass identified. RAD/L/S Spine Min 4 Views IMPRESSION: No evidence of fracture or subluxation. Mild facet arthropathy. Electronically Signed: Ayla Gauthier MD at 7:57 EST ,
--- NOTE | 2022-09-16 13:42 | RAD_ITS ---
INDICATION: Pain, weakness EXAMINATION/TECHNIQUE: X-RAY - BILATERAL XR Hips Bilateral with Pelvis when performed; 5 Views COMPARISON: None. FINDINGS: PELVIC BONES: No displaced fracture, destructive or sclerotic lesions. Note that overlapping bowel shadows may however obscure fine detail. Sacroiliac joints are unremarkable. No widening of the pubic symphysis. HIPS: The articular structures are unremarkable. No displaced fracture. SOFT TISSUES: No soft tissue swelling or gas. RAD/Hips B/L min 2 views w/ Pelvis IMPRESSION: No acute bony injury or significant arthropathy. Electronically Signed: Yaya Sotut MD at 20:33 EST ,
== END | disposition home or self-care (01) ==
LOC: MTRAD 13:40
PROVIDERS: PCP Family Medicine; Referring Provider Family Medicine; Visit Provider Family Medicine
DX: R29.898 Other symptoms and signs involving the musculoskeletal system (principal); R53.1 Weakness; R52 Pain, unspecified
CPT/HCPCS: 72110; 73521

== ENCOUNTER → 2022-10-23 | Outpatient (CLI) | payer OTHER, SELFPAY ==
[2022-10-23 15:14] LABS: Hematocrit 41.3 % (37-47); Hemoglobin 13.3 g/dL (12.0-15.0); Mean Corp Hgb Conc 32.2 g/dL (32-36); Mean Corpuscular Hgb 31.7 pg (27.0-32.0); Mean Corpuscular Volume 98.6 fL (81-99); Mean Platelet Vol. 9.7 fl (6.2-12.0); Platelet Count 214 K/mm3 (150-450); RBC Distribution Width CV 16.9 % (11.6-14.6); RBC Distribution Width SD 61.6 fl (35.1-43.9); Red Blood Count 4.19 M/mm3 (4.2-5.4); White Blood Count 8.2 K/mm3 (4.4-11.0)
[2022-10-23 15:59] LABS: ALB/GLOB Ratio 1.1 RATIO (0.9-2.4); AST(SGOT) 38 U/L (15-37); Alanine Aminotransfer ALT/SGPT 46 U/L (13-56); Albumin, Serum 3.9 g/dL (3.2-5.0); Alkaline Phosphatase 68 U/L (45-117); Anion Gap 4 (5-15); BUN 20 mg/dL (7-18); BUN/Creat Ratio 25.8 RATIO (10-20); Calcium,Total 8.5 mg/dL (8.5-10.1); Chloride 106 mmol/L (98-107); Creatinine, Serum 0.78 mg/dL (0.55-1.02); EST Glomerular Filtration Rate 83 mL/min (>60); Est Glom Filt Rate - Afr Amer 100 mL/min (>60); Globulin 3.4 g/dL (2.2-4.2); Glucose 101 mg/dL (74-106); Magnesium 2.7 mg/dL (1.6-2.6); Potassium 4.3 mmol/L (3.5-5.1); Protein, Total 7.3 g/dL (6.4-8.2); Sodium Level 138 mmol/L (136-145)
[2022-10-23 16:01] LABS: Vitamin B12 248 pg/mL (211-911); Vitamin D,25 Hydroxy 15.8 ng/mL
== END | disposition home or self-care (01) ==
LOC: MTLAB 13:26
PROVIDERS: PCP Family Medicine; Referring Provider Family Medicine; Visit Provider Family Medicine
DX: M06.9 Rheumatoid arthritis, unspecified (principal); R29.898 Other symptoms and signs involving the musculoskeletal system; M85.80 Other specified disorders of bone density and structure, unspecified site
CPT/HCPCS: 36415; 80053; 82306; 82607; 83735; 85027

== ENCOUNTER → 2023-01-11 | Outpatient (CLI) | payer OTHER, SELFPAY ==
[2023-01-11 18:34] LABS: ALB/GLOB Ratio 0.9 RATIO (0.9-2.4); AST(SGOT) 26 U/L (15-37); Alanine Aminotransfer ALT/SGPT 26 U/L (13-56); Albumin, Serum 3.5 g/dL (3.2-5.0); Alkaline Phosphatase 71 U/L (45-117); Anion Gap 6 (5-15); BUN 15 mg/dL (7-18); Chloride 105 mmol/L (98-107); Creatinine, Serum 0.94 mg/dL (0.55-1.02); EST Glomerular Filtration Rate 66 mL/min (>60); Est Glom Filt Rate - Afr Amer 80 mL/min (>60); Globulin 3.9 g/dL (2.2-4.2); Glucose 101 mg/dL (74-106); Magnesium 2.2 mg/dL (1.6-2.6); Potassium 4.1 mmol/L (3.5-5.1); Protein, Total 7.4 g/dL (6.4-8.2); Sodium Level 139 mmol/L (136-145)
[2023-01-11 18:35] LABS: Vitamin B12 257 pg/mL (211-911); Vitamin D,25 Hydroxy 50.5 ng/mL
== END | disposition home or self-care (01) ==
LOC: MTLAB 14:14
PROVIDERS: PCP Family Medicine; Referring Provider Family Medicine; Visit Provider Family Medicine
DX: E83.41 Hypermagnesemia (principal); E55.9 Vitamin D deficiency, unspecified; E53.8 Deficiency of other specified B group vitamins; I10 Essential (primary) hypertension
CPT/HCPCS: 36415; 80053; 82306; 82607; 83735

== ENCOUNTER → 2024-03-17 | Outpatient (CLI) | payer OTHER, SELFPAY ==
[2024-03-17 15:56] LABS: Absolute Lymphocyte Count 1.76 X10^3/uL (0.83-4.51); Absolute Neutrophil Count 7.2 X10^3/uL (2.0-7.7); Basophil# 0.05 X10^3/uL; Basophil% 0.5 % (0-1); Eosinophil# 0.16 X10^3/uL; Eosinophils% 1.6 % (0-5); Hematocrit 40.2 % (37-47); Hemoglobin 12.8 g/dL (12.0-15.0); Lymphocyte # 1.76 X10^3/ul (0.83-4.51); Lymphocyte % 17.4 % (19-41); Mean Corp Hgb Conc 31.8 g/dL (32-36); Mean Corpuscular Hgb 27.3 pg (27.0-32.0); Mean Corpuscular Volume 85.7 fL (81-99); Mean Platelet Vol. 10.3 fl (6.2-12.0); Monocyte# 0.89 X10^3/uL; Monocyte% 8.8 % (0-10); NRBC Flagged by Analyzer 0 % (0-5); Neutrophil # 7.24 X10^3/uL (2.7-7.7); Neutrophil % 71.4 % (47-70); Platelet Count 276 K/mm3 (150-450); RBC Distribution Width CV 14.8 % (11.6-14.6); RBC Distribution Width SD 46.3 fl (35.1-43.9); Red Blood Count 4.69 M/mm3 (4.2-5.4); White Blood Count 10.1 K/mm3 (4.4-11.0)
[2024-03-17 16:06] LABS: AST(SGOT) 26 U/L (15-37); Alanine Aminotransfer ALT/SGPT 34 U/L (13-56); BUN 12 mg/dL (7-18); Creatinine, Serum 0.83 mg/dL (0.55-1.02); EST Glomerular Filtration Rate 76 mL/min (>60); Est Glom Filt Rate - Afr Amer 93 mL/min (>60)
[2024-03-17 16:29] LABS: Erythrocyte Sedimentation Rate 15 mm/hr (0-30)
== END | disposition home or self-care (01) ==
LOC: MTLAB 12:57
PROVIDERS: PCP Family Medicine; Referring Provider Internal Medicine Rheumatology; Visit Provider Internal Medicine Rheumatology
DX: M06.09 Rheumatoid arthritis without rheumatoid factor, multiple sites (principal); Z79.52 Long term (current) use of systemic steroids
CPT/HCPCS: 36415; 82565; 84450; 84460; 84520; 85025; 85652; 86140

== ENCOUNTER 2025-06-23 15:33 | Emergency (ER) | payer OTHER, SELFPAY ==
[2025-06-23 15:34] VITALS: BP 188/88; PULSE 67; RESP 18; TEMP 35.5; O2SAT 99; BMI 32.8
--- NOTE | 2025-06-23 15:57 | EX.ED.DYSGE1 ---
HPI History of Present Illness Chief Complaint: Edema Detail of Chief Complaint: Face and lip swelling Informant: patient Narrative Narrative: Patient presents to the emergency department with face and lip swelling that she first noticed around 2 AM when she woke up in the middle of the night. She describes both upper and lower lip swelling as well as facial swelling. Denies any trauma. Denies new medications. She has been on Enbrel injections for 5 weeks and her last injection was 2 days ago. She is not on an WADE inhibitor. 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 She is otherwise not complaining of mouth pain. She denies difficulty swallowing. Denies difficulty breathing. She did take Benadryl at home and states that the swelling significantly improved and that her lower lip is no longer swollen. [facility] Medical History Alcohol intoxication Suicidal overdose Closed fracture of right distal fibula Incontinence Chronic neck and back pain Limb weakness Difficulty balancing when standing Abnormal bruising Migraines Fatigue Anemia Shoulder pain Alcohol abuse Anxiety Depression Fibromyalgia Rheumatoid arthritis Chronic pain Former smoker Asthma Hyperlipemia Hypertension Home Medications ?Medication ?Instructions ?Recorded ?Last Taken ?Type diazepam 2 mg tablet 2 mg PO DAILY 07/17/13 12/19/13 History metoprolol succinate 100 mg 100 mg PO DAILY 03/31/21 Unknown History tablet,extended release 24 hr tizanidine 4 mg tablet 4 mg PO BID 03/31/21 Unknown History ubrogepant 100 mg tablet 100 mg PO 03/31/21 Unknown History fluticasone 100 mcg-salmeterol 50 1 inh inhalation BID 06/04/21 Unknown History mcg/dose blistr powdr for inhalation (Advair Diskus) alendronate 70 mg tablet tablet PO 07/02/21 Unknown History [id number]-[id number] ml mucous membrane 4X/DAY PRN PRN 01/08/22 Unknown History dental rinse mouth pain ferrous sulfate 325 mg (65 mg 325 mg PO DAILY 01/08/22 Unknown History iron) tablet albuterol sulfate 90 mcg/actuation 2 puff inhalation Q6 06/14/25 Unknown History aerosol inhaler cholecalciferol (vitamin D3) 1,250 1,250 mcg PO QWEEK 06/14/25 Unknown History mcg (50,000 unit) capsule cyanocobalamin (vitamin B-12) 1,000 mcg sublingual QDAY 06/14/25 Unknown History 1,000 mcg sublingual tablet etanercept 50 mg/mL (1 mL) mg subcut 06/14/25 Unknown History subcutaneous pen injector (Enbrel SureClick) fremanezumab-vfrm 225 mg/1.5 mL mg subcut 06/14/25 Unknown History subcutaneous auto-injector (Ajovy) hydrochlorothiazide 25 mg tablet 25 mg PO QDAY 06/14/25 Unknown History hydroxychloroquine 200 mg tablet 200 mg PO BID 06/14/25 Unknown History ivermectin 3 mg tablet mg PO 06/14/25 Unknown History metronidazole 1 % topical gel topical QDAY 06/14/25 Unknown History nortriptyline 10 mg capsule 20 mg PO QHS 06/14/25 Unknown History pantoprazole 40 mg tablet,delayed 40 mg PO QDAY 06/14/25 Unknown History release sertraline 100 mg tablet 200 mg PO QDAY 06/14/25 Unknown History epinephrine 0.3 mg/0.3 mL 0.3 mg (0.3 mL) IM Q10M PRN PRN 06/23/25 Unknown Rx injection, auto-injector (EpiPen) anaphylaxis #1 ea prednisone 20 mg tablet 20 mg PO BID #10 tabs 06/23/25 Unknown Rx Allergy/AdvReac Type Severity Reaction Status Date / Time Seasonal Allergies: Uncoded Allergy Other Verified 06/23/25 15:34 (environmental) Surgical History History of History of gastric bypass History of cholecystectomy Social History household members: spouse and children Smoking Status: Former smoker Tobacco: How many years used: 10 how long ago did patient quit smokin years alcohol intake: current alcohol intake frequency: a few times a week substance use type: does not use ROS ROS ED Review of Systems ROS Unobtainable: other Constitutional Constitutional ED: Reports lethargy; Denies chills, fever(s), sweats or weight loss Eyes Eyes: Denies blurry vision, change in vision or diplopia ENT ENT ED: Reports other Details: Face and lip swelling ; Denies rhinorrhea or sore throat Cardiovascular Cardiovascular: Denies chest pain, orthopnea or racing heartbeat Respiratory/Chest Respiratory/Chest: Denies cough, dyspnea, dyspnea on exertion, orthopnea or sputum Gastrointestinal Gastrointestinal: Denies abdominal pain, diarrhea, nausea or vomiting Genitourinary Genitourinary ED: Denies dysuria, hematuria or urinary frequency Musculoskeletal Musculoskeletal: Denies arthralgias, back pain, myalgias or neck pain Integumentary Denies abscess, Abrasions or rash Neurologic Neurologic: Denies headache(s) or weakness Psychiatric Psychiatric: Denies anxiety, depression or suicidal thoughts Endocrine Endocrinology: Denies polydipsia, polyphagia or polyuria Hematologic/Lymphatic Hematologic/Lymphatic: Denies easy bleeding, easy bruising or lymphadenopathy Allergic/Immunologic Allergic/Immunologic ED: Denies mouth swelling, tongue swelling or urticaria EXAM Physical Exam Const Vital Signs: 06/23/25 15:34 06/23/25 16:33 06/23/25 16:39 Temperature 96 F L Temperature Source Temporal Pulse Rate 67 63 Respiratory Rate 18 16 Respiratory Effort Normal Respiratory Pattern Normal Blood Pressure 188/88 H 191/90 H Blood Pressure Mean 121 123 Pulse Ox 99 100 Oxygen Delivery Method Room Air Room Air 06/23/25 17:04 06/23/25 18:00 Temperature Temperature Source Pulse Rate 70 73 Respiratory Rate 18 18 Respiratory Effort Respiratory Pattern Blood Pressure 171/89 H 221/98 H Blood Pressure Mean 116 139 Pulse Ox 100 99 Oxygen Delivery Method Room Air Room Air Positive well nourished and well developed General Appearance ED: well developed and NAD HEENT Reports TM's clear and moist mucous membranes HEENT Narrative: Patient with edema of the upper lip. No evidence of trauma such as ecchymosis or bruising. No angioedema noted of the tongue. No edema of the lower lip noted. No angioedema noted to the oropharynx. There are no cellulitic changes to the face. normocephalic and atraumatic; Negative for trauma or tenderness Tympanic Membrane ED: Yes TM's clear Eyes PERRL and EOMs intact bilaterally General Eye ED: Negative for pale conjunctiva or scleral icterus Neck no lymphadenopathy, supple and no JVD General: Negative for tenderness Chest Wall inspection of chest normal and palpation of chest normal Chest: Negative for tenderness Resp normal respiratory effort and clear to auscultation bilaterally Effort and Inspection: Negative for respiratory distress or pain with movement Auscultation: Negative for rhonchi, wheezes or diminished lung sounds Cardio regular rate, regular rhythm, S1 normal heart sound, S2 normal heart sound and no murmurs Peripheral Pulses: pulses 2+ throughout GI normal to inspection, nondistended, normoactive bowel sounds, soft to palpation, non-tender, non-distended and no masses Back/Spine no CVA tenderness and no thoracic nor lumbar tenderness Extremity normal to inspection General Extremety ED: Negative for edema General Extremity: Negative for edema Neuro oriented x3, CN's II-XII intact bilaterally, no sensory deficits noted and gait normal Sensorium / Orientation: awake, alert, oriented to person, oriented to place and oriented to time Motor Exam: strength 5/5 throughout and strength abnormal Psych mental status grossly normal Skin no rashes or lesions noted and no wounds MDM MDM MDM Narrative Medical decision making narrative: Patient with suspected allergic reaction with swelling to her lips and face. Etiology uncertain. IV line established. She was given Solu-Medrol as well as Benadryl and Pepcid IV. She was observed for 2 hours. She had continued resolution of symptoms with significant decrease in the swelling of the upper lip. There was no angioedema of the tongue or oropharynx. At this point we will send her home with prednisone for 5 days as well as EpiPen. Recommended she discuss with her physician the allergic reaction as the only new medication would be the Enbrel injection the patient is receiving. Lab Data Attestation: I reviewed the patient's lab results. Discharge Plan Triage Chief Complaint: Edema ED Provider: Jinny Hinsno Dx/Rx/DC Orders Clinical Impression: Allergic reaction Instructions: ED General Allergic Reactions Prescriptions: New prednisone 20 mg tablet 20 mg PO BID Qty: 10 0RF epinephrine [EpiPen] 0.3 mg/0.3 mL auto-injector 0.3 mg IM Q10M PRN PRN (Reason: anaphylaxis) Qty: 1 0RF Rx Instructions: for 2 doses No Action tizanidine 4 mg tablet 4 mg PO BID ubrogepant 100 mg tablet 100 mg PO Patient Comments: TAKE 1 TABLET AT ONSET OF MIGRAINE, MAY REPEAT AFTER 2HRS, MAX 2 TABLETS IN 24 HOURS metoprolol succinate 100 mg tablet extended release 24 hr 100 mg PO DAILY fluticasone propion-salmeterol [Advair Diskus] 100-50 mcg/dose blister with device 1 inh inhalation BID alendronate 70 mg tablet PO ivermectin 3 mg tablet PO sertraline 100 mg tablet 200 mg PO QDAY pantoprazole 40 mg tablet,delayed release (DR/EC) 40 mg PO QDAY nortriptyline 10 mg capsule 20 mg PO QHS cyanocobalamin (vitamin B-12) 1,000 mcg tablet, sublingual 1,000 mcg sublingual QDAY hydrochlorothiazide 25 mg tablet 25 mg PO QDAY hydroxychloroquine 200 mg tablet 200 mg PO BID albuterol sulfate 90 mcg/actuation HFA aerosol inhaler 2 puff inhalation Q6 metronidazole 1 % gel topical QDAY Enbrel SureClick 50 mg/mL (1 mL) pen injector subcut cholecalciferol (vitamin D3) 1,250 mcg (50,000 unit) capsule 1,250 mcg PO QWEEK Ajovy Autoinjector 225 mg/1.5 mL auto-injector subcut Patient Comments: INJECT 1.5 ML SUBCUTANEOUSLY EVERY MONTH diazepam 2 MG tablet 2 mg PO DAILY ferrous sulfate 325 mg (65 mg iron) Tablet 325 mg PO DAILY [id number]. Liquid MUCOUS MEMBRANE 4X/DAY PRN PRN (Reason: mouth pain) Primary Care Provider: Milton Cornell Referrals: Jennifer Harris DO [Non-Staff] - 3-5 Days Print Language: Nepali Disposition Disposition: Home, Self Care
--- OUTSIDE RECORDS SUMMARY | 2025-06-23 16:31 | XMS RPT_ITS | CCD ---
Author Organization [facility] Care Team Providers Care Assembly Manager Name Role Phone KAREN KNOWLES DO Primary Care Physician Dr. Karen Knowles Primary Care Provider Dr. Joanna Murphy Emergency Provider [phone] Dr. Ti Guido Attending Provider [phone] DOTTIE BRITT DO Primary Care Physician [phone] GENA SALDANA DO Attending Unavailable KAREN KNOWLES DO Primary Care Unavailable HALKO DO, DOTTIE Attending Unavailable HALKO DO, DOTTIE Primary Care Unavailable HALKO DO, DOTTIE Attending Unavailable HALKO DO, DOTTIE Primary Care Unavailable HALKO DO, DOTTIE Primary Care Unavailable HALKO DO, DOTTIE Attending Unavailable GENA SALDANA DO Attending Unavailable KAREN KNOWLES DO Primary Care Unavailable Halko IV DODottie Primary Care Provide r FALLS, MALA LEYVA Attending Unavailabl e HALKO IV, DOTTIE [place] Primary Care Unavaila ble FALLS, MALA LEYVA Referring Unavailabl e FALLS, MALA LEYVA Attending Unavailabl e HALKO IV, DOTTIE [place] Primary Care Unavaila ble FALLS, MALA LEYVA Referring Unavailabl e HALKO IV, DOTTIE [place] Primary Care Unavaila ble FALLS, MALA LEYVA Attending Unavailabl e FALLS, MALA LEYVA Referring Unavailabl e HALKO IV, DOTTIE [place] Primary Care Unavaila ble FALLS, MALA LEYVA Attending Unavailabl e HALKO IV, DOTTIE [place] Primary Care Unavaila ble FALLS, MALA LEYVA Attending Unavailabl e HALKO IV, DOTTIE [place] Primary Care Unavaila ble HALKO IV, DOTTIE [place] Admitting Unavaila ble HALKOS, DOTTIE FREY Referring Unavail able FALLS, MALA LEYVA Attending Unavailabl e MALA CHOI Attending Unavailabl e HALKO IV, DOTTIE MAULIK Primary Care Unavaila ble HALKO IV, DOTTIE [place] Primary Care Unavaila ble ANA, MALA LEYVA Attending Unavailvirgil GARAY PA-C, MARISOL Little Attending Unavailable LORENZA DO, DOTTIE Primary Care Unavailable LORENZA PRATER, DOTTIE Primary Care Unavailable LORENZA PRATER, DOTTIE Attending Unavailable Dr. Karen Knowles DO Primary Care Provider [phone] Dr. Karen Knowles DO Referring Provider Janeth Valencia Attending Provider [phone] John TIRADO, Dr. Dominguez Attending Provider Karen Knowles Primary Care Unavailable Karen Knowles Referring Unavailable Janeth Benson Attending Unavailable Alberto Lopez Attending Unavailable Karne Knowles Primary Care Unavailable Allergies Allergy Classification Reported Allergen(s) Allergy Type Date of Onset Reaction(s) Facility (11 sources) Valproate; Translations: [DIVALPROEX SODIUM] Drug Allergy 5 Other (See Comments) [facility] (1 source) Seasonal Allergies: Uncoded; Translations: [Seasonal Allergies: Uncoded] Propensity to adverse reactions (disorder) [address] [facility] Repository Medications Current Medications Medication Drug Class(es) Dates Sig (Normalized) Sig (Original) 0.4 ML cyclosporine 0.5 MG/ML Ophthalmic Suspension [Restasis] (6 sources) Start: 05-23-2019 take 1 drop(s) into the eye(s) twice daily Restasis 0.05% ophthalmic emulsion INSTILL 1 DROP INTO BOTH EYES TWICE A DAY Start Date: 05/23/19 Status: Ordered Medication Dispense Status: Completed Total Allowed Fills: 1 Fills Dispensed: 0 Start: 05-23-2019 take 1 drop(s) into the eye(s) twice daily Restasis 0.05% ophthalmic emulsion INSTILL 1 DROP INTO BOTH EYES TWICE A DAY Start Date: 05/23/19 Status: Ordered Advair Diskus 100 mcg-50 mcg/inh inhalation powder (1 source) Start: 01-03-2025 Advair Diskus 100 mcg-50 mcg/inh inhalation powder Dose = 1 inh, Inhalation, BID, 3 EA = 3 inhalers, # 3 EA, 1 Refill(s), Pharmacy: [facility]/pharmacy #[id number], Asthma Moderate persistent asthma, 152.4, cm, 01/03/25 14:28:00 EDT, Height, kg, 01/03/25 14:28:00 EDT, Dosing Weight Start Date: 01/03/25 Status: Ordered Medication Dispense Status: Completed Quantity: 3.0 Unit: EA Total Allowed Fills: 2 Fills Dispensed: 0 Indications: Unspecified asthma, uncomplicated; Moderate persistent asthma, uncomplicated; [id number] 200 actuat albuterol 0.09 mg/actuat metered dose inhaler (20 sources) beta2-Adrenerg ic Agonist Start: 01-03-2025 End: 07-02-2025 take 2 puff(s) by inhalation every six hours ProAir HFA MDI (90 mcg/inh) inhalation aerosol 2 puff(s), Inhalation, q6hr, # 3 EA, 1 Refill(s), [id number], 152.4, cm, 01/03/25 14:28:00 EDT, Height, kg, 01/03/25 14:28:00 EDT, Dosing Weight Start Date: 01/03/25 Stop Date: 07/02/25 Status: Ordered Medication Dispense Status: Completed Quantity: 3.0 Unit: EA Total Allowed Fills: 2 Fills Dispensed: 0 Start: 03-09-2024 End: 09-05-2024 take 2 puff(s) by inhalation every six hours ProAir HFA MDI (90 mcg/inh) inhalation aerosol 2 puff(s), Inhalation, q6hr, # 3 EA, 1 Refill(s), [id number], 152.4, cm, 03/09/24 13:13:00 EDT, Height, kg, 03/09/24 13:13:00 EDT, Dosing Weight Start Date: 03/09/24 Stop Date: 09/05/24 Status: Ordered Start: 05-23-2019 take 2 puff(s) by in halation every four hours as needed for wheezing ProAir HFA MDI (90 mcg/inh) inhalation aerosol INHALE 2 PUFFS INSTRUCTED EVERY 4 HOURS NEEDED FOR WHEEZING/SHORTNESS OF BREATH. Start Date: 05/23/19 Status: Ordered Start: 07-17-2018 take 2 puff(s) by mo uth every six hours albuterol 90 mcg/actuation inhaler INHALE 2 PUFFS BY MOUTH EVERY 6 HOURS FOR 90 DAYS 07/17/2018 Active Start: 07-17-2013 End: 03-31-2021 Albuterol Sulfate (Ventolin Hfa) 1 INHALER inhaler Discontinued 1 - 2 NMA INHALATION EVERY 4 HOURS NEEDED as needed for ALLERGRIES July 17, 2013 12:00am March 31, 2021 8:00am Start: 07-17-2013 End: 03-31-2021 take 1 puff(s) by inhalation every four hours as needed Albuterol Sulfate (Ventolin Hfa) 1 INHALER inhaler Discontinued 1 - 2 PUFF INHALATION EVERY 4 HOURS NEEDED July 16, 2013 11:00pm March 31, 2021 7:00am Start: 07-17-2013 End: 03-31-2021 take 1 puff(s) by inhalation every four hours as needed Albuterol Sulfate (Ventolin Hfa) 1 INHALER inhaler Discontinued 1 - 2 PUFF INHALATION EVERY 4 HOURS NEEDED July 17, 2013 12:00am March 31, 2021 8:00am Albuterol Sulfate 90 mcg/actuation HFA aerosol inhaler (2 sources) Start: 06-14-2025 Albuterol Sulf ate 90 mcg/actuation HFA aerosol inhaler Active 2 NMA INHALATION EVERY 6 HOURS June 14, 2025 12:00am alendronic acid 70 mg oral tablet (20 sources) Bisphosphonate Start: 03-09-2024 Fosamax 70 mg oral tablet Dose : 70 mg = 1 tab(s), Oral, qWeek, # 13 tab(s), 1 Refill(s), Pharmacy: [facility]/pharmacy #[id number], Osteopenia, 152.4, cm, 01/03/25 14:28:00 EDT, Height, kg, 01/03/25 14:28:00 EDT, Dosing Weight Start Date: 01/03/25 Status: Ordered Medication Dispense Status: Completed Quantity: 13.0 Unit: tab(s) Total Allowed Fills: 2 Fills Dispensed: 0 Indications: Other specified disorders of bone density and structure, unspecified site; Start: 07-02-2021 Alendronate 70 mg tablet Active NMA PO July 02, 2021 12:00am Start: 06-26-2021 Fosamax 70 mg oral tablet Dose : 70 mg = 1 tab(s), Oral, qWeek, # 4 tab(s), 11 Refill(s), Pharmacy: [facility]/pharmacy #[id number], 151, cm, 09/16/22 10:39:00 EST, Height, kg, 09/16/22 10:39:00 EST, Dosing Weight Start Date: 09/16/22 Status: Ordered Gfkhbldksk-Qyrclwc-Jwluifkhe . (7 sources) Start: 01-08-2022 Aagkmdlvwy-Ihrvlby-Xngqqzraq . Active ML MUCOUS MEM 4 TIMES DAILY NEEDED January 07, 2022 11:00pm Start: 01-08-2022 Benzocaine-Morales zoin-Cetylpyrd. Active ML MUCOUS MEM 4 TIMES DAILY NEEDED January 08, 2022 12:00am Kwytdaquce-Nwdssei-Xrgnobima . Liquid (2 sources) Start: 01-08-2022 take 1 mL by mouth four times daily as needed for pain Uiepyczfzd-Kwlovlc-Esgfebdzl. Liquid Active mL MUCOUS MEM 4 TIMES DAILY NEEDED as needed for mouth pain January 08, 2022 12:00am cholecalciferol 1.25 mg oral capsule (2 sources) Nicole min D Start: 06-14-2025 take 1 capsule by mouth every week Cholecalciferol (Vitamin D3) 1,250 mcg (50,000 unit) capsule Active 1250 ug PO EVERY WEEK June 14, 2025 12:00am cycloSPORINE 0.5 mg/ml ophthalmic suspension (9 sources) Calc ineu rin Inhi bito r Immu nosu ppre ssan t Start: 05-23-2019 take 1 drop(s) into the eye(s) twice daily Restasis 0.05 % ophthalmic emulsion Administer 1 (one) drop to both eyes 2 (two) times a day . 05/23/2019 Active diazePAM 2 mg oral tablet (20 sources) Shamar kathie ontiveros ne Start: 07-17-2013 End: 02-21-2022 take 1 tablet by mouth once daily Diazepam 2 MG tablet Active 2 mg PO DAILY July 17, 2013 12:00am 1 ml erenumab-aooe 140 mg/ml auto-injector (19 sources) Start: 04-29-2023 inject 1 dose by subcutaneo us injection every month Aimovig SureClick Autoinjector 140 mg/mL subcutaneous solution Dose : 140 mg =, Subcutaneous, qmonth, # 1 mL, 0 Refill(s) Start Date: 04/29/23 Status: Ordered Start: 07-02-2021 Erenumab-Aooe Active 140 MG SC July 02, 2021 9:43am Aimovig Start: 03-31-2021 End: 06-14-2025 Erenumab-Aooe 140 mg/mL auto -injector Discontinued 140 mg SC July 02, 2021 9:43am June 14, 2025 8:15am Aimovig Start: 03-31-2021 End: 07-02-2021 Erenumab-Aooe (Aimovig Autoi njector) 140 mg/mL auto-injector Discontinued 140 MG SC March 31, 2021 12:00am July 02, 2021 9:45am ergocalciferol 1.25 mg oral capsule (9 sources) Provitamin D2 Compound take 1 capsule by mouth every week ergocalciferol (ERGOCALCIFEROL) 1,250 mcg (50,000 unit) capsule take 1 capsule by oral route every week Active 1 ml etanercept 50 mg/ml auto-injector (7 sources) Tumor Necrosis Factor Amanda Start: 06-14-20 Etanercept (Enbrel Sureclick) 50 mg/mL (1 mL) pen injector Active mg SC June 14, 2025 12:00am Start: 04-20-2025 inject 1 mL by subcu taneous injection every week etanercept (EnbreL SureClick) 50 mg/mL (1 mL) Pen single use prefilled syringe Indications: Inflammatory arthritis Inject 1 mL (50 mg total) under the skin once a week . 4 mL 04/20/2025 Active ferrous sulfate 325 mg oral tablet (13 sources) Start: 08-24-2019 End: 07-02-2025 ferrous sulfate 325 mg (65 mg elemental iron) oral tablet Dose : 325 mg = 1 tab(s), Oral, BID, # 180 tab(s), 1 Refill(s), Pharmacy: [facility]/pharmacy #[id number], 152.4, cm, 01/03/25 14:28:00 EDT, Height, kg, 01/03/25 14:28:00 EDT, Dosing Weight Start Date: 01/03/25 Stop Date: 07/02/25 Status: Ordered Medication Dispense Status: Completed Quantity: 180.0 Unit: tab(s) Total Allowed Fills: 2 Fills Dispensed: 0 fluticasone / salmeterol (20 sources) Corticosteroid, beta2-Adrenergic Agonist Start: 03-09-2024 Advair Diskus 100 mcg-50 mcg inhalation powder Dose = 1 inh, Inhalation, BID, 3 EA = 3 inhalers, # 3 EA, 1 Refill(s), Pharmacy: [facility]/pharmacy #[id number], Asthma Moderate persistent asthma, 152.4, cm, 03/09/24 13:13:00 EDT, Height, kg, 03/09/24 13:13:00 EDT, Dosing Weight Start Date: 03/09/24 Status: Ordered Start: 09-16-2022 Advair Diskus 100 mcg-50 mcg inhalation powder Dose = 1 inh, Inhalation, BID, 3 EA = 3 inhalers, # 3 EA, 3 Refill(s), Pharmacy: [facility]/pharmacy #[id number], Asthma, 151, cm, 09/16/22 10:39:00 EST, Height, kg, 09/16/22 10:39:00 EST, Dosing Weight Start Date: 09/16/22 Status: Ordered Start: 01-22-2022 Advair Diskus 100 mcg-50 mcg inhalation powder Dose = 1 inh, Inhalation, BID, 3 EA = 3 inhalers, # 3 EA, 3 Refill(s), Pharmacy: [facility]/pharmacy #[id number], Asthma, 151, cm, 10/15/21 8:09:00 EST, Height, kg, 10/15/21 8:09:00 EST, Dosing Weight Start Date: 01/22/22 Status: Ordered Start: 06-04-2021 Fluticasone Pr opion-Salmeterol (Advair Diskus) 100-50 mcg/dose blister with device Active 1 NMA INHALATION TWICE A DAY June 04, 2021 12:00am Start: 06-04-2021 Fluticasone Pr opion-Salmeterol (Advair Diskus) 100-50 mcg/dose blister with device Active 1 INH INHALATION TWICE A DAY June 03, 2021 11:00pm Start: 06-04-2021 Fluticasone Pr opion-Salmeterol (Advair Diskus) 100-50 mcg/dose blister with device Active 1 INH INHALATION TWICE A DAY June 04, 2021 12:00am Start: 07-17-2013 End: 10-28-2013 Fluticasone Propion-Salmeter ol (Advair 100/50 Diskus) 1 PUFF inhaler Discontinued 1 NMA INHALATION TWICE A DAY July 17, 2013 12:00am October 28, 2013 11:25am Start: 07-17-2013 End: 10-28-2013 Fluticasone Propion-Salmeter ol (Advair 100/50 Diskus) 1 PUFF inhaler Discontinued 1 PUFF INHALATION TWICE A DAY July 16, 2013 11:00pm October 28, 2013 10:25am Start: 07-17-2013 End: 10-28-2013 Fluticasone Propion-Salmeter ol (Advair 100/50 Diskus) 1 PUFF inhaler Discontinued 1 PUFF INHALATION TWICE A DAY July 17, 2013 12:00am October 28, 2013 11:25am Start: 12-09-2011 take 1 puff(s) by mo ut twice daily fluticasone propion-salmeteroL (ADVAIR DISKUS) 100-50 mcg/dose diskus inhaler 1 (one) puff by Oral Inhalation route 2 (two) times a day . 12/09/2011 Active 1.5 ml fremanezumab-vfrm 150 mg/ml auto-injector (12 sources) Start: 06-14-2025 Fremanezumab-V frm (Ajovy Autoinjector) 225 mg/1.5 mL auto-injector Active mg SC June 14, 2025 12:00am Start: 01-03-2025 Ajovy Autoinje ctor 225 mg/1.5 mL subcutaneous solution 0 Refill(s) Start Date: 01/03/25 Status: Ordered Medication Dispense Status: Completed Total Allowed Fills: 1 Fills Dispensed: 0 inject 1.5 mL by sub cutaneous injection every month Ajovy Autoinjector 225 mg/1.5 mL AtIn INJECT 1.5 ML SUBCUTANEOUSLY EVERY MONTH Active hydroCHLOROthiazide 25 mg oral tablet (15 sources) Thiazide Diuretic Start: 06-14-2025 take 1 tablet by mouth once daily Hydrochlorothiazide 25 mg tablet Active 25 mg PO daily June 14, 2025 12:00am Start: 03-09-2024 hydroCHLOROthi azide 25 mg oral tablet Dose : 25 mg = 1 tab(s), Oral, qDay, # 90 tab(s), 1 Refill(s), Pharmacy: [facility]/pharmacy #[id number], Hypertension, 152.4, cm, 01/03/25 14:28:00 EDT, Height, kg, 01/03/25 14:28:00 EDT, Dosing Weight Start Date: 01/03/25 Status: Ordered Medication Dispense Status: Completed Quantity: 90.0 Unit: tab(s) Total Allowed Fills: 2 Fills Dispensed: 0 Indications: Essential (primary) hypertension; Essential (primary) hypertension; Start: 02-02-2023 hydroCHLOROthi azide 25 mg oral tablet Dose : 25 mg = 1 tab(s), Oral, qDay, # 90 tab(s), 1 Refill(s), Pharmacy: [facility]/pharmacy #[id number], Hypertension Bilateral lower extremity edema, 151, cm, 01/20/23 10:41:00 EDT, Height Start Date: 02/02/23 Status: Ordered hydroxychloroquine sulfate 200 mg oral tablet (15 sources) Antimalarial, Antirheumatic Agent Start: 06-14-2025 take 1 tablet by mouth twice daily Hydroxychloroquine 200 mg tablet Active 200 mg PO TWICE A DAY June 14, 2025 12:00am Start: 12-02-2023 End: 10-20-2024 take 1 tablet by mouth every twelve hours hydroxychloroquine (PLAQUENIL) 200 mg tablet Take 1 (one) tablet (200 mg total) by mouth every 12 (twelve) hours . 12/02/2023 10/20/2024 Discontinued Start: 12-02-2023 take 1 tablet by migue th twice daily hydroxychloroquine (PLAQUENIL) 200 mg tablet Indications: Erosive osteoarthritis Take 1 (one) tablet (200 mg total) by mouth 2 (two) times a day . 180 tablet 3 10/20/2024 Active ivermectin 3 mg oral tablet (2 sources) Antiparasitic, Pediculicide Start: 06-14-2025 Ivermectin 3 mg tablet Active mg PO June 14, 2025 12:00am latanoprost 0.05 mg/ml ophthalmic solution (18 sources) Prostaglandin Analog Start: 07-14-2024 take 1 drop(s) into the eye(s) once daily latanoprost (XALATAN) 0.005 % ophthalmic solution Administer 1 (one) drop to both eyes nightly . 07/14/2024 Active lisinopril 10 mg oral tablet (1 source) Angiotensin Converting Enzyme Inhibitor Start: 02-24-2022 lisinopril 10 mg oral tablet Dose : 10 mg = 1 tab(s), Oral, qDay, # 30 tab(s), 0 Refill(s), Pharmacy: [facility]/pharmacy #[id number], 151, cm, 02/24/22 7:07:00 EDT, Height Start Date: 02/24/22 Status: Ordered loteprednol etabonate 2 mg/ml ophthalmic suspension (6 sources) Start: 05-23-2019 take 1 dose into the eye(s) four times daily Alrex 0.2% ophthalmic suspension 1 DROP INTO BOTH EYES FOUR TIMES A DAY Start Date: 05/23/19 Status: Ordered Medication Dispense Status: Completed Total Allowed Fills: 1 Fills Dispensed: 0 Start: 05-23-2019 take 1 drop(s) into the eye(s) four times daily Alrex 0.2% ophthalmic suspension 1 DROP INTO BOTH EYES FOUR TIMES A DAY Start Date: 05/23/19 Status: Ordered metoprolol tartrate 100 mg oral tablet (20 sources) beta-Adrenergic Amanda Start: 01-03-2025 Metopr olol Succinate ER 100 mg oral TABLET extended release Dose : 100 mg = 1 tab(s), Oral, BID, # 180 tab(s), 1 Refill(s), Pharmacy: [facility]/pharmacy #[id number], Hypertension, 152.4, cm, 01/03/25 14:28:00 EDT, Height, kg, 01/03/25 14:28:00 EDT, Dosing Weight Start Date: 01/03/25 Status: Ordered Medication Dispense Status: Completed Quantity: 180.0 Unit: tab(s) Total Allowed Fills: 2 Fills Dispensed: 0 Indications: Essential (primary) hypertension; Start: 03-09-2024 Metoprolol Suc cinate ER 100 mg oral TABLET extended release Dose : 100 mg = 1 tab(s), Oral, BID, # 180 tab(s), 1 Refill(s), Pharmacy: [facility]/pharmacy #[id number], Hypertension, 152.4, cm, 03/09/24 13:13:00 EDT, Height, kg, 03/09/24 13:13:00 EDT, Dosing Weight Start Date: 03/09/24 Status: Ordered Start: 01-20-2023 Metoprolol Suc cinate ER 100 mg oral TABLET extended release Dose : 100 mg = 1 tab(s), Oral, BID, # 180 tab(s), 1 Refill(s), Pharmacy: [facility]/pharmacy #[id number], Hypertension, 151, cm, 01/20/23 10:41:00 EDT, Height, kg, 01/20/23 10:41:00 EDT, Dosing Weight Start Date: 01/20/23 Status: Ordered Start: 01-22-2022 Metoprolol Suc cinate ER 100 mg oral TABLET extended release Dose : 100 mg = 1 tab(s), Oral, BID, increased dosing, # 180 tab(s), 1 Refill(s), Pharmacy: [facility]/pharmacy #[id number], Hypertension, 151, cm, 10/15/21 8:09:00 EST, Height, kg, 10/15/21 8:09:00 EST, Dosing Weight Start Date: 01/22/22 Status: Ordered Start: 03-31-2021 take 1 tablet by migue th once daily Metoprolol Succinate 100 mg tablet extended release 24 hr Active 100 mg PO DAILY March 31, 2021 12:00am take 1 tablet by migue th twice daily metoprolol succinate (TOPROL-XL) 100 MG 24 hr tablet Take 1 (one) tablet (100 mg total) by mouth 2 (two) times a day . Active metroNIDAZOLE 0.01 mg/mg topical gel (3 sources) Nitroimidazole Antimicrobial Start: 06-14-2025 Metronidazole 1 % ge l Active TOPICAL daily June 14, 2025 12:00am Start: 01-03-2025 apply 1 dose topical ly once daily MetroGel 1% topical gel Apply 1 johny, Topical, qDay, # 60 gram(s), 2 Refill(s), Pharmacy: [facility]/pharmacy #[id number], Gel, 152.4, cm, 01/03/25 14:28:00 EDT, Height, 74.7, kg, 01/03/25 14:28:00 EDT, Dosing Weight Start Date: 01/03/25 Status: Ordered Medication Dispense Status: Completed Quantity: 60.0 Unit: g Total Allowed Fills: 3 Fills Dispensed: 0 Multivitamin,Rn-Eoyz-Rgxnumx s (7 sources) Start: 01-08-2022 take 1 tablet by mouth once daily Multivitamin,Gb-Gjxx-Gleispvc Active 1 TABLET PO DAILY January 07, 2022 11:00pm Start: 01-08-2022 take 1 tablet by migue th once daily Multivitamin,Mj-Pavw-Fonqqrnc Active 1 T ABLET PO DAILY January 08, 2022 12:00am nortriptyline 10 mg oral capsule (12 sources) Tricyclic Antidepressant Start: 06-14-2025 take 1 capsule by mouth at bedtime Nortriptyline 10 mg capsule Active 20 mg PO AT BEDTIME June 14, 2025 12:00am Start: 01-03-2025 nortriptyline 10 mg oral capsule 0 Refill(s) Start Date: 01/03/25 Status: Ordered Medication Dispense Status: Completed Total Allowed Fills: 1 Fills Dispensed: 0 olopatadine (6 sources) Histamine-1 Receptor Inhibitor Start: 05-23-2019 take 1 dose into the eye(s) once daily Pazeo 0.7% ophthalmic solution drop(s), Eyes, both, qDay, 0 Refill(s) Start Date: 05/23/19 Status: Ordered Medication Dispense Status: Completed Total Allowed Fills: 1 Fills Dispensed: 0 Start: 05-23-2019 take 1 drop(s) into the eye(s) once daily Pazeo 0.7% ophthalmic solution drop(s), Eyes, both, qDay, 0 Refill(s) Start Date: 05/23/19 Status: Ordered Start: 05-23-2019 take 1 drop(s) into the eye(s) once daily Pazeo 0.7% ophthalmic solution drop(s), Eyes, both, qDay, 0 Refill(s) Start Date: 05/23/19 Status: Ordered pantoprazole 40 mg delayed release oral tablet (5 sources) Proton Pump Inhibitor Start: 06-14-2025 take 1 tablet by mouth once daily Pantoprazole 40 mg tablet,delayed release (DR/EC) Active 40 mg PO daily June 14, 2025 12:00am Start: 01-03-2025 pantoprazole 4 0 mg oral enteric coated tablet Dose : 40 mg = 1 tab(s), Oral, qDay, # 90 tab(s), 1 Refill(s), [id number], 152.4, cm, 01/03/25 14:28:00 EDT, Height, kg, 01/03/25 14:28:00 EDT, Dosing Weight Start Date: 01/03/25 Status: Ordered Medication Dispense Status: Completed Quantity: 90.0 Unit: tab(s) Total Allowed Fills: 2 Fills Dispensed: 0 Start: 03-09-2024 pantoprazole 4 0 mg oral enteric coated tablet Dose : 40 mg = 1 tab(s), Oral, qDay, # 90 tab(s), 0 Refill(s), Pharmacy: [facility]/pharmacy #[id number], 152.4, cm, 03/09/24 13:13:00 EDT, Height, kg, 03/09/24 13:13:00 EDT, Dosing Weight Start Date: 03/09/24 Status: Ordered predniSONE 5 mg oral tablet (12 sources) Start: 01-06-2023 Deltasone 5 mg tab (TAPER) Dose : 5 mg = 1 tab(s), Oral, qDay, # 30 tab(s), 0 Refill(s) Start Date: 01/06/23 Status: Ordered Start: 03-31-2021 End: 06-14-2025 take 2 tablets by mouth once daily Prednisone 5 mg tablet Discontinued 10 mg PO DAILY March 31, 2021 12:00am June 14, 2025 8:15am Start: 03-31-2021 take 10 mg by mouth once daily Prednisone Active 10 MG PO DAILY March 31, 2021 12:00am Start: 05-23-2019 take 1 tablet by migue th once daily in the morning Deltasone 5 mg tab (TAPER) TAKE 1 TABLET BY MOUTH EVERY DAY IN THE MORNING Start Date: 05/23/19 Status: Ordered sertraline 100 mg oral tablet (17 sources) Serotonin Reuptake Inhibitor Start: 06-14-2025 take 2 tablets by mouth once daily Sertraline 100 mg tablet Active 200 mg PO daily June 14, 2025 12:00am Start: 05-23-2019 take 2 tablets by [facility] once daily sertraline (ZOLOFT) 100 MG tablet Take 2 (two) tablets (200 mg total) by mouth daily . 05/23/2019 Active Start: 05-23-2019 sertraline 100 mg oral tablet Dose : 200 mg = 2 tab(s), Oral, qDay Start Date: 05/23/19 Status: Ordered Medication Dispense Status: Completed Total Allowed Fills: 1 Fills Dispensed: 0 tiZANidine 4 mg oral tablet (20 sources) Central alpha-2 Adrenergic Agonist Start: 03-31-2021 take 1 tablet by mouth twice daily Tizanidine 4 mg tablet Active 4 mg PO TWICE A DAY March 31, 2021 12:00am Start: 05-23-2019 take 2 tablets by [facility] every eight hours as needed, then take 3 tablets by mouth every twenty-four hours as needed tiZANidine 4 mg oral tablet TAKE 2 TABLET BY ORAL ROUTE EVERY 8 HOURS NEEDED NOT TO EXCEED 3 DOSES IN 24 HOURS Start Date: 05/23/19 Status: Ordered Medication Dispense Status: Completed Total Allowed Fills: 1 Fills Dispensed: 0 Start: 05-23-2019 take 1 tablet by [facility] every eight hours as needed, then take 3 tablets by mouth every twenty-four hours as needed tiZANidine 4 mg oral tablet TAKE 1 TABLET BY ORAL ROUTE EVERY 8 HOURS NEEDED NOT TO EXCEED 3 DOSES IN 24 HOURS Start Date: 05/23/19 Status: Ordered take 1 capsule by [facility] three times daily tiZANidine (ZANAFLEX) 2 MG capsule Take 1 (one) capsule (2 mg total) by mouth 3 (three) times a day . Active ubrogepant 100 mg oral tablet (20 sources) Start: 08-29-2020 Ubrogepant 100 mg tablet Active 100 mg PO March 31, 2021 12:00am vitamin b12 1 mg sublingual tablet (4 sources) Vitamin B12 Start: 06-14-2025 take 1 tablet under the tongue once daily Cyanocobalamin (Vitamin B-12) 1,000 mcg tablet, sublingual Active 1000 ug SL daily June 14, 2025 12:00am Start: 01-03-2025 cyanocobalamin 1000 mcg sublingual tablet Dose : 1,000 mcg = 1 tab(s), Sublingual, Daily, # 100 tab(s), 1 Refill(s), Pharmacy: [facility]/pharmacy #[id number], 152.4, cm, 01/03/25 14:28:00 EDT, Height, kg, 01/03/25 14:28:00 EDT, Dosing Weight Start Date: 01/03/25 Status: Ordered Medication Dispense Status: Completed Quantity: 100.0 Unit: tab(s) Total Allowed Fills: 2 Fills Dispensed: 0 Start: 01-20-2023 inject 1 mL by intra muscular injection every month cyanocobalamin 1000 mcg/mL injectable solution Dose : 1,000 mcg = 1 mL, Intramuscular, qmonth, NOT SENT IN - to get at providers office every month, # 1 mL, 11 Refill(s), other reason (Rx), Vitamin B12 deficiency Start Date: 01/20/23 Status: Ordered Vitamin D3 1250 mcg (50,000 intl units) oral capsule (5 sources) Start: 01-03-2025 take 1 capsule by mouth once, then take 1 capsule by mouth every week Vitamin D3 1250 mcg (50,000 intl units) oral capsule Dose : 1,250 mcg = 1 cap(s), Oral, qWeek, # 13 cap(s), 1 Refill(s), Pharmacy: [facility]/pharmacy #[id number], Vitamin D deficiency, 152.4, cm, 01/03/25 14:28:00 EDT, Height, kg, 01/03/25 14:28:00 EDT, Dosing Weight Start Date: 01/03/25 Status: Ordered Medication Dispense Status: Completed Quantity: 13.0 Unit: cap(s) Total Allowed Fills: 2 Fills Dispensed: 0 Indications: Vitamin D deficiency, unspecified; Start: 03-09-2024 Vitamin D3 125 0 mcg (50,000 intl units) oral capsule Dose : 1,250 mcg = 1 cap(s), Oral, qWeek, # 13 cap(s), 1 Refill(s), Pharmacy: [facility]/pharmacy #[id number], Vitamin D deficiency, 152.4, cm, 03/09/24 13:13:00 EDT, Height, kg, 03/09/24 13:13:00 EDT, Dosing Weight Start Date: 03/09/24 Status: Ordered Start: 10-27-2022 Vitamin D3 125 0 mcg (50,000 intl units) oral capsule Dose : 1,250 mcg = 1 cap(s), Oral, qWeek, # 13 cap(s), 3 Refill(s), Pharmacy: [facility]/pharmacy #[id number], Vitamin D deficiency, 151, cm, 09/16/22 10:39:00 EST, Height Start Date: 10/27/22 Status: Ordered vortioxetine 5 mg oral table t (1 source) Start: 01-20-2023 Trintellix 5 m g oral tablet Dose : 5 mg = 1 tab(s), Oral, qDay, 0 Refill(s) Start Date: 01/20/23 Status: Ordered Completed/Discontinued Medications Medication Drug Class(es) Dates Sig (Normalized) Sig (Original) acetaminophen 325 mg / oxyCODONE hydrochloride 5 mg oral tablet (9 sources) Opioid Agonist Start: 09-18-2013 End: 03-31-2021 Oxycodone-Acetamino phen 1 TABLET tablet Discontinued 1 {tbl} PO EVERY 6 HOURS NEEDED as needed for Pain September 18, 2013 1:00am March 31, 2021 8:01am Start: 09-18-2013 End: 03-31-2021 take 1 tablet by mouth every six hours as needed Oxycodone-Acetaminophen Discontinued 1 TABLET PO EVERY 6 HOURS NEEDED September 18, 2013 1:00am March 31, 2021 8:01am ascorbic acid 500 mg oral tablet (9 sources) Vitamin C Start: 07-17-2013 End: 03-31-2021 take 1 tablet by mouth once daily Ascorbic Acid (Vitamin C) (Vitamin C) 500 MG tablet Discontinued 500 mg PO DAILY@0800 July 17, 2013 12:00am March 31, 2021 8:00am biotin 1 mg oral capsule (9 sources) Start: 12-19-2013 End: 03-31-2021 Biotin 1 MG capsule Discontinued 1 mg PO December 19, 2013 1:00am March 31, 2021 8:00am 24 hr buPROPion hydrochloride 300 mg extended release oral tablet (9 sources) Aminoketone Start: 07-17-2013 End: 03-31-2021 take 1 tablet by mouth once daily Bupropion Hcl 300 MG tablet extended release 24 hr Discontinued 300 mg PO DAILY July 17, 2013 12:00am March 31, 2021 8:00am cyclobenzaprine hydrochloride 10 mg oral tablet (9 sources) Muscle Relaxant Start: 07-17-2013 End: 03-31-2021 take 5 mg by mouth three times daily as needed for muscle spasms Cyclobenzaprine 10 MG tablet Discontinued 5 mg PO 3 TIMES DAILY NEEDED as needed for Muscle Spasm July 17, 2013 12:00am March 31, 2021 8:00am Start: 07-17-2013 End: 03-31-2021 take 5 mg by mouth three times daily as needed Cyclobenzaprine Discontinued 5 MG PO 3 TIMES DAILY NEEDED July 17, 2013 12:00am March 31, 2021 8:00am Desog-E.Estradiol/E.Estradio l (9 sources) Progestin, Estrogen Start: 09-18-2013 End: 06-14-2025 Desog-E.Estradiol/E.Estradio l (Viorele (28)) 1 EACH tablet Discontinued 1 NMA PO DAILY September 18, 2013 1:00am June 14, 2025 8:15am Start: 09-18-2013 Desog-E.Estrad iol/E.Estradiol (Viorele (28)) 1 EACH tablet Active 1 EACH PO DAILY September 18, 2013 12:00am Start: 09-18-2013 Desog-E.Estrad iol/E.Estradiol (Viorele ()) 1 EACH tablet Active 1 EACH PO DAILY September 18, 2013 1:00am DULoxetine 30 mg delayed release oral capsule (10 sources) Serotonin and Norepinephrine Reuptake Inhibitor Start: 06-04-2021 End: 06-14-2025 take 2 capsules by mouth once daily Duloxetine 30 mg capsule,delayed release(DR/EC) Discontinued 60 mg PO DAILY June 04, 2021 12:00am June 14, 2025 8:15am Start: 06-04-2021 take 60 mg by mouth once daily Duloxetine Active 60 MG PO DAILY June 04, 2021 12:00am Start: 2021 DULoxetine 30 mg oral delayed release capsule Dose : 60 mg = 2 cap(s), Oral, qDay, 0 Refill(s) Start Date: 05/28/21 Status: Ordered escitalopram 20 mg oral tablet (9 sources) Serotonin Reuptake Inhibitor Start: 07-17-2013 End: 03-31-2021 take 1 tablet by mouth once daily Escitalopram Oxalate (Lexapro) 20 MG tablet Discontinued 20 mg PO DAILY July 17, 2013 12:00am March 31, 2021 8:01am famotidine 20 mg oral tablet (9 sources) Histamine-2 Receptor Antagonist Start: 09-18-2013 End: 10-28-2013 take 1 tablet by mouth twice daily Famotidine 20 MG tablet Discontinued 20 mg PO TWICE A DAY 28 September 18, 2013 1:00am October 28, 2013 11:25am ferrous fumarate 55 mg extended release oral tablet (18 sources) Start: 07-17-2013 End: 03-31-2021 Ferrous Fumarate (Iron) 55 MG tablet extended release Discontinued 236 mg PO DAILY July 17, 2013 12:00am March 31, 2021 8:01am ferrous fumarate 324 mg (106 mg iron) Tab Take by mouth . Active folic acid 1 mg oral tablet (12 sources) Start: 03-31-2021 take 2 mg by mouth once daily Folic Acid Active 2 MG PO DAILY March 31, 2021 12:00am Start: 05-23-2019 End: 06-14-2025 take 2 tablets by mouth once daily Folic Acid 1 mg tablet Discontinued 2 mg PO DAILY March 31, 2021 12:00am June 14, 2025 8:15am 24 hr loratadine 10 mg / pseudoephedrine sulfate 240 mg extended release oral tablet (9 sources) alpha-Adrenergic Agonist Start: 07-17-2013 End: 10-28-2013 take 1 tablet by mouth once daily Loratadine-Pseudoephedrine (Claritin-D 24 Hr) 1 TABLET tablet Discontinued 1 {tbl} PO DAILY July 17, 2013 12:00am October 28, 2013 11:25am methotrexate 2.5 mg oral tablet (10 sources) Folate Analog Metabolic Inhibitor Start: 03-31-2021 End: 06-14-2025 Methotrexate Sodium 2.5 mg tablet Discontinued 20 mg PO EVERY WEEK March 31, 2021 12:00am June 14, 2025 8:15am Start: 03-31-2021 take 20 mg by mouth every week Methotrexate Sodium Active 20 MG PO EVERY WEEK March 31, 2021 12:00am Start: 05-23-2019 take 8 tablets by mo [facility] every week methotrexate 2.5 mg oral tablet TAKE 8 TABLETS BY MOUTH ONCE A WEEK Start Date: 05/23/19 Status: Ordered Multivitamin,Vb-Vphb-Bgsseax s Tablet (2 sources) Start: 01-08-2022 End: 06-14-2025 Multivitamin,Jt-Zjfa-Kslgluz s Tablet Discontinued 1 {tbl} PO DAILY January 08, 2022 12:00am June 14, 2025 8:16am naproxen 500 mg oral tablet (9 sources) Nonster oidal Anti-in flammat ory Drug Start: 02-27-2021 End: 03-31-2021 take 1 tablet by mouth twice daily Naproxen 500 MG tablet Discontinued 500 mg PO TWICE A DAY February 27, 2021 12:00am March 31, 2021 8:01am nitrofurantoin, macrocrystal s 100 mg oral capsule (9 sources) Nitrofu ran Antibac terial Start: 09-18-2013 End: 10-28-2013 take 1 capsule by mouth every twelve hours Nitrofurantoin Monohyd/M-Cryst 100 MG capsule Discontinued 100 mg PO EVERY 12 HOURS September 18, 2013 1:00am October 28, 2013 11:25am pregabalin 100 mg oral capsu le (9 sources) Start: 03-31-2021 End: 06-04-2021 Pregabalin 100 mg capsule Discontinued 100 mg PO March 31, 2021 12:00am June 04, 2021 9:10am sulfaSALAzine 500 mg oral tablet (10 sources) Aminosa licylat e Start: 03-31-2021 End: 06-14-2025 Sulfasalazine 500 mg tablet Discontinued 0.5 g PO March 31, 2021 12:00am June 14, 2025 8:15am Start: 03-31-2021 Sulfasalazine Active 0.5 GM PO March 31, 2021 12:00am Start: 08-29-2020 sulfaSALAzine 500 mg oral delayed release tablet Dose : 1,500 mg = 3 tab(s), Oral, BID, 0 Refill(s) Start Date: 08/29/20 Status: Ordered traMADol hydrochloride 50 mg oral tablet (18 sources) Opioid Agonist Start: 04-04-2021 End: 06-04-2021 take 1 tablet by mouth three times daily as needed for pain Tramadol 50 mg tablet Discontinued 50 mg PO THREE TIMES A DAY as needed for pain 15 0 April 04, 2021 12:00am June 04, 2021 9:12am Start: 09-18-2013 End: 03-31-2021 take 2 tablets by mouth every six hours as needed for pain Tramadol 50 MG tablet Discontinued 100 mg PO EVERY 6 HOURS NEEDED as needed for Pain September 18, 2013 1:00am March 31, 2021 8:01am Start: 09-18-2013 End: 03-31-2021 take 100 mg by mouth every six hours as needed Tramadol Discontinued 100 MG PO EVERY 6 HOURS NEEDED September 18, 2013 1:00am March 31, 2021 8:01am traZODone hydrochloride 50 mg oral tablet (9 sources) Serotonin Reuptake Inhibitor Start: 07-17-2013 End: 03-31-2021 take 1 tablet by mouth at bedtime Trazodone 50 MG tablet Discontinued 50 mg PO AT BEDTIME July 17, 2013 12:00am March 31, 2021 8:01am 24 hr upadacitinib 15 mg extended release oral tablet (9 sources) Start: 03-31-2021 End: 06-14-2025 take 1 tablet by mouth every twenty-four hours Upadacitinib 15 mg tablet extended release 24 hr Discontinued 15 mg PO March 31, 2021 12:00am June 14, 2025 8:15am arthritis Problems Active Problems Problem Classification Problem Date Documented Date Episodic/Chronic Anxiety disorders (6 sources) Anxiety 05-19-2019 Chronic Asthma (6 sources) Asthma; Translations: [Moderate persistent asthma] 11-29-2019 Chronic Coagulation and hemorrhagic disorders (9 sources) Easy bruising; Translations: [Spontaneous ecchymoses] 03-31-2021 Episodic Deficiency and other anemia (9 sources) Anemia; Translations: [Anemia, unspecified] 03-31-2021 Episodic Disorders of lipid metabolism (6 sources) Hyperlipidemia 12-04-2020 Chronic Essential hypertension (5 sources) Hypertensive disorder; Translations: [Essential (primary) hypertension] Onset: 01-03-2025 08-24-2019 Chronic Fracture of lower limb (9 sources) Closed fracture of distal fibula ; Translations: [Other fracture of upper and lower end of right fibula, initial encounter for closed fracture] 05-09-2021 Episodic Genitourinary symptoms and ill-defined conditions (9 sources) Incontinence; Translations: [Unspecified urinary incontinence] 03-31-2021 Chronic Headache; including migraine (10 sources) Migraine; Translations: [Migraine, unspecified, not intractable, without status migrainosus] 03-31-2021 Chronic Heart valve disorders (2 sources) Heart murmur 01-06-2023 Episodic Hypertension with complications and secondary hypertension (3 sources) Hypertensive heart disease without congestive heart failure 03-09-2024 Chronic Immunity disorders (3 sources) Drug-induced immunodeficiency 03-09-2024 Chronic Malaise and fatigue (9 sources) Fatigue; Translations: [Other fatigue] 03-31-2021 Episodic Mood disorders (6 sources) Depressive disorder; Translations: [Recurrent major depression] 01-22-2022 Chronic Nonspecific chest pain (9 sources) Chest pain; Translations: [Chest pain, unspecified] 09-18-2013 Episodic Nutritional deficiencies (5 sources) Vitamin D deficiency 01-06-2023 Chronic Nutritional deficiencies (8 sources) Cobalamin deficiency; Translations: [Iron deficiency] 01-06-2023 Episodic Osteoarthritis (7 sources) Erosive osteoarthrosis; Translations: [Erosive (osteo)arthritis] Onset: 10-20-2024 10-20-2024 Chronic Other aftercare (2 sources) Taking high risk medication; Translations: [Other senior living (current) drug therapy] 01-19-2025 Episodic Other aftercare (2 sources) Other complaint adjuster (current) drug therapy; Translations: [Other senior living (current) drug therapy] Onset: 04-17-2025 Episodic Other bone disease and musculoskeletal deformities (5 sources) Osteopenia 09-16-2022 Episodic Other connective tissue disease (9 sources) Muscle weakness of limb; Translations: [Other symptoms and signs involving the musculoskeletal system] 03-31-2021 Episodic Other connective tissue disease (3 sources) Fibromyalgia; Translations: [Fibromyalgia] 10-20-2024 Episodic Other eye disorders (1 source) Dry eyes; Translations: [Dry eye syndrome of unspecified lacrimal gland] 10-20-2024 Episodic Other inflammatory condition of skin (1 source) Rosacea 01-03-2025 Chronic Other nervous system disorders (9 sources) Disorder of brain; Translations: [Encephalopathy, unspecified] 01-16-2022 Chronic Other nervous system disorders (1 source) Encephalopathy, unspecified; Translations: [Encephalopathy, unspecified] Chronic Other nervous system disorders (9 sources) Difficulty balancing when standing; Translations: [Other abnormalities of gait and mobility] 03-31-2021 Episodic Other non-traumatic joint disorders (9 sources) Shoulder pain; Translations: [Pain in unspecified shoulder] 03-31-2021 Episodic Other non-traumatic joint disorders (1 source) Multiple joint pain; Translations: [Pain in unspecified joint] 10-20-2024 Episodic Other non-traumatic joint disorders (1 source) Hip pain; Translations: [Pain in right hip] 10-20-2024 Episodic Other nutritional; endocrine; and metabolic disorders (8 sources) Body mass index 30+ - obesity 09-16-2022 Chronic Other nutritional; endocrine; and metabolic disorders (4 sources) Morbid obesity 01-20-2023 Chronic Other nutritional; endocrine; and metabolic disorders (1 source) Obesity 05-10-2024 Chronic Other screening for suspected conditions (not mental disorders or infectious disease) (2 sources) Viral screening status 12-02-2023 Episodic Other skin disorders (2 sources) Eruption; Translations: [Rash and other nonspecific skin eruption] 01-19-2025 Episodic Paralysis (5 sources) Monoparesis - leg 09-16-2022 Chronic Residual codes; unclassified (3 sources) Hypersomnia 03-09-2024 Chronic Residual codes; unclassified (6 sources) Needs influenza immunization 08-29-2020 Episodic Residual codes; unclassified (6 sources) Requires diphtheria, tetanus and pertussis vaccination 05-27-2021 Episodic Residual codes; unclassified (5 sources) Bilateral lower limb edema 01-06-2023 Episodic Residual codes; unclassified (3 sources) Screening due 03-09-2024 Episodic Rheumatoid arthritis and related disease (13 sources) Rheumatoid arthritis; Translations: [Rheumatoid arthritis, unspecified] Onset: 01-18-2025 05-23-2019 Chronic Screening and history of mental health and substance abuse codes (5 sources) Ex-tobacco user 09-16-2022 Episodic Comment on above: quit 2001 Spondylosis; intervertebral disc disorders; other back problems (1 source) Degeneration of cervical intervertebral disc 01-03-2025 Chronic Spondylosis; intervertebral disc disorders; other back problems (11 sources) Chronic pain; Translations: [Cervicalgia] Onset: 06-14-2025 03-31-2021 Episodic Suicide and intentional self-inflicted injury (6 sources) Suicide attempt 01-22-2022 Episodic Superficial injury; contusion (9 sources) Contusion of knee; Translations: [Contusion of left knee, initial encounter] 02-27-2021 Episodic Syncope (5 sources) Syncope 03-09-2022 Episodic Unclassified (6 sources) Cancer cervix screening status 05-27-2021 Unclassified (6 sources) H/O: high risk medication 08-24-2019 Unclassified (20 sources) Patient encounter status 05-27-2021 Unclassified (6 sources) Vaccination needed 10-15-2021 Unclassified (3 sources) Severe acute respiratory syndrome coronavirus 2 detected 04-29-2023 Unclassified (3 sources) History of bypass of stomach 03-09-2024 Comment on above: 2005 Unclassified (3 sources) Mild tricuspid valve regurgitation 03-09-2024 Unclassified (2 sources) M54.12 - Radiculopathy, cervical region Past or Other Problems Problem Classification Problem Date Documented Da te Episodic/Chronic Diseases of mouth; excluding dental (3 sources) Xerostomia; Translations: [Dry mouth, unspecified] Onset: 10-20-2024 10-20-2024 Episodic Other eye disorders (2 sources) Dry eye syndrome of unspecified lacrimal gland; Translations: [Dry eye syndrome of unspecified lacrimal gland] Onset: 10-20-2024 Episodic Other non-traumatic joint disorders (4 sources) Pain in right hip; Translations: [Pain in right hip] Onset: 10-20-2024 Episodic Other non-traumatic joint disorders (4 sources) Pain in left hip; Translations: [Pain in left hip] Onset: 10-20-2024 Episodic Other non-traumatic joint disorders (4 sources) Pain in unspecified joint; Translations: [Pain in unspecified joint] Onset: 10-20-2024 Episodic Other skin disorders (2 sources) Rash and other nonspecific skin eruption; Translations: [Rash and other nonspecific skin eruption] Onset: 01-18-2025 Episodic Results Test Name Value Interpretation Reference Range Facility Cerv Spine 4 or 5 Viewson Cerv Spine 4 or 5 Views [facility] [address] [place], [place] [address] Cerv Spine 4 or 5 Views MR#: [id number] Acct: [id number] Name: DALIA SHERMAN Rep #: [id number] : 1970 F 55 From: Robert Jenkins MD PCP: Dr. Karen Knowles, Status: DEP AMB Study: Cerv Spine 4 or 5 Views Date of Exam: 06/14/25 Exam# [id number] Ordering Dr: Janeth Benson PROCEDURE: CERV SPINE 4 OR 5 VIEWS 06/14/2025 REASON FOR EXAM: CHRONIC PAIN TECHNIQUE: CERV SPINE 4 OR 5 VIEWS COMPARISON: None. FINDINGS: There is loss of the normal cervical lordosis. There are no compression fractures. There is degenerative disc disease, C3-4 through C5-6 with narrowing of the intervertebral disc spaces and marginal osteophytes. There is multilevel facet arthropathy. There is 2 mm of degenerative anterolisthesis of C3 on C4, seen only in flexion. Tissues the paravertebral soft tissues are normal. RAD/Cerv Spine 4 or 5 Views IMPRESSION: 1. Multilevel degenerative disc disease of the cervical spine with cervical spasm. 2. Degenerative anterolisthesis of C3 on C4, demonstrates instability with flexion and extension. Reading Location: [id number] CC: PAOLA Bird; Dr. Karen Knowles DO Arbitrator: Signed Normal [facility] Orthopedic Visit Reporton Orthopedic Visit Report [facility] [facility] [address] [place] [address] OFFICE VISIT Date of Service: 06/14/25 MR#: [id number] Acct: [id number] Name: DALIA SHERMAN Rep #: [id number] : 1970 Provider: PAOLA Bird Age/Sex: 55/F [place] [facility] [place]: Signed Intake Vital Signs 01/08/22 02:57 06/14/25 08:08 Height 5 ft 5 ft Weight: 169 lb BMI 33.0 Intake Visit Reasons: CERVICAL SPINE Chief Complaint: Cervical Spine Pain Accompanied by: Self Is patient in pain?: Yes Pain scale (1-10): 3 Allergies Seasonal Allergies: Uncoded (environmental) Allergy (Verified 06/14/25 08:09) Other Medications ???Medication ???Instructions ???Recorded ???Confirmed ???Type diazepam 2 mg tablet 2 mg PO DAILY 07/17/13 06/14/25 Hi story metoprolol succinate 100 mg 100 mg PO DAILY 03/31/21 06/14/25 History tablet,extended release 24 hr tizanidine 4 mg tablet 4 mg PO BID 03/31/21 06/14/25 Hist ory ubrogepant 100 mg tablet 100 mg PO 03/31/21 06/14/25 Histor y fluticasone 100 mcg-salmeterol 50 1 inh inhalation BID 06/04/21 History mcg/dose blistr powdr for inhalation (Advair Diskus) alendronate 70 mg tablet tablet PO 07/02/21 06/14/25 Histor y klqwysxrwn-ujzrvwj-bnnwa pyridium ml mucous membrane 4X/DAY PRN PRN 01/08/22 History dental rinse mouth pain ferrous sulfate 325 mg (65 mg 325 mg PO DAILY 01/08/22 06/14/25 History iron) tablet albuterol sulfate 90 mcg/actuation 2 puff inhalation Q6 06/14/25 History aerosol inhaler cholecalciferol (vitamin D3) 1,250 1,250 mcg PO QWEEK 06/14/25/06/11 History mcg (50,000 unit) capsule cyanocobalamin (vitamin B-12) 1,000 mcg sublingual QDAY 06/14/25 06/14/25 History 1,000 mcg sublingual tablet etanercept 50 mg/mL (1 mL) mg subcut 06/14/25 06/14/25 Histor y subcutaneous pen injector (Enbrel Anupick) fremanezumab-vfrm 225 mg/1.5 mL mg subcut 06/14/25 06/14/25 Histor y subcutaneous auto-injector (Jonathanovanneliese) hydrochlorothiazide 25 mg tablet 25 mg PO QDAY 06/14/25 06/14/25 Hi story hydroxychloroquine 200 mg tablet 200 mg PO BID 06/14/25 06/14/25 Hi story ivermectin 3 mg tablet mg PO 06/14/25 06/14/25 History metronidazole 1 % topical gel topical QDAY 06/14/25 06/14/25 His tory nortriptyline 10 mg capsule 20 mg PO QHS 06/14/25 06/14/25 His tory pantoprazole 40 mg tablet,delayed 40 mg PO QDAY 06/14/25 06/14/25 H istory release sertraline 100 mg tablet 200 mg PO QDAY 06/14/25 06/14/25 H istory PFSH Medical History Alcohol intoxication Suicidal overdose Closed fracture of right distal fibula Incontinence Chronic neck and back pain Limb weakness Difficulty balancing when standing Abnormal bruising Migraines Fatigue Anemia Shoulder pain Alcohol abuse Anxiety Depression Fibromyalgia Rheumatoid arthritis Chronic pain Former smoker Asthma Hyperlipemia Hypertension Surgical History History of History of gastric bypass History of cholecystectomy Social History household members: spouse and children Smoking Status: Former smoker Tobacco: How many years used: 10 how long ago did patient quit smokin years alcohol intake: current alcohol intake frequency: a few times a week substance use type: does not use HPI CERVICAL SPINE Details: This documentation accurately reflects the service provided and the decisions made by me, PAOLA Bird 06/14/25 0804. Part of today???s visit was documented by Pari Little [employer], acting as scribe. DALIA SHERMAN is a 55 year old F here today for cervical spine pain. Patient rates her pain a 3/10 today. She states the neck has been bothering her for several years now. She states she was in her garage unloading groceries and she tried to shut the trunk of the car and she didn't have room to back up and it hit her on the head. She states ever since then she has dealt with headaches and pain. She describes most of the pain on the right side. She states it starts on the top of the shoulder and goes all the way up the back of her neck. Her pain increases with shoulder movements. She denies any left-sided involvement. Patient also reports arthritis in both hands. She states she gets slight headaches quite a bit and occasionally she will get migraines. She states depending on what she is doing or how she is sitting will make the headaches worse. She states she has had injections in the neck but it has been years since her last one. She states she felt like the injections were a hit or miss. Says that her last injection was 5 to 6 years ago in [place]. She states s (more content not included)... Normal [facility] MRI SPINE CERVICAL W/ + W/O CONTRASTon 06-08-2025 MRI SPINE CERVICAL W/ + W/O CONTRAST ORIGINAL EXAMINATION: MRI OF THE CERVICAL SPINE WITHOUT AND WITH CONTRAST 06/08/2025 10:40 am: TECHNIQUE: Multiplanar multisequence MRI of the cervical spine was performed without and with the administration of intravenous contrast. COMPARISON: None. HISTORY: ORDERING SYSTEM PROVIDED HISTORY: Reason for Exam: cervical radiculopathy FINDINGS: BONES/ALIGNMENT: There is normal alignment of the spine. The vertebral body heights are maintained. The bone marrow signal appears unremarkable. SPINAL CORD: No abnormal cord signal is seen. SOFT TISSUES: No abnormal enhancement of the cervical spine. No paraspinal mass identified. Multilevel disc degenerative changes are present greatest at C4-C5 and C5-C6. No herniated disc or significant canal or foraminal narrowing. No area of abnormal contrast enhancement is seen. IMPRESSION: Disc degeneration greatest at C5-C6 and C4-C5. No herniated disc or nerve root impingement. No cord lesion. Interpreted by: Ming Moyer Preliminary Report By: Ming Moyer Electronically signed By Ming Moyer Dictated Date: 06/08/2025 10:59:34 AM Prelim Date: 06/08/2025 11:01:10 AM Sign Date: 06/08/2025 11:01:10 AM Ordering Provider: MARISOL Zhao [facility] C-REACTIVE PROTEINon 025 C-REACTIVE PROTEIN Normal [facility] Comment on above: Performed By: #### 6 [phone], 498, [phone], [id number], 499, 8472, 375, 501 #### [facility] [address], [address] [place] [id number] Transportation Project Manager: Kishor Shepard MD CBC (INCLUDES DIFF/PLT)on Basophils (Bld) [#/Vol] 0.038 10*3/uL Normal 0-200 [facility] Comment on above: Performed By: #### 6 [phone], 498, 809, [id number], 499, 8472, 375, 501 #### [facility] [place] [address] Transportation Project Manager: Kishor Shepard MD Basophils/100 WBC (Bld) 0.4 % Normal [facility] [facility] Comment on above: Performed By: #### 6 399, 498, 809, 43924, 499, 8472, 375, 501 #### [facility] [place] [address] Transportation Project Manager: Kishor Shepard MD Eosinophils (Bld) [#/Vol] 0.115 10*3/uL Normal 15-500 [facility] Comment on above: Performed By: #### 6 399, 498, 809, 78383, 499, 8472, 375, 501 #### [facility] [place] [address] Transportation Project Manager: Kishor Shepard MD Eosinophils/100 WBC (Bld) 1.2 % Normal [facility] Comment on above: Performed By: #### 6 399, 498, 809, 21418, 499, 8472, 375, 501 #### [facility] [place] [address] Transportation Project Manager: Kishor Shepard MD Erythrocyte distribution width (RBC) [Ratio] 13.2 % Normal 11.0-15.0 [facility] Comment on above: Performed By: #### 6 399, 498, 809, 39159, 499, 8472, 375, 501 #### [facility] [place] [address] Transportation Project Manager: Kishor Shepard MD Hematocrit (Bld) [Volume fraction] 38.5 % Normal 35.0-45.0 [facility] Comment on above: Performed By: #### 6 399, 498, 809, 12011, 499, 8472, 375, 501 #### [facility] [place] [address] Transportation Project Manager: Kishor Shepard MD Hemoglobin (Bld) [Mass/Vol] 12.6 g/dL Normal 11.7-15.5 [facility] Comment on above: Performed By: #### 6 399, 498, 809, 86319, 499, 8472, 375, 501 #### [facility] [place] [address] Transportation Project Manager: Kishor Shepard MD Lymphocytes (Bld) [#/Vol] 1.258 10*3/uL Normal 850-3900 [facility] Comment on above: Performed By: #### 6 399, 498, 809, 35250, 499, 8472, 375, 501 #### [facility] [place] [address] Transportation Project Manager: Kishor Shepard MD Lymphocytes/100 WBC (Bld) 13.1 % Normal [facility] Comment on above: Performed By: #### 6 399, 498, 809, 51468, 499, 8472, 375, 501 #### [facility] [place] [address] Transportation Project Manager: Kishor Shepard MD MCH (RBC) [Entitic mass] 31.2 pg Normal 27.0-33.0 [facility] Comment on above: Performed By: #### 6 399, 498, 809, 02269, 499, 8472, 375, 501 #### [facility] [place] [address] Transportation Project Manager: Kishor Shepard MD MCHC (RBC) [Mass/Vol] 32.7 g/dL Normal 32.0-36.[address] [facility] Comment on above: Result Comment: For adults, a slight decrease in the calculated MCHC value (in the range of 30 to 32 g/dL) is most likely not clinically significant; however, it should be interpreted with caution in correlation with other red cell parameters and the patient's clinical condition. Performed By: #### 6 399, 498, 809, 14187, 499, 8472, 375, 501 #### [facility] [place] [address] Transportation Project Manager: Kishor Shepard MD MCV (RBC) [Entitic vol] 95.3 fL Normal 80.0-100.0 [facility] Comment on above: Performed By: #### 6 399, 498, 809, 14688, 499, 8472, 375, 501 #### [facility] [place] [address] Transportation Project Manager: Kishor Shepard MD Monocytes (Bld) [#/Vol] 1.133 10*3/uL High 200-950 [facility] Comment on above: Performed By: #### 6 399, 498, 809, 66198, 499, 8472, 375, 501 #### [facility] [place] [address] Transportation Project Manager: Kishor Shepard MD Monocytes/100 WBC (Bld) 11.8 % Normal [facility] Comment on above: Performed By: #### 6 399, 498, 809, 92825, 499, 8472, 375, 501 #### [facility] [place] [address] Transportation Project Manager: Kishor Shepard MD Neutrophils (Bld) [#/Vol] 7.056 10*3/uL Normal 1951-9300 [facility] Comment on above: Performed By: #### 6 399, 498, 809, 70885, 499, 8472, 375, 501 #### [facility] [place] [address] Transportation Project Manager: Kishor Shepard MD Neutrophils/100 WBC (Bld) 73.5 % Normal [facility] Comment on above: Performed By: #### 6 399, 498, 809, 05699, 499, 8472, 375, 501 #### [facility] [place] [address] Transportation Project Manager: Kishor Shepard MD Platelet mean volume (Bld) [Entitic vol] 9.2 fL Normal 7.5-12.5 [facility] Comment on above: Performed By: #### 6 399, 498, 809, 73437, 499, 8472, 375, 501 #### [facility] [place] [address] Transportation Project Manager: Kishor Shepard MD Platelets (Bld) [#/Vol] 257 10*3/uL Normal 140-400 [facility] Comment on above: Performed By: #### 6 399, 498, 809, 52185, 499, 8472, 375, 501 #### [facility] [place] [address] Transportation Project Manager: Kishor Shepard MD RBC (Bld) [#/Vol] 4.04 10*6/uL Normal 3.80-5.10 [facility] Comment on above: Performed By: #### 6 399, 498, 809, 19751, 499, 8472, 375, 501 #### [facility] [place] [address] Transportation Project Manager: Kishor Shepard MD WBC (Bld) [#/Vol] 9.6 10*3/uL Normal 3.8-10.8 [facility] Comment on above: Performed By: #### 6 399, 498, 809, 60668, 499, 8472, 375, 501 #### [facility] [place] [address] Transportation Project Manager: Kishor Shepard MD CREATININEon 04-18-2025 Creatinine [Mass/Vol] 0.74 mg/dL Normal 0.50-1.[address] [facility] [address] [facility] Comment on above: Order Comment: FASTI NG:NO FASTING: NO Performed By: #### 6 399, 498, 809, 44366, 499, 8472, 375, 501 #### [facility] [address] [address] Transportation Project Manager: Kishor Shepard MD GFR/1.73 sq M.predicted among non-blacks MDRD (S/P/Bld) [Vol rate/Area] 96 mL/min/{1.73_m2} Normal > OR = 60 [facility] Comment on above: Order Comment: FASTI NG:NO FASTING: NO Performed By: #### 6 399, 498, 809, 48788, 499, 8472, 375, 501 #### [facility] [place] [address] Transportation Project Manager: Kishor Shepard MD HEPATIC FUNCTION PANEL Albumin [Mass/Vol] 4.3 g/dL Normal 3.6-5.1 [facility] Comment on above: Performed By: #### 6 399, 498, 809, 10486, 499, 8472, 375, 501 #### [facility] [place] [address] Transportation Project Manager: Kishor Shepard MD Albumin/Globulin [Mass ratio] 1.7 {ratio} Normal 1.0-2.5 [facility] Comment on above: Performed By: #### 6 399, 498, 809, 35343, 499, 8472, 375, 501 #### [facility] [place] [address] Transportation Project Manager: Kishor Shepard MD ALP [Catalytic activity/Vol] 63 U/L Normal 37-153 [facility] Comment on above: Performed By: #### 6 399, 498, 809, 19366, 499, 8472, 375, 501 #### [facility] [place] [address] Transportation Project Manager: Kishor Shepard MD ALT [Catalytic activity/Vol] 12 U/L Normal 6-29 [facility] Comment on above: Performed By: #### 6 399, 498, 809, 54313, 499, 8472, 375, 501 #### [facility] [place] [address] Transportation Project Manager: Kishor Shepard MD AST [Catalytic activity/Vol] 16 U/L Normal 10-35 [facility] Comment on above: Performed By: #### 6 399, 498, 809, 57086, 499, 8472, 375, 501 #### [facility] [place] [address] Transportation Project Manager: Kishor Shepard MD Bilirubin [Mass/Vol] 0.5 mg/dL Normal 0.2-1.2 [facility] Comment on above: Performed By: #### 6 399, 498, 809, 25601, 499, 8472, 375, 501 #### [facility] [place] [address] Transportation Project Manager: Kishor Shepard MD BILIRUBIN, INDIRECT 0.4 mg/dL (calc) Normal 0.2-1.2 [facility] Comment on above: Performed By: #### 6 399, 498, 809, 24888, 499, 8472, 375, 501 #### [facility] [place] [address] Transportation Project Manager: Kishor Shepard MD Bilirubin.indirect [Mass/Vol] 0.1 mg/dL Normal < OR = 0.2 [facility] Comment on above: Performed By: #### 6 399, 498, 809, 30603, 499, 8472, 375, 501 #### [facility] [place] [address] Transportation Project Manager: Kishor Shepard MD Globulin (S) [Mass/Vol] 2.5 g/dL Normal 1.9-3.7 [facility] Comment on above: Performed By: #### 6 399, 498, 809, 26422, 499, 8472, 375, 501 #### [facility] [place] [address] Transportation Project Manager: Kishor Shepard MD Protein [Mass/Vol] 6.8 g/dL Normal 6.1-8.1 [facility] Comment on above: Performed By: #### 6 399, 498, 809, 32340, 499, 8472, 375, 501 #### [facility] [place] [address] Transportation Project Manager: Kishor Shepard MD HEPATITIS B CORE AB TOTALon 04-18-2025 HEPATITIS B CORE AB TOTAL Normal [facility] Comment on above: Performed By: #### 4 942, 57223, 7832, 249, 5810 #### [facility] [place] [address] Transportation Project Manager: Kishor Shepard MD HEPATITIS B SURFACE ANTIBODY QLon 04-18-2025 HEPATITIS B SURFACE ANTIBODY QL Normal [facility] Comment on above: Performed By: #### 4 942, 60129, 7832, 249, 5810 #### [facility] [place] [address] Transportation Project Manager: Kishor Shepard MD HEPATITIS B SURFACE ANTIGEN W/REFL CONFIRMon 04-18-2025 CONFIRMATION Normal [facility] Comment on above: Performed By: #### 4 942, 83111, 7832, 249, 5810 #### [facility] [place] [address] Transportation Project Manager: Kishor Shepard MD HEPATITIS B SURFACE ANTIGEN Normal [facility] Comment on above: Performed By: #### 4 942, 31850, 7832, 249, 5810 #### [facility] [place] [address] Transportation Project Manager: Kishor Shepard MD HEPATITIS C AB W/REFL TO HCV RNA, QN, PCRon 04-18-2025 HEPATITIS C ANTIBODY Normal [facility] Comment on above: Performed By: #### 4 942, 16567, 7832, 249, 5810 #### [facility] [place] [address] Transportation Project Manager: Kishor Shepard MD SED RATE BY MODIFIED JOHNSON RENon 04-18-2025 SED RATE BY MODIFIED JOHNSONREN 36 mm/h High < OR = 30 [facility] Comment on above: Performed By: #### 6 399, 498, 809, 48804, 499, 8472, 375, 501 #### [facility] [address] [facility], [address] [place] [address] Transportation Project Manager: Kishor Shepard MD MTB SCREENon 04-17-2025 MITOGEN-NIL 9.9681 IU/mL Normal [facility] Comment on above: Performed By: #### L [id number] #### [facility] [address] [place] [address] Eldon Hagan M.D. [id number] MTB SCREEN INTERPRETATION Negative Normal Negative [facility] Comment on above: Result Comment: No I FN-gamma response to M tuberculosis antigens was detected. Latent infection with M tuberculosis is unlikely. A single negative result does not exclude infection with M tuberculosis. In patients at high risk for M tuberculosis infection,a second test should be considered Performed By: #### L [id number] #### [facility] [address] [place] [address] Eldon Hagan M.D. [id number] NIL 0.0319 IU/mL Normal [facility] Comment on above: Performed By: #### L [id number] #### [facility] [address] [place] [address] Eldon Hagan M.D. [id number] TB1-NIL 0.0034 IU/mL Normal 0.00 0.34 [facility] Comment on above: Performed By: #### L [id number] #### [facility] [address] [place] [address] Eldon Hagan M.D. [id number] TB2-NIL 0.0019 IU/mL Normal 0.00 0.34 [facility] Comment on above: Result Comment: Inte rferon gamma release is measured for specimens from each of the four collection tubes. A qualitative result (Negative, Positive, or Indeterminate) is based on interpretation of the four values, NIL, MITOGEN minus NIL (MITOGEN-NIL), TB1 minus NIL (TB1-NIL), and TB2 minus NIL (TB2-NIL). The NIL value represents nonspecific reactivity produced by the patient specimen. The MITOGEN-NIL value serves as the positive control for the patient specimen, demonstrating successful lymphocyte reactivity. The TB1-NIL tube specifically detects CD4+ lymphocyte reactivity, specifically stimulated by the TB1 antigens. The TB2-NIL tube detects both CD4+ and CD8+ lymphocyte reactivity, stimulated by the TB2 antigens. An overall Negative result does not completely rule out TB Infection. Performed By: #### L [id number] #### [facility] [address] [place] [address] Eldon Hagan M.D. [id number] MR HAND LEFT WITH AND WITHOU T CONTRASTon 02-20-2025 MR HAND LEFT WITH AND WITHOUT CONTRAST EXAMINATION: MR HAND LEFT WITH AND WITHOUT CONTRAST HISTORY: ORDERING SYSTEM PROVIDED HISTORY: Please evaluate for inflammatory arthritis/synovitis, TECHNOLOGIST PROVIDED HISTORY: Illness/Other Reason for exam: Please evaluate for inflammatory arthritis/synovitis, left hand swelling and pain over the past 10 years Encounter Type: Initial Additional signs and symptoms: . ORDERING SYSTEM PROVIDED DIAGNOSIS CODES: M06.9 Rheumatoid arthritis, involving unspecified site, unspecified whether rheumatoid factor present ([facility]) COMPARISON: Plain radiograph 10/20/2024. TECHNIQUE: Multiplanar, multisequence imaging of the left hand before and after the uneventful intravenous administration of gadolinium contrast. CONTRAST: GADOTERATE MEGLUMINE 0.5 MMOL/ML (376.9 MG/ML) INTRAVENOUS SOLUTION - 14 mL, FINDINGS: The bone marrow signal is without acute fracture. There is kjdv-ky-rlniorkk marrow edema involving the 4th PIP joint. The surrounding soft tissue edema. Trace joint effusion with synovitis. This could potentially reflect psoriatic arthritis given location. The collateral ligaments at this level appears thin and attenuated, likely due to underlying arthropathy. Abnormal morphology involving the 4th distal IP joint. This has a more Gull wing type deformity. The remaining bone marrow signal is without fracture. The remaining visualized ligaments and tendons appear intact. The visualized carpal tunnel appears patent. IMPRESSION: 1. Findings suggestive of inflammatory arthropathy involving the 4th PIP joint, favoring psoriatic arthritis. Workstation ID: [id number] Dictated by: RONNY SALDANA on WedFebruary 20, 2025 1:15:53 PM EDT Transcribed by: RONNY SALDANA on WedFebruary 20, 2025 1:15:53 PM EDT Finalized by: RONNY SALDANA on WedFebruary 20, 2025 1:15:53 PM EDT Normal [facility] Comment on above: Order Comment: Injur y/Trauma or Illness?:Illness/Other How long have you had these symptoms (acute/chronic)?:Acute Reason for exam?:Please evaluate for inflammatory arthritis/synovitis, left hand swelling and pain over the past 10 years Type of Exam?:Initial Additional signs and symptoms?:. ANAon 01-19-2025 Nuclear Ab IF Ql (S) Negative NEGATIVE [facility] Comment on above: CIARRA IFA is a first l ine screen for detecting the presence of up to approximately 150 autoantibodies in various autoimmune diseases. A negative CIARRA IFA result suggests an CIARRA-associated autoimmune disease is not present at this time, but is not definitive. If there is high clinical suspicion for Sjogren's syndrome, testing for anti-SS-A/Ro antibody should be considered. Anti-Veronica-1 antibody should be considered for clinically suspected inflammatory myopathies. AC-0: Negative International Consensus on CIARRA Patterns (https://doi.org/10.1515/emdf-3821-9783) For additional information, please refer to http://[employer].ToyTalk.Digital Fortress/faq/UKP294 (This link is being provided for informational/ educational purposes only.) [facility] CIARRA SCREEN, IFA, W/REFL TITE R AND PATTERNon 01-19-2025 CIARRA SCREEN, IFA Negative Normal NEGATIVE [facility] Comment on above: Result Comment: CIARRA IFA is a first line screen for detecting the presence of up to approximately 150 autoantibodies in various autoimmune diseases. A negative CIARRA IFA result suggests an CIARRA-associated autoimmune disease is not present at this time, but is not definitive. If there is high clinical suspicion for Sjogren's syndrome, testing for anti-SS-A/Ro antibody should be considered. Anti-Veronica-1 antibody should be considered for clinically suspected inflammatory myopathies. AC-0: Negative International Consensus on CIARRA Patterns (https://doi.org/10.1515/nujw-1134-2003) For additional information, please refer to http://education.ToyTalk.Digital Fortress/faq/ZVN596 (This link is being provided for informational/ educational purposes only.) Performed By: #### 4 942, 02266, 7832, 249, 5810 #### [facility] [place] [address] Transportation Project Manager: Kishor Shepard MD Anti-Scleroderma Antibodyon 01-19-2025 SCL-70 extractable nuclear Ab IA Qn (S) <1.0 NEG <1.0 NEG [facility] VERONICA-1 ANTIBODYon 01-19-2025 VERONICA-1 ANTIBODY <1.0 NEG Normal <1.0 NEG [facility] Comment on above: Performed By: #### 4 942, 93247, 7832, 249, 5810 #### [facility] [place] [address] Transportation Project Manager: Kishor Shepard MD Veronica 1 Antibody, IgGon 025 Veronica-1 extractable nuclear Ab IA Qn (S) <1.0 NEG <1.0 NEG [facility] No Panel Informationon 01-19 [facility] SCL-70 ANTIBODYon 01-19-2025 SCL-70 ANTIBODY <1.0 NEG Normal <1.0 NEG [facility] Comment on above: Performed By: #### 4 942, 59132, 7832, 249, 5810 #### [facility] [place] [address] Transportation Project Manager: Kishor Shepard MD SJOGREN'S ANTIBODIES (SS-A,S S-B)on 01-19-2025 SJOGREN'S ANTIBODY (SS-A) <1.0 NEG Normal <1.0 NEG [facility] Comment on above: Performed By: #### 4 942, 51750, 7832, 249, 5810 #### [facility] [place] [address] Transportation Project Manager: Kishor Shepard MD SJOGREN'S ANTIBODY (SS-B) <1.0 NEG Normal <1.0 NEG [facility] Comment on above: Performed By: #### 4 942, 40892, 7832, 249, 5810 #### [facility] [address], [address] [place], [place] [id number] Transportation Project Manager: Kishor Shepard MD SM/TAXI CAB DRIVER ANTIBODYon 01-19-2025 SM/TAXI CAB DRIVER ANTIBODY <1.0 NEG Normal <1.0 NEG [facility] Comment on above: Performed By: #### 4 942, 00400, 7832, 249, 5810 #### [facility] [place] [address], [address] [place], [place] [id number] Transportation Project Manager: Kishor Shepard MD SM/TAXI CAB DRIVER Antibodieson 01-20-20 25 Atkins extractable nuclear Ab+Ribonucleoprotein extractable nuclear Ab IA Qn (S) <1.0 NEG <1.0 NEG [facility] Sjogrens Antibodies (Ro52,Ro 60,SSB)on 01-19-2025 Sjogrens syndrome-A extractable nuclear Ab IA Qn (S) <1.0 NEG <1.0 NEG [facility] Sjogrens syndrome-B extractable nuclear Ab IA Qn (S) <1.0 NEG <1.0 NEG [facility] MALBRon 01-03-2025 U Creatinine 126.3 mg/dL Normal [facility] Comment on above: Performed By: #### M ALBR #### [address] [address] U Microalb 6.8 mg/L Normal [facility] Comment on above: Performed By: #### M ALBR #### [address] [address] U Ratio Alb/Cre 5 mg/G Normal 0-30 [facility] Comment on above: Performed By: #### M ALBR #### [address] [address] C-REACTIVE PROTEINon 025 CRP [Mass/Vol] 42.2 mg/L High <8.0 [facility] Comment on above: Performed By: #### 4 942, 55540, 7832, 249, 5810 #### [facility] [address] [place] [address], [address] [place], [place] [id number] Transportation Project Manager: Kishor Shepard MD CBC (INCLUDES DIFF/PLT)on Basophils (Bld) [#/Vol] 0.049 10*3/uL Normal 0-200 [facility] Comment on above: Performed By: #### 4 942, 88515, 7832, 249, 5810 #### [facility] of [address], [address] [place] [address] Transportation Project Manager: Kishor Shepard MD Basophils/100 WBC (Bld) 0.5 % Normal [facility] Comment on above: Performed By: #### 4 942, 29493, 7832, 249, 5810 #### [facility] [place] [address] Transportation Project Manager: Kishor Shepard MD Eosinophils (Bld) [#/Vol] 0.097 10*3/uL Normal 15-500 [facility] Comment on above: Performed By: #### 4 942, 57029, 7832, 249, 5810 #### [facility] [place] [address] Transportation Project Manager: Kishor Shepard MD Eosinophils/100 WBC (Bld) 1.0 % Normal [facility] Comment on above: Performed By: #### 4 942, 13262, 7832, 249, 5810 #### [facility] [place] [address] Transportation Project Manager: Kishor Sheaprd MD Erythrocyte distribution width (RBC) [Ratio] 13.6 % Normal 11.0-15.0 [facility] Comment on above: Performed By: #### 4 942, 87317, 7832, 249, 5810 #### [facility] [place] [address] Transportation Project Manager: Kishor Shepard MD Hematocrit (Bld) [Volume fraction] 38.9 % Normal 35.0-45.0 [facility] Comment on above: Performed By: #### 4 942, 40725, 7832, 249, 5810 #### [facility] of [address] [place] [address] Transportation Project Manager: Kishor Shepard MD Hemoglobin (Bld) [Mass/Vol] 13.3 g/dL Normal 11.7-15.5 [facility] Comment on above: Performed By: #### 4 942, 09371, 7832, 249, 5810 #### [facility] [place] [address] Transportation Project Manager: Kishor Shepard MD Lymphocytes (Bld) [#/Vol] 1.455 10*3/uL Normal 850-3900 [facility] Comment on above: Performed By: #### 4 942, 99497, 7832, 249, 5810 #### [facility] [place] [address] Transportation Project Manager: Kishor Shepard MD Lymphocytes/100 WBC (Bld) 15.0 % Normal [facility] Comment on above: Performed By: #### 4 942, 81667, 7832, 249, 5810 #### [facility] [place] [address] Transportation Project Manager: Kishor Shepard MD MCH (RBC) [Entitic mass] 32.8 pg Normal 27.0-33.0 [facility] Comment on above: Performed By: #### 4 942, 78646, 7832, 249, 5810 #### [facility] [place] [address] Transportation Project Manager: Kishor Shepard MD MCHC (RBC) [Mass/Vol] 34.2 g/dL Normal 32.0-36.[address] [facility] Comment on above: Result Comment: For adults, a slight decrease in the calculated MCHC value (in the range of 30 to 32 g/dL) is most likely not clinically significant; however, it should be interpreted with caution in correlation with other red cell parameters and the patient's clinical condition. Performed By: #### 4 942, 46527, 7832, 249, 5810 #### [facility] [place] [address] Transportation Project Manager: Kishor Shepard MD MCV (RBC) [Entitic vol] 96.0 fL Normal 80.0-100.0 [facility] Comment on above: Performed By: #### 4 942, 84934, 7832, 249, 5810 #### [facility] [place] [address] Transportation Project Manager: Kishor Shepard MD Monocytes (Bld) [#/Vol] 0.834 10*3/uL Normal 200-950 [facility] Comment on above: Performed By: #### 4 942, 41785, 7832, 249, 5810 #### [facility] [place] [address] Transportation Project Manager: Kishor Shepard MD Monocytes/100 WBC (Bld) 8.6 % Normal [facility] Comment on above: Performed By: #### 4 942, 55769, 7832, 249, 5810 #### [facility] [place] [address] Transportation Project Manager: Kishor Shepard MD Neutrophils (Bld) [#/Vol] 7.265 10*3/uL Normal 3858-2020 [facility] Comment on above: Performed By: #### 4 942, 87637, 7832, 249, 5810 #### [facility] [place] [address] Transportation Project Manager: Kishor Shepard MD Neutrophils/100 WBC (Bld) 74.9 % Normal [facility] Comment on above: Performed By: #### 4 942, 53896, 7832, 249, 5810 #### [facility] [place] [address] Transportation Project Manager: Kishor Shepard MD Platelet mean volume (Bld) [Entitic vol] 10.1 fL Normal 7.5-12.5 [facility] Comment on above: Performed By: #### 4 942, 96957, 7832, 249, 5810 #### [facility] of [address] Transportation Project Manager: Kishor Shepard MD Platelets (Bld) [#/Vol] 251 10*3/uL Normal 140-400 [facility] Comment on above: Performed By: #### 4 942, 13568, 7832, 249, 5810 #### [facility] of [address], [address] [place] [address] Transportation Project Manager: Kishor Shepard MD RBC (Bld) [#/Vol] 4.05 10*6/uL Normal 3.80-5.10 [facility] Comment on above: Performed By: #### 4 942, 80244, 7832, 249, 5810 #### [facility] [place] [address] Transportation Project Manager: Kishor Shepard MD WBC (Bld) [#/Vol] 9.7 10*3/uL Normal 3.8-10.8 [facility] Comment on above: Performed By: #### 4 942, 38257, 7832, 249, 5810 #### [facility] [place] [address] Transportation Project Manager: Kishor Shepard MD CREATININEon 10-23-2024 Creatinine [Mass/Vol] 0.82 mg/dL Normal 0.50-1.[address] [facility] [address] [facility] Comment on above: Performed By: #### 4 942, 17907, 7832, 249, 5810 #### [facility] [place] [address] Transportation Project Manager: Kishor Shepard MD GFR/1.73 sq M.predicted among non-blacks MDRD (S/P/Bld) [Vol rate/Area] 85 mL/min/{1.73_m2} Normal > OR = 60 [facility] Comment on above: Performed By: #### 4 942, 39474, 7832, 249, 5810 #### [facility] of [place] [address] Transportation Project Manager: Kishor Shepard MD HEPATIC FUNCTION PANELon Albumin [Mass/Vol] 4.3 g/dL Normal 3.6-5.1 [facility] Comment on above: Performed By: #### 4 942, 67740, 7832, 249, 5810 #### [facility] of [place] [address] Transportation Project Manager: Kishor Shepard MD Albumin/Globulin [Mass ratio] 1.8 {ratio} Normal 1.0-2.5 [facility] Comment on above: Performed By: #### 4 942, 90612, 7832, 249, 5810 #### [facility] of [address], [address] [place] [address] Transportation Project Manager: Kishor Shepard MD ALP [Catalytic activity/Vol] 62 U/L Normal 37-153 [facility] Comment on above: Performed By: #### 4 942, 02271, 7832, 249, 5810 #### [facility] of [place] [address] Transportation Project Manager: Kishor Shepard MD ALT [Catalytic activity/Vol] 14 U/L Normal 6-29 [facility] Comment on above: Performed By: #### 4 942, 36029, 7832, 249, 5810 #### [facility] of [place] [address] Transportation Project Manager: Kishor Shepard MD AST [Catalytic activity/Vol] 21 U/L Normal 10-35 [facility] Comment on above: Performed By: #### 4 942, 11939, 7832, 249, 5810 #### [facility] of [place] [address] Transportation Project Manager: Kishor Shepard MD Bilirubin [Mass/Vol] 0.5 mg/dL Normal 0.2-1.2 [facility] Comment on above: Performed By: #### 4 942, 78052, 7832, 249, 5810 #### [facility] of [place] [address] Transportation Project Manager: Kishor hSepard MD BILIRUBIN, INDIRECT 0.4 mg/dL (calc) Normal 0.2-1.2 [facility] Comment on above: Performed By: #### 4 942, 72372, 7832, 249, 5810 #### [facility] [place] [address] Transportation Project Manager: Kishor Shepard MD Bilirubin.indirect [Mass/Vol] 0.1 mg/dL Normal < OR = 0.2 [facility] Comment on above: Performed By: #### 4 942, 65134, 7832, 249, 5810 #### [facility] [place] [address] Transportation Project Manager: Kishor Shepard MD Globulin (S) [Mass/Vol] 2.4 g/dL Normal 1.9-3.7 [facility] Comment on above: Performed By: #### 4 942, 45522, 7832, 249, 5810 #### [facility] [place] [address] Transportation Project Manager: Kishor Shepard MD Protein [Mass/Vol] 6.7 g/dL Normal 6.1-8.1 [facility] Comment on above: Performed By: #### 4 942, 14000, 7832, 249, 5810 #### [facility] [place] [address] Transportation Project Manager: Kishor Shepard MD SED RATE BY MODIFIED JOHNSON DANIELon 10-23-2024 SED RATE BY MODIFIED WESTERGREN 31 mm/h High < OR = 30 [facility] Comment on above: Performed By: #### 4 942, 00948, 7832, 249, 5810 #### [facility] [place] [address] Transportation Project Manager: Kishor Shepard MD SJOGREN'S ANTIBODIES (SS-A,S S-B)on 10-23-2024 SJOGREN'S ANTIBODY (SS-A) <1.0 NEG Normal <1.0 NEG [facility] Comment on above: Performed By: #### 4 942, 50925, 7832, 249, 5810 #### [facility] [address] [place] [address], [address] [place] [address] Transportation Project Manager: Kishor Shepard MD SJOGREN'S ANTIBODY (SS-B) <1.0 NEG Normal <1.0 NEG [facility] Comment on above: Performed By: #### 4 942, 26677, 7832, 249, 5810 #### [facility] [address], [address] [place] [id number] Transportation Project Manager: Kishor Shepard MD XR FOOT LEFT 3+ VIEWS (STAND STUART)on 10-20-2024 XR FOOT LEFT 3+ VIEWS (STANDARD) EXAMINATION: XR FOOT LEFT 3+ VIEWS (STANDARD) HISTORY: ORDERING SYSTEM PROVIDED HISTORY: Please evalaute for inflammatory arthritis, TECHNOLOGIST PROVIDED HISTORY: Illness/Other Reason for exam: evalaute for inflammatory arthritis Cancer History: u Surgery, RadiationHistory: u Encounter Type: Initial Additional signs and symptoms: polyarthralgia ORDERING SYSTEM PROVIDED DIAGNOSIS CODES: M25.50 Polyarthralgia COMPARISON: None FINDINGS: Three views of the left foot. No acute osseous abnormality. Moderate-sized Achilles calcaneal enthesophyte. Joint alignment is anatomic. Mild 1st MTP joint space narrowing with early osteophytic spurring. Remaining joint spaces are preserved. Soft tissues are within normal limits. IMPRESSION: No acute osseous abnormality. Early 1st MTP joint degenerative changes. /[facility] Workstation ID: [id number] Dictated by: EDWIGE BEARD on [place] Oct 22, 2024 12:46:38 PM EST Transcribed by: ESTRELLA BEEBE on [place] Oct 22, 2024 1:08:13 PM EST Finalized by: EDWIGE BEARD on [place] Oct 22, 2024 9:58:07 PM EST Normal [facility] Comment on above: Order Comment: Injur y/Trauma or Illness?:Illness/Other How long have you had these symptoms (acute/chronic)?:Chronic Reason for exam?:evalaute for inflammatory arthritis History of cancer?:u Surgeries, chemotherapy, or radiation?:u Type of Exam?:Initial Additional signs and symptoms?:polyarthralgia XR FOOT RIGHT 3+ VIEWS (DIOGENES DARD)on 10-20-2024 XR FOOT RIGHT 3+ VIEWS (STANDARD) EXAMINATION: XR FOOT RIGHT 3+ VIEWS (STANDARD) HISTORY: ORDERING SYSTEM PROVIDED HISTORY: Please evalaute for inflammatory arthritis, TECHNOLOGIST PROVIDED HISTORY: Illness/Other Reason for exam: evalaute for inflammatory arthritis Cancer History: u Surgery, RadiationHistory: u Encounter Type: Initial Additional signs and symptoms: polyarthralgia ORDERING SYSTEM PROVIDED DIAGNOSIS CODES: M25.50 Polyarthralgia COMPARISON: None FINDINGS: Three views of the right foot. No acute osseous abnormality. Moderate-sized plantar calcaneal enthesophyte. Small Achilles calcaneal enthesophyte. Joint alignment is anatomic. Mild 1st MTP joint space narrowing with early spurring. Remaining joint spaces are preserved. Soft tissues are within normal limits. IMPRESSION: No acute osseous abnormality. Early 1st MTP joint degenerative change. [employer] Workstation ID: [id number] Dictated by: EDWIGE BEARD on [place] Oct 22, 2024 12:44:22 PM EST Transcribed by: ESTRELLA BEEBE on [place] Oct 22, 2024 1:07:13 PM EST Finalized by: EDWIGE BEARD on [place] Oct 22, 2024 9:58:42 PM EST Normal [facility] Comment on above: Order Comment: Injur y/Trauma or Illness?:Illness/Other How long have you had these symptoms (acute/chronic)?:Chronic Reason for exam?:evalaute for inflammatory arthritis History of cancer?:u Surgeries, chemotherapy, or radiation?:u Type of Exam?:Initial Additional signs and symptoms?:polyarthralgia XR HANDS BILATERAL BALL CATC HERS 2 VIEWSon 10-20-2024 XR HANDS BILATERAL BALL CATCHERS 2 VIEWS EXAMINATION: XR HANDS BILATERAL BALL CATCHERS 2 VIEWS 10/20/2024 3:20 PM HISTORY: ORDERING SYSTEM PROVIDED HISTORY: Please evaluate for inflammatory arthritis, TECHNOLOGIST PROVIDED HISTORY: Illness/Other Reason for exam: Evaluate for inflammatory arthritis Cancer History: u Surgery, RadiationHistory: u Encounter Type: Initial Additional signs and symptoms: left hand and wrist worse than right ORDERING SYSTEM PROVIDED DIAGNOSIS CODES: M25.50 Polyarthralgia COMPARISON: None available. TECHNIQUE: PA and ball catcher's views of both hands. FINDINGS: Both hands show varying degrees of uvsygiwj-ld-ufhyci narrowing of the interphalangeal joints of the digits with subchondral sclerosis and marginal osteophytes but no appreciable central osseous erosions. This is severe on the left at the distal interphalangeal joint of the 5th digit and the interphalangeal joints of the 4th digit. The findings are severe involving the proximal interphalangeal joint of the right 4th digit. The MCP joint spaces are maintained with no appreciable marginal erosions. Osseous mineralization appears average for age. 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 [employer]/ Workstation ID: [id number] Dictated by: PEDRO PABLO LYMAN on WedOct 23, 2024 11:37:36 AM EST Transcribed by: LACHO ESTRADA on WedOct 23, 2024 12:16:18 PM EST Finalized by: PEDRO PABLO LYMAN on WedOct 23, 2024 3:35:43 PM EST Normal [facility] Comment on above: Order Comment: Injur y/Trauma or Illness?:Illness/Other How long have you had these symptoms (acute/chronic)?:Chronic Reason for exam?:evalaute for inflammatory arthritis History of cancer?:u Surgeries, chemotherapy, or radiation?:u Type of Exam?:Initial Additional signs and symptoms?:left hand and wrist worse than right XR HIP LEFT 2-3 VIEWS (ROUTI NE)on 10-20-2024 XR HIP LEFT 2-3 VIEWS (ROUTINE) EXAMINATION: XR HIP LEFT 2-3 VIEWS (ROUTINE) HISTORY: ORDERING SYSTEM PROVIDED HISTORY: Polyarthralgia, TECHNOLOGIST PROVIDED HISTORY: Illness/Other Reason for exam: evalaute for inflammatory arthritis Cancer History: u Surgery, RadiationHistory: u Encounter Type: Initial Additional signs and symptoms: polyarthralgia ORDERING SYSTEM PROVIDED DIAGNOSIS CODES: M25.50 Polyarthralgia M25.551 Bilateral hip pain M25.552 Bilateral hip pain COMPARISON: None. FINDINGS: Two views of the left hip. No acute osseous abnormality. No subluxation or dislocation. Minimal spurring at the lower margin of the left sacroiliac joint. Left hip joint space is preserved. IMPRESSION: No acute osseous abnormality. /[facility] Workstation ID: [id number] Dictated by: EDWIGE BEARD on WedOct 22, 2024 12:42:27 PM EST Transcribed by: CYNDEE MALDONADO on WedOct 22, 2024 1:06:19 PM EST Finalized by: EDWIGE BEARD on WedOct 22, 2024 9:58:54 PM EST Normal [facility] Comment on above: Order Comment: Injur y/Trauma or Illness?:Illness/Other How long have you had these symptoms (acute/chronic)?:Chronic Reason for exam?:evalaute for inflammatory arthritis History of cancer?:u Surgeries, chemotherapy, or radiation?:u Type of Exam?:Initial Additional signs and symptoms?:polyarthralgia XR HIP RIGHT 2-3 VIEWS (ROUT INE)on 10-20-2024 XR HIP RIGHT 2-3 VIEWS (ROUTINE) EXAMINATION: XR HIP RIGHT 2-3 VIEWS (ROUTINE) HISTORY: ORDERING SYSTEM PROVIDED HISTORY: Polyarthralgia, TECHNOLOGIST PROVIDED HISTORY: Illness/Other Reason for exam: bilateral hip pain Cancer History: u Surgery, RadiationHistory: u Encounter Type: Initial Additional signs and symptoms: polyarthralgia ORDERING SYSTEM PROVIDED DIAGNOSIS CODES: M25.50 Polyarthralgia M25.551 Bilateral hip pain M25.552 Bilateral hip pain COMPARISON: None FINDINGS: Two views of the right hip. No acute osseous abnormality. No subluxation or dislocation. Right hip joint space is preserved. Mild spurring at the lower margin of the right sacroiliac joint. IMPRESSION: No acute osseous abnormality. /[employer] Workstation ID: [id number] Dictated by: EDWIGE BEARD on [place] Oct 22, 2024 12:47:12 PM EST Transcribed by: ESTRELLA BEEBE on [place] Oct 22, 2024 1:08:36 PM EST Finalized by: EDWIGE BEARD on [place] Oct 22, 2024 9:59:[address] [facility] Comment on above: Order Comment: Injur y/Trauma or Illness?:Illness/Other How long have you had these symptoms (acute/chronic)?:Chronic Reason for exam?:bilateral hip pain History of cancer?:u Surgeries, chemotherapy, or radiation?:u Type of Exam?:Initial Additional signs and symptoms?:polyarthralgia BD BONE DENSITY DEXA AXIAL S [place] 05-02-2024 BD BONE DENSITY DEXA AXIAL SKELETON ORIGINAL EXAMINATION: BONE DENSITOMETRY05/01/2024 10:45 am TECHNIQUE: Dual energy bone densitometry lumbar spine and left hip. COMPARISON: None available HISTORY: Reason for Exam: Osteoporosis Screening KNOWN OSTEOPOROSIS FINDINGS: T Score Left Femoral Neck: -2.3 Left Femoral Neck: 0.594 (g/cm2) T Score Left Hip: -1.9 Left Hip: 0.712 (g/cm2) T Score Lumbar Spine: -1.6 Lumbar Spine: 0.872 (g/cm2) FRAX score: Not calculated, treated for osteoporosis. The OF f/k/a NOF recommends that FDA-approved medical therapies be considered in post-menopausal women and men age >/= 50 years with a: * Hip or vertebral fracture, or * T-score of /= 20% for major osteoporotic fractures or * >/= 3% for hip fractures All treatment decisions require clinical judgement and consideration of individual patient factors, including patient preferences, comorbidities, previous drug use, risk factors not captured in the FRAX registered model (e.g., frailty, falls, vitamin D deficiency, increased bone turnover, interval significant decline in bone density) and possible under- or over-estimation of fracture risk by FRAX. IMPRESSION: Osteopenia. Interpreted by: Radha Thakkar MD Preliminary Report By: Radha Thakkar MD Electronically signed By Radha Thakkar MD Dictated Date: 05/02/2024 9:48:10 AM Prelim Date: 05/02/2024 9:51:07 AM Sign Date: 05/02/2024 9:51:07 AM Ordering Provider: DOTTIE Zhao [facility] ([place]) MA MAMMOGRAM SCREENING BILAT ERAL W/TOMOon 05-01-2024 MA MAMMOGRAM SCREENING BILATERAL W/ULI ORIGINAL FROM: [address] [address] PROCEDURE FOR: DALIA SHERMAN [address] [place] [address] Home: PID#: [id number] Exam#: [id number] : 1970 Age: 53 TO: DOTTIE VICTORIA [place], [place] [address] Fax: NO FAX EXAMINATION: SCREENING DIGITAL BILATERAL MAMMOGRAM WITH TOMOSYNTHESIS, 05/01/2024 10:30 am TECHNIQUE: Screening mammography of the bilateral breasts was performed with tomosynthesis. 2D standard and 3D tomosynthesis combination imaging performed through both breasts in the MLO and CC projection. Computer aided detection was utilized in the interpretation of this exam. COMPARISON: June 17, 2021, March 03, 2017 HISTORY: Breast cancer screening. FINDINGS: BREAST DENSITY: There are scattered areas of fibroglandular density. There is no suspicious mass, architectural distortion or microcalcification. Fibroglandular pattern is stable. IMPRESSION: No mammographic evidence of malignancy. Continued screening with annual mammograms is recommended. [facility] risk calculations, generated with the history provided, report this patient's 10 year risk and lifetime risk for developing breast cancer at 2.9% and 10.8%, respectively. Based on this assessment tool, if the patient's calculated lifetime risk is below 20%, then the patient is considered at average risk for developing breast cancer. If the patient's calculated lifetime risk is at or above 20%, then the patient is considered high risk for developing breast cancer and may be a candidate for supplemental breast MRI screening in addition to annual mammographic screening per the [employer]. BIRADS: MAMMOGRAM BI-RADS: 1: Negative RECALL: 1 year screening RECALL TYPE: mammo LETTER SENT: Normal BI-RADS 1 and 2 Interpreted by: Lashae Aragon Preliminary Report By: Lashae Aragon Electronically signed By Lashae Aragon Dictated Date: 05/01/2024 7:25:07 PM Prelim Date: 05/01/2024 7:38:57 PM Sign Date: 05/01/2024 7:38:57 PM Ordering Provider: DOTTIE BRITT [employer] Instructor: SOFIA CASTILLO RT(R)(M)(CT) letter sent: Normal BI-RADS 1 and 2 Mammogram BI-RADS: 1 Negative Normal [facility] ([place]) B1WBon 03-31-2024 Vitamin B1 Whl Bld 102.2 nmol/L Normal 66.5-200.0 [facility] ([place]) Comment on above: Result Comment: This test was developed and its performance characteristics determined by [employer]. It has not been cleared or approved by the Food and Drug Administration. Performed At: [address] [id number] Juno Pacheco MD Ph:[phone] Performed By: #### G FR, ADIFF, VIDH, ANEU, LIPID, URIC, CBC, TSH, [id number], A1C, CMP, FT4, FERR, PRO ####[place] [address]#### HCV1, FOL, B12 ####[facility] [place] [address] ZINCon 03-30-2024 Zinc Lvl 76 UG/DL Normal 44-115 [facility] ([place]) Comment on above: Result Comment: This test was developed and its performance characteristics determined by [employer]. It has not been cleared or approved by the Food and Drug Administration. Detection Limit = 5 Performed At: [facility] [id number] Juno Pacheco MD Ph:[phone] Performed By: #### 0 [address] ####[place] [address] .Auto Diffon 03-28-2024 Basophil, Absolute 0.1 10 3/mcL Normal 0.0-0.2 [facility] ([place]) Comment on above: Performed By: #### G FR, ADIFF, VIDH, ANEU, LIPID, URIC, CBC, TSH, 395509, A1C, CMP, FT4, FERR, PRO #### [place] [address] #### HCV1, FOL, B12 #### [address] [address] Basophils/100 WBC (Bld) 1.0 % Normal 0.0-2.5 [facility] ([place]) Comment on above: Performed By: #### G FR, ADIFF, VIDH, ANEU, LIPID, URIC, CBC, TSH, 230667, A1C, CMP, FT4, FERR, PRO #### [place] [id number] #### HCV1, FOL, B12 #### [address] [address] Eosinophil, Absolute 0.2 10 3/mcL Normal 0.0-0.4 [facility] ([place]) Comment on above: Performed By: #### G FR, ADIFF, VIDH, ANEU, LIPID, URIC, CBC, TSH, 721680, A1C, CMP, FT4, FERR, PRO #### [address] [address] #### HCV1, FOL, B12 #### [address] [address] Eosinophils/100 WBC (Bld) 2.1 % Normal 0.0-7.0 [facility] ([place]) Comment on above: Performed By: #### G FR, ADIFF, VIDH, ANEU, LIPID, URIC, CBC, TSH, 544841, A1C, CMP, FT4, FERR, PRO #### [address] [address] #### HCV1, FOL, B12 #### [address] [address] Lymphocyte, Absolute 1.7 10 3/mcL Normal 0.8-3.9 [facility] ([place]) Comment on above: Performed By: #### G FR, ADIFF, VIDH, ANEU, LIPID, URIC, CBC, TSH, 010009, A1C, CMP, FT4, FERR, PRO #### [address] [address] #### HCV1, FOL, B12 #### [address] [address] Lymphocytes/100 WBC (Bld) 21.5 % Normal 10.0-50.0 [facility] ([place]) Comment on above: Performed By: #### G FR, ADIFF, VIDH, ANEU, LIPID, URIC, CBC, TSH, 664628, A1C, CMP, FT4, FERR, PRO #### [address] [address] #### HCV1, FOL, B12 #### [address] [address] Monocyte, Absolute 0.8 10 3/mcL Normal 0.2-1.0 [facility] ([place]) Comment on above: Performed By: #### G FR, ADIFF, VIDH, ANEU, LIPID, URIC, CBC, TSH, 398911, A1C, CMP, FT4, FERR, PRO #### [address] [address] #### HCV1, FOL, B12 #### [address] [address] Monocytes/100 WBC (Bld) 10.4 % Normal 1.7-13.0 [facility] ([place]) Comment on above: Performed By: #### G FR, ADIFF, VIDH, ANEU, LIPID, URIC, CBC, TSH, 354568, A1C, CMP, FT4, FERR, PRO #### [address] [address] #### HCV1, FOL, B12 #### [address] [address] Neutrophils/100 WBC (Bld) 65.0 % Normal 37.0-80.0 [facility] ([place]) Comment on above: Performed By: #### G FR, ADIFF, VIDH, ANEU, LIPID, URIC, CBC, TSH, 317259, A1C, CMP, FT4, FERR, PRO #### [address] [address] #### HCV1, FOL, B12 #### [address] [address] .GFRon 03-28-2024 GFR 92 ml/min/1.73sqm Normal [facility] ([place]) Comment on above: Result Comment: GFR Population mean for , Non- Americans Ages 20-29 = 116 mL/min/1.73 sq.m. Ages 30-39 = 107 mL/min/1.73 sq.m. Ages 40-49 = 99 mL/min/1.73 sq.m. Ages 50-59 = 93 mL/min/1.73 sq.m. Ages 60-69 = 85 mL/min/1.73 sq.m. Ages 70+ = 75 mL/min/1.73 sq.m. Chronic Kidney Disease: Less than 60 mL/min/1.73 square meters End Stage Renal Disease: Less than 15 mL/min/1.73 square meters Performed By: #### G FR, ADIFF, VIDH, ANEU, LIPID, URIC, CBC, TSH, 662556, A1C, CMP, FT4, FERR, PRO ####[address] [address]#### HCV1, FOL, B12 ####[address] [address] GFR Non- 76 ml/min/1.73sqm Normal [facility] ([place]) Comment on above: Result Comment: GFR Population mean for , Non- Americans Ages 20-29 = 116 mL/min/1.73 sq.m. Ages 30-39 = 107 mL/min/1.73 sq.m. Ages 40-49 = 99 mL/min/1.73 sq.m. Ages 50-59 = 93 mL/min/1.73 sq.m. Ages 60-69 = 85 mL/min/1.73 sq.m. Ages 70+ = 75 mL/min/1.73 sq.m. Chronic Kidney Disease: Less than 60 mL/min/1.73 square meters End Stage Renal Disease: Less than 15 mL/min/1.73 square meters Performed By: #### G FR, ADIFF, VIDH, ANEU, LIPID, URIC, CBC, TSH, 007327, A1C, CMP, FT4, FERR, PRO ####[address] [address]#### HCV1, FOL, B12 ####[address] [address] .NEUABSon 03-28-2024 Neutrophil, Absolute 5.1 10 3/mcL Normal 2.9-6.2 [facility] ([place]) Comment on above: Performed By: #### G FR, ADIFF, VIDH, ANEU, LIPID, URIC, CBC, TSH, 569514, A1C, CMP, FT4, FERR, PRO #### [address] [address] #### HCV1, FOL, B12 #### [address] [address] A1Con 03-28-2024 HbA1c (Bld) [Mass fraction] 5.2 % Normal 4.3-6.4 [facility] ([place]) Comment on above: Performed By: #### G FR, ADIFF, VIDH, ANEU, LIPID, URIC, CBC, TSH, 231098, A1C, CMP, FT4, FERR, PRO #### [address] [address] #### HCV1, FOL, B12 #### [place] [address] APTTon 03-28-2024 aPTT Coag (Bld) [Time] 33.9 s Normal 25.0-35.0 [facility] ([place]) Comment on above: Result Comment: For Heparin anticoagulation therapy, the recommended therapeutic range is: 45.4-75.9 seconds. Patients on heparin therapy may have an extreme result. Performed By: #### G FR, ADIFF, VIDH, ANEU, LIPID, URIC, CBC, TSH, 407320, A1C, CMP, FT4, FERR, PRO ####[place] [address]#### HCV1, FOL, B12 ####[place] [address] Heparin dose (APTT) None Normal [facility] ([place]) Comment on above: Performed By: #### G FR, ADIFF, VIDH, ANEU, LIPID, URIC, CBC, TSH, 542253, A1C, CMP, FT4, FERR, PRO ####[place] [address]#### HCV1, FOL, B12 ####[place] [address] B12on 03-28-2024 Cobalamin (Vitamin B12) [Mass/Vol] 293 pg/mL Normal 211-911 [facility] ([place]) Comment on above: Performed By: #### G FR, ADIFF, VIDH, ANEU, LIPID, URIC, CBC, TSH, 109934, A1C, CMP, FT4, FERR, PRO ####[place] [address]#### HCV1, FOL, B12 ####[address] [address] CBCon 03-28-2024 Erythrocyte distribution width (RBC) [Ratio] 16.7 % High 11.5-14.5 [facility] ([place]) Comment on above: Performed By: #### G FR, ADIFF, VIDH, ANEU, LIPID, URIC, CBC, TSH, 883556, A1C, CMP, FT4, FERR, PRO #### [place] [address] #### HCV1, FOL, B12 #### [place] [address] Hematocrit (Bld) [Volume fraction] 37.2 % Normal 37.0-47.0 [facility] ([place]) Comment on above: Performed By: #### G FR, ADIFF, VIDH, ANEU, LIPID, URIC, CBC, TSH, 335409, A1C, CMP, FT4, FERR, PRO #### [place] [address] #### HCV1, FOL, B12 #### [place] [address] Hgb 12.4 G/dL Normal 12.0-16.0 [facility] ([place]) Comment on above: Performed By: #### G FR, ADIFF, VIDH, ANEU, LIPID, URIC, CBC, TSH, 509674, A1C, CMP, FT4, FERR, PRO #### [place] [address] #### HCV1, FOL, B12 #### [place] [address] MCH (RBC) [Entitic mass] 28.0 pg Normal 27.0-31.2 [facility] ([place]) Comment on above: Performed By: #### G FR, ADIFF, VIDH, ANEU, LIPID, URIC, CBC, TSH, 615139, A1C, CMP, FT4, FERR, PRO #### [place] [address] #### HCV1, FOL, B12 #### [place] [address] MCHC 33.4 G/dL Normal 33.0-37.0 [facility] ([place]) Comment on above: Performed By: #### G FR, ADIFF, VIDH, ANEU, LIPID, URIC, CBC, TSH, 501064, A1C, CMP, FT4, FERR, PRO #### [address] [address] #### HCV1, FOL, B12 #### [place] [address] MCV (RBC) [Entitic vol] 83.9 fL Normal 80.0-94.0 [facility] ([place]) Comment on above: Performed By: #### G FR, ADIFF, VIDH, ANEU, LIPID, URIC, CBC, TSH, 687262, A1C, CMP, FT4, FERR, PRO #### [address] [address] #### HCV1, FOL, B12 #### [place] [address] Platelet 190 10 3/mcL Normal 130-400 [facility] ([place]) Comment on above: Performed By: #### G FR, ADIFF, VIDH, ANEU, LIPID, URIC, CBC, TSH, 906492, A1C, CMP, FT4, FERR, PRO #### [place] [address] #### HCV1, FOL, B12 #### [place] [address] Platelet mean volume (Bld) [Entitic vol] 7.3 fL Low 7.4-10.4 [facility] ([place]) Comment on above: Performed By: #### G FR, ADIFF, VIDH, ANEU, LIPID, URIC, CBC, TSH, 069172, A1C, CMP, FT4, FERR, PRO #### [place] [address] #### HCV1, FOL, B12 #### [place] [address] RBC 4.43 10 6/mcL Normal 4.20-5.40 [facility] ([place]) Comment on above: Performed By: #### G FR, ADIFF, VIDH, ANEU, LIPID, URIC, CBC, TSH, [id number], A1C, CMP, FT4, FERR, PRO #### [address] [address] #### HCV1, FOL, B12 #### [address] [address] WBC 7.8 10 3/mcL Normal 4.6-10.8 [facility] ([place]) Comment on above: Performed By: #### G FR, ADIFF, VIDH, ANEU, LIPID, URIC, CBC, TSH, [id number], A1C, CMP, FT4, FERR, PRO #### [address] [address] #### HCV1, FOL, B12 #### [address] [address] CMPon 03-28-2024 Albumin Level 4.0 G/dL Normal 3.5-5.0 [facility] ([place]) Comment on above: Performed By: #### G FR, ADIFF, VIDH, ANEU, LIPID, URIC, CBC, TSH, [id number], A1C, CMP, FT4, FERR, PRO ####[place] [address]#### HCV1, FOL, B12 ####[address] [address] Albumin/Globulin [Mass ratio] 1.2 {ratio} Normal 1.1-2.5 [facility] ([place]) Comment on above: Performed By: #### G FR, ADIFF, VIDH, ANEU, LIPID, URIC, CBC, TSH, 444607, A1C, CMP, FT4, FERR, PRO ####[place] [address]#### HCV1, FOL, B12 ####[address] [address] ALP [Catalytic activity/Vol] 80 U/L Normal 40-135 [facility] ([place]) Comment on above: Performed By: #### G FR, ADIFF, VIDH, ANEU, LIPID, URIC, CBC, TSH, 702133, A1C, CMP, FT4, FERR, PRO ####[place] [address]#### HCV1, FOL, B12 ####[place] [address] ALT [Catalytic activity/Vol] 41 U/L Normal 14-59 [facility] ([place]) Comment on above: Performed By: #### G FR, ADIFF, VIDH, ANEU, LIPID, URIC, CBC, TSH, 140978, A1C, CMP, FT4, FERR, PRO ####[place] [address]#### HCV1, FOL, B12 ####[place] [address] AST [Catalytic activity/Vol] 28 U/L Normal 10-40 [facility] ([place]) Comment on above: Performed By: #### G FR, ADIFF, VIDH, ANEU, LIPID, URIC, CBC, TSH, 907989, A1C, CMP, FT4, FERR, PRO ####[place] [address]#### HCV1, FOL, B12 ####[place] [address] Bili Total 0.4 mg/dL Normal 0.2-1.0 [facility] ([place]) Comment on above: Result Comment: Use of this assay is not recommended for patients undergoing treatment with eltrombopag due to the potential for falsely elevated results. Performed By: #### G FR, ADIFF, VIDH, ANEU, LIPID, URIC, CBC, TSH, 556851, A1C, CMP, FT4, FERR, PRO ####[place] [address]#### HCV1, FOL, B12 ####[place] [address] BUN/Creatinine Ratio 15 ratio Normal 7-27 [facility] ([place]) Comment on above: Performed By: #### G FR, ADIFF, VIDH, ANEU, LIPID, URIC, CBC, TSH, 299005, A1C, CMP, FT4, FERR, PRO ####[address] [address]#### HCV1, FOL, B12 ####[address] [address] Calcium [Mass/Vol] 8.8 mg/dL Normal 8.4-10.2 [facility] ([place]) Comment on above: Performed By: #### G FR, ADIFF, VIDH, ANEU, LIPID, URIC, CBC, TSH, 880027, A1C, CMP, FT4, FERR, PRO ####[place] [address]#### HCV1, FOL, B12 ####[address] [address] Chloride [Moles/Vol] 97 mmol/L Low 98-107 [facility] ([place]) Comment on above: Performed By: #### G FR, ADIFF, VIDH, ANEU, LIPID, URIC, CBC, TSH, 655466, A1C, CMP, FT4, FERR, PRO ####[place] [address]#### HCV1, FOL, B12 ####[address] [address] CO2 [Moles/Vol] 30 mmol/L High 22-29 [facility] ([place]) Comment on above: Performed By: #### G FR, ADIFF, VIDH, ANEU, LIPID, URIC, CBC, TSH, 611721, A1C, CMP, FT4, FERR, PRO ####[place] [address]#### HCV1, FOL, B12 ####[address] [address] Creatinine [Mass/Vol] 0.79 mg/dL Normal 0.55-1.02 [facility] ([place]) Comment on above: Performed By: #### G FR, ADIFF, VIDH, ANEU, LIPID, URIC, CBC, TSH, 958773, A1C, CMP, FT4, FERR, PRO ####[address] [address]#### HCV1, FOL, B12 ####[address] [address] Electrolyte Balance 10.0 mEq/L Normal 4.0-15.0 [facility] ([place]) Comment on above: Performed By: #### G FR, ADIFF, VIDH, ANEU, LIPID, URIC, CBC, TSH, 000780, A1C, CMP, FT4, FERR, PRO ####[place] [address]#### HCV1, FOL, B12 ####[address] [address] Globulin 3.4 G/dL Normal [facility] ([place]) Comment on above: Performed By: #### G FR, ADIFF, VIDH, ANEU, LIPID, URIC, CBC, TSH, [id number], A1C, CMP, FT4, FERR, PRO ####[place] [address]#### HCV1, FOL, B12 ####[address] [address] Glucose [Mass/Vol] 81 mg/dL Normal 70-105 [facility] ([place]) Comment on above: Performed By: #### G FR, ADIFF, VIDH, ANEU, LIPID, URIC, CBC, TSH, 774176, A1C, CMP, FT4, FERR, PRO ####[place] [address]#### HCV1, FOL, B12 ####[address] [address] Potassium [Moles/Vol] 3.9 mmol/L Normal 3.5-5.1 [facility] ([place]) Comment on above: Performed By: #### G FR, ADIFF, VIDH, ANEU, LIPID, URIC, CBC, TSH, 344362, A1C, CMP, FT4, FERR, PRO ####[place] [address]#### HCV1, FOL, B12 ####[address] [address] Sodium [Moles/Vol] 137 mmol/L Normal 136-145 [facility] ([place]) Comment on above: Performed By: #### G FR, ADIFF, VIDH, ANEU, LIPID, URIC, CBC, TSH, 846825, A1C, CMP, FT4, FERR, PRO ####[address] [address]#### HCV1, FOL, B12 ####[address] [address] Total Protein 7.4 G/dL Normal 6.4-8.2 [facility] ([place]) Comment on above: Performed By: #### G FR, ADIFF, VIDH, ANEU, LIPID, URIC, CBC, TSH, 963249, A1C, CMP, FT4, FERR, PRO ####[address] [address]#### HCV1, FOL, B12 ####[address] [address] Urea nitrogen [Mass/Vol] 12 mg/dL Normal 7-18 [facility] ([place]) Comment on above: Performed By: #### G FR, ADIFF, VIDH, ANEU, LIPID, URIC, CBC, TSH, 007011, A1C, CMP, FT4, FERR, PRO ####[address] [address]#### HCV1, FOL, B12 ####[address] [address] Bren 03-28-2024 Ferritin [Mass/Vol] 14.0 ng/mL Normal 8.0-252.0 [facility] ([place]) Comment on above: Performed By: #### G FR, ADIFF, VIDH, ANEU, LIPID, URIC, CBC, TSH, 695451, A1C, CMP, FT4, FERR, PRO #### [address] [address] #### HCV1, FOL, B12 #### [address] [address] FOLon 03-28-2024 Folate 31.02 ng/mL High 5.38-24.00 [facility] ([place]) Comment on above: Performed By: #### G FR, ADIFF, VIDH, ANEU, LIPID, URIC, CBC, TSH, 336598, A1C, CMP, FT4, FERR, PRO ####[place] [id number]#### HCV1, FOL, B12 ####[place] [address] FT4on 03-28-2024 Free T4 [Mass/Vol] 1.01 ng/dL Normal 0.76-1.46 [facility] ([place]) Comment on above: Performed By: #### G FR, ADIFF, VIDH, ANEU, LIPID, URIC, CBC, TSH, 444952, A1C, CMP, FT4, FERR, PRO #### [place] [address] #### HCV1, FOL, B12 #### [place] [address] HCVon 03-28-2024 Hep C Ab Non-Reactive Normal Non-Reactiv e [facility] ([place]) Comment on above: Performed By: #### G FR, ADIFF, VIDH, ANEU, LIPID, URIC, CBC, TSH, 400176, A1C, CMP, FT4, FERR, PRO ####[place] [address]#### HCV1, FOL, B12 ####[place] [address] Hep C Ab Int Normal [facility] ([place]) Comment on above: Result Comment: Nonr eactive: Samples with a value < 0.80 are considered nonreactive (negative) for antibodies to HCV. A negative test result does not exclude the possibility of exposure to or infection with HCV. HCV antibodies may be undetectable in some stages of the infection and in some clinical conditions. See Interp Performed By: #### G FR, ADIFF, VIDH, ANEU, LIPID, URIC, CBC, TSH, 538337, A1C, CMP, FT4, FERR, PRO ####[place] [address]#### HCV1, FOL, B12 ####[address] [address] LIPIDon 03-28-2024 Cholesterol [Mass/Vol] 175 mg/dL Normal 0-200 [facility] ([place]) Comment on above: Result Comment: Chol esterol Reference Interval: Less than 200 Desirable 200-239 Borderline high risk 240 and above High risk Performed By: #### G FR, ADIFF, VIDH, ANEU, LIPID, URIC, CBC, TSH, 996073, A1C, CMP, FT4, FERR, PRO ####[place] [address]#### HCV1, FOL, B12 ####[address] [address] Cholesterol in HDL [Mass/Vol] 96 mg/dL High 40-60 [facility] ([place]) Comment on above: Performed By: #### G FR, ADIFF, VIDH, ANEU, LIPID, URIC, CBC, TSH, 268848, A1C, CMP, FT4, FERR, PRO ####[place] [address]#### HCV1, FOL, B12 ####[place] [id number] Cholesterol in LDL [Mass/Vol] 65 mg/dL Normal 0-130 [facility] ([place]) Comment on above: Performed By: #### G FR, ADIFF, VIDH, ANEU, LIPID, URIC, CBC, TSH, 113547, A1C, CMP, FT4, FERR, PRO ####[place] [address]#### HCV1, FOL, B12 ####[address] [address] Triglyceride [Mass/Vol] 69 mg/dL Normal 0-150 [facility] ([place]) Comment on above: Result Comment: Trig lyceride Reference Interval: Less than 150 Normal 150-199 Borderline high risk 200-499 High risk 500 or higher Very high risk Performed By: #### G FR, ADIFF, VIDH, ANEU, LIPID, URIC, CBC, TSH, 206930, A1C, CMP, FT4, FERR, PRO ####[address] [address]#### HCV1, FOL, B12 ####[place] [address] PROon 03-28-2024 PT Coag (PPP) [Time] 10.7 s Normal 9.0-14.4 [facility] ([place]) Comment on above: Performed By: #### G FR, ADIFF, VIDH, ANEU, LIPID, URIC, CBC, TSH, 989985, A1C, CMP, FT4, FERR, PRO ####[place] [address]#### HCV1, FOL, B12 ####[place] [address] PT International Ratio 0.9 Normal [facility] ([place]) Comment on above: Result Comment: The [employer] (CHEST, 1992, 102:312S-25S) recommended therapeutic range for oral anticoagulant therapy is: LOW RISK: Prophylaxis of venous thrombosis INR: 2.0-3.0 Treatment of pulmonary embolism 2.0-3.0 Prevention of systemic embolism 2.0-3.0 HIGH RISK: Mechanical prosthetic valves 2.5-3.5 Performed By: #### G FR, ADIFF, VIDH, ANEU, LIPID, URIC, CBC, TSH, 136212, A1C, CMP, FT4, FERR, PRO ####[place] [address]#### HCV1, FOL, B12 ####[place] [address] TSHon 03-28-2024 TSH Qn 2.29 m[IU]/L Normal 0.36-3.74 [facility] ([place]) Comment on above: Performed By: #### G FR, ADIFF, VIDH, ANEU, LIPID, URIC, CBC, TSH, 613870, A1C, CMP, FT4, FERR, PRO #### [address] [address] #### HCV1, FOL, B12 #### [place] [address] URICon 03-28-2024 Uric Acid Lvl 5.6 mg/dL Normal 2.6-6.2 [facility] ([place]) Comment on above: Performed By: #### G FR, ADIFF, VIDH, ANEU, LIPID, URIC, CBC, TSH, 728231, A1C, CMP, FT4, FERR, PRO ####[place] [address] [place] [address]#### HCV1, FOL, B12 ####[place] [address] VIDHon 03-28-2024 Vit. D 25-Hydroxy 87.2 ng/mL Normal [facility] ([place]) Comment on above: Result Comment: Inte rpretive Values Based on Total 25(OH) Vitamin D: Deficient <20 ng/mL Insufficient 20 - <30 ng/mL Sufficient 30-100 ng/mL Performed By: #### G FR, ADIFF, VIDH, ANEU, LIPID, URIC, CBC, TSH, 541661, A1C, CMP, FT4, FERR, PRO ####[place] [address] [place] [address]#### HCV1, FOL, B12 ####[place] [address] CRPon 07-05-2023 C-Reactive Protein 1.8 mg/dL High 0.0-0.3 [facility] ([place]) Comment on above: Performed By: #### C RP ####[place] [address] [place] [address] CCPon 06-09-2023 Cyclic Citrullinated Peptide <20.0 Normal <=19.9 [facility] ([place]) Comment on above: Result Comment: Cycl ic Citrullinated IgG Interpretation: Result Units Negative <20 Weak Positive 20-39 Moderate Positive 40-59 Strong Positive >=60 A positive result indicates the presence of IgG anti-CCP3 antibodies and suggests the possibility of RA. A negative result indicates no CCP3 antibody or levels below the negative cut-off of the assay. Results of this assay should be used in conjunction with clinical findings and other serological tests. These test results were obtained with the [employer] Quanta Lite CCP3 IgG NAYANA. Anti-CCP values obtained with different manufacturers' assay methods may not be used interchangeably. Performed By: #### G FR, ADIFF, VIDH, ANEU, LIPID, URIC, CBC, TSH, [id number], A1C, CMP, FT4, FERR, PRO #### [facility] [address] [place], [place] [address] #### HCV1, FOL, B12 #### [address] [address] XR FOOT MINIMUM 3 VIEWS LEFT on 06-08-2023 XR FOOT MINIMUM 3 VIEWS LEFT ORIGINAL EXAMINATION: THREE XRAY VIEWS OF THE LEFT FOOT06/03/2023 12:49 pm FOOT 3 VIEWS LEFT COMPARISON: None HISTORY: ORDERING SYSTEM PROVIDED HISTORY: Reason for Exam: Pain in right ankle and joints of right foot FINDINGS: No acute fracture or dislocation is identified.Calcaneal enthesophytes noted. The joint spaces are maintained. There is no radiopaque foreign body. IMPRESSION: No acute fracture or dislocation. Interpreted by: Eric Goodman MD Preliminary Report By: Eric Goodman MD Electronically signed By Eric Goodman MD Dictated Date: 06/08/2023 11:59:08 AM Prelim Date: 06/08/2023 11:59:42 AM Sign Date: 06/08/2023 11:59:42 AM Ordering Provider: GENA Zhao [facility] ([place]) XR FOOT MINIMUM 3 VIEWS MARIANNA Sandy 06-08-2023 XR FOOT MINIMUM 3 VIEWS RIGHT ORIGINAL EXAMINATION: THREE XRAY VIEWS OF THE RIGHT FOOT06/03/2023 12:47 pm FOOT 3 VIEWS RIGHT COMPARISON: None HISTORY: ORDERING SYSTEM PROVIDED HISTORY: Reason for Exam: Pain in left ankle and joints of left foot FINDINGS: No acute fracture or dislocation is identified. The joint spaces are maintained.Large calcaneal enthesophytes noted. There is no radiopaque foreign body. IMPRESSION: No acute fracture or dislocation. Interpreted by: Eric Goodman MD Preliminary Report By: Eric Goodman MD Electronically signed By Eric Goodman MD Dictated Date: 06/08/2023 11:57:42 AM Prelim Date: 06/08/2023 11:59:03 AM Sign Date: 06/08/2023 11:59:03 AM Ordering Provider: GENA Zhao [facility] ([place]) XR HAND TWO VIEWS BILATERALo n 06-08-2023 XR HAND TWO VIEWS BILATERAL ORIGINAL EXAMINATION: 2 XRAY VIEWS OF THE BILATERAL HANDS06/03/2023 12:45 pm HANDS BILATERAL COMPARISON: None HISTORY: ORDERING SYSTEM PROVIDED HISTORY: Reason for Exam: pain in left and right hand FINDINGS: AP and ball catcher views obtained bilaterally. Periarticular osteopenia noted. Left hand: Asymmetric areas of joint space loss seen in the distal and proximal interphalangeal joints. There is a central erosion of the 5th distal interphalangeal joint. Irregular erosions seen of the 4th and 5th proximal interphalangeal joints. Right hand: Mild areas of asymmetric joint space loss seen in the proximal and distal interphalangeal joints. There are likely mild erosive changes at the 5th distal interphalangeal joint and 4th proximal interphalangeal joint.. 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 Interpreted by: Eric Goodman MD Preliminary Report By: Eric Goodman MD Electronically signed By Eric Goodman MD Dictated Date: 06/08/2023 11:55:31 AM Prelim Date: 06/08/2023 11:57:37 AM Sign Date: 06/08/2023 11:57:37 AM Ordering Provider: GENA Zhao [facility] ([place]) RFon 06-06-2023 Rheumatoid Factor <6.0 Normal <=5.9 [facility]) Comment on above: Result Comment: RF I gM Antibody by Enzyme Immunoassay: Negative < or = 6 Positive > 6 A positive result indicates the presence of RF antibodies and suggests the possibility of rheumatoid arthritis. A negative result indicates no RF IgM antibody or levels below the negative cut-off of the assay. Results of this assay should be used in conjunction with clinical findings and other serological tests. These results were obtained with the [employer] QUANTA Lite RF IgM NAYANA. RF IgM values obtained with different manufacturers' assay methods may not be used interchangeably. The magnitude of the reported IgM levels cannot be correlated to an endpoint titer. Performed By: #### G FR, ADIFF, VIDH, ANEU, LIPID, URIC, CBC, TSH, [id number], A1C, CMP, FT4, FERR, PRO #### [place] [address] [address] #### HCV1, FOL, B12 #### [address] [address] ANAon 06-04-2023 Nuclear Ab IF (S) [Titer] 40 {titer} Normal Neg 40 [facility] ([place]) Comment on above: Result Comment: CI[employer]RA Screen and Titer methodology is an immunofluorescent technique utilizing Hep2 Substrate. Performed By: #### G FR, ADIFF, VIDH, ANEU, LIPID, URIC, CBC, TSH, 359760, A1C, CMP, FT4, FERR, PRO #### [place] [address] #### HCV1, FOL, B12 #### [place] [address] .Auto Diffon 06-03-2023 Basophil, Absolute 0.1 10 3/mcL Normal 0.0-0.2 [facility] ([place]) Comment on above: Performed By: #### C K, CBC, BUN, CRP, TSH, GFR, AST, ALT, ADIFF, ANEU, ALB, CRE ####[place] [address]#### CIARRA, CCP, RF ####[place] [address] Basophils/100 WBC (Bld) 0.4 % Normal 0.0-2.5 [facility] ([place]) Comment on above: Performed By: #### C K, CBC, BUN, CRP, TSH, GFR, AST, ALT, ADIFF, ANEU, ALB, CRE ####[place] [address]#### CIARRA, CCP, RF ####[place] [address] Eosinophil, Absolute 0.0 10 3/mcL Normal 0.0-0.4 [facility] ([place]) Comment on above: Performed By: #### C K, CBC, BUN, CRP, TSH, GFR, AST, ALT, ADIFF, ANEU, ALB, CRE ####[place] [address]#### CIARRA, CCP, RF ####[address] [address] Eosinophils/100 WBC (Bld) 0.1 % Normal 0.0-7.0 [facility] ([place]) Comment on above: Performed By: #### C K, CBC, BUN, CRP, TSH, GFR, AST, ALT, ADIFF, ANEU, ALB, CRE ####[place] [address]#### CIARRA, CCP, RF ####[address] [address] Lymphocyte, Absolute 0.8 10 3/mcL Normal 0.8-3.9 [facility] ([place]) Comment on above: Performed By: #### C K, CBC, BUN, CRP, TSH, GFR, AST, ALT, ADIFF, ANEU, ALB, CRE ####[place] [address]#### CIARRA, CCP, RF ####[address] [address] Lymphocytes/100 WBC (Bld) 4.0 % Low 10.0-50.0 [facility] ([place]) Comment on above: Performed By: #### C K, CBC, BUN, CRP, TSH, GFR, AST, ALT, ADIFF, ANEU, ALB, CRE ####[place] [address]#### CIARRA, CCP, RF ####[address] [address] Monocyte, Absolute 0.7 10 3/mcL Normal 0.2-1.0 [facility] ([place]) Comment on above: Performed By: #### C K, CBC, BUN, CRP, TSH, GFR, AST, ALT, ADIFF, ANEU, ALB, CRE ####[place] [address]#### CIARRA, CCP, RF ####[address] [address] Monocytes/100 WBC (Bld) 3.6 % Normal 1.7-13.0 [facility] ([place]) Comment on above: Performed By: #### C K, CBC, BUN, CRP, TSH, GFR, AST, ALT, ADIFF, ANEU, ALB, CRE ####[address] [address]#### CIARRA, CCP, RF ####[address] [address] Neutrophils/100 WBC (Bld) 91.9 % High 37.0-80.0 [facility] ([place]) Comment on above: Performed By: #### C K, CBC, BUN, CRP, TSH, GFR, AST, ALT, ADIFF, ANEU, ALB, CRE ####[address] [address]#### CIARRA, CCP, RF ####[address] [address] .GFRon 06-03-2023 GFR 79 ml/min/1.73sqm Normal [facility] ([place]) Comment on above: Result Comment: GFR Population mean for , Non- Americans Ages 20-29 = 116 mL/min/1.73 sq.m. Ages 30-39 = 107 mL/min/1.73 sq.m. Ages 40-49 = 99 mL/min/1.73 sq.m. Ages 50-59 = 93 mL/min/1.73 sq.m. Ages 60-69 = 85 mL/min/1.73 sq.m. Ages 70+ = 75 mL/min/1.73 sq.m. Chronic Kidney Disease: Less than 60 mL/min/1.73 square meters End Stage Renal Disease: Less than 15 mL/min/1.73 square meters Performed By: #### G FR, ADIFF, VIDH, ANEU, LIPID, URIC, CBC, TSH, [id number], A1C, CMP, FT4, FERR, PRO #### [place] [address] [place], [place] [address] #### HCV1, FOL, B12 #### [address] [address] GFR Non- 66 ml/min/1.73sqm Normal [facility] ([place]) Comment on above: Result Comment: GFR Population mean for , Non- Americans Ages 20-29 = 116 mL/min/1.73 sq.m. Ages 30-39 = 107 mL/min/1.73 sq.m. Ages 40-49 = 99 mL/min/1.73 sq.m. Ages 50-59 = 93 mL/min/1.73 sq.m. Ages 60-69 = 85 mL/min/1.73 sq.m. Ages 70+ = 75 mL/min/1.73 sq.m. Chronic Kidney Disease: Less than 60 mL/min/1.73 square meters End Stage Renal Disease: Less than 15 mL/min/1.73 square meters Performed By: #### G FR, ADIFF, VIDH, ANEU, LIPID, URIC, CBC, TSH, 509336, A1C, CMP, FT4, FERR, PRO #### [address] [address] #### HCV1, FOL, B12 #### [place] [address] .NEUABSon 06-03-2023 Neutrophil, Absolute 17.1 10 3/mcL High 2.9-6.2 [facility] ([place]) Comment on above: Performed By: #### C K, CBC, BUN, CRP, TSH, GFR, AST, ALT, ADIFF, ANEU, ALB, CRE ####[address] [address]#### CIARRA, CCP, RF ####[place] [address] .Urinalysis Microscopic (AO) on 06-03-2023 UA RBC None Seen Normal None Seen [facility] ([place]) Comment on above: Performed By: #### G FR, ADIFF, VIDH, ANEU, LIPID, URIC, CBC, TSH, [id number], A1C, CMP, FT4, FERR, PRO #### [place] [id number] #### HCV1, FOL, B12 #### [place] [id number] UA Squam Epithelial 0-5 Abnormal None Seen [facility] ([place]) Comment on above: Performed By: #### G FR, ADIFF, VIDH, ANEU, LIPID, URIC, CBC, TSH, 655217, A1C, CMP, FT4, FERR, PRO #### [address] [address] #### HCV1, FOL, B12 #### [address] [address] UA WBC 0-5 Abnormal None Seen [facility] ([place]) Comment on above: Performed By: #### G FR, ADIFF, VIDH, ANEU, LIPID, URIC, CBC, TSH, 809761, A1C, CMP, FT4, FERR, PRO #### [place] [address] #### HCV1, FOL, B12 #### [place] [address] ALBon 06-03-2023 Albumin Level 3.7 G/dL Normal 3.5-5.0 [facility] ([place]) Comment on above: Performed By: #### C K, CBC, BUN, CRP, TSH, GFR, AST, ALT, ADIFF, ANEU, ALB, CRE ####[address] [address]#### CIARRA, CCP, RF ####[address] [address] ALT/SGPTon 06-03-2023 ALT [Catalytic activity/Vol] 28 U/L Normal 14-59 [facility] ([place]) Comment on above: Performed By: #### G FR, ADIFF, VIDH, ANEU, LIPID, URIC, CBC, TSH, 490216, A1C, CMP, FT4, FERR, PRO #### [address] [address] #### HCV1, FOL, B12 #### [address] [address] [place] 06-03-2023 AST [Catalytic activity/Vol] 22 U/L Normal 10-40 [facility] ([place]) Comment on above: Performed By: #### C K, CBC, BUN, CRP, TSH, GFR, AST, ALT, ADIFF, ANEU, ALB, CRE ####[place] [address]#### CIARRA, CCP, RF ####[place] [address] BUNon 06-03-2023 Urea nitrogen [Mass/Vol] 17 mg/dL Normal 7-18 [facility] ([place]) Comment on above: Performed By: #### C K, CBC, BUN, CRP, TSH, GFR, AST, ALT, ADIFF, ANEU, ALB, CRE ####[place] [address]#### CIARRA, CCP, RF ####[place] [address] CBCon 06-03-2023 Erythrocyte distribution width (RBC) [Ratio] 17.9 % High 11.5-14.5 [facility] ([place]) Comment on above: Performed By: #### C K, CBC, BUN, CRP, TSH, GFR, AST, ALT, ADIFF, ANEU, ALB, CRE ####[place] [address]#### CIARRA, CCP, RF ####[place] [address] Hematocrit (Bld) [Volume fraction] 36.2 % Low 37.0-47.0 [facility] ([place]) Comment on above: Performed By: #### C K, CBC, BUN, CRP, TSH, GFR, AST, ALT, ADIFF, ANEU, ALB, CRE ####[place] [address]#### CIARRA, CCP, RF ####[place] [address] Hgb 11.7 G/dL Low 12.0-16.0 [facility] ([place]) Comment on above: Performed By: #### C K, CBC, BUN, CRP, TSH, GFR, AST, ALT, ADIFF, ANEU, ALB, CRE ####[place] [address]#### CIARRA, CCP, RF ####[place] [address] MCH (RBC) [Entitic mass] 25.7 pg Low 27.0-31.2 [facility] ([place]) Comment on above: Performed By: #### C K, CBC, BUN, CRP, TSH, GFR, AST, ALT, ADIFF, ANEU, ALB, CRE ####[place] [address]#### CIARRA, CCP, RF ####[place] [address] MCHC 32.3 G/dL Low 33.0-37.0 [facility] ([place]) Comment on above: Performed By: #### C K, CBC, BUN, CRP, TSH, GFR, AST, ALT, ADIFF, ANEU, ALB, CRE ####[place] [id number]#### CIARRA, CCP, RF ####[place] [address] MCV (RBC) [Entitic vol] 79.6 fL Low 80.0-94.0 [facility] ([place]) Comment on above: Performed By: #### C K, CBC, BUN, CRP, TSH, GFR, AST, ALT, ADIFF, ANEU, ALB, CRE ####[place] [id number]#### CIARRA, CCP, RF ####[place] [address] Platelet 223 10 3/mcL Normal 130-400 [facility] ([place]) Comment on above: Performed By: #### C K, CBC, BUN, CRP, TSH, GFR, AST, ALT, ADIFF, ANEU, ALB, CRE ####[place] [address]#### CIARRA, CCP, RF ####[place] [address] Platelet mean volume (Bld) [Entitic vol] 7.8 fL Normal 7.4-10.4 [facility] ([place]) Comment on above: Performed By: #### C K, CBC, BUN, CRP, TSH, GFR, AST, ALT, ADIFF, ANEU, ALB, CRE ####[place] [address]#### CIARRA, CCP, RF ####[address] [address] RBC 4.55 10 6/mcL Normal 4.20-5.40 [facility] ([place]) Comment on above: Performed By: #### C K, CBC, BUN, CRP, TSH, GFR, AST, ALT, ADIFF, ANEU, ALB, CRE ####[place] [address]#### CIARRA, CCP, RF ####[place] [address] WBC 18.7 10 3/mcL High 4.6-10.8 [facility] ([place]) Comment on above: Performed By: #### C K, CBC, BUN, CRP, TSH, GFR, AST, ALT, ADIFF, ANEU, ALB, CRE ####[place] [address]#### CIARRA, CCP, RF ####[address] 06-03-2023 CK [Catalytic activity/Vol] 55 U/L Normal 26-192 [facility] ([place]) Comment on above: Performed By: #### G FR, ADIFF, VIDH, ANEU, LIPID, URIC, CBC, TSH, [id number], A1C, CMP, FT4, FERR, PRO #### [address] [address] #### HCV1, FOL, B12 #### [place] [address] CREon 06-03-2023 Creatinine [Mass/Vol] 0.90 mg/dL Normal 0.55-1.02 [facility] ([place]) Comment on above: Performed By: #### C K, CBC, BUN, CRP, TSH, GFR, AST, ALT, ADIFF, ANEU, ALB, CRE ####[facility] [place], [place] [address]#### CIARRA, CCP, RF ####[facility] [place] [id number] CRPon 06-03-2023 C-Reactive Protein 4.5 mg/dL High 0.0-0.3 [facility] ([place]) Comment on above: Performed By: #### G FR, ADIFF, VIDH, ANEU, LIPID, URIC, CBC, TSH, [id number], A1C, CMP, FT4, FERR, PRO #### [place] [address] [place], [place] [address] #### HCV1, FOL, B12 #### [facility] [address] [place] [id number] LABORATORYOrdered By: SYSTEM SYSTEM on 06-03-2023 Albumin BCP dye [Mass/Vol] 3.7 G/dL Invalid Interpretation Code 3.5 - 5.0 G/dL AO ADM SS ALT With P-5'-P [Catalytic activity/Vol] 28 U/L Invalid Interpretation Code 14 - 59 U/L AO ADM SS AST With P-5'-P [Catalytic activity/Vol] 22 U/L Invalid Interpretation Code 10 - 40 U/L AO ADM SS Basophil, Absolute 0.1 103/mcL Invalid Interpretation Code 0.0 - 0.2 10^3/mcL AO Workflow SS Basophils/100 WBC (Bld) 0.4 % Invalid Interpretation Code 0.0 - 2.5 % AO Workflow SS CK [Catalytic activity/Vol] 55 U/L Invalid Interpretation Code 26 - 192 U/L AO ADM SS Creatinine [Mass/Vol] 0.90 mg/dL Invalid Interpretation Code 0.55 - 1.02 mg/dL AO ADM SS CRP [Mass/Vol] 4.5 mg/dL Invalid Interpretation Code 0.0 - 0.3 mg/dL AO ADM SS Eosinophil, Absolute 0.0 103/mcL Invalid Interpretation Code 0.0 - 0.4 10^3/mcL AO Workflow SS Eosinophils/100 WBC (Bld) 0.1 % Invalid Interpretation Code 0.0 - 7.0 % AO Workflow SS Erythrocyte distribution width (RBC) [Ratio] 17.9 % Invalid Interpretation Code 11.5 - 14.5 % AO Workflow SS GFR/1.73 sq M.predicted among blacks MDRD (S/P/Bld) [Vol rate/Area] 79 ml/min/1.73sqm Invalid Interpretation Code AO Chemistry S Comment on above: Interpretive Data: GFR Population mean for , Non- Americans Ages 20-29 = 116 mL/min/1.73 sq.m. Ages 30-39 = 107 mL/min/1.73 sq.m. Ages 40-49 = 99 mL/min/1.73 sq.m. Ages 50-59 = 93 mL/min/1.73 sq.m. Ages 60-69 = 85 mL/min/1.73 sq.m. Ages 70+ = 75 mL/min/1.73 sq.m. Chronic Kidney Disease: Less than 60 mL/min/1.73 square meters End Stage Renal Disease: Less than 15 mL/min/1.73 square meters GFR/1.73 sq M.predicted among non-blacks MDRD (S/P/Bld) [Vol rate/Area] 66 ml/min/1.73sqm Invalid Interpretation Code AO Chemistry S Comment on above: Interpretive Data: GFR Population mean for , Non- Americans Ages 20-29 = 116 mL/min/1.73 sq.m. Ages 30-39 = 107 mL/min/1.73 sq.m. Ages 40-49 = 99 mL/min/1.73 sq.m. Ages 50-59 = 93 mL/min/1.73 sq.m. Ages 60-69 = 85 mL/min/1.73 sq.m. Ages 70+ = 75 mL/min/1.73 sq.m. Chronic Kidney Disease: Less than 60 mL/min/1.73 square meters End Stage Renal Disease: Less than 15 mL/min/1.73 square meters Hematocrit (Bld) [Volume fraction] 36.2 % Invalid Interpretation Code 37.0 - 47.0 % AO Workflow SS Hemoglobin (Bld) [Mass/Vol] 11.7 G/dL Invalid Interpretation Code 12.0 - 16.0 G/dL AO Workflow SS Lymphocyte, Absolute 0.8 103/mcL Invalid Interpretation Code 0.8 - 3.9 10^3/mcL AO Workflow SS Lymphocytes/100 WBC (Bld) 4.0 % Invalid Interpretation Code 10.0 - 50.0 % AO Workflow SS MCH (RBC) [Entitic mass] 25.7 pg Invalid Interpretation Code 27.0 - 31.2 pg AO Workflow SS MCHC 32.3 G/dL Invalid Interpretation Code 33.0 - 37.0 G/dL AO Workflow SS MCV (RBC) [Entitic vol] 79.6 fL Invalid Interpretation Code 80.0 - 94.0 fL AO Workflow SS Monocyte, Absolute 0.7 103/mcL Invalid Interpretation Code 0.2 - 1.0 10^3/mcL AO Workflow SS Monocytes/100 WBC (Bld) 3.6 % Invalid Interpretation Code 1.7 - 13.0 % AO Workflow SS Neutrophil, Absolute 17.1 103/mcL Invalid Interpretation Code 2.9 - 6.2 10^3/mcL AO Workflow SS Neutrophils/100 WBC (Bld) 91.9 % Invalid Interpretation Code 37.0 - 80.0 % AO Workflow SS Platelet mean volume (Bld) [Entitic vol] 7.8 fL Invalid Interpretation Code 7.4 - 10.4 fL AO Workflow SS Platelets (Bld) [#/Vol] 223 103/mcL Invalid Interpretation Code 130 - 400 10^3/mcL AO Workflow SS RBC (Bld) [#/Vol] 4.55 106/mcL Invalid Interpretation Code 4.20 - 5.40 10^6/mcL AO Workflow SS TSH Qn 0.64 m[IU]/L Invalid Interpretation Code 0.36 - 3.74 mcIU/mL AO ADM SS Urea nitrogen [Mass/Vol] 17 mg/dL Invalid Interpretation Code 7 - 18 mg/dL AO ADM SS WBC (Bld) [#/Vol] 18.7 103/mcL Invalid Interpretation Code 4.6 - 10.8 10^3/mcL AO Workflow SS LABORATORYOrdered By: Camila Hartmann on 06-03-2023 Appearance (U) Slightly Cloudy *ABN* (06/03/23 12:21 PM) Invalid Interpretation Code Clear AO Auto Urine SS Bilirubin Ql (U) Negative (06/03/23 12:21 PM) Invalid Interpretation Code Negative AO Auto Urine SS Color (U) Yellow (06/03/23 12:21 PM) Invalid Interpretation Code AO Auto Urine SS Glucose Test strip (U) [Mass/Vol] Negative Invalid Interpretation Code Negative AO Auto Urine SS Hemoglobin Auto test strip (U) [Mass/Vol] Negative (06/03/23 12:21 PM) Invalid Interpretation Code Negative AO Auto Urine SS Ketones Ql (U) Negative Invalid Interpretation Code Negative AO Auto Urine SS UA Leuk Est Trace *ABN* (06/03/23 12:21 PM) Invalid Interpretation Code Negative AO Auto Urine SS UA Nitrite Negative (06/03/23 12:21 PM) Invalid Interpretation Code Negative AO Auto Urine SS UA pH 7.5 (06/03/23 12:21 PM) Invalid Interpretation Code 5.0 - 8.0 AO Auto Urine SS UA Protein Negative Invalid Interpretation Code Negative AO Auto Urine SS UA RBC None Seen /HPF Invalid Interpretation Code None Seen AO Auto Urine SS UA Spec Grav 1.015 (06/03/23 12:21 PM) Invalid Interpretation Code 1.015-1.025 AO Auto Urine SS UA Specimen Type Not Given (06/03/23 12:21 PM) Invalid Interpretation Code AO Auto Urine SS UA Squam Epithelial 0-5 /HPF Invalid Interpretation Code None Seen AO Auto Urine SS UA Urobilinogen 1.0 E.U./dL Invalid Interpretation Code 0.2-1.0 AO Auto Urine SS WBC LM.HPF (Urine sed) [#/Area] 0-5 /HPF Invalid Interpretation Code None Seen AO Auto Urine SS TSHon 06-03-2023 TSH Qn 0.64 m[IU]/L Normal 0.36-3.74 [facility] ([place]) Comment on above: Performed By: #### G FR, ADIFF, VIDH, ANEU, LIPID, URIC, CBC, TSH, [id number], A1C, CMP, FT4, FERR, PRO #### [address] [address] #### HCV1, FOL, B12 #### [address] [address] UAon 06-03-2023 Color (U) Yellow Normal [facility] ([place]) Comment on above: Performed By: #### G FR, ADIFF, VIDH, ANEU, LIPID, URIC, CBC, TSH, [id number], A1C, CMP, FT4, FERR, PRO #### [address] [address] #### HCV1, FOL, B12 #### [address] [address] Glucose (U) [Mass/Vol] Negative Normal Negative [facility] ([place]) Comment on above: Performed By: #### G FR, ADIFF, VIDH, ANEU, LIPID, URIC, CBC, TSH, [id number], A1C, CMP, FT4, FERR, PRO #### [address] [address] #### HCV1, FOL, B12 #### [address] [address] Ketones Ql (U) Negative Normal Negative [facility] ([place]) Comment on above: Performed By: #### G FR, ADIFF, VIDH, ANEU, LIPID, URIC, CBC, TSH, [id number], A1C, CMP, FT4, FERR, PRO #### [address] [address] #### HCV1, FOL, B12 #### [place] [address] UA Appear Slightly Cloudy Abnormal Clear [facility] ([place]) Comment on above: Performed By: #### G FR, ADIFF, VIDH, ANEU, LIPID, URIC, CBC, TSH, [id number], A1C, CMP, FT4, FERR, PRO #### [place] [address] #### HCV1, FOL, B12 #### [place] [address] UA Blood Negative Normal Negative [facility] ([place]) Comment on above: Performed By: #### G FR, ADIFF, VIDH, ANEU, LIPID, URIC, CBC, TSH, [id number], A1C, CMP, FT4, FERR, PRO #### [address] [address] #### HCV1, FOL, B12 #### [place] [address] UA Leuk Est Trace Abnormal Negative [facility] ([place]) Comment on above: Performed By: #### G FR, ADIFF, VIDH, ANEU, LIPID, URIC, CBC, TSH, [id number], A1C, CMP, FT4, FERR, PRO #### [place] [address] #### HCV1, FOL, B12 #### [place] [address] UA Nitrite Negative Normal Negative [facility] ([place]) Comment on above: Performed By: #### G FR, ADIFF, VIDH, ANEU, LIPID, URIC, CBC, TSH, [id number], A1C, CMP, FT4, FERR, PRO #### [place] [address] #### HCV1, FOL, B12 #### [place] [address] UA pH 7.5 Normal 5.0 - 8.0 [facility] ([place]) Comment on above: Performed By: #### G FR, ADIFF, VIDH, ANEU, LIPID, URIC, CBC, TSH, [id number], A1C, CMP, FT4, FERR, PRO #### [place] [address] #### HCV1, FOL, B12 #### [place] [address] UA Protein Negative Normal Negative [facility] ([place]) Comment on above: Performed By: #### G FR, ADIFF, VIDH, ANEU, LIPID, URIC, CBC, TSH, [id number], A1C, CMP, FT4, FERR, PRO #### [place] [address] #### HCV1, FOL, B12 #### [place] [address] UA Spec Grav 1.015 Normal 1.015-1.025 [facility] ([place]) Comment on above: Performed By: #### G FR, ADIFF, VIDH, ANEU, LIPID, URIC, CBC, TSH, [id number], A1C, CMP, FT4, FERR, PRO #### [place] [address] #### HCV1, FOL, B12 #### [place] [address] UA Specimen Type Not Given Normal [facility] ([place]) Comment on above: Performed By: #### G FR, ADIFF, VIDH, ANEU, LIPID, URIC, CBC, TSH, [id number], A1C, CMP, FT4, FERR, PRO #### [place] [id number] #### HCV1, FOL, B12 #### [place] [address] UA Urobilinogen 1.0 E.U./dL Normal 0.2-1.0 [facility] ([place]) Comment on above: Performed By: #### G FR, ADIFF, VIDH, ANEU, LIPID, URIC, CBC, TSH, [id number], A1C, CMP, FT4, FERR, PRO #### [place] [id number] #### HCV1, FOL, B12 #### [place] [address] Urobilinogen (U) [Mass/Vol] Negative Normal Negative [facility] ([place]) Comment on above: Performed By: #### G FR, ADIFF, VIDH, ANEU, LIPID, URIC, CBC, TSH, [id number], A1C, CMP, FT4, FERR, PRO #### [place] [address] #### HCV1, FOL, B12 #### [place] [address] LABORATORYOrdered By: Irais Tom on 01-20-2023 Albumin DL <= 20 mg/L (U) [Mass/Vol] 322 mcg/dL Invalid Interpretation Code AO ADM SS Albumin/Creatinine DL <= 20 mg/L (U) [Mass ratio] 11 mcg/mg Invalid Interpretation Code 0 - 30 mcg/mg AO ADM SS Creatinine (U) [Mass/Vol] 29.9 mg/dL Invalid Interpretation Code 28.0 - 117.0 mg/dL AO ADM SS Basophil percentageOrdered B y: Dr. Knowles on 01-11-2023 Bilirubin [Mass/Vol] 0.30 mg/dL 0.20-1.00 [facility] Comment on above: For patients on eltr ombopag therapy, use of Dimension [place] TBIL is not recommended. Chloride [Moles/Vol] 105 mmol/L 98-107 [facility] Glucose [Mass/Vol] 101 mg/dL 74-106 [facility] Comment on above: Fasting Glucose resu lt from 100 to 125 mg/dL suggests IMPAIRED HOMEOSTASIS per A.D.A. criteria. Potassium [Moles/Vol] 4.1 mmol/L 3.5-5.1 [facility] Protein [Mass/Vol] 7.4 g/dL 6.4-8.2 [facility] Sodium [Moles/Vol] 139 mmol/L 136-145 [facility] Laboratory - Chemistry and C hemistry - challengeOrdered By: Dr. Knowles on 01-11-2023 ALP [Catalytic activity/Vol] 71 U/L 45-[address] [facility] ALT [Catalytic activity/Vol] 26 U/L 13-[address] [facility] CO2 [Moles/Vol] 28.0 mmol/L 21.0-32.[address] [facility] Cobalamin (Vitamin B12) [Mass/Vol] 257 pg/mL 211-[address] [facility] Globulin (S) [Mass/Vol] 3.9 g/dL 2.2-4.[address] [facility] Magnesium [Mass/Vol] 2.2 mg/dL 1.6-2.6 [facility] Urea nitrogen/Creatinine [Mass ratio] 16.0 mg/mg 10-[address] [facility] No Panel InformationOrdered By: Dr. Knowles on 01-11-2023 Estimated GFR (MDRD) Amer 80 mL/min >[address] [facility] Comment on above: GFR Calc Estimated GFR (MDRD) Non-Af Amer 66 mL/min >[address] [facility] Comment on above: Non- GFR Calc Vitamin D 25-Hydroxy 50.5 ng/mL [facility] Comment on above: Vitamin D 25(OH) Sta tus Range Deficiency <20 ng/mL (50nmol/L) Insufficiency 20 - 30 ng/mL (50 - 75 nmol/L) Sufficiency 30 - 100 ng/mL (75 - 250 nmol/L) Toxicity >100 ng/mL (>250 nmol/L) Serum or plasma albumin tito urement (mass/volume)Ordered By: Dr. Knowles on 01-11-2023 Albumin [Mass/Vol] 3.5 g/dL 3.2-5.0 [facility] Serum or plasma albumin/glob ulin mass ratioOrdered By: Dr. Knowles on 01-11-2023 Albumin/Globulin [Mass ratio] 0.9 {ratio} 0.9-2.[address] [facility] Serum or plasma calcium tito urement (mass/volume)Ordered By: Dr. Knowles on 01-11-2023 Calcium [Mass/Vol] 9.0 mg/dL 8.5-10.1 [facility] Serum or plasma creatinine m easurement (mass/volume)Ordered By: Dr. Knowles on 01-11-2023 Creatinine [Mass/Vol] 0.94 mg/dL 0.55-1.02 [facility] Comment on above: The validity of the calculated GFR & GFRAA in patients over 70 years has not been determined. Clinical correlation is essential. Serum or plasma urea nitroge n measurement (mass/volume)Ordered By: Dr. Knowles on 01-11-2023 Urea nitrogen [Mass/Vol] 15 mg/dL 7-[address] [facility] Thin prep Papanicolaou smear with manual screeningOrdered By: Dr. Knowles on 01-11-2023 Thin prep Papanicolaou smear with manual screening 26 U/L 15-[address] [facility] Thin prep Papanicolaou smear with manual screening 6 5-[address] [facility] Basophil percentageOrdered B y: Dr. Knowles on 10-23-2022 Bilirubin [Mass/Vol] 0.30 mg/dL 0.20-1.00 [facility] Comment on above: For patients on eltr ombopag therapy, use of Dimension [place] TBIL is not recommended. Chloride [Moles/Vol] 106 mmol/L 98-107 [facility] Glucose [Mass/Vol] 101 mg/dL 74-106 [facility] Comment on above: Fasting Glucose resu lt from 100 to 125 mg/dL suggests IMPAIRED HOMEOSTASIS per A.D.A. criteria. Potassium [Moles/Vol] 4.3 mmol/L 3.5-5.1 [facility] Comment on above: Slight Hemolysis, Re sult may be falsely increased. Protein [Mass/Vol] 7.3 g/dL 6.4-8.2 [facility] Sodium [Moles/Vol] 138 mmol/L 136-145 [facility] WBC (Bld) [#/Vol] 8.2 10*3/uL 4.4-11.0 [facility] Blood erythrocytes count (nu mber/volume)Ordered By: Dr. Knowles on 10-23-2022 RBC (Bld) [#/Vol] 4.19 10*6/uL 4.2-5.4 [facility] Blood hemoglobin measurement (mass/volume)Ordered By: Dr. Knowles on 10-23-2022 Hemoglobin (Bld) [Mass/Vol] 13.3 g/dL 12.0-15.[address] [facility] Blood platelet mean volumeOr dered By: Dr. Knowles on 10-23-2022 Platelet mean volume (Bld) [Entitic vol] 9.7 fL 6.2-12.[address] [facility] Determination of erythrocyte mean corpuscular volume (MCV)Ordered By: Dr. Knowles on 10-23-2022 MCV (RBC) [Entitic vol] 98.6 fL 81-[address] [facility] Hematocrit Auto (Bld) [Volum e fraction]Ordered By: Dr. Knowles on 10-23-2022 Hematocrit (Bld) [Volume fraction] 41.3 % 37-[address] [facility] Laboratory - Chemistry and C hemistry - challengeOrdered By: Dr. Knowles on 10-23-2022 ALP [Catalytic activity/Vol] 68 U/L 45-[address] [facility] ALT [Catalytic activity/Vol] 46 U/L 13-[address] [facility] CO2 [Moles/Vol] 28.0 mmol/L 21.0-32.[address] [facility] Cobalamin (Vitamin B12) [Mass/Vol] 248 pg/mL 211-[address] [facility] Globulin (S) [Mass/Vol] 3.4 g/dL 2.2-4.[address] [facility] Magnesium [Mass/Vol] 2.7 mg/dL 1.6-2.6 [facility] Comment on above: Slight Hemolysis, Re sult may be falsely increased. Urea nitrogen/Creatinine [Mass ratio] 25.8 mg/mg 10-[address] [facility] Laboratory - Hematology and Cell countsOrdered By: Dr. Knowles on 10-23-2022 Erythrocyte distribution width (RBC) [Entitic vol] 61.6 fL 35.1-43.[address] [facility] Erythrocyte distribution width (RBC) [Ratio] 16.9 % 11.6-14.[address] [facility] MCH (RBC) [Entitic mass] 31.7 pg 27.0-32.[address] [facility] MCHC Auto (RBC) [Mass/Vol]Or dered By: Dr. Knowles on 10-23-2022 MCHC (RBC) [Mass/Vol] 32.2 g/dL 32-36 [facility] No Panel InformationOrdered By: Dr. Knowles on 10-23-2022 Estimated GFR (MDRD) Amer 100 mL/min >[address] [facility] Comment on above: GFR Calc Estimated GFR (MDRD) Non-Af Amer 83 mL/min >[address] [facility] Comment on above: Non- GFR Calc Vitamin D 25-Hydroxy 15.8 ng/mL [facility] Comment on above: Vitamin D 25(OH) Sta tus Range Deficiency <20 ng/mL (50nmol/L) Insufficiency 20 - 30 ng/mL (50 - 75 nmol/L) Sufficiency 30 - 100 ng/mL (75 - 250 nmol/L) Toxicity >100 ng/mL (>250 nmol/L) Platelets bldOrdered By: Dr. Knowles on 10-23-2022 Platelets (Bld) [#/Vol] 214 10*3/uL 150-[address] [facility] Serum or plasma albumin tito urement (mass/volume)Ordered By: Dr. Knowles on 10-23-2022 Albumin [Mass/Vol] 3.9 g/dL 3.2-5.0 [facility] Serum or plasma albumin/glob ulin mass ratioOrdered By: Dr. Knowles on 10-23-2022 Albumin/Globulin [Mass ratio] 1.1 {ratio} 0.9-2.[address] [facility] Serum or plasma calcium tito urement (mass/volume)Ordered By: Dr. Knowles on 10-23-2022 Calcium [Mass/Vol] 8.5 mg/dL 8.5-10.1 [facility] Serum or plasma creatinine m easurement (mass/volume)Ordered By: Dr. Knowles on 10-23-2022 Creatinine [Mass/Vol] 0.78 mg/dL 0.55-1.02 [facility] Comment on above: The validity of the calculated GFR & GFRAA in patients over 70 years has not been determined. Clinical correlation is essential. Serum or plasma urea nitroge n measurement (mass/volume)Ordered By: Dr. Knowles on 10-23-2022 Urea nitrogen [Mass/Vol] 20 mg/dL 7-[address] [facility] Thin prep Papanicolaou smear with manual screeningOrdered By: Dr. Knowles on 10-23-2022 Thin prep Papanicolaou smear with manual screening 38 U/L 15- [facility] Comment on above: Slight Hemolysis, Re sult may be falsely increased. Thin prep Papanicolaou smear with manual screening 4 5-[address] [facility] Absolute lymphocyte countOrd ered By: Dr. Mata on 07-21-2022 Lymphocytes Auto (Unsp spec) [#/Vol] 0.87 10*3/uL 0.83-4.[address] [facility] Basophil percentageOrdered B y: Dr. Mata on 07-21-2022 Basophils/100 WBC (Bld) 0.2 % 0-[address] [facility] Bilirubin [Mass/Vol] 0.30 mg/dL 0.20-1.00 [facility] Comment on above: For patients on eltr ombopag therapy, use of Dimension [place] TBIL is not recommended. Chloride [Moles/Vol] 107 mmol/L 98-107 [facility] Eosinophils/100 WBC (Bld) 0.4 % 0-[address] [facility] Glucose [Mass/Vol] 117 mg/dL 74-106 [facility] Comment on above: Fasting Glucose resu lt from 100 to 125 mg/dL suggests IMPAIRED HOMEOSTASIS per A.D.A. criteria. Neutrophils (Bld) [#/Vol] 4.3 10*3/uL 2.0-7.[address] [facility] Neutrophils/100 WBC (Bld) 77.1 % 47-[address] [facility] Potassium [Moles/Vol] 4.8 mmol/L 3.5-5.1 [facility] Protein [Mass/Vol] 6.6 g/dL 6.4-8.2 [facility] Sodium [Moles/Vol] 141 mmol/L 136-145 [facility] WBC (Bld) [#/Vol] 5.6 10*3/uL 4.4-11.0 [facility] Blood erythrocytes count (nu mber/volume)Ordered By: Dr. Mata on 07-21-2022 RBC (Bld) [#/Vol] 4.02 10*6/uL 4.2-5.4 [facility] Blood hemoglobin measurement (mass/volume)Ordered By: Dr. Mata on 07-21-2022 Hemoglobin (Bld) [Mass/Vol] 12.4 g/dL 12.0-15.[address] [facility] Blood lymphocytes/100 leukoc ytesOrdered By: Dr. Mata on 07-21-2022 Lymphocytes/100 WBC (Bld) 15.6 % 19-[address] [facility] Blood monocytes/100 leukocyt esOrdered By: Dr. Mata on 07-21-2022 Monocytes/100 WBC (Bld) 6.3 % 0-[address] [facility] Blood platelet mean volumeOr dered By: Dr. Mata on 07-21-2022 Platelet mean volume (Bld) [Entitic vol] 10.4 fL 6.2-12.[address] [facility] Determination of erythrocyte mean corpuscular volume (MCV)Ordered By: Dr. Mata on 07-21-2022 MCV (RBC) [Entitic vol] 97.5 fL 81-[address] [facility] Hematocrit Auto (Bld) [Volum e fraction]Ordered By: Dr. Mata on 07-21-2022 Hematocrit (Bld) [Volume fraction] 39.2 % 37-[address] [facility] Laboratory - Chemistry and C hemistry - challengeOrdered By: Dr. Mata on 07-21-2022 ALP [Catalytic activity/Vol] 72 U/L 45-[address] [facility] ALT [Catalytic activity/Vol] 43 U/L 13-[address] [facility] CO2 [Moles/Vol] 30.0 mmol/L 21.0-32.[address] [facility] Globulin (S) [Mass/Vol] 3.3 g/dL 2.2-4.[address] [facility] Urea nitrogen/Creatinine [Mass ratio] 13.6 mg/mg 10-[address] [facility] Laboratory - Hematology and Cell countsOrdered By: Dr. Mata on 07-21-2022 Erythrocyte distribution width (RBC) [Entitic vol] 54.1 fL 35.1-43.[address] [facility] Erythrocyte distribution width (RBC) [Ratio] 15.1 % 11.6-14.[address] [facility] Immature granulocytes/100 WBC (Bld) 0.400 % 0.0-0.[address] [facility] Comment on above: IG% - Immature Granu locytes (promyelocytes, myelocytes and metamyelocytes) > 1% indicates that a LEFT SHIFT is Present. MCH (RBC) [Entitic mass] 30.8 pg 27.0-32.[address] [facility] Nucleated RBC/100 WBC (Bld) [Ratio] 0 % 0-[address] [facility] MCHC Auto (RBC) [Mass/Vol]Or dered By: Dr. Mata on 07-21-2022 MCHC (RBC) [Mass/Vol] 31.6 g/dL 32-36 [facility] No Panel InformationOrdered By: Dr. Mata on 07-21-2022 Estimated GFR (MDRD) Amer 72 mL/min >[address] [facility] Comment on above: GFR Calc Estimated GFR (MDRD) Non-Af Amer 60 mL/min >[address] [facility] Comment on above: Non- GFR Calc Platelets bldOrdered By: Dr. Mata on 07-21-2022 Platelets (Bld) [#/Vol] 216 10*3/uL 150-[address] [facility] Serum or plasma albumin tito urement (mass/volume)Ordered By: Dr. Mata on 07-21-2022 Albumin [Mass/Vol] 3.3 g/dL 3.2-5.0 [facility] Serum or plasma albumin/glob ulin mass ratioOrdered By: Dr. Mata on 07-21-2022 Albumin/Globulin [Mass ratio] 1.0 {ratio} 0.9-2.[address] [facility] Serum or plasma calcium tito urement (mass/volume)Ordered By: Dr. Mata on 07-21-2022 Calcium [Mass/Vol] 8.7 mg/dL 8.5-10.1 [facility] Serum or plasma creatinine m easurement (mass/volume)Ordered By: Dr. Mata on 07-21-2022 Creatinine [Mass/Vol] 1.03 mg/dL 0.55-1.02 [facility] Comment on above: The validity of the calculated GFR & GFRAA in patients over 70 years has not been determined. Clinical correlation is essential. Serum or plasma urea nitroge n measurement (mass/volume)Ordered By: Dr. Mata on 07-21-2022 Urea nitrogen [Mass/Vol] 14 mg/dL 7-[address] [facility] Thin prep Papanicolaou smear with manual screeningOrdered By: Dr. Mata on 07-21-2022 Thin prep Papanicolaou smear with manual screening 40 U/L 15-[address] [facility] Thin prep Papanicolaou smear with manual screening 4 5-[address] [facility] Basophil percentageon 2021 Bilirubin [Mass/Vol] 0.40 mg/dL 0.20-1.00 [facility] Work Phone: Comment on above: For patients on eltr ombopag therapy, use of Dimension [place] TBIL is not recommended. Chloride [Moles/Vol] 105 mmol/L 98-107 [facility] Work Phone: Glucose [Mass/Vol] 134 mg/dL 74-106 [facility] Work Phone: Comment on above: Fasting Glucose resu lt greater than or equal to 126 mg/dL suggests DIABETES MELLITUS per A.D.A. criteria. Potassium [Moles/Vol] 4.2 mmol/L 3.5-5.1 [facility] Work Phone: Protein [Mass/Vol] 7.2 g/dL 6.4-8.2 [facility] Work Phone: Sodium [Moles/Vol] 141 mmol/L 136-145 [facility] Work Phone: Laboratory - Chemistry and C hemistry - challengeon 06-01-2022 ALP [Catalytic activity/Vol] 69 U/L 45-[address] [facility] Work Phone: ALT [Catalytic activity/Vol] 42 U/L 13-[address] [facility] Work Phone: CO2 [Moles/Vol] 27.0 mmol/L 21.0-32.[address] [facility] Work Phone: Globulin (S) [Mass/Vol] 3.7 g/dL 2.2-4.[address] [facility] Work Phone: Urea nitrogen/Creatinine [Mass ratio] 18.8 mg/mg 10-[address] [facility] Work Phone: No Panel Informationon 06-01 Estimated GFR (MDRD) Amer 79 mL/min >[address] [facility] Work Phone: Comment on above: GFR Calc Estimated GFR (MDRD) Non-Af Amer 65 mL/min >[address] [facility] Work Phone: Comment on above: Non- GFR Calc Serum or plasma albumin tito urement (mass/volume)on 06-01-2022 Albumin [Mass/Vol] 3.5 g/dL 3.2-5.0 [facility] Work Phone: Serum or plasma albumin/glob ulin mass ratioon 06-01-2022 Albumin/Globulin [Mass ratio] 0.9 {ratio} 0.9-2.[address] [facility] Work Phone: Serum or plasma calcium tito urement (mass/volume)on 06-01-2022 Calcium [Mass/Vol] 9.0 mg/dL 8.5-10.1 [facility] Work Phone: Serum or plasma creatinine m easurement (mass/volume)on 06-01-2022 Creatinine [Mass/Vol] 0.96 mg/dL 0.55-1.02 [facility] Work Phone: Comment on above: The validity of the calculated GFR & GFRAA in patients over 70 years has not been determined. Clinical correlation is essential. Serum or plasma urea nitroge n measurement (mass/volume)on 06-01-2022 Urea nitrogen [Mass/Vol] 18 mg/dL 7-[address] [facility] Work Phone: Thin prep Papanicolaou smear with manual screeningon 06-01-2022 Thin prep Papanicolaou smear with manual screening 32 U/L 15-[address] [facility] Work Phone: Thin prep Papanicolaou smear with manual screening 9 5-[address] [facility] Work Phone: Absolute lymphocyte counton 04-28-2022 Lymphocytes Auto (Unsp spec) [#/Vol] 2.87 10*3/uL 0.83-4.[address] [facility] Work Phone: Basophil percentageon 2021 Basophils/100 WBC (Bld) 0.2 % 0-[address] [facility] Work Phone: Bilirubin [Mass/Vol] 0.40 mg/dL 0.20-1.00 [facility] Work Phone: Comment on above: For patients on eltr ombopag therapy, use of Dimension [place] TBIL is not recommended. Chloride [Moles/Vol] 106 mmol/L 98-107 [facility] Work Phone: Eosinophils/100 WBC (Bld) 0.7 % 0-[address] [facility] Work Phone: Glucose [Mass/Vol] 90 mg/dL 74-106 [facility] Work Phone: Neutrophils (Bld) [#/Vol] 5.2 10*3/uL 2.0-7.[address] [facility] Work Phone: [phone] Neutrophils/100 WBC (Bld) 57.4 % 47-[address] [facility] Work Phone: Potassium [Moles/Vol] 3.8 mmol/L 3.5-5.1 [facility] Work Phone: Protein [Mass/Vol] 7.0 g/dL 6.4-8.2 [facility] Work Phone: Sodium [Moles/Vol] 142 mmol/L 136-145 [facility]: WBC (Bld) [#/Vol] 9.1 10*3/uL 4.4-11.0 [facility] Work Phone: Blood erythrocytes count (nu mber/volume)on 04-28-2022 RBC (Bld) [#/Vol] 4.12 10*6/uL 4.2-5.4 [facility] Work Phone: Blood hemoglobin measurement (mass/volume)on 04-28-2022 Hemoglobin (Bld) [Mass/Vol] 13.5 g/dL 12.0-15.[address] [facility] Work Phone: Blood lymphocytes/100 leukoc yteson 04-28-2022 Lymphocytes/100 WBC (Bld) 31.4 % 19-[address] [facility] Work Phone: Blood monocytes/100 leukocyt eson 04-28-2022 Monocytes/100 WBC (Bld) 8.7 % 0-[address] [facility] Work Phone: Blood platelet mean volumeon 04-28-2022 Platelet mean volume (Bld) [Entitic vol] 10.1 fL 6.2-12.[address] [facility] Work Phone: Determination of erythrocyte mean corpuscular volume (MCV)on 04-28-2022 MCV (RBC) [Entitic vol] 100.7 fL 81-[address] [facility] Work Phone: Hematocrit Auto (Bld) [Volum e fraction]on 04-28-2022 Hematocrit (Bld) [Volume fraction] 41.5 % 37-[address] [facility] Work Phone: Laboratory - Chemistry and C hemistry - challengeon 04-28-2022 ALP [Catalytic activity/Vol] 104 U/L 45-[address] [facility] Work Phone: ALT [Catalytic activity/Vol] 97 U/L 13-[address] [facility] Work Phone: CO2 [Moles/Vol] 29.0 mmol/L 21.0-32.[address] [facility] Work Phone: Globulin (S) [Mass/Vol] 3.2 g/dL 2.2-4.[address] [facility] Work Phone: Urea nitrogen/Creatinine [Mass ratio] 17.8 mg/mg 10-[address] [facility] Work Phone: Laboratory - Hematology and Cell countson 04-28-2022 Erythrocyte distribution width (RBC) [Entitic vol] 57.2 fL 35.1-43.[address] [facility] Work Phone: Erythrocyte distribution width (RBC) [Ratio] 15.6 % 11.6-14.[address] [facility] Work Phone: Immature granulocytes/100 WBC (Bld) 1.600 % 0.0-0.[address] [facility] Work Phone: Comment on above: IG% - Immature Granu locytes (promyelocytes, myelocytes and metamyelocytes) > 1% indicates that a LEFT SHIFT is Present. MCH (RBC) [Entitic mass] 32.8 pg 27.0-32.[address] [facility] Work Phone: Nucleated RBC/100 WBC (Bld) [Ratio] 0 % 0-[address] [facility] Work Phone: MCHC Auto (RBC) [Mass/Vol]on 04-28-2022 MCHC (RBC) [Mass/Vol] 32.5 g/dL 32-36 [facility] Work Phone: No Panel Informationon 04-28 Estimated GFR (MDRD) Amer 69 mL/min >[address] [facility] Work Phone: Comment on above: GFR Calc Estimated GFR (MDRD) Non-Af Amer 57 mL/min >[address] [facility] Work Phone: Comment on above: Non- GFR Calc Platelets bldon 04-28-2022 Platelets (Bld) [#/Vol] 223 10*3/uL 150-[address] [facility] Work Phone: Serum or plasma albumin tito urement (mass/volume)on 04-28-2022 Albumin [Mass/Vol] 3.8 g/dL 3.2-5.0 [facility] Work Phone: Serum or plasma albumin/glob ulin mass ratioon 04-28-2022 Albumin/Globulin [Mass ratio] 1.2 {ratio} 0.9-2.[address] [facility] Work Phone: Serum or plasma calcium tito urement (mass/volume)on 04-28-2022 Calcium [Mass/Vol] 9.1 mg/dL 8.5-10.1 [facility] Work Phone: Serum or plasma creatinine m easurement (mass/volume)on 04-28-2022 Creatinine [Mass/Vol] 1.07 mg/dL 0.55-1.02 [facility] Work Phone: Comment on above: The validity of the calculated GFR & GFRAA in patients over 70 years has not been determined. Clinical correlation is essential. Serum or plasma urea nitroge n measurement (mass/volume)on 04-28-2022 Urea nitrogen [Mass/Vol] 19 mg/dL 7-[address] [facility] Work Phone: Thin prep Papanicolaou smear with manual screeningon 04-28-2022 Thin prep Papanicolaou smear with manual screening 68 U/L 15-[address] [facility] Work Phone: Thin prep Papanicolaou smear with manual screening 7 5-[address] [facility] Work Phone: LABORATORYOrdered By: Darryl Thakkar on 02-24-2022 Albumin BCP dye [Mass/Vol] 4.0 G/dL Invalid Interpretation Code 3.5 - 5.0 G/dL AO ADM SS Albumin/Globulin [Mass ratio] 1.2 {ratio} Invalid Interpretation Code 1.1 - 2.5 ratio AO ADM SS ALP [Catalytic activity/Vol] 69 U/L Invalid Interpretation Code 40 - 135 U/L AO ADM SS ALT With P-5'-P [Catalytic activity/Vol] 53 U/L Invalid Interpretation Code 14 - 59 U/L AO ADM SS AST With P-5'-P [Catalytic activity/Vol] 41 U/L Invalid Interpretation Code 10 - 40 U/L AO ADM SS Bilirubin [Mass/Vol] 0.4 mg/dL Invalid Interpretation Code 0.2 - 1.0 mg/dL AO ADM SS Calcium [Mass/Vol] 8.7 mg/dL Invalid Interpretation Code 8.4 - 10.2 mg/dL AO ADM SS Chloride [Moles/Vol] 101 mmol/L Invalid Interpretation Code 98 - 107 mmol/L AO ADM SS CO2 [Moles/Vol] 31 mmol/L Invalid Interpretation Code 22 - 29 mmol/L AO ADM SS Creatinine [Mass/Vol] 0.85 mg/dL Invalid Interpretation Code 0.55 - 1.02 mg/dL AO ADM SS Electrolyte Balance 3.0 mEq/L Invalid Interpretation Code 4.0 - 15.0 mEq/L AO ADM SS Globulin 3.4 G/dL Invalid Interpretation Code AO ADM SS Glucose [Mass/Vol] 56 mg/dL Invalid Interpretation Code 70 - 105 mg/dL AO ADM SS Potassium [Moles/Vol] 4.6 mmol/L Invalid Interpretation Code 3.5 - 5.1 mmol/L AO ADM SS Protein [Mass/Vol] 7.4 G/dL Invalid Interpretation Code 6.4 - 8.2 G/dL AO ADM SS Sodium [Moles/Vol] 135 mmol/L Invalid Interpretation Code 136 - 145 mmol/L AO ADM SS TSH Qn 1.12 m[IU]/L Invalid Interpretation Code 0.36 - 3.74 mcIU/mL AO ADM SS Urea nitrogen [Mass/Vol] 13 mg/dL Invalid Interpretation Code 7 - 18 mg/dL AO ADM SS Urea nitrogen/Creatinine [Mass ratio] 15 ratio Invalid Interpretation Code 7 - 27 ratio AO ADM SS LABORATORYOrdered By: Camila Hartmann on 02-24-2022 Basophil, Absolute 0.00 103/mcL Invalid Interpretation Code 0.00 - 0.19 10^3/mcL AO Auto Heme SS Basophils/100 WBC (Bld) 0.4 % Invalid Interpretation Code 0.0 - 2.5 % AO Auto Heme SS Eosinophil, Absolute 0.10 103/mcL Invalid Interpretation Code 0.00 - 0.40 10^3/mcL AO Auto Heme SS Eosinophils/100 WBC (Bld) 0.9 % Invalid Interpretation Code 0.0 - 7.0 % AO Auto Heme SS Erythrocyte distribution width (RBC) [Ratio] 16.1 % Invalid Interpretation Code 11.5 - 14.5 % AO Auto Heme SS Hematocrit (Bld) [Volume fraction] 40.7 % Invalid Interpretation Code 37.0 - 47.0 % AO Auto Heme SS Hemoglobin (Bld) [Mass/Vol] 13.5 G/dL Invalid Interpretation Code 12.0 - 16.0 G/dL AO Auto Heme SS Lymphocyte, Absolute 1.60 103/mcL Invalid Interpretation Code 0.77 - 3.85 10^3/mcL AO Auto Heme SS Lymphocytes/100 WBC (Bld) 22.3 % Invalid Interpretation Code 10.0 - 50.0 % AO Auto Heme SS MCH (RBC) [Entitic mass] 32.7 pg Invalid Interpretation Code 27.0 - 31.2 pg AO Auto Heme SS MCHC (RBC) [Mass/Vol] 33.3 G/dL Invalid Interpretation Code 33.0 - 37.0 G/dL AO Auto Heme SS MCV (RBC) [Entitic vol] 98.3 fL Invalid Interpretation Code 80.0 - 94.0 fL AO Auto Heme SS Monocyte, Absolute 0.70 103/mcL Invalid Interpretation Code 0.15 - 1.00 10^3/mcL AO Auto Heme SS Monocytes/100 WBC (Bld) 9.4 % Invalid Interpretation Code 1.7 - 13.0 % AO Auto Heme SS Neutrophil, Absolute 4.80 103/mcL Invalid Interpretation Code 2.85 - 6.16 10^3/mcL AO Auto Heme SS Neutrophils/100 WBC (Bld) 67.0 % Invalid Interpretation Code 37.0 - 80.0 % AO Auto Heme SS Platelet mean volume (Bld) [Entitic vol] 8.1 fL Invalid Interpretation Code 7.4 - 10.4 fL AO Auto Heme SS Platelets (Bld) [#/Vol] 200 103/mcL Invalid Interpretation Code 130 - 400 10^3/mcL AO Auto Heme SS RBC (Bld) [#/Vol] 4.14 106/mcL Invalid Interpretation Code 4.20 - 5.40 10^6/mcL AO Auto Heme SS WBC (Bld) [#/Vol] 7.20 103/mcL Invalid Interpretation Code 4.60 - 10.80 10^3/mcL AO Auto Heme SS LABORATORYOrdered By: SYSTEM SYSTEM on 02-24-2022 GFR 85 ml/min/1.73sqm Invalid Interpretation Code AO Chemistry S GFR Non- 71 ml/min/1.73sqm Invalid Interpretation Code AO Chemistry S Absolute lymphocyte counton 01-08-2022 Lymphocytes Auto (Unsp spec) [#/Vol] 1.93 10*3/uL 0.83-4.[address] [facility] Work Phone: [phone] Acetaminophen level (mass/vo lume)on 01-08-2022 Acetaminophen (Unsp spec) [Mass/Vol] < 2.0 ug/mL 10.0-30.[address] [facility] Work Phone: Basophil percentageon 2021 Basophils/100 WBC (Bld) 0.3 % 0-[address] [facility] Work Phone: [phone] Chloride [Moles/Vol] 110 mmol/L 98-107 [facility] Work Phone: [phone] Eosinophils/100 WBC (Bld) 1.1 % 0-[address] [facility] Work Phone: [phone] Glucose [Mass/Vol] 104 mg/dL 74-106 [facility] Work Phone: Comment on above: Fasting Glucose resu lt from 100 to 125 mg/dL suggests IMPAIRED HOMEOSTASIS per A.D.A. criteria. Lactate [Moles/Vol] 1.7 mmol/L 0.4-2.0 [facility] Work Phone: Neutrophils (Bld) [#/Vol] 3.8 10*3/uL 2.0-7.[address] [facility] Work Phone: Neutrophils/100 WBC (Bld) 58.0 % 47-[address] [facility] Work Phone: [phone] Potassium [Moles/Vol] 3.7 mmol/L 3.5-5.1 [facility] Work Phone: Sodium [Moles/Vol] 141 mmol/L 136-145 [facility] Work Phone: WBC (Bld) [#/Vol] 6.6 10*3/uL 4.4-11.0 [facility] Work Phone: Basophil percentage 3.1 mg/dL 2.5-4.9 [facility] Work Phone: Blood erythrocytes count (nu mber/volume)on 01-08-2022 RBC (Bld) [#/Vol] 3.47 10*6/uL 4.2-5.4 [facility] Work Phone: Blood hemoglobin measurement (mass/volume)on 01-08-2022 Hemoglobin (Bld) [Mass/Vol] 11.8 g/dL 12.0-15.[address] [facility] Work Phone: Blood lymphocytes/100 leukoc yteson 01-08-2022 Lymphocytes/100 WBC (Bld) 29.2 % 19-[address] [facility] Work Phone: Blood monocytes/100 leukocyt eson 01-08-2022 Monocytes/100 WBC (Bld) 10.5 % 0-[address] [facility] Work Phone: Blood platelet mean volumeon 01-08-2022 Platelet mean volume (Bld) [Entitic vol] 9.4 fL 6.2-12.[address] [facility] Work Phone: Determination of erythrocyte mean corpuscular volume (MCV)on 01-08-2022 MCV (RBC) [Entitic vol] 104.6 fL 81-[address] [facility] Work Phone: Hematocrit Auto (Bld) [Volum e fraction]on 01-08-2022 Hematocrit (Bld) [Volume fraction] 36.3 % 37-[address] [facility] Work Phone: Laboratory - Chemistry and C hemistry - challengeon 01-08-2022 HCG ( test) Ql (U) Negative [facility] Work Phone: Comment on above: Very dilute urine sp ecimens, as indicated by a low specificgravity, may not contain novelties sales representative levels of hCG. If is still suspected, a first morning urinespecimen should be collected 48 hours later and tested. CO2 [Moles/Vol] 26.0 mmol/L 21.0-32.[address] [facility] Work Phone: Urea nitrogen/Creatinine [Mass ratio] 15.5 mg/mg 10-[address] [facility] Work Phone: Magnesium [Mass/Vol] 2.2 mg/dL 1.6-2.6 [facility] Work Phone: Laboratory - Hematology and Cell countson 01-08-2022 Erythrocyte distribution width (RBC) [Entitic vol] 55.6 fL 35.1-43.[address] [facility] Work Phone: Erythrocyte distribution width (RBC) [Ratio] 14.5 % 11.6-14.[address] [facility] Work Phone: Immature granulocytes/100 WBC (Bld) 0.900 % 0.0-0.[address] [facility] Work Phone: Comment on above: IG% - Immature Granu locytes (promyelocytes, myelocytes and metamyelocytes) > 1% indicates that a LEFT SHIFT is Present. MCH (RBC) [Entitic mass] 34.0 pg 27.0-32.[address] [facility] Work Phone: Nucleated RBC/100 WBC (Bld) [Ratio] 0 % 0-[address] [facility] Work Phone: MCHC Auto (RBC) [Mass/Vol]on 01-08-2022 MCHC (RBC) [Mass/Vol] 32.5 g/dL 32-36 [facility] Work Phone: No Panel Informationon 01-08 Ethyl Alcohol Level 5.0 mg/dL [facility] Work Phone: Comment on above: The serum:whole bloo d ethanol ratio is approximately 1.14and varies slightly with hematocrit. Medical Alcohol reference interval and critical value innon-tolerant individuals; 50 - 100 Impairment 100 Intoxication 100 - 250 Severe Poisoning 250 - 400 Deep/possible fatal coma Estimated Creatinine Clearance Calc 67.33 ml/min [facility] Work Phone: Estimated GFR (MDRD) Amer 112 mL/min >[address] [facility] Work Phone: Comment on above: GFR Calc Estimated GFR (MDRD) Non-Af Amer 92 mL/min >[address] [facility] Work Phone: Comment on above: Non- GFR Calc Platelets bldon 01-08-2022 Platelets (Bld) [#/Vol] 154 10*3/uL 150-[address] [facility] Work Phone: Serum or plasma calcium tito urement (mass/volume)on 01-08-2022 Calcium [Mass/Vol] 9.3 mg/dL 8.5-10.1 [facility] Work Phone: Serum or plasma creatinine m easurement (mass/volume)on 01-08-2022 Creatinine [Mass/Vol] 0.71 mg/dL 0.55-1.02 [facility] Work Phone: Comment on above: The validity of the calculated GFR & GFRAA in patients over 70 years has not been determined. Clinical correlation is essential. Serum or plasma folate measu rement (mass/volume)on 01-08-2022 Folate [Mass/Vol] 12.10 ng/mL 3.1-55.4 [facility] Work Phone: Comment on above: Slight Hemolysis, Re sult may be falsely increased. Serum or plasma salicylates measurement (mass/volume)on 01-08-2022 Salicylates [Mass/Vol] 2.2 mg/dL 2.8-20.[address] [facility] Work Phone: Serum or plasma urea nitroge n measurement (mass/volume)on 01-08-2022 Urea nitrogen [Mass/Vol] 11 mg/dL 7-[address] [facility] Work Phone: Thin prep Papanicolaou smear with manual screeningon 01-08-2022 Thin prep Papanicolaou smear with manual screening 5 5-[address] [facility] Work Phone: Whole blood hemoglobin A1c/t otal hemoglobin ratio (mass fraction)on 01-08-2022 HbA1c (Bld) [Mass fraction] 5.1 % 3.8-5.[address] [facility] Work Phone: Comment on above: Normal < 5.7 % Predi abetic 5.7 - 6.4 % Diabetic >or= 6.5 % Please note range changes. Assessment of wrist artery p atency prior to arterial punctureon 01-07-2022 Arterial patency Wrist artery --pre arterial puncture Positive [facility] Work Phone: Base excesson 01-07-2022 Base excess Calc (BldV) [Moles/Vol] -3 mmol/L -2-[address] [facility] Work Phone: Basophil percentageon 2021 Basophil percentage 5-10 SEEN /hpf 0-5 [facility] Work Phone: Basophil percentage 23.0 mmol/L 22-26 [facility] Work Phone: Basophils/100 WBC (Bld) 100 % 95-[address] [facility] Work Phone: Bilirubin [Mass/Vol] 0.20 mg/dL 0.20-1.00 [facility] Work Phone: Comment on above: For patients on eltr ombopag therapy, use of Dimension [place] TBIL is not recommended. Protein [Mass/Vol] 6.2 g/dL 6.4-8.2 [facility] Work Phone: Bilirubin Test strip Ql (U)o n 01-07-2022 Bilirubin Ql (U) Negative Negative [facility] Work Phone: CO2 (BldA) [Partial pressure ]on 01-07-2022 CO2 (Bld) [Partial pressure] 41.3 mm[Hg] 35-[address] [facility] Work Phone: INR in Blood by Coagulation assayon 01-07-2022 INR Coag (Bld) [Relative time] 1.1 {INR} [facility] Work Phone: Ketones Test strip Ql (U)on 01-07-2022 Ketones Ql (U) Negative Negative [facility] Work Phone: Laboratory - Chemistry and C hemistry - challengeon 01-07-2022 ALP [Catalytic activity/Vol] 55 U/L 45-[address] [facility] Work Phone: ALT [Catalytic activity/Vol] 48 U/L 13-[address] [facility] Work Phone: Globulin (S) [Mass/Vol] 3.1 g/dL 2.2-4.[address] [facility] Work Phone: [phone] Lipase [Catalytic activity/Vol] 123 U/L 73-[address] [facility] Work Phone: [phone] Laboratory - Coagulationon 0 01-07-2022 aPTT Coag (Bld) [Time] 30.0 s 24.1-36.[address] [facility] Work Phone: PT Coag (PPP) [Time] 13.1 s 11.7-14.9 [facility] Work Phone: Laboratory - Drug toxicology on 01-07-2022 Amphetamines Ql (U) Negative <1000 ng/mL [facility] Work Phone: Benzodiazepines Ql (U) Positive < 200 ng/mL [facility] Work Phone: Cannabinoids Screen Ql (U) Negative < 50 ng/mL [facility] Work Phone: Cocaine Ql (U) Negative < 300 ng/mL [facility] Work Phone: Opiates Ql (U) Negative < 300 ng/mL [facility] Work Phone: Mucus LM Ql (Urine sed)on Mucus Ql (Urine sed) 0 SEEN /hpf [facility] Work Phone: Nitrite Test strip Ql (U)on 01-07-2022 Nitrite Ql (U) Negative Negative [facility] Work Phone: No Panel Informationon 01-07 MDMA (Ecstasy) Screen Negative < 500 ng/mL [facility] Work Phone: Urine Barbiturates Screen Negative < 200 ng/mL [facility] Work Phone: Urine Drug Screen Comment [facility] Work Phone: Comment on above: CONFIRMATORY TESTING FOR ALL POSITIVE URINE DRUG SCREENRESULTS WILL ONLY BE SENT OUT UPON PHYSICIAN ORDER. VISTA Urine Drug Screen methods provide only preliminaryanalytical test results. A more specific alternate chemicalmethod must be used in order to obtain a confirmedanalytical result. Gas chromatography/mass spectrometery(GC/MS) is the preferred confirmatory method. Clinicalconsideration and professional judgement should be appliedto any drug of abuse test result, particularly whenpreliminary positive results are used. URINE TCA TESTING MUST BE ORDERED SEPARATELY. USE TESTMNEMONIC: [facility] Urine Methadone Screen Negative < 300 ng/mL [facility] Work Phone: Blood Gas Liter Flow 4.0 /min [facility] Work Phone: Blood Gas Sample Site R Radial [facility] Work Phone: Blood Gas Specimen Type ART [facility] Work Phone: Blood Gas Total CO2 24 mmol/L [facility] Work Phone: Oxygen Delivery Device Cannula [facility] Work Phone: Oxygen (BldA) [Partial press ure]on 01-07-2022 Oxygen (Bld) [Partial pressure] 210 mmHG 75-[address] [facility] Work Phone: Protein Test strip Ql (U)on 01-07-2022 Protein Ql (U) 15 mg/dl Negative [facility] Work Phone: Serum or plasma albumin tito urement (mass/volume)on 01-07-2022 Albumin [Mass/Vol] 3.1 g/dL 3.2-5.0 [facility] Work Phone: Serum or plasma albumin/glob ulin mass ratioon 01-07-2022 Albumin/Globulin [Mass ratio] 1.0 {ratio} 0.9-2.[address] [facility] Work Phone: Squamous epithelial cells de tection in urine sediment by light microscopyon 01-07-2022 Epithelial cells.squamous LM Ql (Urine sed) 0 SEEN /hpf 5-[address] [facility] Work Phone: Thin prep Papanicolaou smear with manual screeningon 01-07-2022 Thin prep Papanicolaou smear with manual screening 32 U/L 15-[address] [facility] Work Phone: Urine blood detectionon 12-17 RBC Ql (U) 10 /ul Negative [facility] Work Phone: RBC Ql (U) 0-5 SEEN /hpf 0-[address] [facility] Work Phone: Urine clarityon 01-07-2022 Clarity (U) Clear Clear [facility] Work Phone: Urine color determinationon 01-07-2022 Color (U) Yellow Yellow [facility] Work Phone: Urine glucose detectionon Glucose Ql (U) Normal mg/dl Normal [facility] Work Phone: Urine leukocyte esterase det ection by dipstickon 01-07-2022 Leukocyte esterase Test strip Ql (U) Negative Negative [facility] Work Phone: Urine pHon 01-07-2022 pH (U) 7.0 [pH] 5.0 - 8.[address] [facility] Work Phone: Urine phencyclidine (PCP) de tectionon 01-07-2022 Phencyclidine Ql (U) Negative < 25 ng/mL [facility] Work Phone: Urine sediment bacteria coun t by microscopy (number/high power field)on 01-07-2022 Bacteria LM.HPF (Urine sed) [#/Area] 0 /[HPF] None Seen [facility] Work Phone: Urine specific gravity measu rementon 01-07-2022 Specific gravity (U) [Rel density] 1.010 1.002-1.[address] [facility] Work Phone: Urobilinogen Auto test strip Ql (U)on 01-07-2022 Urobilinogen Ql (U) Normal mg/dl Normal [facility] Work Phone: pH measurementon 01-07-2022 pH (Unsp spec) 7.35 [pH] 7.35-7.[address] [facility] Work Phone: Vital Signs Date Time Vital Sign Value Performing Clinician Facility 06-14-2025 08:08-0400 Body height 152.[address] Karen Knowles DO Work Phone: [facility] 06-14-2025 08:08-0400 Body mass index (BMI) [Ratio] 33 kg/m2 Dr. Karen Knowles DO Work Phone: [facility] 06-14-2025 08:08-0400 Body weight 76.[address] Karen Knowles DO Work Phone: [facility] 04-17-2025 11:14-0400 Body mass index (BMI) [Ratio] 31.83 kg/m2 Mala Appthority DO Work Phone: [facility] 04-17-2025 11:14-0400 Body weight 73.94 kg Mala Appthority DO Work Phone: [facility] 04-17-2025 11:14-0400 Diastolic blood pressure 83 mm[Hg] Mala Appthority DO Work Phone: [facility] 04-17-2025 11:14-0400 Heart rate 67 /min Mala Falls DO Work Phone: [facility] 04-17-2025 11:14-0400 Systolic blood pressure 144 mm[Hg] Mala Falls DO Work Phone: [facility] 01-18-2025 11:56-0400 Body weight 75.75 kg Mala Falls DO Work Phone: [facility] 01-18-2025 11:56-0400 Diastolic blood pressure 73 mm[Hg] Mala Falls DO Work Phone: [facility] 01-18-2025 11:56-0400 Heart rate 67 /min Mala Falls DO Work Phone: [facility] 01-18-2025 11:56-0400 Systolic blood pressure 115 mm[Hg] Mala Falls DO Work Phone: [facility] 10-20-2024 13:50-0500 Body weight 74.16 kg Mala Falls DO Work Phone: [facility] 10-20-2024 13:50-0500 Diastolic blood pressure 69 mm[Hg] Mala Falls DO Work Phone: [facility] 10-20-2024 13:50-0500 Heart rate 74 /min Mala Falls DO Work Phone: [facility] 10-20-2024 13:50-0500 Systolic blood pressure 107 mm[Hg] Mala Falls DO Work Phone: [facility] 01-08-2022 17:08-0400 Body temperature 99 [degF] Dr. Karen Knowles Work Phone: [facility] Work Phone: 01-08-2022 17:08-0400 Diastolic blood pressure 92 mm[Hg] Dr. Karen Knowles Work Phone: [facility] Work Phone: 01-08-2022 17:08-0400 Heart rate 62 /min Dr. Karen Knowles Work Phone: [facility] Work Phone: 01-08-2022 17:08-0400 Respiratory rate 16 /min Dr. Karen Knowles Work Phone: [facility] Work Phone: 01-08-2022 17:08-0400 SaO2% (BldA) [Mass fraction] 99 % Dr. Karen Knowles Work Phone: [facility] Work Phone: 01-08-2022 17:08-0400 Systolic blood pressure 172 mm[Hg] Dr. Karen Knowles Work Phone: [facility] Work Phone: 01-08-2022 02:57-0400 Body height 152.[address] Karen Knowles Work Phone: [facility] Work Phone: 01-08-2022 02:57-0400 Body mass index (BMI) [Ratio] 37.4 kg/m2 Dr. Karen Knowles Work Phone: [facility] Work Phone: 01-08-2022 02:57-04[address] weight [address] Karen Knowles Work Phone: [facility] Work Phone: 01-08-2022 02:15-0400 Inhaled oxygen flow rate 2 L/min Dr. Karen Knowles Work Phone: [facility] Work Phone: Encounters Encounter Date Encounter Type Care Provider Facility Start: 06-14-2025 End: 06-14-[address] Alberto Lopez MD -[facility] Start: 06-14-2025 End: 06-14-[address] Karen Knowles DO Work Phone: -[facility] Start: 06-08-2025 End: 06-08-2025 ambulatory MARISOL GARAY PA-C Facility:[facility] Start: 06-08-2025 End: 06-08-2025 Patient encounter procedure MARISOL GARAY PA-C [facility] Start: 05-20-2025 ambulatory MALA GAYLA ANA [facility] Ambulatory Start: 04-30-2025 End: 04-30-2025 Documentation procedure Valente Miller LPN [facility] Start: 04-20-2025 End: 04-23-2025 Follow-up encounter Mala Choi DO Work Phone: [facility] Comment on above: Sedimentation Rate, CBC and Differential, Creatinine, serum, Additional followed-up results: 6 Start: 04-17-2025 End: 04-17-2025 Office outpatient visit 25 minutes Mala Leyva Ana PRATER Work Phone: [facility] Comment on above: Inflammatory arthrit is (Primary Dx); High risk medication use; Fibromyalgia affecting multiple sites Start: 04-17-2025 End: 04-17-2025 ambulatory DOTTIE BRITT [facility] Ambulatory Start: 02-20-2025 End: 02-20-2025 ambulatory DOTTIE BRITT [facility] Start: 01-20-2025 End: 03-22-2025 Follow-up encounter Malaamaya Chio DO Work Phone: [facility] Comment on above: CIARRA, Anti-Scleroderm a Antibody, Veronica 1 Antibody, IgG, Additional followed-up results: 3 Start: 01-18-2025 End: 01-18-2025 Office outpatient visit 25 minutes Malaamaya Bowmane Ana PRATER Work Phone: [facility] Comment on above: Rheumatoid arthritis , involving unspecified site, unspecified whether rheumatoid factor present (HCC) (Primary Dx); Rash; High risk medication use; Fibromyalgia affecting multiple sites Start: 01-18-2025 End: 01-18-2025 ambulatory DOTTIE BRITT [facility] Ambulatory Start: 01-03-2025 End: 01-07-2025 ambulatory DOTTIE BRITT Facility:[facility] Start: 10-24-2024 ambulatory DOTTIE BRITT [facility] Ambulatory Start: 10-20-2024 End: 10-20-2024 ambulatory MALA LEYVA [facility] Start: 10-20-2024 End: 10-20-2024 Office outpatient new 45 minutes Dottie Britt DO Work Phone: [facility] Comment on above: Rheumatoid arthritis , involving unspecified site, unspecified whether rheumatoid factor present (HCC) (Primary Dx); Polyarthralgia; Dry eye; Dry mouth; Bilateral hip pain; Erosive osteoarthritis; Fibromyalgia affecting multiple sites Start: 10-20-2024 End: 10-20-2024 ambulatory DOTTIE BRITT IV [facility] Ambulatory Start: 05-01-2024 End: 05-01-2024 ambulatory DOTTIE BRITT DO Facility:[facility] Start: 05-01-2024 End: 05-01-2024 Patient encounter procedure DOTTIE BRITT DO [facility] Start: 03-28-2024 End: 03-28-2024 ambulatory DOTTIE SEANURIEL PRATER Facility:[facility] Start: 07-05-2023 End: 07-05-2023 ambulatory GENA SALDANA DO Facility:[facility] Start: 06-03-2023 End: 06-03-2023 ambulatory GENA SALDANA DO Facility:[facility] Start: 06-03-2023 End: 06-03-2023 Patient encounter procedure GENA SALDANA DO [facility] Start: 01-20-2023 End: 01-24-2023 Outreach Lab KAREN KNOWLES DO [facility] Start: 01-11-2023 End: 01-11-[address] [facility] Work Phone: Start: 01-11-2023 End: 01-11-2023 Patient encounter procedure [facility] Start: 10-23-2022 End: 10-23-[address] [facility] Work Phone: Start: 10-23-2022 End: 10-23-2022 [facility] Start: 09-16-2022 End: 09-16-[address] [facility] Work Phone: Start: 09-16-2022 End: 09-16-2022 [facility] Start: 07-21-2022 End: 07-21-[address] [facility] Work Phone: Start: 07-21-2022 End: 07-21-2022 Patient encounter [facility] Start: 06-01-2022 End: 06-01-2022 Patient encounter [facility] Start: 05-15-2022 End: 05-15-2022 Patient encounter procedure [facility]-Ul[facility], [facility] Start: 04-28-2022 End: 04-28-[address] Karen Knowles Work Phone: [facility] Start: 02-24-2022 End: 02-24-2022 Patient encounter procedure JAIME CHEN ACQUISITION MARKETING COORDINATOR-WATERPROOFER HELPER [facility] Start: 01-08-2022 End: 01-08-2022 Evaluation and management of inpatient Dr. Karen Knowles Work Phone: [facility]-Progressive Care Unit Start: 01-08-2022 Non-patient / Non-visit Dr. Da Knowles Work Phone: [facility] Procedures Date Procedure Procedure Detail Performing Clinician Start: 01-18-2025 Antinuclear antibodies ciarra Mala Gayla Choi DO Work Phone: Start: 09-16-2022 Plain x-ray of pelvi s and lower extremity Start: 09-16-2022 X-ray of lumbosacral spine Start: 05-15-2022 Ultrasonography of abdomen Start: 01-07-2022 CT of head without contrast Dr. Karen Knowles Work Phone: Start: 01-07-2022 Plain chest X-ray Dr. Matthew Knowles Work Phone: Start: 03-16-2006 Timothy-en-Y - action (qualifier value) JAIME CHEN ACQUISITION MARKETING COORDINATOR-WATERPROOFER HELPER Start: 03-02-2002 section JAIMEMERLIN CHEN ACQUISITION MARKETING COORDINATOR-WATERPROOFER HELPER Cholecystectomy JAIMEMERLIN Landa ACQUISITION MARKETING COORDINATOR-WATERPROOFER HELPER Viral antigen assay Dr. Teo Knowles Work Phone: Plan of Treatment Date Care Activity Detail Author Start: 2031 Tetanus vaccination Tetanus: Every 1 0yrs [facility] Start: 02-16-2028 Screening for malign ant neoplasm of colon [facility] Start: 08-01-2025 End: 08-01-2025 Patient encounter procedure [facility] Start: 06-18-2025 Influenza vaccination Influenza Vacc ine (#1) [facility] Start: 06-14-2025 X-ray of cervical spine Cerv Spine 4 or [address] [facility] Start: 06-14-2025 XR Cervical spine 4 or [address] [facility] Start: 04-17-2025 End: 04-17-2025 Patient encounter procedure 04/17/2025 11:10 AM EDT Office Visit [facility] [address] [place] [phone] Mala Choi DO [address] [place] [phone] [facility] Start: 01-18-2025 End: 01-18-2025 Patient encounter procedure 01/18/2025 11:50 AM EDT Office Visit [facility] [address] [place] [phone] Mala Choi DO [address] [place] [phone] [facility] Start: 06-18-2024 COVID-19 Vaccine ( season) COVID-19 Vaccine () [facility] Start: 01-08-2022 Referral to service [facility] Work Phone: Start: 01-08-2022 Suicide precautions [facility] Work Phone: Start: 01-08-2022 Following clinical pathway protocol [facility] Work Phone: Start: 01-08-2022 Ambulation without limitation [facility] Work Phone: Start: 01-08-2022 Assessment of risk o f venous thromboembolism [facility] Work Phone: Start: 01-08-2022 Inhalation therapy procedure [facility] Work Phone: Start: 01-08-2022 Insertion of cathete r into peripheral vein [facility] Work Phone: Start: 01-08-2022 Measuring intake and output [facility] Work Phone: Start: 01-08-2022 Oxygen therapy [facility] Work Phone: Start: 01-08-2022 Providing care accor ding to standard [facility] Work Phone: Start: 01-08-2022 Referral to occupati onal therapist [facility] Work Phone: Start: 01-08-2022 End: 01-08-2022 Referral to service [facility] Work Phone: Start: 01-08-2022 [facility] Work Phone: Start: 01-08-2022 Admission procedure [facility] Work Phone: Start: 01-08-[address] [facility] Work Phone: Start: 01-08-2022 Patient discharge [facility] Work Phone: Start: 2020 Administration of he rpes zoster vaccine Zoster Vaccines (2 of 2) [facility] Start: 2020 Screening for malign ant neoplasm of colon Flexible sigmoidoscopy [facility] Start: 2010 Screening for malign ant neoplasm of breast Mammogram [facility] Start: 2000 Screening for malign ant neoplasm of cervix [facility] Start: 1991 Screening for malign ant neoplasm of cervix Pap Smear [facility] Start: 1989 Pneumococcal Vaccine : Age 50+ (1 of 2 - PCV) Pneumococcal Vaccine: Age 50+ (1 of 2 - PCV) [facility] Start: 1988 Hepatitis C screening Hepatitis C Sc reening [facility] Start: 1985 HIV screening HIV Screening [facility] Start: 1982 Depression screening using PHQ-9 (Patient Health Questionnaire 9) score Depression Screening/Follow-Up (PHQ-2/9) [facility] Start: 1973 History and physical examination, annual for health maintenance Wellness Visit [facility] Start: 1970 Screening for malign ant neoplasm of colon [facility] End: 10-20-2025 Antibody to SS-A measurement Sjogrens Antibodies (Ro52,Ro60,SSB) Lab Routine Polyarthralgia Dry eye Dry mouth 1 Occurrences starting 10/20/2024 until 10/20/2025 [facility] Work Phone: Comment on above: 1 Occurrences starti ng 10/20/2024 until 10/20/2025 End: 10-20-2025 C reactive protein [Mass/volume] in Serum or Plasma CRP, Inflammation Lab Routine Polyarthralgia 1 Occurrences starting 10/20/2024 until 10/20/2025 [facility] Comment on above: 1 Occurrences starti ng 10/20/2024 until 10/20/2025 End: 04-17-2026 C reactive protein [Mass/volume] in Serum or Plasma CRP, Inflammation Lab Routine High risk medication use Inflammatory arthritis 1 Occurrences starting 04/17/2025 until 04/17/2026 [facility] Comment on above: 1 Occurrences starti ng 04/17/2025 until 04/17/2026 End: 10-20-2025 Complete blood count with white cell differential, manual CBC and Differential Lab Routine Polyarthralgia 1 Occurrences starting 10/20/2024 until 10/20/2025 [facility] Comment on above: 1 Occurrences starti ng 10/20/2024 until 10/20/2025 End: 04-17-2026 Complete blood count with white cell differential, manual CBC and Differential Lab Routine High risk medication use Inflammatory arthritis 1 Occurrences starting 04/17/2025 until 04/17/2026 [facility] Work Phone: Comment on above: 1 Occurrences starti ng 04/17/2025 until 04/17/2026 End: 10-20-2025 Creatinine [Mass/volume] in Serum or Plasma Creatinine, serum Lab Routine Polyarthralgia 1 Occurrences starting 10/20/2024 until 10/20/2025 [facility] Comment on above: 1 Occurrences starti ng 10/20/2024 until 10/20/2025 End: 04-17-2026 Creatinine [Mass/volume] in Serum or Plasma Creatinine, serum Lab Routine High risk medication use Inflammatory arthritis 1 Occurrences starting 04/17/2025 until 04/17/2026 [facility] Comment on above: 1 Occurrences starti ng 04/17/2025 until 04/17/2026 End: 10-20-2025 Erythrocyte sedimentation rate Sedimentation Rate Lab Routine Polyarthralgia 1 Occurrences starting 10/20/2024 until 10/20/2025 [facility] Comment on above: 1 Occurrences starti ng 10/20/2024 until 10/20/2025 End: 04-17-2026 Erythrocyte sedimentation rate Sedimentation Rate Lab Routine High risk medication use Inflammatory arthritis 1 Occurrences starting 04/17/2025 until 04/17/2026 [facility] Comment on above: 1 Occurrences starti ng 04/17/2025 until 04/17/2026 End: 01-18-2026 Extractable nuclear antigen antibody screening test IDALMIS Screen (Ro52,Ro60,SSB,SM,TAXI CAB DRIVER,SC L-70,JO1) Lab Routine Rash 1 Occurrences starting 01/18/2025 until 01/18/2026 [facility] Work Phone: Comment on above: 1 Occurrences starti ng 01/18/2025 until 01/18/2026 End: 10-20-2025 Hepatic function 2000 panel - Serum or Plasma Hepatic Function Panel Lab Routine Polyarthralgia 1 Occurrences starting 10/20/2024 until 10/20/2025 [facility] Comment on above: 1 Occurrences starti ng 10/20/2024 until 10/20/2025 End: 04-17-2026 Hepatic function 2000 panel - Serum or Plasma Hepatic Function Panel Lab Routine High risk medication use Inflammatory arthritis 1 Occurrences starting 04/17/2025 until 04/17/2026 [facility] Comment on above: 1 Occurrences starti ng 04/17/2025 until 04/17/2026 End: 04-17-2026 Hepatitis B core antibody measurement Hepatitis B Core Antibody, Total Lab Routine High risk medication use Inflammatory arthritis 1 Occurrences starting 04/17/2025 until 04/17/2026 [facility] Comment on above: 1 Occurrences starti ng 04/17/2025 until 04/17/2026 End: 04-17-2026 Hepatitis B surface antibody measurement Hepatitis B Surface Antibody Lab Routine High risk medication use Inflammatory arthritis 1 Occurrences starting 04/17/2025 until 04/17/2026 [facility] Comment on above: 1 Occurrences starti ng 04/17/2025 until 04/17/2026 End: 04-17-2026 Hepatitis B surface antigen measurement Hepatitis B Surface Antigen Lab Routine High risk medication use Inflammatory arthritis 1 Occurrences starting 04/17/2025 until 04/17/2026 [facility] Comment on above: 1 Occurrences starti ng 04/17/2025 until 04/17/2026 End: 04-17-2026 Hepatitis C Ab with Reflex to HCV Virus Quantitation Hepatitis C Ab with Reflex to HCV Virus Quantitation Lab Routine High risk medication use Inflammatory arthritis 1 Occurrences starting 04/17/2025 until 04/17/2026 [facility] Comment on above: 1 Occurrences starti ng 04/17/2025 until 04/17/2026 End: 01-18-2026 MR Hand - left WO and W contrast IV MR Hand Left With And Without Contrast Imaging Routine Rheumatoid arthritis, involving unspecified site, unspecified whether rheumatoid factor present (HCC) 1 Occurrences starting 01/18/2025 until 01/18/2026 [facility] Comment on above: 1 Occurrences starti ng 01/18/2025 until 01/18/2026 End: 04-17-2026 MTB SCREEN MTB SCREEN Lab Routine High risk medication use Inflammatory arthritis 1 Occurrences starting 04/17/2025 until 04/17/2026 [facility] Comment on above: 1 Occurrences starti ng 04/17/2025 until 04/17/2026 MTB SCREEN MTB SCREEN Lab R outine High risk medication use Inflammatory arthritis 04/17/2025 11:58 AM EDT [facility] Patient referral [facility] Work Phone: End: 10-20-2025 XR Foot - left 3 Views XR Foot Left 3+ Views (Standard) Imaging Routine Polyarthralgia 1 Occurrences starting 10/20/2024 until 10/20/2025 [facility] Comment on above: 1 Occurrences starti ng 10/20/2024 until 10/20/2025 XR Foot - left 3 Views XR Foot L eft 3+ Views (Standard) Imaging Routine Polyarthralgia 10/20/2024 3:37 PM EST [facility] End: 10-20-2025 XR Foot - right 3 Views XR Foot Right 3+ Views (Standard) Imaging Routine Polyarthralgia 1 Occurrences starting 10/20/2024 until 10/20/2025 [facility] Comment on above: 1 Occurrences starti ng 10/20/2024 until 10/20/2025 XR Foot - right 3 Views XR Foot Right 3+ Views (Standard) Imaging Routine Polyarthralgia 10/20/2024 3:38 PM [facility] End: 10-20-2025 XR Hand - bilateral PA and Lateral and Ball Catcher XR Hands Bilateral Ball Catchers 2 Views Imaging Routine Polyarthralgia 1 Occurrences starting 10/20/2024 until 10/20/2025 [facility] Comment on above: 1 Occurrences starti ng 10/20/2024 until 10/20/2025 XR Hand - bilateral PA and Lateral and Ball Catcher XR Hands Bilateral Ball Catchers 2 Views Imaging Routine Polyarthralgia 10/20/2024 3:38 PM [facility] End: 10-20-2025 XR Hip - left 2 Views XR Hip Left 2-3 Views (Routine) Imaging Routine Polyarthralgia Bilateral hip pain 1 Occurrences starting 10/20/2024 until 10/20/2025 [facility] Comment on above: 1 Occurrences starti ng 10/20/2024 until 10/20/2025 XR Hip - left 2 Views XR Hip Lef t 2-3 Views (Routine) Imaging Routine Polyarthralgia Bilateral hip pain 10/20/2024 3:39 PM [facility] End: 10-20-2025 XR Hip - right 2 Views XR Hip Right 2-3 Views (Routine) Imaging Routine Polyarthralgia Bilateral hip pain 1 Occurrences starting 10/20/2024 until 10/20/2025 [facility] Comment on above: 1 Occurrences starti ng 10/20/2024 until 10/20/2025 XR Hip - right 2 Views XR Hip Ri ght 2-3 Views (Routine) Imaging Routine Polyarthralgia Bilateral hip pain 10/20/2024 3:39 PM EST [facility] Immunizations Immunization Date Immunization Notes Care Provider Fa seun 07-19-2024 influenza, injectabl e, quadrivalent, contains preservative; Translations: [Fluarix PF Prefilled Syringe ] MARISOL GARAY PA-C [facility] 07-19-2024 influenza virus vaccine, unspecified formulation Mala Ana DO Work Phone: [facility] 08-31-2023 influenza virus vaccine, unspecified formulation DOTTIE LORENZA DO [facility] 09-16-2022 influenza, injectabl e, quadrivalent, contains preservative; Translations: [Fluarix PF Quadrivalent ] KAREN KNOWLES DO [facility] 10-15-2021 COVID-19, mRNA, LNP- S, PF, 100 mcg or 50 mcg dose; Translations: [Moderna COVID-19 Vaccine] JAIME CHEN ACQUISITION MARKETING COORDINATOR-WATERPROOFER HELPER [facility] 08-28-2021 influenza virus vaccine, unspecified formulation JAIME CHEN ACQUISITION MARKETING COORDINATOR-WATERPROOFER HELPER [facility] 2021 tetanus toxoid, redu mia diphtheria toxoid, and acellular pertussis vaccine, adsorbed; Translations: [Boostrix (Tdap)] JAIME CHEN ACQUISITION MARKETING COORDINATOR-WATERPROOFER HELPER [facility] 01-23-2021 COVID-19, mRNA, LNP- S, PF, 100 mcg or 50 mcg dose; Translations: [Moderna COVID-19 Vaccine] JAIMEMERLIN BELLOERS ACQUISITION MARKETING COORDINATOR-WATERPROOFER HELPER [facility] 12-26-2020 COVID-19, mRNA, LNP- S, PF, 100 mcg or 50 mcg dose; Translations: [Moderna COVID-19 Vaccine] JAIMEMERLIN BELLOERS ACQUISITION MARKETING COORDINATOR-WATERPROOFER HELPER [facility] Comment on above: Result Comment: Danna Carvajal 08-21-2020 influenza virus vaccine, unspecified formulation JAIME CHEN ACQUISITION MARKETING COORDINATOR-WATERPROOFER HELPER [facility] 03-02-2020 zoster vaccine recombinant JAIME CHEN ACQUISITION MARKETING COORDINATOR-WATERPROOFER HELPER [facility] 01-01-2020 zoster vaccine recombinant JAIME CHEN ACQUISITION MARKETING COORDINATOR-WATERPROOFER HELPER [facility] 08-21-2019 influenza virus vaccine, unspecified formulation JAIME CHEN ACQUISITION MARKETING COORDINATOR-WATERPROOFER HELPER [facility] 08-16-2018 influenza virus vaccine, unspecified formulation JAIME CHEN ACQUISITION MARKETING COORDINATOR-WATERPROOFER HELPER [facility] 09-01-2017 influenza virus vaccine, unspecified formulation JAIME CHEN ACQUISITION MARKETING COORDINATOR-WATERPROOFER HELPER [facility] 08-25-2016 influenza virus vaccine, unspecified formulation JAIME CHEN ACQUISITION MARKETING COORDINATOR-WATERPROOFER HELPER [facility] Payers Date Payer Category Payer Self-pay [id number] 2023 Private Health Insurance [id number] 2016 Managed Care (unspecified) [facility] [employer] CHOICE PLUS [id number] 2012 Unknown [id number] 1970 Unknown [id number] 2. 1970 Unknown [id number] 2. 1970 Unknown [id number]. 2. 1970 Unknown [id number]. 2. 1970 Unknown [id number] 2 1970 Unknown [id number]. 2. 1970 Unknown [id number] [id number] 1970 Unknown [id number] [id number]. 2.903 1970 Unknown [id number] 2.16.840.1.984519.3.579. 2.903 1970 Unknown [id number] 2.16.840.1.805667.3.579. 2.903 1970 Unknown [id number] 2.16.840.1.686309.3.579. 2.903 1970 Unknown [id number] 2.16.840.1.842691.3.579. 2.903 1970 Unknown [id number] 2.16.840.1.484886.3.579. 2.903 1970 Unknown [id number] 2.16.840.1.909214.3.579. 2.90 1970 Unknown [id number] 2.16.840.1.142130.3.579. 2.903 1970 Unknown [id number] 2.16.840.1.219676.3.579. 2.903 1970 Unknown [id number] 2.16.840.1.380458.3.579. 2.903 1970 Unknown [id number] 2.16.840.1.027360.3.579. 2.903 Unknown [id number] 2.16.840.1.978861.3.579. 2.462 Unknown [id number] 2.16.840.1.487265.3.579. 2.462 Social History Date Type Detail Facility Start: 11-29-2019 End: 01-08-2022 Tobacco smoking status Ex-smoker (finding) [facility] Start: 1970 Sex Assigned At Female A [facility] Start: 01-08-2022 End: 01-08-2022 Tobacco smoking status NHIS Unknown if ever smoked [facility] Start: 02-27-[address] [facility] Start: 1970 Sex assigned at Not on file [facility] Gender identity Not on file [facility] Sexual Orientation [facility] Start: 04-12-2019 Sex Female (finding) [facility] Goals Date Patient Goal Desired Activity /State Functional Status Date Assessment Result Facility 01-08-[address] [facility] Work Phone: Mental Status Date Assessment Result Facility 01-08-2022 Cognitive function Voice/Name [facility] Work Phone: Clinical Notes 06-03-2023 to 06-08-2025 Note Date & Type Note Facility 06-08-2025 Note Exam Date Time Procedure Performing Provider Status 06/08/25 10:40 AM MRI Spine Cervical w / + w/o Contrast MING MOYER MD; Auth (Verified) [id number] ORIGINAL EXAMINATION: MRI OF THE CERVICAL SPINE WITHOUT AND WITH CONTRAST 06/08/2025 10:40 am: TECHNIQUE: Multiplanar multisequence MRI of the cervical spine was performed without and with the administration of intravenous contrast. COMPARISON: None. HISTORY: ORDERING SYSTEM PROVIDED HISTORY: Reason for Exam: cervical radiculopathy FINDINGS: BONES/ALIGNMENT: There is normal alignment of the spine. The vertebral body heights are maintained. The bone marrow signal appears unremarkable. SPINAL CORD: No abnormal cord signal is seen. SOFT TISSUES: No abnormal enhancement of the cervical spine. No paraspinal mass identified. Multilevel disc degenerative changes are present greatest at C4-C5 and C5-C6. No herniated disc or significant canal or foraminal narrowing. No area of abnormal contrast enhancement is seen. IMPRESSION: Disc degeneration greatest at C5-C6 and C4-C5. No herniated disc or nerve root impingement. No cord lesion. Interpreted by: Ming Moyer Preliminary Report By: Ming Moyer Electronically signed By Ming Moyer Dictated Date: 06/08/2025 10:59:34 AM Prelim Date: 06/08/2025 11:01:10 AM Sign Date: 06/08/2025 11:01:10 AM Ordering Provider: MARISOL GARAY [facility]07-24-2025 History of Present illness Narrative * Valente Miller LPN - 05/10/2025 9:09 AM EDT The pt.'s Enbrel denial has been approved. The PA is good from 04-09-25 to 05-09-2026. The pt and have both been made aware. * Valente Miller LPN - 05/01/2025 9:53 AM EDT Due to my error in missing the medications the pt has tried an appeal has been faxed in as well as the pt and Dr. Choi have been made aware. * Valente Miller LPN - 05/01/2025 8:39 AM EDT PA was denied due to multiple reasons - positive RF or CCP as well as no use of methotrexate or reason for not trying, and the diagnosis was denied. Dr. Choi has been made aware, awaiting her reply. * Valente Miller LPN - 04/30/2025 9:30 AM EDT Pt.'s Enbrel required a PA, the online form was completed/submitted through [facility] [employer] documented in this [id number] History of Present illness Narrative* Valente Miller LPN - 05/01/2025 9:53 AM EDT Due to my error in missing the medications the pt has tried an appeal has been faxed in as well as the pt and Dr. Choi have been made aware. * Valente Miller LPN - 05/01/2025 8:39 AM EDT PA was denied due to multiple reasons - positive RF or CCP as well as no use of methotrexate or reason for not trying, and the diagnosis was denied. Dr. Choi has been made aware, awaiting her reply. * Valente Miller LPN - 04/30/2025 9:30 AM EDT Pt.'s Enbrel required a PA, the online form was completed/submitted through [email or web address] documented in this [id number] History of Present illness Narrative* Valente Miller LPN - 05/01/2025 8:39 AM EDT PA was denied due to multiple reasons - positive RF or CCP as well as no use of methotrexate or reason for not trying, and the diagnosis was denied. Dr. Choi has been made aware, awaiting her reply. * Valente Miller LPN - 04/30/2025 9:30 AM EDT Pt.'s Enbrel required a PA, the online form was completed/submitted through [email or web address] documented in this [id number] History of Present illness Narrative* Valente Miller LPN - 04/30/2025 9:30 AM EDT Pt.'s Enbrel required a PA, the online form was completed/submitted through [facility] documented in this [id number] Telephone encounter Note* Telephone Encounter - Camila Kim LPN - 04/23/2025 9:58 AM EDT Called patient and told lab results. And not to start enbrel until infectious symptoms are gone. [id number] Miscellaneous Notes* Telephone Encounter - Camila Kim LPN - 04/23/2025 9:58 AM EDT Called patient and told lab results. And not to start enbrel until infectious symptoms are gone. * Telephone Encounter - Mala Choi DO - 04/20/2025 12:33 PM EDT Infectious screens reviewed. Plan to start Enbrel 50 mg weekly. Patient should not start this untilshe is over current infectious symptoms. I suspect that her inflammatory marker elevation is related to her recent infectious symptoms. documented in this [id number] Telephone encounter Note* Telephone Encounter - Mala Choi DO - 04/20/2025 12:33 PM EDT Infectious screens reviewed. Plan to start Enbrel 50 mg weekly. Patient should not start this untilshe is over current infectious symptoms. I suspect that her inflammatory marker elevation is related to her recent infectious symptoms. [id number] NoteRHEUMATOLOGY FOLLOW-UP VISIT Patient Name: Dalia Sherman : 1970 Medical Record: [id number] PCP: Dottie Britt IV, DO Referring provider: REASON FOR REFERRAL Prior diagnosis of rheumatoid arthritis ASSESSMENT AND PLAN Dalia Sherman is a 54 y.o. female who is being seen for evaluation of prior diagnosis of rheumatoid arthritis. History of rheumatoid arthritis/inflammatory arthritis Erosive OA Previously diagnosed with rheumatoid arthritis by Dr. Mata. More recently, following with the arthritis clinic of [facility]. Her prior x-ray imaging reports do show component of erosive OA, though there are irregular erosions noted at the left fourth and fifth PIP joints, so difficult to determine based on report if these are consistent with erosive OA versus other etiology. Because of persistent hand pain and inflammatory marker elevation, MRI of the left hand with and without contrast was obtained. There was mild to moderate marrow edema involving the fourth PIP joint. Collateral ligaments appeared thin and attenuated. Abnormal morphology involving the fourth distal IP joint was noted but had more of a gullwing deformity. Findings were suggestive of inflammatory arthropathy involving the fourth PIP joint. She does not have history of psoriasis. CCP negative. Situation discussed with patient. Discussed that she may have a mixed picture of both inflammatory joint pain and erosive OA. She has had benefit with the hydroxychloroquine, but did require IM corticosteroid injection through her PCP a few weeks ago. Prior biologic therapies have not provided benefit, but she cannot recall Enbrel or Humira previously. Plan: After infectious screens resolved and patient has recovered current infectious symptoms, will start Enbrel 50 mg weekly for 3-month trial to see if she has any benefit in symptoms. Continue hydroxychloroquine 200 mg twice daily High risk medication use Risk of tumor necrosis factor inhibitors (TNF-i) discussed with patient including risk of immunosuppression. Discussed risk of injection site reaction. Discussed that infectious screening needed (hepatitis B, C and tuberculosis). Discussed the TNF-i should be avoided in patients with heart failure with reduced ejection fraction and patient's with multiple sclerosis due to risk of worsening/exacerbation. Discussed potential increased risk of malignancy, particularly lymphoproliferative disorders and melanoma, with these medications, though the risk of these malignancy may also be increase by underlying disease itself. Medication should be held in the event of surgery, infection, use of antibiotics, or open wound. Handout on medication given. Patient to let us know of any side effects. Fibromyalgia Management per PCP/neurology. Return to clinic in 3 to 4 months. Please do not hesitate to contact me with any questions or concerns. Mala Choi DO [facility] [address] [place] [address] O: [phone] F: [phone] The above recommendations were discussed with the patient who understands and agrees with the plan. Portions of this note were created with [employer]. Every effort was made to proofread, but sound-alike errors may occasionally occur. Please contact me for any clarification of note contents. Portions of this note were copied forward. I have updated the note to reflect today's visit. My ongoing relationship with Dalia Sherman requires continued responsibility and cognitive effort of being the focal point for all services related to chronic condition(s). HPI/ROS Dalia Sherman is a 54 y.o. female with who was referred by for evaluation of history of rheumatoid arthritis. I reviewed the nursing intake form. Any corrections needed have been updated in the HPI. Interval history Here for follow-up today. She does note that the hydroxychloroquine has been beneficial for her. Her hands are causing her more problems and discomfort, so she received an IM Kenalog injection through her PCP on November 05. She has also been dealing with upper respiratory infection symptoms recently, but notes that she is improving. We reviewed MRI results. She cannot recall taking Humira for Enbrel previously Initial visit: Here today for evaluation. Diagnosed with rheumatoid arthritis by Dr. Mata around 2016. Reports that she had pain in her hands and feet at that time. Was on prednisone, though did not have a lot of benefit from it. Later tried several different medications including methotrexate, sulfasalazine, rinvoq, and Orencia. She does not note benefit from any of these medications. She then followed up with rheumatology group in [facility]. She initially saw Dr. Gena Saldnaa and was given a Kenalog injection which provided benefit in her symptoms as well hydroxychloroquine. Reviewed visit notes and x-rays which show question of a comp (more content not included)...[facility] 04-17-2025 History of Present illness Narrative* Mala Choi DO - 04/17/2025 11:28 AM EDT Images from the original note were not included. RHEUMATOLOGY FOLLOW-UP VISIT Patient Name: Dalia Sherman : 1970 Medical Record: [id number] PCP: Dottie Britt IV, DO Referring provider: REASON FOR REFERRAL Prior diagnosis of rheumatoid arthritis ASSESSMENT AND PLAN Dalia Sherman is a 54 y.o. female who is being seen for evaluation of prior diagnosis of rheumatoid arthritis. History of rheumatoid arthritis/inflammatory arthritis Erosive OA Previously diagnosed with rheumatoid arthritis by Dr. Mata. More recently, following with the arthritis clinic of [facility]. Her prior x-ray imaging reports do show component of erosive OA, though there are irregular erosions noted at the left fourth and fifth PIP joints, so difficult to determine based on report if these are consistent with erosive OA versus other etiology. Because of persistent hand pain and inflammatory marker elevation, MRI of the left hand with and without contrast was obtained. There was mild to moderate marrow edema involving the fourth PIP joint.Collateral ligaments appeared thin and attenuated. Abnormal morphology involving the fourth distal IP joint was noted but had more of a gullwing deformity. Findings were suggestive of inflammatory arthropathy involving the fourth PIP joint. She does not have history of psoriasis. CCP negative. Situation discussed with patient. Discussed that she may have a mixed picture of both inflammatory joint pain and erosive OA. She has had benefit with the hydroxychloroquine, but did require IM corticosteroid injection through her PCP a few weeks ago. Prior biologic therapies have not provided benefit, but she cannot recall Enbrel or Humira previously. Plan: After infectious screens resolved and patient has recovered current infectious symptoms, will startEnbrel 50 mg weekly for 3-month trial to see if she has any benefit in symptoms. Continue hydroxychloroquine 200 mg twice daily High risk medication use Risk of tumor necrosis factor inhibitors (TNF-i) discussed with patient including risk of immunosuppression. Discussed risk of injection site reaction. Discussed that infectious screening needed (hepatitis B, C and tuberculosis). Discussed the TNF-i should be avoided in patients with heart failure with reduced ejection fraction and patient's with multiple sclerosis due to risk of worsening/exacerbation. Discussed potential increased risk of malignancy, particularly lymphoproliferative disordersand melanoma, with these medications, though the risk of these malignancy may also be increase by underlying disease itself. Medication should be held in the event of surgery, infection, use of antibiotics, or open wound. Handout on medication given. Patient to let us know of any side effects. Fibromyalgia Management per PCP/neurology. Return to clinic in 3 to 4 months. Please do not hesitate to contact me with any questions or concerns. Mala Choi DO [facility] [address] [place] [address] O: [phone] F: [phone] The above recommendations were discussed with the patient who understands and agrees with the plan. Portions of this note were created with [employer]. Every effort was made to proofread, but sound-alike errors may occasionally occur. Please contact me for any clarification of note contents. Portions of this note were copied forward. I have updated the note to reflect today's visit. My ongoing relationship with Dalia Sherman requires continued responsibility and cognitive effortof being the focal point for all services related to chronic condition(s). HPI/ROS Dalia Sherman is a 54 y.o. female with who was referred by for evaluation of history of rheumatoid arthritis. I reviewed the nursing intake form. Any corrections needed have been updated in the HPI. Interval history Here for follow-up today. She does note that the hydroxychloroquine has been beneficial for her. Her hands are causing her more problems and discomfort, so she received an IM Kenalog injection through her PCP on November 05. She has also been dealing with upper respiratory infection symptoms recently, but notes that she is improving. We reviewed MRI results. She cannot recall taking Humira for Enbrel previously Initial visit: Here today for evaluation. Diagnosed with rheumatoid arthritis by Dr. Mata around 2016. Reportsthat she had pain in her hands and feet at that time. Was on prednisone, though did not have a lot of benefit from it. Later tried several different medications including methotrexate, sulfasalazine,rinvoq, and Orencia. She does not note benefit from any of these medications. She then followed up w [facility] rheumatology group in [facility]. She initially saw Dr. Gena Saldana and was given a Kenalog injection which provided benefit in her symptoms as well hydroxychloroquine. Reviewed visit notes and x-rays which show question of a component of erosive OA versus rheumatoid arthritis component. RF/CCP were negative. She then saw Dr. Spence who raised the question of psoriatic arthritis. Of note,patient does not have any clear psoriasis history. There is discussion of possible methotrexate, however, patient did not wish to do this, so here today for additional rheumatology evaluation. She has been receiving intermittent Kenalog injections through her PCP. Notes that the Kenalog injections made her feel better than she ever has previously. Also feels she is having some benefit from the hydroxychloroquine. Most recently, her major issue is hip pain. She does note a history of fibromyalgia. She is seeing her neurologist who recently started her on nortriptyline. Serologies/pertinent imaging and pathology RF/CCP negative. PHYSICAL EXAM Vitals: 04/17/25 1114 BP: (!) 144/83 BP Location: Right arm Patient Position: Sitting Pulse: 67 Weight: 73.9 kg (163 lb) Constitutional: ?No acute distress. Normal appearance. Not?ill-appearing. HENT: Head normocephalic?and atraumatic. Wearing mask. Eyes: No discharge.??? Pulmonary: Pulmonary effort is normal. No?respiratory distress. Skin: Warm?and dry. Neurological: Alert. Psychiatric: ???Mood, affect, thought content normal. Musculoskeletal: She has enlargement of her fourth PIPs bilaterally with soft tissue swelling notedon surrounding. * Camila Kim LPN - 04/17/2025 11:15 AM EDT RHEUMATOLOGY FOLLOW-UP VISIT INTAKE: Have you had any new illnesses, infections, or hospitalizations? ? [x]Yes []No If yes, please specify: been sick for 3 weeks . Are you having any side effects from your rheumatology medications? ? []Yes ? [x]No ? []N/A If yes, please specify: Are you having morning stiffness? ? [x]Yes []No How many minutes does it last? hours , not as bad since 04/05 Are you having any joint swelling? ? [x]Yes []No If yes, what joints? hands tingling and cramping, 03/26/25 better Global Assessment: Considering all of the ways that your disease affects you, how are you doing (0 = best ; 10 = worst)? 7.0 No show/cancellation policy provided to patient: []Yes []Patient declined [x]Patient previously received and declined additional copy documented in this [id number] NoteRHEUMATOLOGY FOLLOW-UP VISIT Patient Name: Dalia Sherman : 1970 Medical Record: [id number] PCP: Dottie Britt IV, DO Referring provider: REASON FOR REFERRAL Prior diagnosis of rheumatoid arthritis ASSESSMENT AND PLAN Dalia Sherman is a 54 y.o. female who is being seen for evaluation of prior diagnosis of rheumatoid arthritis. History of rheumatoid arthritis Erosive OA Previously diagnosed with rheumatoid arthritis by Dr. Mata. More recently, following with the arthritis clinic of [facility]. Her prior x-ray imaging reports do show component of erosive OA, though there are irregular erosions noted at the left fourth and fifth PIP joints, so difficult to determine based on report if these are consistent with erosive OA versus other etiology. CCP negative. Repeat hand x-rays at [facility] without any appreciated central osseous erosions noted severe OA noted in interphalangeal joints. Patient continues with significant hand pain with inflammatory marker elevation noted on labs. Discussed options. She is agreeable to an MRI of her left hand to evaluate for evidence of synovitis. Plan: MRI of the left hand with and without contrast. Continue hydroxychloroquine 200 mg twice daily Rash Does not appear CTD related on exam but will send CIARRA and IDALMIS panel. Will send referral to dermatology High risk medication use We will request most recent Plaquenil eye exam. Fibromyalgia Notes that she was started on nortriptyline per neurology and has had some improvement in symptoms but has also had weight gain. She will discuss this medication further with them. Return to clinic in 3 months Please do not hesitate to contact me with any questions or concerns. Mala Choi DO [facility] [address] [place] [address] O: [phone] F: [phone] The above recommendations were discussed with the patient who understands and agrees with the plan. Portions of this note were created with [employer]. Every effort was made to proofread, but sound-alike errors may occasionally occur. Please contact me for any clarification of note contents. Portions of this note were copied forward. I have updated the note to reflect today's visit. My ongoing relationship with Dalia Sherman requires continued responsibility and cognitive effort of being the focal point for all services related to chronic condition(s). HPI/ROS Dalia Sherman is a 54 y.o. female with who was referred by for evaluation of history of rheumatoid arthritis. I reviewed the nursing intake form. Any corrections needed have been updated in the HPI. Interval history Here today for follow-up. Hands continue to give her issues. Developed a rash on her jawline. Has not yet seen dermatology. Started on nortriptyline per neurology and had some improvement in symptoms however, has gained some weight. Initial visit: Here today for evaluation. Diagnosed with rheumatoid arthritis by Dr. Mata around 2017. Reports that she had pain in her hands and feet at that time. Was on prednisone, though did not have a lot of benefit from it. Later tried several different medications including methotrexate, sulfasalazine, rinvoq, and Orencia. She does not note benefit from any of these medications. She then followed up with rheumatology group in [facility]. She initially saw Dr. Gena Saldana and was given a Kenalog injection which provided benefit in her symptoms as well hydroxychloroquine. Reviewed visit notes and x-rays which show question of a component of erosive OA versus rheumatoid arthritis component. RF/CCP were negative. She then saw Dr. Spence who raised the question of psoriatic arthritis. Of note, patient does not have any clear psoriasis history. There is discussion of possible methotrexate, however, patient did not wish to do this, so here today for additional rheumatology evaluation. She has been receiving intermittent Kenalog injections through her PCP. Notes that the Kenalog injections made her feel better than she ever has previously. Also feels she is having some benefit from the hydroxychloroquine. Most recently, her major issue is hip pain. She does note a history of fibromyalgia. She is seeing her neurologist who recently started her on nortriptyline. Serologies/pertinent imaging and pathology RF/CCP negative. PHYSICAL EXAM Vitals: 01/18/25 1156 BP: 115/73 BP Location: Left arm Patient Position: Sitting Pulse: 67 Weight: 75.8 kg (167 lb) Constitutional: ?No acute distress. Normal appearance. Not?ill-appearing. HENT: Head normocephalic?and atraumatic. Eyes: No discharge.??? Pulmonary: Pulmonary effort is normal. No?respiratory distress. Skin: Warm?and dry. Faint erythema noted on the jawline, particular in the right. Neurological: Alert. Psychiatric: ???Mood, affect, thought content normal. Musculoskeletal: She has bony hy (more content not included)...[facility] [id number] History of Present illness Narrative* Mala Choi, - 01/18/2025 12:15 PM EDT Images from the original note were not included. RHEUMATOLOGY FOLLOW-UP VISIT Patient Name: Dalia Sherman : 1970 Medical Record: [id number] PCP: Dottie Britt IV, Referring provider: REASON FOR REFERRAL Prior diagnosis of rheumatoid arthritis ASSESSMENT AND PLAN Dalia Sherman is a 54 y.o. female who is being seen for evaluation of prior diagnosis of rheumatoid arthritis. History of rheumatoid arthritis Erosive OA Previously diagnosed with rheumatoid arthritis by Dr. Mata. More recently, following with the arthritis clinic of [facility]. Her prior x-ray imaging reports do show component of erosive OA, though there are irregular erosions noted at the left fourth and fifth PIP joints, so difficult to determine based on report if these are consistent with erosive OA versus other etiology. CCP negative. Repeat hand x-rays at [facility] without any appreciated central osseous erosions noted severe OA noted in interphalangeal joints. Patient continues with significant hand pain with inflammatory marker elevation noted on labs. Discussed options. She is agreeable to an MRI of her left hand to evaluate for evidence of synovitis. Plan: MRI of the left hand with and without contrast. Continue hydroxychloroquine 200 mg twice daily Rash Does not appear CTD related on exam but will send CIARRA and IDALMIS panel. Will send referral to dermatology High risk medication use We will request most recent Plaquenil eye exam. Fibromyalgia Notes that she was started on nortriptyline per neurology and has had some improvement in symptoms but has also had weight gain. She will discuss this medication further with them. Return to clinic in 3 months Please do not hesitate to contact me with any questions or concerns. Mala Choi DO [facility] [address] [place] [address] O: [phone] F: [phone] The above recommendations were discussed with the patient who understands and agrees with the plan. Portions of this note were created with [employer]. Every effort was made to proofread, but sound-alike errors may occasionally occur. Please contact me for any clarification of note contents. Portions of this note were copied forward. I have updated the note to reflect today's visit. My ongoing relationship with Dalia Sherman requires continued responsibility and cognitive effortof being the focal point for all services related to chronic condition(s). HPI/ROS Dalia Sherman is a 54 y.o. female with who was referred by for evaluation of history of rheumatoid arthritis. I reviewed the nursing intake form. Any corrections needed have been updated in the HPI. Interval history Here today for follow-up. Hands continue to give her issues. Developed a rash on her jawline. Has not yet seen dermatology. Started on nortriptyline per neurology and had some improvement in symptomshowever, has gained some weight. Initial visit: Here today for evaluation. Diagnosed with rheumatoid arthritis by Dr. Mata around 2017. Reportsthat she had pain in her hands and feet at that time. Was on prednisone, though did not have a lot of benefit from it. Later tried several different medications including methotrexate, sulfasalazine,rinvoq, and Orencia. She does not note benefit from any of these medications. She then followed up w [facility] rheumatology group in [facility]. She initially saw Dr. Gena Saldana and was given a Kenalog injection which provided benefit in her symptoms as well hydroxychloroquine. Reviewed visit notes and x-rays which show question of a component of erosive OA versus rheumatoid arthritis component. RF/CCP were negative. She then saw Dr. Spence who raised the question of psoriatic arthritis. Of note,patient does not have any clear psoriasis history. There is discussion of possible methotrexate, however, patient did not wish to do this, so here today for additional rheumatology evaluation. She has been receiving intermittent Kenalog injections through her PCP. Notes that the Kenalog injections made her feel better than she ever has previously. Also feels she is having some benefit from the hydroxychloroquine. Most recently, her major issue is hip pain. She does note a history of fibromyalgia. She is seeing her neurologist who recently started her on nortriptyline. Serologies/pertinent imaging and pathology RF/CCP negative. PHYSICAL EXAM Vitals: 01/18/25 1156 BP: 115/73 BP Location: Left arm Patient Position: Sitting Pulse: 67 Weight: 75.8 kg (167 lb) Constitutional: ?No acute distress. Normal appearance. Not?ill-appearing. HENT: Head normocephalic?and atraumatic. Eyes: No discharge.??? Pulmonary: Pulmonary effort is normal. No?respiratory distress. Skin: Warm?and dry. Faint erythema noted on the jawline, particular in the right. Neurological: Alert. Psychiatric: ???Mood, affect, thought content normal. Musculoskeletal: She has bony hypertrophy noted over PIPs and DIPs bilaterally. In her fourth digits of the hands bilaterally, she has fullness over the PIP joints and tenderness noted. PAST MEDICAL HISTORY No past medical history on file. * Camila Kim LPN - 01/18/2025 11:57 AM EDT RHEUMATOLOGY FOLLOW-UP VISIT INTAKE: Have you had any new illnesses, infections, or hospitalizations? ? []Yes [x]No If yes, please specify: Are you having any side effects from your rheumatology medications? ? []Yes ? []No ? []N/A If yes, please specify: Possibly rash on face Are you having morning stiffness? ? [x]Yes []No How many minutes does it last? 60 to 90 minutes it just depends Are you having any joint swelling? ? [x]Yes []No If yes, what joints? hands Global Assessment: Considering all of the ways that your disease affects you, how are you doing (0 = best ; 10 = worst)? 5.0 No show/cancellation policy provided to patient: []Yes []Patient declined [x]Patient previously received and declined additional copy documented in this [id number] NoteRHEUMATOLOGY NEW PATIENT VISIT Patient Name: Dalia Sherman : 1970 Medical Record: [id number] PCP: Dottie Britt IV, DO Referring provider: Dottie Velez REASON FOR REFERRAL Prior diagnosis of rheumatoid arthritis ASSESSMENT AND PLAN Dalia Sherman is a 54 y.o. female who is being seen for evaluation of prior diagnosis of rheumatoid arthritis. History of rheumatoid arthritis Erosive OA Previously diagnosed with rheumatoid arthritis by Dr. Mata. More recently, following with the arthritis clinic of [facility]. Her x-ray imagings do show component of erosive OA, though there are irregular erosions noted at the left fourth and fifth PIP joints, so difficult to determine based on report if these are consistent with erosive OA versus other etiology. CCP negative. On exam today, her hands do appear more consistent with erosive OA. Patient has done well with intermittent Kenalog injections and hydroxychloroquine. I discussed with patient intermittent Kenalog is not an ideal long-term treatment plan due to the potential side effects of steroids. If we feel the pain is secondary to an underlying RA process, she will need up titration her RA regimen. I did discuss with her that I suspect that some of her pain may also be secondary to degenerative arthritis in the hips as well as possible fibromyalgia. She has noted some benefit with hydroxychloroquine. Discussed that we should assess current situation with x-rays of bilateral hands and feet for further characterization of the erosive findings. Given hip pain, will also get x-rays of bilateral hips for evaluation of degenerative disease. Will also check Sjogren's antibodies and baseline CBC, creatinine, and LFTs. Will continue hydroxychloroquine 200 mg twice daily as there has been some anecdotal evidence that this can be beneficial in the setting of erosive OA High risk medication use We will request most recent Plaquenil eye exam. Fibromyalgia I suspect that this may also be a component to patient's underlying clinical picture. I did discuss with her that steroids are not the ideal treatment for this condition. She is working with neurology and was recently started on nortriptyline which may provide her some benefit. Did discuss graded exercise and she is going to consider referral to aquatic therapy. Will defer medication management of fibromyalgia to PCP and neurologist. Return to clinic in 3 months Please do not hesitate to contact me with any questions or concerns. Mala Choi DO [facility] [address] [place] [address] O: [phone] F: [phone] The above recommendations were discussed with the patient who understands and agrees with the plan. Portions of this note were created with [employer]. Every effort was made to proofread, but sound-alike errors may occasionally occur. Please contact me for any clarification of note contents. My ongoing relationship with Dalia Sherman requires continued responsibility and cognitive effort of being the focal point for all services related to chronic condition(s). HPI/ROS Dalia Sherman is a 54 y.o. female with who was referred by Dottie Velez for evaluation of history of rheumatoid arthritis. I reviewed the nursing intake form. Any corrections needed have been updated in the HPI. Initial visit: Here today for evaluation. Diagnosed with rheumatoid arthritis by Dr. Mata around 2017. Reports that she had pain in her hands and feet at that time. Was on prednisone, though did not have a lot of benefit from it. Later tried several different medications including methotrexate, sulfasalazine, rinvoq, and Orencia. She does not note benefit from any of these medications. She then followed up with rheumatology group in [facility]. She initially saw Dr. Gena Saldana and was given a Kenalog injection which provided benefit in her symptoms as well hydroxychloroquine. Reviewed visit notes and x-rays which show question of a component of erosive OA versus rheumatoid arthritis component. RF/CCP were negative. She then saw Dr. Spence who raised the question of psoriatic arthritis. Of note, patient does not have any clear psoriasis history. There is discussion of possible methotrexate, however, patient did not wish to do this, so here today for additional rheumatology evaluation. She has been receiving intermittent Kenalog injections through her PCP. Notes that the Kenalog injections made her feel better than she ever has previously. Also feels she is having some benefit from the hydroxychloroquine. Most recently, her major issue is hip pain. She does note a history of fibromyalgia. She is seeing her neurologist who recently started her on nortriptyline. Serologies/pertinent imaging and pathology RF/CCP negative. PHYSICAL EXAM Vitals: 10/20/24 1350 BP: 107/69 BP Location: Left (more content not included)...[facility]01-03-2025 History of Present illness Narrative* Mala Choi DO - 10/20/2024 2:27 PM EST Images from the original note were not included. RHEUMATOLOGY NEW PATIENT VISIT Patient Name: Dalia Sherman : 1970 Medical Record: [id number] PCP: Dottie Britt IV, DO Referring provider: Dottie Velez REASON FOR REFERRAL Prior diagnosis of rheumatoid arthritis ASSESSMENT AND PLAN Dalia Sherman is a 54 y.o. female who is being seen for evaluation of prior diagnosis of rheumatoid arthritis. History of rheumatoid arthritis Erosive OA Previously diagnosed with rheumatoid arthritis by Dr. Mata. More recently, following with the arthritis clinic of [facility]. Her x-ray imagings do show component of erosive OA, though there are irregular erosions noted at the left fourth and fifth PIP joints, so difficult to determine based on report if these are consistent with erosive OA versus other etiology. CCP negative. On exam today, her hands do appear more consistent with erosive OA. Patient has done well with intermittent Kenalog injections and hydroxychloroquine. I discussed with patient intermittent Kenalog is not an ideal long-term treatment plan due to the potential side effects of steroids. If we feel the pain is secondary to an underlying RA process, shewill need up titration her RA regimen. I did discuss with her that I suspect that some of her pain may also be secondary to degenerative arthritis in the hips as well as possible fibromyalgia. She has noted some benefit with hydroxychloroquine. Discussed that we should assess current situation with x-rays of bilateral hands and feet for further characterization of the erosive findings. Given hip pain, will also get x-rays of bilateral hips for evaluation of degenerative disease. Will also check Sjogren's antibodies and baseline CBC, creatinine, and LFTs. Will continue hydroxychloroquine 200 mg twice daily as there has been some anecdotal evidence that this can be beneficial in the setting of erosive OA High risk medication use We will request most recent Plaquenil eye exam. Fibromyalgia I suspect that this may also be a component to patient's underlying clinical picture. I did discusswith her that steroids are not the ideal treatment for this condition. She is working with neurology and was recently started on nortriptyline which may provide her some benefit. Did discuss graded exercise and she is going to consider referral to aquatic therapy. Will defer medication management of fibromyalgia to PCP and neurologist. Return to clinic in 3 months Please do not hesitate to contact me with any questions or concerns. Mala Choi, DO [facility] [address] [place] [address] O: [phone] F: [phone] The above recommendations were discussed with the patient who understands and agrees with the plan. Portions of this note were created with [employer]. Every effort was made to proofread, but sound-alike errors may occasionally occur. Please contact me for any clarification of note contents. My ongoing relationship with Dalia Sherman requires continued responsibility and cognitive effortof being the focal point for all services related to chronic condition(s). HPI/ROS Dalia Sherman is a 54 y.o. female with who was referred by Dottie Velez for evaluation of history of rheumatoid arthritis. I reviewed the nursing intake form. Any corrections needed have been updated in the HPI. Initial visit: Here today for evaluation. Diagnosed with rheumatoid arthritis by Dr. Mata around 2016. Reportsthat she had pain in her hands and feet at that time. Was on prednisone, though did not have a lot of benefit from it. Later tried several different medications including methotrexate, sulfasalazine,rinvoq, and Orencia. She does not note benefit from any of these medications. She then followed up w [facility]ology group in [facility]. She initially saw Dr. Gena Saldana and was given a Kenalog injection which provided benefit in her symptoms as well hydroxychloroquine. Reviewed visit notes and x-rays which show question of a component of erosive OA versus rheumatoid arthritis component. RF/CCP were negative. She then saw Dr. Spence who raised the question of psoriatic arthritis. Of note,patient does not have any clear psoriasis history. There is discussion of possible methotrexate, however, patient did not wish to do this, so here today for additional rheumatology evaluation. She has been receiving intermittent Kenalog injections through her PCP. Notes that the Kenalog injections made her feel better than she ever has previously. Also feels she is having some benefit from the hydroxychloroquine. Most recently, her major issue is hip pain. She does note a history of fibromyalgia. She is seeing her neurologist who recently started her on nortriptyline. Serologies/pertinent imaging and pathology RF/CCP negative. PHYSICAL EXAM Vitals: 10/20/24 1350 BP: 107/69 BP Location: Left arm Patient Position: Sitting Pulse: 74 Weight: 74.2 kg (163 lb 8 oz) Constitutional: ?No acute distress. Normal appearance. Not?ill-appearing. HENT: Head normocephalic?and atraumatic. Eyes: No discharge.??? Pulmonary: Pulmonary effort is normal. No?respiratory distress. Skin: Warm?and dry. No rash over exposed surfaces. Neurological: Alert. Psychiatric: ???Mood, affect, thought content normal. Musculoskeletal: She has bony hypertrophy noted over PIPs and DIPs bilaterally. In her fourth digits of the hands bilaterally, she has some tenderness and swelling over the PIP and DIP joints. She isslight tenderness over bilateral trochanteric bursa's as well as trapezius muscles bilaterally. PAST MEDICAL HISTORY No past medical history on file. * Camila Kim LPN - 10/20/2024 2:09 PM EST RHEUMATOLOGY NEW PATIENT INTAKE: Have you ever been diagnosed with the following? [] Psoriasis [] Crohn s disease [] Ulcerative Colitis [] Inflammatory eye disease (uveitis, scleritis, episcleritis, iritis) Have you or do you experience any of the following? [] Color changes in your fingers in the cold (Raynaud s) [] Increased thickening of your skin [] Recurrent rash (other than sunburn) when you go into the sun [x] A single finger or toe swelling like a sausage [] Fluid around your heart [] Fluid around your lungs [] Miscarriage (if applicable) [] Blood clots REVIEW OF SYSTEMS Constitutional:?? []Fever [x]Fatigue []Unexpected weight loss Eyes:?? []Change in visual acuity [x]Dry eyes []Redness HENT:? []Oral/nasal ulcers [x]Dry mouth []Difficulty swallowing Cardiovascular:?? []Chest pain [x]Palpitations []Edema Respiratory:?? []Cough [x]Shortness of breath GI:?? [x]Abdominal pain [x]Diarrhea [x]Constipation []Bloody stools : []Dysuria []Hematuria Musculoskeletal: [x]Joint pain [x]Joint swelling Integument:?? []Rash [x]Hair loss Neurologic:?? [x]Headache []Dizziness Psychiatric:?? [x]Depression [x]Anxiety Endocrine:?? []Polydipsia [x]Polyuria Lymphatic:?? []Swollen glands Allergic/Immunologic: [x]Seasonal allergies []Frequent infections FAMILY HISTORY Does anyone in your family have a rheumatologic condition (rheumatoid arthritis, psoriatic arthritis, lupus, Sjogren s for example) or skin psoriasis? []Yes [x]No If yes, please list family member and condition: SOCIAL HISTORY Occupation: Do you smoke cigarettes or cigars? []Yes []No [x]Previously Please list how long you have smoked and how much per day if applicable: Have not smoked in 34 yrs Do you drink alcohol? [x]Yes []No Please list how much per week if applicable: 2 to 3 drinks Do you use marijuana, cocaine, heroin, or any other substances? []Yes [x]No Please list if applicable No show/cancellation policy provided to patient [x]Yes []Patient declined documented in this [id number] Note. MICRO - Microbiology PROCEDURE: Urine Culture [*1] SOURCE: Urine BODY SITE: COLLECTED DATE/TIME: 06/03/2023 12:25 EDT RECEIVED DATE/TIME: 06/03/2023 19:20 EDT START DATE/TIME: 06/03/2023 19:21 EDT FREE TEXT SOURCE: FINAL REPORTS Final Report [] Verified Date/Time/Personnel: 06/05/2023 07:44 EDT 10,000 - 50,000 cfu/ml Mixed growth consistent with normal urogenital lauren. PRELIMINARY REPORTS Preliminary Report [] Verified Date/Time/Personnel: 06/04/2023 09:56 EDT No growth to date Performing Locations *1: This test was performed at: [facility], [address] [place] [address], [id number] , [facility] ([place])06-03-2023 Evaluation + Plan note Diagnostic Tests Pending * Urine Culture 06/03/23 * Rheumatoid Factor 06/03/23 * Cyclic Citrullinated Peptide 06/03/23 * Antinuclear Antibody Screen, Serum 06/03/23 [facility] Evaluation + Plan note Future Appointments Appointment Date:03/10/2022 07:30:00 AM Scheduled Provider:JAIME CHEN Location:[facility] Appointment Type:PC OV Future Scheduled Tests Laboratory* Thyroid Stimulating Hormone 06/11/21 * Lipid Profile 06/11/21 * Complete Metabolic Panel 06/11/21 Radiology* CT Head or Brain w/o Contrast 02/24/22 [facility] Evaluation + Plan note Future Appointments Appointment Date:02/01/2023 11:00:00 AM Scheduled Provider: Location:[facility] Appointment Type:CV Procedure - AOH Echo Appointment Date:02/19/2023 10:00:00 AM Scheduled Provider: Location:[facility] Appointment Type:PC Nurse Injection Appointment Date:03/31/2023 11:30:00 AM Scheduled Provider:KAREN KNOWLES DO Location:[facility] Appointment Type:PC OV Future Scheduled Tests Radiology* CT Head or Brain w/o Contrast 02/24/22 [facility] Evaluation + Plan note Future Appointments Appointment Date:05/10/2024 10:30:00 AM Scheduled Provider:DOTTIE BRITT DO Location:[facility] Appointment Type:PC OV Future Scheduled Tests Laboratory* Thyroid Stimulating Hormone 12/02/23 * Vitamin B12 Level 12/02/23 * Complete Blood Count 12/02/23 * Lipid Profile 12/02/23 * Hepatitis C Antibody IgG 12/02/23 * Vitamin D Level 12/02/23 * Complete Metabolic Panel 12/02/23 [facility] Evaluation + Plan note Future Appointments Appointment Date:07/03/2025 10:30:00 AM Scheduled Provider:DOTTIE BRITT DO Location:[facility] Appointment Type:PC OV Future Scheduled Tests Laboratory* Vitamin B1 (Thiamine), Blood 01/03/25 * Vitamin B1 (Thiamine), Blood 07/19/24 * Ferritin 01/03/25 * Ferritin 07/19/24 * Folate Level 01/03/25 * Folate Level 07/19/24 * Thyroid Stimulating Hormone 01/03/25 * Free T4 01/03/25 * Vitamin B12 Level 01/03/25 * Vitamin B12 Level 07/19/24 * A1C Hemoglobin 01/03/25 * A1C Hemoglobin 07/19/24 * Complete Blood Count 01/03/25 * Complete Blood Count 07/19/24 * Lipid Profile 01/03/25 * Lipid Profile 07/19/24 * Albumin/Creatinine Ratio, Random Urine 01/03/25 * Albumin/Creatinine Ratio, Random Urine 07/19/24 * Vitamin D Level 01/03/25 * Vitamin D Level 07/19/24 * Complete Metabolic Panel 01/03/25 * Complete Metabolic Panel 07/19/24 * [facility] Send out (Blood Specimens) 01/03/25 * [facility] Send out (Blood Specimens) 07/19/24 Radiology* MA Mammo Screening Bilateral w/ Uli 04/17/25 [facility] evaluation note* Diagnosis Onset Date Resolution Status Encephalopathy acute resolve d [facility] Work Phone: evaluation noteNo assessment information available [facility] Work Phone: [email or web address] note* Diagnosis Rheumatoid arthritis, involving unspecified site, unspecified whether rheumatoid factor present (HCC)- Primary Polyarthralgia Pain in joint, multiple sites Dry eye Dry mouth Disturbance of salivary secretion Bilateral hip pain Pain in joint, pelvic region and thigh Erosive osteoarthritis Fibromyalgia affecting multiple sites [facility] Rheumatoid arthritis, involving unspecified site, unspecified whether rheumatoid factor present (HCC)- Primary Rash Rash and other nonspecific skin eruption High risk medication use Fibromyalgia affecting multiple sites [facility]* Diagnosis Inflammatory arthritis- Primary Unspecified inflammatory polyarthropathy High risk medication use Fibromyalgia affecting multiple sites [facility]* Diagnosis Inflammatory arthritis- Primary Unspecified inflammatory polyarthropathy [facility] Narrative No data available for this section [facility] Hospital Discharge instructions No data available for this section [facility] Hospital Discharge instructionsAmbulatory Orders* Pain Management Location: None Selected [facility] Work Phone: Progress note No data available for this section [facility] Reason for referral (narrative)No reason for referral information [facility] Work Phone: Reason for visit Narrative* Evaluate and Treat (Routine) - Closed Specialty Diagnoses / Procedures Referred By Contac t Referred To Contact Rheumatology Diagnoses Rheumatoid arthritis, involving unspecified site, unspecified whether rheumatoid factor present (HCC) Dottie Velez MD [place], Mala Leyva DO [address] [place] [address] Phone: tel: fax: Referral ID Status Reason Start Date Expiration Date Visits Re quested Visits Authorized [id number] Closed 06/06/2024 06/06/2025 1 1 [facility] Chief Complaint and Reason for Visit Chief Complaint substance abuse SUICIDIAL OVERDOSE PAIN- COPY PCP Reason for Visit Encephalopathy acute Chief Complaint PAIN- COPY PCP ELEVATED LIVER ENZYMES Chief Complaint PAIN- COPY PCP ELEVATED LIVER ENZYMES PAIN- COPY PCP Chief Complaint PAIN- COPY PCP Chief Complaint Admit Date CERVICAL SPINE June 14, 2025 8: 02am Room 3 June 14, 2025 8: 22am Advance Directives No Advanced Directives Records Found Advance Directive Response Recorded Date/ Time Advance Directives No June 3:25pm Living Will No January 08, 2022 2:57am Power of Overhead Foreman No January 08 2:57am Advance Directive Response Recorded Date/ Time Advance Directives No June 2:25pm Living Will No January 08, 2022 1:57am Power of Overhead Foreman No January 08 1:57am Advance Directive Response Recorded Date/ Time Advance Directives No June 3:25pm Summary Purpose Family History No Family History Records Found Additional Source Comments Care Team (unrecognized sect ion and content) Team Status: Active Member Role Status Dates Dr. Lance Deng DO Family Provider Active Dr. Karen Knowles DO Primary Care Provider Active Team Status: Inactive Member Role Status Dates Dr. Karen Knowles DO Primary Care Provider Active Dr. Aida Mata MD Attending Provider, Referring Provider Active Team Status: Inactive Member Role Status Dates Dr. Karen Knowles DO Primary Care Pro vider, Attending Provider, Referring Provider Active Assembly Manager Relationship Specialty Start Date End Date Dottie Britt IV, DO [address] [place] [address] PCP - General Family Medicine 10/20/24 Assembly Manager Relationship Specialty Start Date End Date Dottie Britt IV, DO [address] [place] [address] PCP - General Family Medicine 10/20/24 Assembly Manager Relationship Specialty Start Date End Date Dottie Britt IV, DO [address] [place] [address] PCP - General Family Medicine 10/20/24 Assembly Manager Relationship Specialty Start Date End Date Dottie Britt IV, DO [address] [place] [address] PCP - General Family Medicine 10/20/24 Assembly Manager Relationship Specialty Start Date End Date Dottie Britt IV, DO [address] [place] [address] PCP - General Family Medicine 10/20/24 Assembly Manager Relationship Specialty Start Date End Date Dottie Britt IV, DO [address] [place] [address] PCP - General Family Medicine 10/20/24 Assembly Manager Relationship Specialty Start Date End Date Dottie Britt IV, DO [address] [place] [address] PCP - General Family Medicine 10/20/24 Assembly Manager Relationship Specialty Start Date End Date SeanDottie evangelista Maulik PETERS, DO [address] [place] [address] PCP - General Family Medicine 10/20/24 Team Status: Active Member Role/Relationship Status Dates Dr. Lance Deng , DO Family Provider Active Dr. Karen Knowles DO Primary Care Provider Active Team Status: Active Member Role/Relationship Status Dates Dr. Karen Knowles DO Primary Care Provider Active Start: June 14, 2025 Dr. Karen Knowles DO Referring Provider Active Start: June 14, 2025 PAOLA Bird Attending Provider Active Star t: June 14, 2025 Team Status: Inactive Member Role/Relationship Status Dates Dr. Karen Knowles DO Primary Care Provider Active Start: June 14, 2025 End: June 14, 2025 Dr. Alberto Lopez MD Attending Provider Active S tart: June 14, 2025 End: June 14, 2025 Team Status: Inactive Member Role/Relationship Status Dates Dr. Karen Knowles DO Primary Care Provider Active Start: June 14, 2025 End: June 14, 2025 Dr. Karen Knowles DO Referring Provider Active Start: June 14, 2025 End: June 14, 2025 PAOLA Bird Attending Provider Active Star t: June 14, 2025 End: June 14, 2025 Goals (unrecognized section and content) Goals may be documented in a n alternate section INFORMATION SOURCE (unrecogn ized section and content) DATE CREATED AUTHOR 05/06/2024 [facility] ([place]) DATE CREATED AUTHOR AUTHOR'S ORGANIZ ATION 02/26/2025 [facility] DATE CREATED AUTHOR AUTHOR'S ORGANIZ ATION 04/20/2025 [facility] DATE CREATED AUTHOR AUTHOR'S ORGANIZ ATION 05/21/2025 [facility] DATE CREATED AUTHOR AUTHOR'S ORGANIZ ATION 06/10/2025 [facility] DATE CREATED AUTHOR AUTHOR'S ORGANIZ ATION 06/14/2025 [facility] FOR RECORDS PERTAINING TO PATIENTS WHO ARE OR HAVE BEEN ENROLLED IN A CHEMICAL DEPENDENCY/SUBSTANCEABUSE PROGRAM, SOME INFORMATION MAY BE OMITTED. This clinical summary was aggregated from multiple sources. Caution should be exercised in using it in the provision of clinical care. This summary normalizes information from multiple sources, and as a consequence, information in this document may materially change the coding, format and clinical context of patient data. In addition, data may be omitted in some cases. CLINICAL DECISIONS SHOULD BE BASED ON THE PRIMARY CLINICAL RECORDS. [facility] [employer] [facility] provides no warranty or guarantee of the accuracy or completeness of information in this document.
[2025-06-23 16:33] VITALS: BP 191/90; PULSE 63; RESP 16; O2SAT 100
[2025-06-23] MEDS: DiphenhydrAMINE 50 MG/ML Syringe 25 MG IV (16:37)
[2025-06-23] MEDS: Famotidine 200 MG/20 ML MDV 20 MG in 0.9% Normal Saline (Pres. free 8 ML 300 MG IV (17:01)
[2025-06-23 17:04] VITALS: BP 171/89; PULSE 70; RESP 18; O2SAT 100
[2025-06-23 18:00] VITALS: BP 221/98; PULSE 73; RESP 18; O2SAT 99
[2025-06-23 18:51] VITALS: BP 195/87; PULSE 78; RESP 18; TEMP 36.6; O2SAT 98
== END 2025-06-23 18:59 | disposition home or self-care (01) ==
PROVIDERS: Emergency Provider Emergency Medicine; PCP Student in an Organized Health Care Education/Training Program; Visit Provider Emergency Medicine
DX: T78.40XA Allergy, unspecified, initial encounter (principal); X58.XXXA Exposure to other specified factors, initial encounter; R60.0 Localized edema; Z87.891 Personal history of nicotine dependence
CPT/HCPCS: 96374; 96375; 99284; A4216